=== PATIENT | male | born 1970 | race Caucasian/White ===

== ENCOUNTER 2017-12-08 01:06 | Emergency (ER) | payer MEDICAID, SELFPAY ==
[2017-12-08 01:10] VITALS: BP 157/98; PULSE 92; RESP 16; TEMP 36.4; O2SAT 94; BMI 28.3
--- NOTE | 2017-12-08 01:22 | ED.VISSUMM ---
- ER Visit Summary Date of Service: 12/08/17 Chief Complaint: Alcohol intoxication History of Present Illness: The patient is a 47 M history of alcoholism. Denies any significant past medical history. Patient states he was in [place] he recently took a bus to [place]. States he is homeless. Says he had about 8 beers tonight. And was lying either on the road or on the sidewalk and sleep. He was brought in by squad. He denies any complaints. He denies any injuries. He is not currently under arrest. Physical Examination: Middle-aged male no acute distress. Vital signs are stable and afebrile. H EENT exam pupils round reactive light. No signs of trauma to his face or his head. Smell of alcohol. Neck nontender. Trachea midline. Lungs clear to auscultation bilaterally. Heart regular rhythm no murmur rate about 90. Chest wall nontender. Abdomen soft nontender. Pelvic girdle intact. He is moving all 4 extremities. They appear to be neurovascularly intact. Nontender no deformities. Neurologically he appears intoxicated but is awake alert is answering questions he is acting appropriately. He is neither belligerent nor violent. Back nontender. Patient has no visible injuries. Test Results: None Emergency Department Course and Treatment: Patient will be given a sandwich allowed to sleep here and discharged. Treatment Plan: Discharged to a homeless [facility]. Disposition: Discharge Impression: Acute alcohol intoxication History of alcoholism This note was generated with Leotus dictation software. It may contain incorrect words, spelling, and punctuation that were not noted in review of the chart prior to signing ED Disposition - Plan for ED Patient: Chief Complaint: ETOH Intox Referrals: Care Physician,No Primary [Primary Care Provider] -
--- NOTE | 2017-12-08 01:25 | ED.DCSUM_ITS ---
- ER Visit Summary Date of Service: 12/08/17 Chief Complaint: Alcohol intoxication History of Present Illness: The patient is a 47 M history of alcoholism. Denies any significant past medical history. Patient states he was in [place] he recently took a bus to [place]. States he is homeless. Says he had about 8 beers tonight. And was lying either on the road or on the sidewalk and sleep. He was brought in by squad. He denies any complaints. He denies any injuries. He is not currently under arrest. Physical Examination: Middle-aged male no acute distress. Vital signs are stable and afebrile. H EENT exam pupils round reactive light. No signs of trauma to his face or his head. Smell of alcohol. Neck nontender. Trachea midline. Lungs clear to auscultation bilaterally. Heart regular rhythm no murmur rate about 90. Chest wall nontender. Abdomen soft nontender. Pelvic girdle intact. He is moving all 4 extremities. They appear to be neurovascularly intact. Nontender no deformities. Neurologically he appears intoxicated but is awake alert is answering questions he is acting appropriately. He is neither belligerent nor violent. Back nontender. Patient has no visible injuries. Test Results: None Emergency Department Course and Treatment: Patient will be given a sandwich allowed to sleep here and discharged. Treatment Plan: Discharged to a homeless [facility]. Disposition: Discharge Impression: Acute alcohol intoxication History of alcoholism This note was generated with [employer] dictation software. It may contain incorrect words, spelling, and punctuation that were not noted in review of the chart prior to signing ED Disposition - Plan for ED Patient: Chief Complaint: ETOH Intox Referrals: Care Physician,No Primary [Primary Care Provider] -
--- NOTE | 2017-12-08 01:25 | ED.DEP ---
ED Disposition - Plan for ED Patient: Disposition: Home or Assisted Living Chief Complaint: ETOH Intox Referrals: Trupti Rogers [NON-STAFF] - Additional Instructions: Consider follow-up with either [facility] or [facility] for alcohol detox
== END 2017-12-08 01:43 | disposition home or self-care (01) ==
PROVIDERS: Emergency Provider Emergency Medicine
DX: F10.129 Alcohol abuse with intoxication, unspecified (principal); Y90.9 Presence of alcohol in blood, level not specified; F17.210 Nicotine dependence, cigarettes, uncomplicated
CPT/HCPCS: 99284

== ENCOUNTER 2017-12-20 15:31 | Inpatient (IN) | payer MEDICAID, SELFPAY ==
[2017-12-20] VITALS (12 sets, daily range): BP systolic 129–181; BP diastolic 78–109; PULSE 118–132; RESP 12–50; TEMP 37.6–37.7; O2SAT 93–100; BMI 26.6; BMI 27.9
[2017-12-20] MEDS: chlordiazePOXIDE 25 MG Capsule 50 MG PO ×2 (16:19→18:06)
[2017-12-20] MEDS: Ondansetron 4 MG/2 ML Vial IV (16:19)
[2017-12-20] MEDS: 0.9% Normal Saline 1,000 ML 1000 ML IV ×2 (16:19→18:06)
[2017-12-20] MEDS: Morphine 4 MG/ML Syringe IV (16:19)
[2017-12-20 16:43] LABS: Hematocrit 39.3 % (40-54); Hemoglobin 13.3 g/dl (13.0-16.5); Mean Corp Hgb Conc 33.8 g/gl (32-36); Mean Corpuscular Hgb 30.4 pg (27.0-32.0); Mean Corpuscular Volume 89.7 fL (80-94); Mean Platelet Vol. 10.6 fl (6.2-12.0); Platelet Count 140 K/mm3 (150-450); RBC Distribution Width CV 13.3 % (11.6-14.6); Red Blood Count 4.38 M/mm3 (4.6-6.2); White Blood Count 6.2 K/mm3 (4.4-11.0)
[2017-12-20 16:54] LABS: ALB/GLOB Ratio 0.6 RATIO (0.9-2.4); AST(SGOT) 85 U/L (15-37); Alanine Aminotransfer ALT/SGPT 102 U/L (16-61); Albumin, Serum 2.9 g/dL (3.2-5.0); Alkaline Phosphatase 132 U/L (45-117); Anion Gap 12 (5-15); BUN 10 mg/dL (7-18); BUN/Creat Ratio 8.5 RATIO (10-20); Calcium,Total 8.5 mg/dL (8.5-10.1); Chloride 93 mmol/L (98-107); Creatinine, Serum 1.17 mg/dL (0.70-1.30); EST Glomerular Filtration Rate 71 mL/min (>60); Est Glom Filt Rate - Afr Amer 85 mL/min (>60); Estimated Creatinine Clearance 77.21 ml/min; Glucose 128 mg/dL (74-106); Lipase 50 U/L (73-393); Potassium 3.1 mmol/L (3.5-5.1); Protein, Total 7.9 g/dL (6.4-8.2); Sodium Level 132 mmol/L (136-145)
[2017-12-20 17:11] LABS: Differential Indicated MANUAL DIFF; POSITIVE COUNT YES; POSITIVE DIFFERENTIAL YES; POSITIVE MORPHOLOGY YES
[2017-12-20] MEDS: LORazepam 2 MG/ML Syringe IV (17:17)
[2017-12-20] MEDS: Ketorolac 30 MG/ML Syringe IV (17:17)
[2017-12-20 17:38] LABS: Basophil 1 % (0-1); Lymphocyte 2 % (19-41); Metamyelocyte 32 % (0-1); Monocyte 1 % (0-10); Myelocyte 5 (0-0); Neutrophil-Band 15 % (0-5); Neutrophil-Segmented 44 % (47-70); Total Cells Counted 100 (MANUAL DIFF)
[2017-12-20 17:39] LABS: Polychromasia RARE
[2017-12-20 17:40] LABS: Platelet Morphology LARGE; Toxic Granulation 1+
[2017-12-20] MEDS: LORazepam 2 MG/ML Syringe 1 MG IV (18:26)
[2017-12-20 19:21] LABS: Lactic Acid 3.9 mmol/L (0.4-2.0)
--- NOTE | 2017-12-20 19:22 | ED.RN ---
lab called with critical lab results. Lactic acid 3.9. Dr. Kang made aware. no new orders at this time
[2017-12-20] MEDS: Lidocaine Jelly 2% 20 ML Syringe (URO-JET) 20 APPLIC TOPICAL (19:30)
[2017-12-20] MEDS: 0.9% Normal Saline 1,000 ML 999 ML IV (19:30)
[2017-12-20 19:46] LABS: Bacteria 0 SEEN /hpf (None Seen); Mucous, Urine 0 SEEN /hpf (<or=2+); Red Blood Cells-Urine 0 SEEN /hpf (0-5); Squamous Epithelial Cells - UA 0 SEEN /hpf (0-5)
[2017-12-20 19:47] LABS: Color, Urine Amber (Yellow); Glucose, Dipstick 50 mg/dl (Normal); Ketone-Dipstick 5 mg/dl (Negative); Leukocyte Esterase-Dipstick 25 /ul (Negative); Nitrite-Dipstick Negative (Negative); Occult Blood-Urine 25 /ul (Negative); Protein-Dipstick 100 mg/dl (Negative); Urine Clarity Clear (Clear); Urine Urobilinogen 4 mg/dl (Normal); Urine pH 6.5 (5.0 - 8.0)
[2017-12-20 19:48] LABS: Urine Bilirubin Dipstick 1 mg/dL (Negative)
[2017-12-20 20:20] LABS: Amphetamine Urine VISTA POSITIVE (<1000 ng/mL); Barbiturate Urine VISTA NEGATIVE (< 200 ng/mL); Benzodiazepine Urine VISTA NEGATIVE (< 200 ng/mL); Cocaine Urine VISTA NEGATIVE (< 300 ng/mL); Ecstacy Urine VISTA NEGATIVE (< 500 ng/mL); Methadone Urine VISTA NEGATIVE (< 300 ng/mL); PCP Urine VISTA NEGATIVE (< 25 ng/mL); THC Urine VISTA POSITIVE (< 50 ng/mL); Vista UDS pH Range 6
[2017-12-20 20:28] LABS: White Blood Cells 0-5 SEEN /hpf (0-5)
[2017-12-20 20:29] LABS: Renal Epithelial Cells 0-5 SEEN /hpf (0-5)
[2017-12-20] MEDS: Azithromycin 250 MG Tablet 500 MG PO (20:51)
[2017-12-20] MEDS: Ipratropium/Albuterol Sulfate 3 ML AMPUL.NEB INHALATION (21:00)
--- NOTE | 2017-12-20 21:07 | ED.RN ---
NO OLD EKGS IN MUSE
--- NOTE | 2017-12-20 21:21 | NURSING ---
Talked to Aubrey in ED. Pt. ok to come to ICU when ED is able to bring pt.
[2017-12-20 21:36] LABS: Allen Test POS; Base Excess 1 mmol/L (-2 to +2); Bicarbonate 25.5 mmol/L (22-26); Blood Gas Specimen Type ART; O2 Delivery Device Nasal Can; PO2 66 mmHG (75-100); SITE L Radial; SO2 93 % (95-99); Time Given 2120; Total Carbon Dioxide 27 mmol/L; pCO2 42.1 mmHg (35-45); pH 7.39 (7.35-7.45)
[2017-12-20 21:50] LABS: CPK Total, Creatine Kinase 110 U/L (39-308)
[2017-12-20 21:54] LABS: Probe Check PASS
[2017-12-20 21:55] LABS: M R Staph aureus DNA By PCR POSITIVE (Negative)
[2017-12-20] MEDS: Albuterol 2.5 MG/3 ML VIAL.NEB. INHALATION (21:55)
--- NOTE | 2017-12-20 22:23 | PCM.HP.STD ---
Problem List (1) Acute hypoxic respiratory failure Status: Acute (2) Polysubstance (including opioids) dependence, daily use Status: Acute (3) Methamphetamine abuse Status: Acute (4) Severe sepsis Status: Acute (5) Bilateral community acquired pneumonia Status: Acute History of Present Illness Date of Admission: 12/20/17 Chief Complaint: Complain of back pain and left leg numbness and pain for 2 days The patient is a 47 year old M with history of chronic alcohol use and substance use and dependence, homeless was brought in by EMS for complaint of back pain, left leg numbness and pain for last 2 days. Patient woke up 2 days ago with this complaint is not able to walk. Patient drinks heavily about 48 ounces beer daily, Initial ED vitals shows tachycardia 118/min, pulse ox 93% on room air respiratory 18, temperature 99.6 When I saw the patient, patient was very short of breath, respiratory rate 44/min, pulse ox 94% 3 L, heart rate 130s per minute. Patient is very obtunded and sleepy and cannot provide history but vaguely said he does not have chronic pulmonary, cardiac or significant past medical history but patient is homeless and does not have caregiver/elective. ED vitals shows bandemia, 15%, 32% metamyelocyte 5% myelocyte with toxic granules present and mild thrombocytopenia, platelet count 140,000. Lactic acid 3.9, ALT AST mildly elevated, K3.1, bicarb 27, anion gap 12. Chest x-ray shows patchy airspace opacity bilaterally. CT abdomen was done without IV contrast and shows patchy airspace opacities scattered in both lung bases which are read as nonspecific with infectious/neoplastic differential. No pleural effusion. There are mild disc herniations at T12-L1 and L1-L2, disc bulge at L3-L4 with narrowing the spinal canal. Past Medical History Allergies No Known Allergies Allergy (Verified 12/20/17 15:35) Home Medications: Ambulatory Orders Medication Instructions Recorded NK [NK] 12/08/17 Smoking Status: Current every day smoker Review of Systems Unable to obtain accurate/complete ROS d/t: Patient is obtunded, disoriented and sleepy VTE Information - Inpt Only VTE Present on Admission: No VTE Mechan Device Prophylaxis: SCD's VTE Pharm Prophylaxis ordered?: Yes Patient Problems: Active and Suspected Problems Acute hypoxic respiratory failure (Acute) Polysubstance (including opioids) dependence, daily use (Acute) Methamphetamine abuse (Acute) Severe sepsis (Acute) Bilateral community acquired pneumonia (Acute) - Physical Exam General: Confused, Disoriented, Lethargic, Non-Cooperative HEENT: Atraumatic, PERRLA, EOMI, Normocephalic Oral: Dry Mucosa Neck: Supple, No JVD, Negative Carotid Bruits Lungs: Diminished - In bilateral lung bases, Rhonchi, Short of Breath, Tachypneic, Using Accessory Muscles Cardiovascular: Regular Rhythm, Normal S1, Normal S2, No murmurs, Tachycardic Abdomen: Bowel Sounds Present, Soft, Non Tender Extremities: No edema, Capillary Refill Less than 3 Seconds Skin: No rashes, No breakdown Musculoskeletal: No Tenderness to Palpation of Joints or Extremities Neurological: Cranial nerves II-XII grossly intact, - - Detail neuro exam not possible as patient is obtunded Psych/Mental Status: Agitated, Restless Vital Signs Temp Pulse Resp BP Pulse Ox 99.6 F H 122 H 43 H 181/109 H 96 12/20/17 15:32 12/20/17 20:51 12/20/17 20:51 12/20/17 20:51 12/20/17 20:51 Oxygen Flow Rate (L/min) 3 Oxygen Delivery Method Nasal Cannula Laboratory Tests Past 24 Hrs 12/20/17 20:50 HIV 1&2 Antibody Pending Assessment/Plan All Active Problems Acute hypoxic respiratory failure (Acute) Polysubstance (including opioids) dependence, daily use (Acute) Methamphetamine abuse (Acute) Severe sepsis (Acute) Bilateral community acquired pneumonia (Acute) The patient is a 47 year old M with history of chronic alcohol use and substance use and dependence, homeless was brought in by EMS for complaint of back pain, left leg numbness and pain for last 2 days. Patient woke up 2 days ago with this complaint is not able to walk. Patient drinks heavily about 48 ounces beer daily, Initial ED vitals shows tachycardia 118/min, pulse ox 93% on room air respiratory 18, temperature 99.6 When I saw the patient, patient was very short of breath, respiratory rate 44/min, pulse ox 94% 3 L, heart rate 130s per minute. Patient is very obtunded and sleepy and cannot provide history but vaguely said he does not have chronic pulmonary, cardiac or significant past medical history but patient is homeless and does not have caregiver/elective. ED vitals shows bandemia, 15%, 32% metamyelocyte 5% myelocyte with toxic granules present and mild thrombocytopenia, platelet count 140,000. Lactic acid 3.9, ALT AST mildly elevated, K3.1, bicarb 27, anion gap 12. Chest x-ray shows patchy airspace opacity bilaterally. CT abdomen was done without IV contrast and shows patchy airspace opacities scattered in both lung bases which are read as nonspecific with infectious/neoplastic differential. No pleural effusion. There are mild disc herniations at T12-L1 and L1-L2, disc bulge at L3-L4 with narrowing the spinal canal. 1. Acute hypoxic respiratory failure, most probably secondary to multifocal/multilobar nodular/infectious pneumonitis/septic right upper and lower lobes emboli: Patient is being admitted in ICU. CT angiogram reported as diffuse patchy airspace opacities, likely diffuse infectious process. Septic emboli cannot be excluded. Distal pulmonary emboli cannot be excluded especially in right upper and lower lobes. No pleural effusion. Started on Lovenox 1 mg/kg body weight. Monitor CBC. Lower extremity venous Doppler ordered. 2. Bilateral lower lobes community-acquired pneumonia: With history of drug use and alcohol there is suspicion of possible HIV or other infectious process. ER physician discussed with Dr. Holloway and advised HIV test. Started on IV Zosyn and Zithromax to cover broad-spectrum antibiotics. MRSA nasal screen, blood culture ?2, sputum culture, urine culture. Further recommendation as per scrum master. 3. Acute encephalopathy most probably secondary to substance use/drug use suggestive of toxic/metabolic encephalopathy: CT head does not show acute abnormality 4 Chronic alcohol use and dependence: GGT ordered. Alcohol level is normal. Liver profile shows elevated transaminases. Multivitamin, folic acid and B12 supplement. IV fluid normal saline. Check folic acid, B12 level and thiamine level 5. Polysubstance use and dependence including methamphetamine and opioids: [facility] consult. system manager consult patient is homeless and other social needs. 6. Back pain, sciatic in nature with left leg numbness, secondary to mild lumbar disc degenerative disease/mechanical in nature: PT and OT assessment. DVT prophylaxis: Therapeutic Lovenox dose. Watch CBC. Code Visit Inpatient E&M: 38424 Init Hosp L3
[2017-12-20 22:33] LABS: Reflex Lactate? Y
[2017-12-20 22:50] LABS: HIV - WCH Non-Reactive (Nonreactive)
[2017-12-20] MEDS: 0.9% Normal Saline 1,000 ML 150 ML IV (23:17)
[2017-12-20] MEDS: guaiFENesin 1,200 MG Tablet 1200 MG PO (23:18)
[2017-12-20] MEDS: Enoxaparin 80 MG/0.8 ML Syringe SC (23:39)
[2017-12-21] VITALS (36 sets, daily range): BP systolic 91–165; BP diastolic 65–108; PULSE 119–137; RESP 12–46; TEMP 37.2–37.8; O2SAT 90–100
--- NOTE | 2017-12-21 00:05 | ED.VISSUMM ---
- ER Visit Summary Date of Service: 12/21/17 Chief Complaint: Back pain History of Present Illness: The patient is a 47 M with no primary care physician. Patient reports that he is homeless and has been sleeping on the concrete. He reports that he has low back pain that began yesterday. Restarted back of his leg to the mid calf. Patient states pain is sharp and 10 out of 10 severity. Is worsened by nothing. Is relieved by remaining still and laying on his right side. Reports he has tingling in his left foot on and off. He denies any problems with his bowels or his bladder. No groin numbness. He denies any trauma. No fall, MVA, or change in activity. Patient reports that he does drink daily and he estimates 48 ounces of beer per day. His last drink was at 9 PM yesterday. Review of systems: General: No fever, chills, cold sweats. Cardiovascular: No chest pain, palpitations. Respiratory: No cough, shortness of breath, dyspnea on exertion. Gastrointestinal: No abdominal pain, nausea, vomiting, diarrhea, melena, or hematochezia. Genitourinary: No dysuria, frequency, hematuria. Skin: No rash. Physical Examination: Vitals: 99.6, 158/78, 118, 24, 94% room air which is not hypoxic. General: Well-nourished and well-developed. Patient is diaphoretic and ill-appearing. He is agitated in bed and writhing about. Head: Normocephalic atraumatic. Neck: Supple, no lymphadenopathy. No JVD. Nontender. Cardiovascular: Tachycardic regular rhythm. No murmurs. Respiratory: No respiratory distress. Clear to auscultation bilaterally. Poor air movement. Abdominal: Soft, nontender, nondistended, normal bowel sounds. No guarding, rebound, or peritoneal signs. Back: Moderate diffuse pain and tenderness palpation over the lumbar spine and paraspinous muscular and lumbar region bilaterally. He has a negative straight leg raise bilaterally. His 5 out of 5 dorsiflexion, plantar flexion, extensor hallucis longus bilaterally. He has normal sensation light touch throughout. Is a 2+ dorsalis pedis pulse bilaterally.. Extremities: Nontender, no edema. Skin: Normal color, no rash. Neurologic: Alert and oriented ?3. Cranial nerves II through XII are intact. Normal strength and sensation. Psych: Normal affect. Test Results: EKG is sinus tach [address] changes. Troponin 0 0.091. CPK is normal. UA is negative. LFTs marked for an ALT of 102, AST of 85, alk phos 152. Lipase is normal. Chem-7 is more for sodium 132, potassium 3.1, chloride 93, glucose 128. CBC is marked for an 8 hematocrit of 39.3, platelets 140, bands of 32, metamyelocytes of 32, myelocytes of 5. He does have toxic granulations of 1+. Alcohol is negative. Lactic acid is 3.9. PH is 7.39 with a CO2 of 42.1 and bicarbonate 25.5. Clinical Impression(s) from Imaging Studies Chest X-Ray 12/20/17 18:00 IMPRESSION: Patchy airspace opacities bilaterally which is likely infectious in etiology. Electronically Signed: Khadar Reardon, at 19:16 EDT Tel , Service support , Abdomen/Pelvis CT 12/20/17 18:10 IMPRESSION: There are degenerative changes in the visualized spine. There are disc herniations at T12-L1 and L1-2 with narrowing of the spinal canal. There is disc bulge and possible herniation at L3-4. There is diffuse fatty infiltration of the liver. There is mild splenomegaly. There is no ascites. There are no acute bowel abnormalities. There is no free air. There are small lymph nodes in the retroperitoneum. There is stranding around the distal aorta and iliac vessels. There is also stranding in the prevascular space. This can be seen with retroperitoneal fibrosis but is nonspecific. There are patchy airspace opacities scattered in both lung bases which are nonspecific and can be seen with a diffuse infectious process. A neoplastic process is also in the differential. There is no pleural effusion. The images are limited by motion artifact. Electronically Signed: Celena Ziegler MD at 20:09 EDT Tel Direct: [phone], Service support , Chest CTA 12/20/17 21:08 IMPRESSION: Distal pulmonary emboli cannot be excluded, especially in the right upper and lower lobes. The images are limited by motion artifact. There are patchy airspace opacities scattered throughout both lungs, likely a diffuse infectious process. Septic emboli cannot be excluded. A neoplastic process cannot be completely excluded but is less likely. There is no pleural effusion or significant lymphadenopathy. N.B. : The above information has been verbally conveyed by Celena Ziegler MD to Tatiana Arizmendi, Hospital- In-Patient RN, on 12/20/2017 22:48:42 (ET). Electronically Signed: Celena Ziegler MD at 22:33 EDT Tel Direct: [phone], Service support , Brain CT 12/20/17 21:32 IMPRESSION: No acute intracranial abnormality. Electronically Signed: Khadar Reardon, at 22:07 EDT Tel , Service support , Emergency Department Course and Treatment: I suspect the patient is an alcohol withdrawal. He was seen by [facility] and they agree. He was given Ativan IV and Librium p.o. He was given Toradol, morphine, and Zofran IV. He was given 3 L of normal saline which is greater than 30 cc/kg bolus. He is also given Zosyn IV and Zithromax IV. He was given albuterol and Atrovent aerosols. He was placed on BiPAP. Treatment Plan: The patient appears very ill. He was discussed with Dr. Davis and Dr. Holloway. He will be admitted to the ICU for further evaluation and treatment. Disposition: Admitted in critical condition. Impression: 1. Pneumonia, community-acquired. 2. Severe sepsis. 3. Alcohol withdrawal. 4. Back pain. 5. Critical care time 30 minutes. This note was generated with [employer]on[employer] software. It may contain incorrect words, spelling, and punctuation that were not noted in review of the chart prior to signing ED Disposition - Plan for ED Patient: Disposition: Acute Care Hospital [facility] Chief Complaint: Back
[2017-12-21 00:08] LABS: LDH 291 U/L (87-241)
--- NOTE | 2017-12-21 00:09 | ED.DCSUM_ITS ---
- ER Visit Summary Date of Service: 12/21/17 Chief Complaint: Back pain History of Present Illness: The patient is a 47 M with no primary care physician. Patient reports that he is homeless and has been sleeping on the concrete. He reports that he has low back pain that began yesterday. Restarted back of his leg to the mid calf. Patient states pain is sharp and 10 out of 10 severity. Is worsened by nothing. Is relieved by remaining still and laying on his right side. Reports he has tingling in his left foot on and off. He denies any problems with his bowels or his bladder. No groin numbness. He denies any trauma. No fall, MVA, or change in activity. Patient reports that he does drink daily and he estimates 48 ounces of beer per day. His last drink was at 9 PM yesterday. Review of systems: General: No fever, chills, cold sweats. Cardiovascular: No chest pain, palpitations. Respiratory: No cough, shortness of breath, dyspnea on exertion. Gastrointestinal: No abdominal pain, nausea, vomiting, diarrhea, melena, or hematochezia. Genitourinary: No dysuria, frequency, hematuria. Skin: No rash. Physical Examination: Vitals: 99.6, 158/78, 118, 24, 94% room air which is not hypoxic. General: Well-nourished and well-developed. Patient is diaphoretic and ill- appearing. He is agitated in bed and writhing about. Head: Normocephalic atraumatic. Neck: Supple, no lymphadenopathy. No JVD. Nontender. Cardiovascular: Tachycardic regular rhythm. No murmurs. Respiratory: No respiratory distress. Clear to auscultation bilaterally. Poor air movement. Abdominal: Soft, nontender, nondistended, normal bowel sounds. No guarding, rebound, or peritoneal signs. Back: Moderate diffuse pain and tenderness palpation over the lumbar spine and paraspinous muscular and lumbar region bilaterally. He has a negative straight leg raise bilaterally. His 5 out of 5 dorsiflexion, plantar flexion, extensor hallucis longus bilaterally. He has normal sensation light touch throughout. Is a 2+ dorsalis pedis pulse bilaterally.. Extremities: Nontender, no edema. Skin: Normal color, no rash. Neurologic: Alert and oriented ?3. Cranial nerves II through XII are intact. Normal strength and sensation. Psych: Normal affect. Test Results: EKG is sinus tach [address] changes. Troponin 0 0.091. CPK is normal. UA is negative. LFTs marked for an ALT of 102, AST of 85, alk phos 152. Lipase is normal. Chem-7 is more for sodium 132, potassium 3.1, chloride 93, glucose 128. CBC is marked for an 8 hematocrit of 39.3, platelets 140, bands of 32, metamyelocytes of 32, myelocytes of 5. He does have toxic granulations of 1+. Alcohol is negative. Lactic acid is 3.9. PH is 7.39 with a CO2 of 42.1 and bicarbonate 25.5. Clinical Impression(s) from Imaging Studies Chest X-Ray 12/20/17 18:00 IMPRESSION: Patchy airspace opacities bilaterally which is likely infectious in etiology. Electronically Signed: Khadar Reardon, at 19:16 EDT Tel , Service support , Abdomen/Pelvis CT 12/20/17 18:10 IMPRESSION: There are degenerative changes in the visualized spine. There are disc herniations at T12-L1 and L1-2 with narrowing of the spinal canal. There is disc bulge and possible herniation at L3-4. There is diffuse fatty infiltration of the liver. There is mild splenomegaly. There is no ascites. There are no acute bowel abnormalities. There is no free air. There are small lymph nodes in the retroperitoneum. There is stranding around the distal aorta and iliac vessels. There is also stranding in the prevascular space. This can be seen with retroperitoneal fibrosis but is nonspecific. There are patchy airspace opacities scattered in both lung bases which are nonspecific and can be seen with a diffuse infectious process. A neoplastic process is also in the differential. There is no pleural effusion. The images are limited by motion artifact. Electronically Signed: Celena Ziegler MD at 20:09 EDT Tel Direct: [phone], Service support , Chest CTA 12/20/17 21:08 IMPRESSION: Distal pulmonary emboli cannot be excluded, especially in the right upper and lower lobes. The images are limited by motion artifact. There are patchy airspace opacities scattered throughout both lungs, likely a diffuse infectious process. Septic emboli cannot be excluded. A neoplastic process cannot be completely excluded but is less likely. There is no pleural effusion or significant lymphadenopathy. N.B. : The above information has been verbally conveyed by Celena Ziegler MD to Tatiana Arizmendi, Hospital- In-Patient RN, on 12/20/2017 22:48:42 (ET). Electronically Signed: Celena Ziegler MD at 22:33 EDT Tel Direct: [phone], Service support , Brain CT 12/20/17 21:32 IMPRESSION: No acute intracranial abnormality. Electronically Signed: Khadar Reardon, at 22:07 EDT Tel , Service support , Emergency Department Course and Treatment: I suspect the patient is an alcohol withdrawal. He was seen by [facility] and they agree. He was given Ativan IV and Librium p.o. He was given Toradol, morphine, and Zofran IV. He was given 3 L of normal saline which is greater than 30 cc/kg bolus. He is also given Zosyn IV and Zithromax IV. He was given albuterol and Atrovent aerosols. He was placed on BiPAP. Treatment Plan: The patient appears very ill. He was discussed with Dr. Davis and Dr. Holloway. He will be admitted to the ICU for further evaluation and treatment. Disposition: Admitted in critical condition. Impression: 1. Pneumonia, community-acquired. 2. Severe sepsis. 3. Alcohol withdrawal. 4. Back pain. 5. Critical care time 30 minutes. This note was generated with [employer] software. It may contain incorrect words, spelling, and punctuation that were not noted in review of the chart prior to signing ED Disposition - Plan for ED Patient: Disposition: Acute Care Hospital [facility] Chief Complaint: Back
[2017-12-21 00:12] LABS: Lactic Acid 3.6 mmol/L (0.4-2.0)
[2017-12-21] MEDS: oxyCODONE 5 MG Tablet PO ×3 (00:39→09:39)
[2017-12-21] MEDS: 0.9% Normal Saline 1,000 ML 999 ML IV (00:39)
[2017-12-21 01:46] LABS: Absolute Lymphocyte Count 0.12 X10^3/ul (0.83-4.51); Absolute Neutrophil Count 3.7 X10^3/uL (2.0-7.7); Lymphocyte # 0.12 X10^3/ul (4.0); Neutrophil # 3.66 X10^3/uL (2.7-7.7)
[2017-12-21] MEDS: CHLORHEXIDINE GLUC 2% CLOTH 1 EACH TOWELETTE TOPICAL (02:04)
[2017-12-21] MEDS: 0.9% Normal Saline 1,000 ML 150 ML IV ×3 (02:04→18:07)
[2017-12-21] MEDS: Piperacil/Tazobactam 3.375 GM/50 ML ML IV ×3 (05:15→21:04)
[2017-12-21 05:21] LABS: Hematocrit 37.8 % (40-54); Hemoglobin 12.6 g/dl (13.0-16.5); Mean Corp Hgb Conc 33.3 g/gl (32-36); Mean Corpuscular Hgb 30.6 pg (27.0-32.0); Mean Corpuscular Volume 91.7 fL (80-94); Mean Platelet Vol. 10.5 fl (6.2-12.0); Platelet Count 121 K/mm3 (150-450); RBC Distribution Width CV 13.4 % (11.6-14.6); RBC Distribution Width SD 44.4 fl (35.1-43.9); Red Blood Count 4.12 M/mm3 (4.6-6.2); Scan Indicated on CBC? Y/N NO; White Blood Count 4.7 K/mm3 (4.4-11.0)
[2017-12-21 05:46] LABS: AST(SGOT) 59 U/L (15-37); Alanine Aminotransfer ALT/SGPT 75 U/L (16-61); Albumin, Serum 2.3 g/dL (3.2-5.0); Alkaline Phosphatase 83 U/L (45-117); Anion Gap 13 (5-15); BUN 13 mg/dL (7-18); Bilirubin, Direct 0.31 mg/dL (0.00-0.30); Calcium,Total 7.2 mg/dL (8.5-10.1); Chloride 98 mmol/L (98-107); Creatinine, Serum 1.08 mg/dL (0.70-1.30); EST Glomerular Filtration Rate 77 mL/min (>60); Est Glom Filt Rate - Afr Amer 94 mL/min (>60); Estimated Creatinine Clearance 83.65 ml/min; Globulin 4.3 g/dL (2.2-4.2); Glucose 135 mg/dL (74-106); Potassium 3.5 mmol/L (3.5-5.1); Protein, Total 6.6 g/dL (6.4-8.2); Sodium Level 135 mmol/L (136-145)
[2017-12-21 06:00] LABS: Lactic Acid 4.5 mmol/L (0.4-2.0)
--- NOTE | 2017-12-21 06:41 | PCM.RX.CS ---
Consult Pharmacy has been consulted to manage selected antiobiotic: Vancomycin Type of Consult: New start Suspected Infection: Sepsis Prior Doses of Antibiotics Received/Current Regimen: Medications Vancomycin HCl 1,500 mg/ (Sodium Chloride) 530 mls @ 250 mls/hr IV Q12H DEONDRE Vancomycin HCl 1,250 mg/ (Sodium Chloride) 275 mls @ 167 mls/hr IV X1 ONE Stop: 12/21/17 07:38 Last Admin: 12/21/17 06:28 Dose: 167 mls/hr Labs: Sodium 135 mmol/L (136-145) L 12/21/17 05:10 Potassium 3.5 mmol/L (3.5-5.1) 12/21/17 05:10 Chloride 98 mmol/L (98-107) 12/21/17 05:10 Carbon Dioxide 24.0 mmol/L (21.0-32.0) 12/21/17 05:10 Anion Gap 13 (5-15) 12/21/17 05:10 BUN 13 mg/dL (7-18) 12/21/17 05:10 Creatinine 1.08 mg/dL (0.70-1.30) 12/21/17 05:10 Est GFR (MDRD) Af Amer 94 mL/min (>60) 12/21/17 05:10 Est GFR (MDRD) Non-Af 77 mL/min (>60) 12/21/17 05:10 BUN/Creatinine Ratio 12.0 RATIO (10-20) 12/21/17 05:10 Glucose 135 mg/dL (74-106) H 12/21/17 05:10 Weight used for dosin kg Estimated Creatinine Clearance: 84 Goal Trough: 15-20 mcg/mL Pharmacy Plan for Drug Dosing: Pharmacy Service will continue to monitor and adjust dosing as required. Follow-Up Labs: Trough Vancomycin Labs to be done on [date and time ordered]: 12/22/17 @1800
--- NOTE | 2017-12-21 07:59 | PCM.PN.HOSP ---
Patient Problems: Active and Suspected Problems Acute hypoxic respiratory failure (Acute) Polysubstance (including opioids) dependence, daily use (Acute) Methamphetamine abuse (Acute) Severe sepsis (Acute) Bilateral community acquired pneumonia (Acute) Subjective: Back pain. Shortness of breath. Pain with deep respirations. States last injection drug usage was 1 year ago. Denied any other illicit drug usage to me (though did endorse use of methamphetamines and marijuana to RN. Vitals/I&O's: Vital Signs Temp Pulse Resp BP Pulse Ox 37.2 C 130 H 39 H 97/84 H 96 12/21/17 04:00 12/21/17 07:53 12/21/17 07:00 12/21/17 07:00 12/21/17 07:00 Oxygen Flow Rate (L/min) 3 Oxygen Delivery Method Nasal Cannula Weight: 88 kg Body Mass Index (BMI) 27.9 Intake and Output for Last 24 Hours 12/19/17 12/20/17 12/21/17 23:59 23:59 23:59 Intake Total 693.8 / 693.8 3151 / 3151 Output Total 525 / 525 300 / 300 Balance 168.8 / 168.8 2851 / 2851 General: - - anxious, uncomfortable, appear much older than stated age. HEENT: Atraumatic, Normocephalic, - - no conjuncitival hemorrhages Oral: Moist Mucosa, No Gingival or Mucosal Lesions/ Ulcerations Neck: No Nodes, Thyroid Normal Size and Texture Lungs: Diminished, - - limited air mvmt due to reluctance to take in deep respirations. coarse breath sounds. Cardiovascular: Regular rate, Regular Rhythm, Normal S1, Normal S2, No murmurs Abdomen: Bowel Sounds Present, Soft, Non Tender, Non-Distended, No Hepato-splenomegaly Extremities: No edema, No Calf Tenderness, - - no splinter hemorrhages Skin: No rashes, No breakdown, - - no janeway lesions Musculoskeletal: No Tenderness to Palpation of Joints or Extremities, No Muscle Wasting Neurological: Muscle tone normal, - - no clonus. Psych/Mental Status: Agitated, Anxious Laboratory Results 12/20/17 20:50: HIV 1&2 Antibody Non-Reactive 12/20/17 21:28: Specimen Type ART, Sample Site L Radial, pH 7.39, Bicarbonate Actual 25.5, POC Total CO2 27, Base Excess 1, O2 Saturation 93 L, ABG pCO2 42.1, ABG pO2 66 L, Jeremie Test POS, O2 Delivery Device Nasal Can, Liter Flow 3.0, Blood Gas Notified Whom ED , Blood Gas Notified Time 211912/20/17 23:00: Lactate Dehydrogenase 291 H 12/20/17 23:20: Lactic Acid 3.6 H 12/20/17 23:20: Troponin I 0.249 H 12/21/17 02:20: Troponin I 0.353 H 12/21/17 05:10: WBC 4.7, RBC 4.12 L, Hgb 12.6 L, Hct 37.8 L, MCV 91.7, MCH 30.6, MCHC 33.3, RDW 13.4, RDW Differential 44.4 H, Plt Count 121 L, MPV 10.5 12/21/17 05:10: Sodium 135 L, Potassium 3.5, Chloride 98, Carbon Dioxide 24.0, Anion Gap 13, BUN 13, Creatinine 1.08, Estim Creat Clear Calc 83.65, Est GFR (MDRD) Af Amer 94, Est GFR (MDRD) Non-Af 77, BUN/Creatinine Ratio 12.0, Glucose 135 H, Calcium 7.2 L, Total Bilirubin 0.50, Direct Bilirubin 0.31 H, AST 59 H, ALT 75 H, Alkaline Phosphatase 83, Total Protein 6.6, Albumin 2.3 L, Globulin 4.3 H 12/21/17 05:10: Troponin I 0.399 H 12/21/17 05:10: Lactic Acid 4.5 H* 12/21/17 06:25: Hepatitis A IgM Ab Pending, Hep Bs Antigen Pending, Hep B Core IgM Ab Pending, Hepatitis C Ab (EIA) Pending 12/21/17 06:50: D-Dimer Quant (PE/DVT) Pending Current Medications Acetaminophen (Tylenol) 650 mg PO Q4H PRN PRN PRN Reason: FEVER Acetaminophen (Tylenol) 650 mg PO Q4H PRN PRN PRN Reason: Mild-Moderate Pain/Headache Chlordiazepoxide (Librium) 20 mg PO TID PRN PRN PRN Reason: Alcohol Withdrawal Last Admin: 12/21/17 06:47 Dose: 20 mg Chlorhexidine Gluconate () 1 each TOPICAL DAILY DEONDRE Last Admin: 12/21/17 02:04 Dose: 1 each Enoxaparin Sodium (Lovenox) 80 mg SC BID [facility] Last Admin: 12/20/17 23:39 Dose: 80 mg Guaifenesin (Mucinex) 1,200 mg PO BID [facility] Last Admin: 12/20/17 23:18 Dose: 1,200 mg Sodium Chloride () 1,000 mls @ 150 mls/hr IV .Q6H40M [facility] Last Admin: 12/21/17 02:04 Dose: 150 mls/hr Azithromycin 500 mg/ Dextrose 255 mls @ 250 mls/hr IV Q24 [facility] Stop: 12/23/17 11:02 Piperacillin Sod/Tazobactam Sod (Zosyn) 3.375 gm in 50 mls @ 12.5 mls/hr IV Q8 [facility] Last Admin: 12/21/17 05:15 Dose: 12.5 mls/hr Sodium Chloride () 250 mls @ 15 mls/hr IV .[id number] PRN PRN Reason: SALINE FLUSH Vancomycin IV Pharmacy to Dose (1 ea/ Sodium Chloride) 500 mls @ 250 mls/hr IV X1 PRN; Protocol PRN Reason: Rx to Dose Vancomycin HCl 1,500 mg/ (Sodium Chloride) 530 mls @ 250 mls/hr IV Q12H [facility] Magnesium Hydroxide (Milk Of Magnesia) 30 ml PO DAILY PRN PRN PRN Reason: Constipation Metoprolol Tartrate (Lopressor (Beta Ruba)) 12.5 mg PO BID [facility] Nicotine (Nicoderm Cq (Pbkc)) 21 mg TRANSDERM. DAILY [facility] Nutritional Formula (Lactose Free) (Ensure Enlive) 120 ml PO 4X/DAY [facility] Ondansetron HCl (Zofran) 4 mg IV Q6H PRN PRN PRN Reason: NAUSEA Oxycodone HCl (Oxyir) 5 mg PO Q4H PRN PRN PRN Reason: SEVERE PAIN (6-10/10) Last Admin: 12/21/17 04:47 Dose: 5 mg Sodium Chloride () 5 - 30 ml IV UD PRN PRN Reason: SALINE FLUSH Medical Necessity - Tobacco Use Smoking Status: Current every day smoker Assessment/Plan All Active Problems Acute hypoxic respiratory failure (Acute) Polysubstance (including opioids) dependence, daily use (Acute) Methamphetamine abuse (Acute) Severe sepsis (Acute) Bilateral community acquired pneumonia (Acute) 1. Septic shock due to possible pneumonia v septic emboli (a lot of artifact on CT) on broad spectrum abx w zosyn and vanc UA, strep and legionella antigens negative Blood cultures pending patient appears to have received 3 liters of fluid (that is documented so far) continue w IVF follow up lactates pt states that he has not injected IV drugs in a year. Drug screen positive for opiates (but did received morphine prior to this), amphetamines and cannabinoids 2. presumed pneumonia v septic emboli strep and legionella antigens negative continue w broad spectrum abx 3. Possible pulmonary emboli poor CTA, due to motion artifact septic v thromboembolic check echo D-dimer ordered and will be elevated (does not necessarily indicate VTE, however) duplex ordered on lovenox 4. Possible alcohol withdrawal alcohol consumption reports from 48 oz to 12 pack/day on PRN librium. add thiamine and folate difficult tease out alcohol withdrawal from septic shock picture. May also be component of opiate withdrawal, too; but would hold off on subutex at this time. 5. NSTEMI may be type 2 or even endocarditis on lovenox cardiology consult start ASA 6. DVT proph: anticoagulated Code Visit Inpatient E&M: 43093 Subs Hosp L3
--- NOTE | 2017-12-21 08:45 | PCM.CON.CC ---
Problem List (1) Alcohol withdrawal Status: Acute Qualifiers: Complication of substance-induced condition: uncomplicated Qualified Code(s): F10.230 - Alcohol dependence with withdrawal, uncomplicated (2) Polysubstance (including opioids) dependence, daily use Status: Acute (3) Methamphetamine abuse Status: Acute (4) Severe sepsis Status: Acute (5) Bilateral community acquired pneumonia Status: Acute Reason for Consult Date of Consultation: 12/21/17 Reason for Consultation: Severe sepsis History of Present Illness: The patient is a 47 year old M, with past medical history listed below, who presented to [facility] on 12/20/2017 secondary to left leg numbness and pain for 2 days. Patient is currently homeless and had reportedly fallen asleep on the pavement on his left side. Patient states that after waking up he was unable to walk and had significant pain in the left leg. On arrival to the emergency room, patient was noted to be tachycardic and saturating 93% on room air. Patient did have an elevated temperature. Patient was also noted to be breathing approximately 40 times per minute. Initial workup in the emergency department showed significant bandemia with elevated lactic acid and decreased potassium. Patient had a CT scan of the chest done showing scattered bilateral alveolar infiltrates. No significant pleural effusions were noted. While in the ER, patient did receive significant amount of Librium, saline boluses, Zosyn and Zithromax therapy. Patient was initially placed on BiPAP therapy, but was unable to tolerate. Patient was transferred to the intensive care unit. Patient has remained tachycardic and tremulous. Patient is not reporting any audio or visual hallucinations. Patient does admit to drinking 3-4 tall boys on a daily basis. Patient does endorse IV drug use approximately 1 year ago. Patient did test positive for amphetamines and THC on tox screen. Patient is unable to provide much more history outside of chronic pain issues. Patient is a very poor historian and unable to provide much more information about his health status prior to presentation to the ER. Review of systems otherwise negative ?10 systems, but patient is not very open to discussion at this time. Past Medical History Allergies No Known Allergies Allergy (Verified 12/20/17 15:35) Home Medications: Ambulatory Orders Medication Instructions Recorded NK [NK] 12/08/17 Surgical History: no surgical history Psychiatric History: - - None reported Smoking Status: Current every day smoker Alcohol: Heavy - *Family History Maternal History Items: Unknown Review of Systems Unable to obtain accurate/complete ROS d/t: Limited cooperation Patient Problems: Active and Suspected Problems Acute hypoxic respiratory failure (Acute) Polysubstance (including opioids) dependence, daily use (Acute) Methamphetamine abuse (Acute) Severe sepsis (Acute) Bilateral community acquired pneumonia (Acute) Alcohol withdrawal (Acute) Objective: CT scan of the chest was personally reviewed and was discussed in HPI. Clinical suspicion for embolic infectious etiology. CT scan of the head was okay at that time. - Physical Exam General: Alert, Cooperative - Intermittently, - - Appears older than stated age. Disheveled HEENT: Atraumatic, PERRLA, EOMI, Normocephalic, - - Scleral injection without icterus Oral: No Gingival or Mucosal Lesions/ Ulcerations, Dry Mucosa, - - Poor dentition Neck: Supple, No JVD, No Nodes, Trachea Midline Lungs: No rales, Diminished, Rhonchi - Scattered, Wheezes - Sporadic, - - Symmetric expansion. Cardiovascular: Normal S1, Normal S2, No murmurs, No rub noted, No Gallop, Tachycardic, - - Sinus tachycardia noted on telemetry Abdomen: Bowel Sounds Present, Soft, Non Tender, Non-Distended Extremities: No clubbing, No cyanosis, No edema, Capillary Refill Less than 3 Seconds Skin: No rashes, No breakdown Musculoskeletal: No Tenderness to Palpation of Joints or Extremities Lymphatic: No Cervical, Supraclavicular, or Inguinal Adenopathy Neurological: Cranial nerves II-XII grossly intact, Motor Exam 5/5 strength throughout, - - Slightly decreased sensation of the left lower extremity. Psych/Mental Status: Agitated, Anxious, Restless Vital Signs Temp Pulse Resp BP Pulse Ox 37.2 C 131 H 42 H 131/80 H 90 12/21/17 04:00 12/21/17 08:00 12/21/17 08:00 12/21/17 08:00 12/21/17 08:39 Oxygen Flow Rate (L/min) 3 Oxygen Delivery Method Nasal Cannula Weight: 88 kg Body Mass Index (BMI) 27.9 Intake and Output for Last 24 Hours 12/19/17 12/20/17 12/21/17 23:59 23:59 23:59 Intake Total 693.8 / 693.8 3151 / 3151 Output Total 525 / 525 300 / 300 Balance 168.8 / 168.8 2851 / 2851 Laboratory Tests Past 24 Hrs 12/20/17 12/20/17 12/20/17 20:50 21:28 23:00 WBC RBC Hgb Hct MCV MCH MCHC RDW RDW Differential Plt Count MPV D-Dimer Quant (PE/DVT) Specimen Type ART Sample Site L Radial pH 7.39 Bicarbonate Actual 25.5 POC Total CO2 27 Base Excess 1 O2 Saturation 93 L ABG pCO2 42.1 ABG pO2 66 L Jeremie Test POS O2 Delivery Device Nasal Can Liter Flow 3.0 Blood Gas Notified Whom ED MD Blood Gas Notified Time 2119 Sodium Potassium Chloride Carbon Dioxide Anion Gap BUN Creatinine Estim Creat Clear Calc Est GFR (MDRD) Af Amer Est GFR (MDRD) Non-Af BUN/Creatinine Ratio Glucose Lactic Acid Calcium Total Bilirubin Direct Bilirubin AST ALT Alkaline Phosphatase Lactate Dehydrogenase 291 H Troponin I Total Protein Albumin Globulin Hepatitis A IgM Ab Hep Bs Antigen Hep B Core IgM Ab Hepatitis C Ab (EIA) HIV 1&2 Antibody Non-Reactive 12/20/17 12/20/17 12/21/17 23:20 23:20 02:20 WBC RBC Hgb Hct MCV MCH MCHC RDW RDW Differential Plt Count MPV D-Dimer Quant (PE/DVT) Specimen Type Sample Site pH Bicarbonate Actual POC Total CO2 Base Excess O2 Saturation ABG pCO2 ABG pO2 Jeremie Test O2 Delivery Device Liter Flow Blood Gas Notified Whom Blood Gas Notified Time Sodium Potassium Chloride Carbon Dioxide Anion Gap BUN Creatinine Estim Creat Clear Calc Est GFR (MDRD) Af Amer Est GFR (MDRD) Non-Af BUN/Creatinine Ratio Glucose Lactic Acid 3.6 H Calcium Total Bilirubin Direct Bilirubin AST ALT Alkaline Phosphatase Lactate Dehydrogenase Troponin I 0.249 H 0.353 H Total Protein Albumin Globulin Hepatitis A IgM Ab Hep Bs Antigen Hep B Core IgM Ab Hepatitis C Ab (EIA) HIV 1&2 Antibody 12/21/17 12/21/17 12/21/17 05:10 05:10 05:10 WBC 4.7 RBC 4.12 L Hgb 12.6 L Hct 37.8 L MCV 91.7 MCH 30.6 MCHC 33.3 RDW 13.4 RDW Differential 44.4 H Plt Count 121 L MPV 10.5 D-Dimer Quant (PE/DVT) Specimen Type Sample Site pH Bicarbonate Actual POC Total CO2 Base Excess O2 Saturation ABG pCO2 ABG pO2 Jeremie Test O2 Delivery Device Liter Flow Blood Gas Notified Whom Blood Gas Notified Time Sodium 135 L Potassium 3.5 Chloride 98 Carbon Dioxide 24.0 Anion Gap 13 BUN 13 Creatinine 1.08 Estim Creat Clear Calc 83.65 Est GFR (MDRD) Af Amer 94 Est GFR (MDRD) Non-Af 77 BUN/Creatinine Ratio 12.0 Glucose 135 H Lactic Acid Calcium 7.2 L Total Bilirubin 0.50 Direct Bilirubin 0.31 H AST 59 H ALT 75 H Alkaline Phosphatase 83 Lactate Dehydrogenase Troponin I 0.399 H Total Protein 6.6 Albumin 2.3 L Globulin 4.3 H Hepatitis A IgM Ab Hep Bs Antigen Hep B Core IgM Ab Hepatitis C Ab (EIA) HIV 1&2 Antibody 12/21/17 12/21/17 12/21/17 05:10 06:25 06:50 WBC RBC Hgb Hct MCV MCH MCHC RDW RDW Differential Plt Count MPV D-Dimer Quant (PE/DVT) Pending Specimen Type Sample Site pH Bicarbonate Actual POC Total CO2 Base Excess O2 Saturation ABG pCO2 ABG pO2 Jeremie Test O2 Delivery Device Liter Flow Blood Gas Notified Whom Blood Gas Notified Time Sodium Potassium Chloride Carbon Dioxide Anion Gap BUN Creatinine Estim Creat Clear Calc Est GFR (MDRD) Af Amer Est GFR (MDRD) Non-Af BUN/Creatinine Ratio Glucose Lactic Acid 4.5 H* Calcium Total Bilirubin Direct Bilirubin AST ALT Alkaline Phosphatase Lactate Dehydrogenase Troponin I Total Protein Albumin Globulin Hepatitis A IgM Ab Pending Hep Bs Antigen Pending Hep B Core IgM Ab Pending Hepatitis C Ab (EIA) Pending HIV 1&2 Antibody Clinical Impression(s) from Imaging Studies Chest X-Ray 12/20/17 18:00 IMPRESSION: Patchy airspace opacities bilaterally which is likely infectious in etiology. Electronically Signed: Khadar Reardon, at 19:16 EDT Tel , Service support , Abdomen/Pelvis CT 12/20/17 18:10 IMPRESSION: There are degenerative changes in the visualized spine. There are disc herniations at T12-L1 and L1-2 with narrowing of the spinal canal. There is disc bulge and possible herniation at L3-4. There is diffuse fatty infiltration of the liver. There is mild splenomegaly. There is no ascites. There are no acute bowel abnormalities. There is no free air. There are small lymph nodes in the retroperitoneum. There is stranding around the distal aorta and iliac vessels. There is also stranding in the prevascular space. This can be seen with retroperitoneal fibrosis but is nonspecific. There are patchy airspace opacities scattered in both lung bases which are nonspecific and can be seen with a diffuse infectious process. A neoplastic process is also in the differential. There is no pleural effusion. The images are limited by motion artifact. Electronically Signed: Celena Ziegler MD at 20:09 EDT Tel Direct: [phone], Service support , Chest CTA 12/20/17 21:08 IMPRESSION: Distal pulmonary emboli cannot be excluded, especially in the right upper and lower lobes. The images are limited by motion artifact. There are patchy airspace opacities scattered throughout both lungs, likely a diffuse infectious process. Septic emboli cannot be excluded. A neoplastic process cannot be completely excluded but is less likely. There is no pleural effusion or significant lymphadenopathy. N.B. : The above information has been verbally conveyed by Celena Ziegler MD to Tatiana Arizmendi, Hospital- In-Patient RN, on 12/20/2017 22:48:42 (ET). Electronically Signed: Celena Zigeler MD at 22:33 EDT Tel Direct: [phone], Service support , Brain CT 12/20/17 21:32 IMPRESSION: No acute intracranial abnormality. Electronically Signed: Khadar Reardon, at 22:07 EDT Tel , Service support , Chest X-Ray 12/21/17 04:00 IMPRESSION: Worsening of bilateral nodular airspace disease most pronounced along the right upper lung periphery. This may represent a focal pneumonia, etiology such as emboli or neoplasm are not excluded. Electronically Signed: Vanna Briones MD at 6:49 EDT , Service support , Assessment/Plan Active and Suspected Problems Acute hypoxic respiratory failure (Acute) Polysubstance (including opioids) dependence, daily use (Acute) Methamphetamine abuse (Acute) Severe sepsis (Acute) Bilateral community acquired pneumonia (Acute) Alcohol withdrawal (Acute) RECOMMENDATIONS: 1. Initiate CIWA protocol 2. Librium as needed 3. Continue current antibiotics, add vancomycin 4. Wean oxygen as tolerated 5. Await echocardiogram IMPRESSIONS: 1. Severe sepsis with probable embolic pneumonia Patient with alveolar infiltrates scattered in an embolic pattern. Patient denies any IV drug use recently, but blood cultures are currently pending. Patient also has an echocardiogram. Patient tested MRSA nasal swab positive, so vancomycin should be added. Patient does not have any pleural effusion to suggest congestive heart failure as an etiology. Patient is an active smoker, but pattern of infiltrate is not suggestive of metastatic disease in my opinion. 2. Toxic encephalopathy secondary to polysubstance abuse and alcohol withdrawal Patient appears to be in alcohol withdrawal at this time. Patient should be initiated on CIWA protocol. Patient will also be given Librium. Continue with delirium protocol. Cannot exclude the need for intubation moving forward. Patient is on vitamin replacement therapy. Continue IV fluids. 3. Homeless/poor support system/limited information Complicates care, management, recovery and prognosis. Case management will be following. Code Visit Inpatient E&M: 07397 Init Hosp L3
[2017-12-21 08:49] LABS: D-Dimer Quantitative (DVT/PE) > 20.00 FEU/ug/m (0.27-0.49)
--- NOTE | 2017-12-21 08:51 | CON.PCM_ITS ---
Problem List (1) Alcohol withdrawal Status: Acute Qualifiers: Complication of substance-induced condition: uncomplicated Qualified Code(s ): F10.230 - Alcohol dependence with withdrawal, uncomplicated (2) Polysubstance (including opioids) dependence, daily use Status: Acute (3) Methamphetamine abuse Status: Acute (4) Severe sepsis Status: Acute (5) Bilateral community acquired pneumonia Status: Acute Reason for Consult Date of Consultation: 12/21/17 Reason for Consultation: Severe sepsis History of Present Illness: The patient is a 47 year old M, with past medical history listed below, who presented to [facility] on 12/20/2017 secondary to left leg numbness and pain for 2 days. Patient is currently homeless and had reportedly fallen asleep on the pavement on his left side. Patient states that after waking up he was unable to walk and had significant pain in the left leg. On arrival to the emergency room, patient was noted to be tachycardic and saturating 93% on room air. Patient did have an elevated temperature. Patient was also noted to be breathing approximately 40 times per minute. Initial workup in the emergency department showed significant bandemia with elevated lactic acid and decreased potassium. Patient had a CT scan of the chest done showing scattered bilateral alveolar infiltrates. No significant pleural effusions were noted. While in the ER, patient did receive significant amount of Librium, saline boluses, Zosyn and Zithromax therapy. Patient was initially placed on BiPAP therapy, but was unable to tolerate. Patient was transferred to the intensive care unit. Patient has remained tachycardic and tremulous. Patient is not reporting any audio or visual hallucinations. Patient does admit to drinking 3-4 tall boys on a daily basis. Patient does endorse IV drug use approximately 1 year ago. Patient did test positive for amphetamines and THC on tox screen. Patient is unable to provide much more history outside of chronic pain issues. Patient is a very poor historian and unable to provide much more information about his health status prior to presentation to the ER. Review of systems otherwise negative ?10 systems, but patient is not very open to discussion at this time. Past Medical History Allergies No Known Allergies Allergy (Verified 12/20/17 15:35) Home Medications: Ambulatory Orders Medication Instructions Recorded NK [NK] 12/08/17 Surgical History: no surgical history Psychiatric History: - - None reported Smoking Status: Current every day smoker Alcohol: Heavy - *Family History Maternal History Items: Unknown Review of Systems Unable to obtain accurate/complete ROS d/t: Limited cooperation Patient Problems: Active and Suspected Problems Acute hypoxic respiratory failure (Acute) Polysubstance (including opioids) dependence, daily use (Acute) Methamphetamine abuse (Acute) Severe sepsis (Acute) Bilateral community acquired pneumonia (Acute) Alcohol withdrawal (Acute) Objective: CT scan of the chest was personally reviewed and was discussed in HPI. Clinical suspicion for embolic infectious etiology. CT scan of the head was okay at that time. - Physical Exam General: Alert, Cooperative - Intermittently, - - Appears older than stated age. Disheveled HEENT: Atraumatic, PERRLA, EOMI, Normocephalic, - - Scleral injection without icterus Oral: No Gingival or Mucosal Lesions/ Ulcerations, Dry Mucosa, - - Poor dentition Neck: Supple, No JVD, No Nodes, Trachea Midline Lungs: No rales, Diminished, Rhonchi - Scattered, Wheezes - Sporadic, - - Symmetric expansion. Cardiovascular: Normal S1, Normal S2, No murmurs, No rub noted, No Gallop, Tachycardic, - - Sinus tachycardia noted on telemetry Abdomen: Bowel Sounds Present, Soft, Non Tender, Non-Distended Extremities: No clubbing, No cyanosis, No edema, Capillary Refill Less than 3 Seconds Skin: No rashes, No breakdown Musculoskeletal: No Tenderness to Palpation of Joints or Extremities Lymphatic: No Cervical, Supraclavicular, or Inguinal Adenopathy Neurological: Cranial nerves II-XII grossly intact, Motor Exam 5/5 strength throughout, - - Slightly decreased sensation of the left lower extremity. Psych/Mental Status: Agitated, Anxious, Restless Vital Signs Temp Pulse Resp BP Pulse Ox 37.2 C 131 H 42 H 131/80 H 90 12/21/17 04:00 12/21/17 08:00 12/21/17 08:00 12/21/17 08:00 12/21/17 08:39 Oxygen Flow Rate (L/min) 3 Oxygen Delivery Method Nasal Cannula Weight: 88 kg Body Mass Index (BMI) 27.9 Intake and Output for Last 24 Hours 12/19/17 12/20/17 12/21/17 23:59 23:59 23:59 Intake Total 693.8 / 693.8 3151 / 3151 Output Total 525 / 525 300 / 300 Balance 168.8 / 168.8 2851 / 2851 Laboratory Tests Past 24 Hrs 12/20/17 12/20/17 12/20/17 20:50 21:28 23:00 WBC RBC Hgb Hct MCV MCH MCHC RDW RDW Differential Plt Count MPV D-Dimer Quant (PE/DVT) Specimen Type ART Sample Site L Radial pH 7.39 Bicarbonate Actual 25.5 POC Total CO2 27 Base Excess 1 O2 Saturation 93 L ABG pCO2 42.1 ABG pO2 66 L Jeremie Test POS O2 Delivery Device Nasal Can Liter Flow 3.0 Blood Gas Notified Whom ED MD Blood Gas Notified Time 2119 Sodium Potassium Chloride Carbon Dioxide Anion Gap BUN Creatinine Estim Creat Clear Calc Est GFR (MDRD) Af Amer Est GFR (MDRD) Non-Af BUN/Creatinine Ratio Glucose Lactic Acid Calcium Total Bilirubin Direct Bilirubin AST ALT Alkaline Phosphatase Lactate Dehydrogenase 291 H Troponin I Total Protein Albumin Globulin Hepatitis A IgM Ab Hep Bs Antigen Hep B Core IgM Ab Hepatitis C Ab (EIA) HIV 1&2 Antibody Non-Reactive 12/20/17 12/20/17 12/21/17 23:20 23:20 02:20 WBC RBC Hgb Hct MCV MCH MCHC RDW RDW Differential Plt Count MPV D-Dimer Quant (PE/DVT) Specimen Type Sample Site pH Bicarbonate Actual POC Total CO2 Base Excess O2 Saturation ABG pCO2 ABG pO2 Jeremie Test O2 Delivery Device Liter Flow Blood Gas Notified Whom Blood Gas Notified Time Sodium Potassium Chloride Carbon Dioxide Anion Gap BUN Creatinine Estim Creat Clear Calc Est GFR (MDRD) Af Amer Est GFR (MDRD) Non-Af BUN/Creatinine Ratio Glucose Lactic Acid 3.6 H Calcium Total Bilirubin Direct Bilirubin AST ALT Alkaline Phosphatase Lactate Dehydrogenase Troponin I 0.249 H 0.353 H Total Protein Albumin Globulin Hepatitis A IgM Ab Hep Bs Antigen Hep B Core IgM Ab Hepatitis C Ab (EIA) HIV 1&2 Antibody 12/21/17 12/21/17 12/21/17 05:10 05:10 05:10 WBC 4.7 RBC 4.12 L Hgb 12.6 L Hct 37.8 L MCV 91.7 MCH 30.6 MCHC 33.3 RDW 13.4 RDW Differential 44.4 H Plt Count 121 L MPV 10.5 D-Dimer Quant (PE/DVT) Specimen Type Sample Site pH Bicarbonate Actual POC Total CO2 Base Excess O2 Saturation ABG pCO2 ABG pO2 Jeremie Test O2 Delivery Device Liter Flow Blood Gas Notified Whom Blood Gas Notified Time Sodium 135 L Potassium 3.5 Chloride 98 Carbon Dioxide 24.0 Anion Gap 13 BUN 13 Creatinine 1.08 Estim Creat Clear Calc 83.65 Est GFR (MDRD) Af Amer 94 Est GFR (MDRD) Non-Af 77 BUN/Creatinine Ratio 12.0 Glucose 135 H Lactic Acid Calcium 7.2 L Total Bilirubin 0.50 Direct Bilirubin 0.31 H AST 59 H ALT 75 H Alkaline Phosphatase 83 Lactate Dehydrogenase Troponin I 0.399 H Total Protein 6.6 Albumin 2.3 L Globulin 4.3 H Hepatitis A IgM Ab Hep Bs Antigen Hep B Core IgM Ab Hepatitis C Ab (EIA) HIV 1&2 Antibody 12/21/17 12/21/17 12/21/17 05:10 06:25 06:50 WBC RBC Hgb Hct MCV MCH MCHC RDW RDW Differential Plt Count MPV D-Dimer Quant (PE/DVT) Pending Specimen Type Sample Site pH Bicarbonate Actual POC Total CO2 Base Excess O2 Saturation ABG pCO2 ABG pO2 Jeremie Test O2 Delivery Device Liter Flow Blood Gas Notified Whom Blood Gas Notified Time Sodium Potassium Chloride Carbon Dioxide Anion Gap BUN Creatinine Estim Creat Clear Calc Est GFR (MDRD) Af Amer Est GFR (MDRD) Non-Af BUN/Creatinine Ratio Glucose Lactic Acid 4.5 H* Calcium Total Bilirubin Direct Bilirubin AST ALT Alkaline Phosphatase Lactate Dehydrogenase Troponin I Total Protein Albumin Globulin Hepatitis A IgM Ab Pending Hep Bs Antigen Pending Hep B Core IgM Ab Pending Hepatitis C Ab (EIA) Pending HIV 1&2 Antibody Clinical Impression(s) from Imaging Studies Chest X-Ray 12/20/17 18:00 IMPRESSION: Patchy airspace opacities bilaterally which is likely infectious in etiology. Electronically Signed: Khadar Reardon, at 19:16 EDT Tel , Service support , Abdomen/Pelvis CT 12/20/17 18:10 IMPRESSION: There are degenerative changes in the visualized spine. There are disc herniations at T12-L1 and L1-2 with narrowing of the spinal canal. There is disc bulge and possible herniation at L3-4. There is diffuse fatty infiltration of the liver. There is mild splenomegaly. There is no ascites. There are no acute bowel abnormalities. There is no free air. There are small lymph nodes in the retroperitoneum. There is stranding around the distal aorta and iliac vessels. There is also stranding in the prevascular space. This can be seen with retroperitoneal fibrosis but is nonspecific. There are patchy airspace opacities scattered in both lung bases which are nonspecific and can be seen with a diffuse infectious process. A neoplastic process is also in the differential. There is no pleural effusion. The images are limited by motion artifact. Electronically Signed: Celena Ziegler MD at 20:09 EDT Tel Direct: [phone], Service support , Chest CTA 12/20/17 21:08 IMPRESSION: Distal pulmonary emboli cannot be excluded, especially in the right upper and lower lobes. The images are limited by motion artifact. There are patchy airspace opacities scattered throughout both lungs, likely a diffuse infectious process. Septic emboli cannot be excluded. A neoplastic process cannot be completely excluded but is less likely. There is no pleural effusion or significant lymphadenopathy. N.B. : The above information has been verbally conveyed by Celena Ziegler MD to Tatiana Arizmendi, Hospital- In-Patient RN, on 12/20/2017 22:48:42 (ET). Electronically Signed: Celena Ziegler MD at 22:33 EDT Tel Direct: [phone], Service support , Brain CT 12/20/17 21:32 IMPRESSION: No acute intracranial abnormality. Electronically Signed: Khadar Reardon, at 22:07 EDT Tel , Service support , Chest X-Ray 12/21/17 04:00 IMPRESSION: Worsening of bilateral nodular airspace disease most pronounced along the right upper lung periphery. This may represent a focal pneumonia, etiology such as emboli or neoplasm are not excluded. Electronically Signed: Vanna Briones MD at 6:49 EDT , Service support , Assessment/Plan Active and Suspected Problems Acute hypoxic respiratory failure (Acute) Polysubstance (including opioids) dependence, daily use (Acute) Methamphetamine abuse (Acute) Severe sepsis (Acute) Bilateral community acquired pneumonia (Acute) Alcohol withdrawal (Acute) RECOMMENDATIONS: 1. Initiate CIWA protocol 2. Librium as needed 3. Continue current antibiotics, add vancomycin 4. Wean oxygen as tolerated 5. Await echocardiogram IMPRESSIONS: 1. Severe sepsis with probable embolic pneumonia Patient with alveolar infiltrates scattered in an embolic pattern. Patient denies any IV drug use recently, but blood cultures are currently pending. Patient also has an echocardiogram. Patient tested MRSA nasal swab positive, so vancomycin should be added. Patient does not have any pleural effusion to suggest congestive heart failure as an etiology. Patient is an active smoker, but pattern of infiltrate is not suggestive of metastatic disease in my opinion. 2. Toxic encephalopathy secondary to polysubstance abuse and alcohol withdrawal Patient appears to be in alcohol withdrawal at this time. Patient should be initiated on CIWA protocol. Patient will also be given Librium. Continue with delirium protocol. Cannot exclude the need for intubation moving forward. Patient is on vitamin replacement therapy. Continue IV fluids. 3. Homeless/poor support system/limited information Complicates care, management, recovery and prognosis. Case management will be following. Code Visit Inpatient E&M: 54211 Init Hosp L3
[2017-12-21 09:16] LABS: Reflex Lactate? Y
[2017-12-21] MEDS: guaiFENesin 1,200 MG Tablet 1200 MG PO ×2 (09:38→21:04)
[2017-12-21] MEDS: Metoprolol Tartrate 25 MG Tablet 12.5 MG PO ×2 (09:38→21:04)
[2017-12-21] MEDS: Enoxaparin 80 MG/0.8 ML Syringe SC ×2 (09:39→21:03)
[2017-12-21] MEDS: LORazepam 2 MG/ML Syringe IV ×7 (09:50→22:13)
--- NOTE | 2017-12-21 09:50 | PCM.CONS.C ---
Problem List (1) Non-STEMI (non-ST elevated myocardial infarction) Status: Acute (2) Acute hypoxic respiratory failure Status: Acute Reason for Consult Date of Consultation: 12/21/17 Reason for Consultation: Non-STEMI, chest pain, methamphetamine abuse, tobacco abuse, hypertension History of Present Illness: The patient is a 47 year old M, with a history of tobacco abuse of about 1 pack per day for 20 years, nondiabetic, chronic methamphetamine user, previous IV drug user who quit around 3 months ago after injecting meth, usually smokes his meth, also with a history of hypertension and no previous known coronary disease. Apparently over the last 4 days the patient has been laying down on the sidewalk unable to move due to weakness in his legs and pain in his back from a sciatic injury. His last use of methamphetamine was 3 days ago and was inhaled. Patient was brought to the emergency room by what appears to be a good [employer], he was found to be tachycardic. Patient complains of shortness of breath plus or minus fevers or chills, cannot be sure. In addition the patient is a chronic alcohol user as well. Chest x-ray demonstrated a focal nodular infiltrate in the right upper lobe. This gave way to a CT scan of his head which was negative for acute process followed by CT scan of his chest. This demonstrated possible pulmonary emboli in the distal periphery especially of the right upper lobe. This morning the patient began going through alcohol withdrawal, and was found to be sinus tachycardic. His initial troponin was 0.09, and increased to maximum so far of 0.399. D-dimer is markedly elevated. A 2D echo with Doppler was performed this morning which demonstrated low normal ejection fraction of 50-55%, RVSP of 43 mmHg, no evidence of acute RV strain which does not exclude the possibility of pulmonary emboli, no evidence of bacterial vegetations seen on 2D echo. Currently the patient is somewhat anxious, tachycardic, but normotensive. IV Lopressor is pending. [] Past Medical History Allergies/Adverse Reactions: Allergies No Known Allergies Allergy (Verified 12/20/17 15:35) Home Medications: Ambulatory Orders Medication Instructions Recorded NK [NK] 12/08/17 Surgical History: no surgical history Psychiatric History: - - None reported - *Family History Maternal History Items: Unknown Smoking Status: Current every day smoker Alcohol: Heavy Review of Systems - Review of Systems General: Denies: Fever, Night Sweats, Fatigue Cardiovascular: Reports: Shortness of Breath, Shortness of Breath at Rest. Denies: Chest Discomfort, Orthopnea, PND, Peripheral Edema, Palpitations, Lightheadedness, Dizziness, Near Syncope, Syncope Respiratory: Denies: Cough, Sputum Production, Hemoptysis Gastrointestinal: Denies: Hematemesis, Hematochezia, Melena Genitourinary: Denies: Dysuria, Hematuria Skin: Denies: Rash Subjectve: Patient awake, alert, complains of back pain and left lower leg pain, no chest pain, tachycardic, appears somewhat anxious consistent with impending withdrawal syndrome. Objective: Vital Signs Temp Pulse Resp BP Pulse Ox 98.9 F 132 H 45 H 118/82 H 94 12/21/17 04:00 12/21/17 09:38 12/21/17 09:00 12/21/17 09:00 12/21/17 09:00 Oxygen Flow Rate (L/min) 3 Oxygen Delivery Method Nasal Cannula Weight: 194 lb 0.108 oz Body Mass Index (BMI) 27.9 Intake and Output for Last 24 Hours 12/19/17 12/20/17 12/21/17 23:59 23:59 23:59 Intake Total 693.8 / 693.8 3151 / 3151 Output Total 525 / 525 300 / 300 Balance 168.8 / 168.8 2851 / 2851 General: Awake, Alert, Oriented x 3 HEENT: PERRL, EOMI, Sclera Non Icteric Neck: Supple, Good ROM, No Lymph Node Enlargement Lungs: Diminished Right Base Cardiovascular: Regular Rhythm, Normal S1, Normal S2, No Murmurs, No Rubs, No Gallops Vascular: No Carotid Bruits, Normal Femoral Pulses, Normal Radial Pulses, Normal Dorsalis Pedal Pulse, Normal Posterior Tibial Pulses Abdomen: Bowel Sounds Present, Soft, Non Tender, No HSM, No Organomegaly Extremities: No Cyanosis, No Clubbing, No edema Neurological: No Focal Motor or Sensory Deficit 12/20/17 21:28: pH 7.39, Bicarbonate Actual 25.5, POC Total CO2 27, Base Excess 1, O2 Saturation 93 L, ABG pCO2 42.1, ABG pO2 66 L, Jeremie Test POS 12/20/17 23:20: Lactic Acid 3.6 H 12/20/17 23:20: Troponin I 0.249 H 12/21/17 02:20: Troponin I 0.353 H 12/21/17 05:10: WBC 4.7, RBC 4.12 L, Hgb 12.6 L, Hct 37.8 L, MCV 91.7, MCH 30.6, MCHC 33.3, RDW 13.4, RDW Differential 44.4 H, Plt Count 121 L, MPV 10.5 12/21/17 05:10: Sodium 135 L, Potassium 3.5, Chloride 98, Carbon Dioxide 24.0, Anion Gap 13, BUN 13, Creatinine 1.08, Est GFR (MDRD) Af Amer 94, Est GFR (MDRD) Non-Af 77, BUN/Creatinine Ratio 12.0, Glucose 135 H, Calcium 7.2 L, Total Bilirubin 0.50, Direct Bilirubin 0.31 H 12/21/17 05:10: Troponin I 0.399 H 12/21/17 05:10: Lactic Acid 4.5 H* 12/21/17 06:50: D-Dimer Quant (PE/DVT) > 20.00 H* Rhythm: EKG: ECHO: Stress Test: Cardiac Cath: PCI: CT Surgery: Holter monitor: EPS: PPM: CXR: Chest CT Scan: Assessment/Plan 1. Non-STEMI: The patient has mild elevated troponin of 0.399 which may be consistent with pulmonary emboli and acute increase in his RV pressures. Patient has no evidence of EKG changes and his EKG shows sinus tachycardia only. At this point I believe the patient would require full dose anticoagulation therapy for presumed pulmonary emboli as evidenced by his CT scan as well as for his acute coronary syndrome. Would recommend antianxiety medications to assist with heart rate control as well as Lopressor 5 mg IV every 4-6 hours for heart rate control as well. His echocardiogram shows mild global LV dysfunction, and once his acute methamphetamine and alcohol withdrawal have been resolved, he would require a left heart catheterization to assess his mild global LV dysfunction as well as his non-STEMI. In the meantime continue baby aspirin 81 mg p.o. daily, start him on Lopressor 25 mg p.o. twice daily for heart rate control. We also recommend starting him on Cozaar 25 mg p.o. daily for afterload reduction given his LV dysfunction. 2. Tobacco abuse: I had a long and thorough discussion with the patient regarding tobacco abuse, and I recommended that he discontinue all tobacco products. This may be somewhat problematic while he is going through withdrawal of alcohol and methamphetamines. 3. Substance abuse: I relayed to the patient that much of the source of his cardiac issues are substance abuse related including tobacco, methamphetamine, alcohol. I believe the patient is unable to get off of these substances on his own and may require aggressive inpatient therapy. 4. Pulmonary emboli: Patient is evidence of distal pulmonary emboli, and his d-dimer is quite elevated. This would be consistent with pulmonary emboli but may also be due to other acute processes. Lower cavity Dopplers are pending. Recommend continuing full anticoagulation with subcu Lovenox at this time. 5. Hyperlipidemia: Recommend obtaining a fasting lipid profile. Would not recommend statin based medications until the patient is demonstrated cessation of alcohol and substance abuse is. 6. Discussed with Dr. Holloway. Thank you very much for the opportunity to participate in the cardiac care of your patient. Consultation time took place between 8 AM and 8:30 AM. Code Visit Inpatient E&M: 57841 Init Hosp L2
--- NOTE | 2017-12-21 10:15 | CASEMGMT ---
Social Work Note Spoke with RN regarding pt. States that the pt is lucid, but was in dt's this morning. Was given Librium. Pt tested positive for cannabis, alcohol, methamphetamine and opiates. Unsure if pt is interested in treatment at this time. SW into speak with pt. Unable to arouse. Pt did briefly awaken, but was too drowsy to respond to question. COUNTY ATTORNEY following on Saturday to assess. Staff anticipating need for placement as pt is extremely weak. PT/OT to evaluate once pt is more able to complete assessment. Sheila Puri, COUNTY ATTORNEY, CATERING DIRECTOR
[2017-12-21 11:12] LABS: Cholesterol 59 mg/dL (200); High Density Lipoprotein 8 mg/dL; Triglycerides 132 mg/dL; Very Low Density Lipoprotein 26 mg/dL (5-40)
[2017-12-21] MEDS: chlordiazePOXIDE 25 MG Capsule 50 MG PO ×2 (16:06→21:05)
[2017-12-21] MEDS: proMETHazine 25 MG/ML Syringe IV (22:40)
[2017-12-21] MEDS: Haloperidol Lactate 5 MG/ML Vial 2 MG IV (22:40)
--- NOTE | 2017-12-21 22:40 | NURSING ---
Patient pulling off EKG leads, pulling at ortiz catheter, BP cuff, and IVs. Attempted IV ativan and PO librium, diversion with TV, and explanation to patient, remains agitated with RASS +2-3, Dr. Davis made aware and haldol, phenergan, and restraint application ordered.
[2017-12-22] VITALS (52 sets, daily range): BP systolic 88–144; BP diastolic 63–95; PULSE 75–136; RESP 12–43; TEMP 36.9–39.8; O2SAT 90–100
--- NOTE | 2017-12-22 02:52 | PCM.HOSP.N ---
Hospitalist Note Patient seen and examined. Patient very short of breath, tachypneic 40-44/min with shallow breathing, tachycardic 123 bpm temperature 99.3?F. Pulse ox 90% and for albuterol for oxygen nasal cannula Patient is about 6 L positive fluid balance, exact 5902 mL. On exam Air entry diminished in bilateral lungs. Rapid, shallow and thoracic pattern of breathing. Accessory use of muscles. Heart is regular, sinus tachycardia Patient is lethargic, restless. Patient was getting 150 mils per hour normal saline which is stopped. Lasix 20 mg IV ordered. DuoNeb every 6 hourly while awake. Chest x-ray in the morning.
[2017-12-22] MEDS: Furosemide 20 MG/2 ML VIAL IV (02:55)
[2017-12-22] MEDS: Ipratropium/Albuterol Sulfate 3 ML AMPUL.NEB INHALATION ×3 (03:05→15:35)
--- NOTE | 2017-12-22 03:17 | CPS ---
Addendum entered by José Diaz 12/22/17 03:19: Original Note: pt awakened and ripped mask off. pt place back on O2 nasal cannula
[2017-12-22 04:26] LABS: ALB/GLOB Ratio 0.5 RATIO (0.9-2.4); AST(SGOT) 70 U/L (15-37); Alanine Aminotransfer ALT/SGPT 57 U/L (16-61); Alkaline Phosphatase 74 U/L (45-117); Anion Gap 11 (5-15); BUN 20 mg/dL (7-18); BUN/Creat Ratio 21.5 RATIO (10-20); Calcium,Total 7.5 mg/dL (8.5-10.1); Chloride 104 mmol/L (98-107); Creatinine, Serum 0.93 mg/dL (0.70-1.30); EST Glomerular Filtration Rate 92 mL/min (>60); Est Glom Filt Rate - Afr Amer 111 mL/min (>60); Estimated Creatinine Clearance 97.14 ml/min; Globulin 4.4 g/dL (2.2-4.2); Glucose 72 mg/dL (74-106); Potassium 4.1 mmol/L (3.5-5.1); Protein, Total 6.4 g/dL (6.4-8.2); Sodium Level 139 mmol/L (136-145)
[2017-12-22 04:31] LABS: Absolute Lymphocyte Count 0.61 X10^3/ul (0.83-4.51); Basophil# 0.02 X10^3/uL; Basophil% 0.2 % (0-1); Hematocrit 36.9 % (40-54); Hemoglobin 12.3 g/dl (13.0-16.5); Lymphocyte # 0.61 X10^3/ul (4.0); Lymphocyte % 7.4 % (19-41); Mean Corp Hgb Conc 33.3 g/gl (32-36); Mean Corpuscular Hgb 30.9 pg (27.0-32.0); Mean Corpuscular Volume 92.7 fL (80-94); Mean Platelet Vol. 11.2 fl (6.2-12.0); Monocyte# 0.56 X10^3/uL; Monocyte% 6.8 % (0-10); Neutrophil # 6.99 X10^3/uL (2.7-7.7); Neutrophil % 85.2 % (47-70); Platelet Count 111 K/mm3 (150-450); RBC Distribution Width SD 46.2 fl (35.1-43.9); Red Blood Count 3.98 M/mm3 (4.6-6.2); White Blood Count 8.2 K/mm3 (4.4-11.0)
[2017-12-22 04:32] LABS: Differential Indicated SCAN CRITERIA MET; POSITIVE COUNT NO; POSITIVE DIFFERENTIAL NO; POSITIVE MORPHOLOGY YES
[2017-12-22 05:18] LABS: Differential Comment SCANNED
[2017-12-22] MEDS: Piperacil/Tazobactam 3.375 GM/50 ML ML IV ×3 (05:23→21:15)
[2017-12-22] MEDS: 0.9% NaCl Peripheral Flush Adult/Peds IV ×3 (06:21→23:34)
[2017-12-22] MEDS: Furosemide 40 MG/4 ML Vial IV (06:23)
[2017-12-22 06:31] LABS: Bedside Glucose 63 mg/dL (70-110)
[2017-12-22] MEDS: Dextrose 50%-Water 25 GM/50 ML DISP.SYRIN IV ×2 (06:32→23:33)
[2017-12-22 06:50] LABS: Bedside Glucose 101 mg/dL (70-110)
--- NOTE | 2017-12-22 07:33 | PN_ITS ---
Subjective: Patient with difficulty overnight. Patient reportedly had become significantly agitated and did require additional dose of Librium. Patient also was having hypoxia and was initially placed on BiPAP therapy. Patient became aggressive and broke the BiPAP. Patient had received 2 mg of Haldol with good response and is now currently on BiPAP and tolerating. Patient was noted to be hypoglycemic this morning and received D50. Patient is not on any insulin therapy at this time. Patient currently is not able to provide any additional history. Objective: Chest x-ray shows worsening infiltrates bilaterally. Echocardiogram showed an EF of 50% with an RVSP of 43, but no vegetations or significant valvular abnormalities were noted. General: - - On BiPAP therapy. Sedated. RASS -2. Fair BiPAP synchrony. HEENT: Atraumatic, PERRLA, EOMI, Normocephalic, - - Scleral injection without icterus Oral: Moist Mucosa, No Gingival or Mucosal Lesions/ Ulcerations Neck: Supple, No JVD, No Nodes, Trachea Midline Lungs: No wheeze, No rales, Diminished, Rhonchi - Bilateral, - - Symmetric expansion. Remains tachypneic Cardiovascular: Normal S1, Normal S2, No murmurs, No rub noted, No Gallop, Tachycardic Abdomen: Bowel Sounds Present, Soft, Non Tender, Distended - Slightly Extremities: No clubbing, No cyanosis, Capillary Refill Less than 3 Seconds, Edema Skin: No rashes, No breakdown Musculoskeletal: No Tenderness to Palpation of Joints or Extremities Lymphatic: No Cervical, Supraclavicular, or Inguinal Adenopathy Neurological: Cranial nerves II-XII grossly intact, Neuro grossly intact, Motor Exam 5/5 strength throughout Psych/Mental Status: Flat Affect, Impulsive Vital Signs Temp Pulse Resp BP Pulse Ox 37.4 C H 120 H 39 H 114/79 99 12/22/17 00:00 12/22/17 06:00 12/22/17 06:00 12/22/17 06:00 12/22/17 06:00 Oxygen Flow Rate (L/min) 5 Oxygen Delivery Method Bi-pap Weight: 89.7 kg Body Mass Index (BMI) 27.9 Intake and Output for Last 24 Hours 12/20/17 12/21/17 12/22/17 23:59 23:59 23:59 Intake Total 693.8 / 693.8 7452.7 / 7452.7 464.3 / 464.3 Output Total 525 / 525 1550 / 1550 1000 / 1000 Balance 168.8 / 168.8 5902.7 / 5902.7 -535.7 / -535.7 Labs (Last 48 Hours) 12/20/17 12/20/17 12/20/17 20:50 21:28 23:00 WBC RBC Hgb Hct MCV MCH MCHC RDW RDW Differential Plt Count MPV Immature Gran % (Auto) Neut % (Auto) Lymph % (Auto) [place] % (Auto) Eos % (Auto) Baso % (Auto) Absolute Neuts (auto) Absolute Lymphs (auto) Total Counted Differential Comment D-Dimer Quant (PE/DVT) Specimen Type ART Sample Site L Radial pH 7.39 Bicarbonate Actual 25.5 POC Total CO2 27 Base Excess 1 O2 Saturation 93 L ABG pCO2 42.1 ABG pO2 66 L Jeremie Test POS O2 Delivery Device Nasal Can Liter Flow 3.0 Blood Gas Notified Whom ED MD Blood Gas Notified Time 2120 Sodium Potassium Chloride Carbon Dioxide Anion Gap BUN Creatinine Estim Creat Clear Calc Est GFR (MDRD) Af Amer Est GFR (MDRD) Non-Af BUN/Creatinine Ratio Glucose Lactic Acid Calcium Total Bilirubin Direct Bilirubin AST ALT Alkaline Phosphatase Lactate Dehydrogenase 291 H Troponin I Total Protein Albumin Globulin Albumin/Globulin Ratio Triglycerides Cholesterol LDL Cholesterol VLDL Cholesterol HDL Cholesterol Hepatitis A IgM Ab Hep Bs Antigen Hep B Core IgM Ab Hepatitis C Ab (EIA) HIV 1&2 Antibody Non-Reactive POC Glucose 12/20/17 12/20/17 12/21/17 23:20 23:20 02:20 WBC RBC Hgb Hct MCV MCH MCHC RDW RDW Differential Plt Count MPV Immature Gran % (Auto) Neut % (Auto) Lymph % (Auto) [place] % (Auto) Eos % (Auto) Baso % (Auto) Absolute Neuts (auto) Absolute Lymphs (auto) Total Counted Differential Comment D-Dimer Quant (PE/DVT) Specimen Type Sample Site pH Bicarbonate Actual POC Total CO2 Base Excess O2 Saturation ABG pCO2 ABG pO2 Jeremie Test O2 Delivery Device Liter Flow Blood Gas Notified Whom Blood Gas Notified Time Sodium Potassium Chloride Carbon Dioxide Anion Gap BUN Creatinine Estim Creat Clear Calc Est GFR (MDRD) Af Amer Est GFR (MDRD) Non-Af BUN/Creatinine Ratio Glucose Lactic Acid 3.6 H Calcium Total Bilirubin Direct Bilirubin AST ALT Alkaline Phosphatase Lactate Dehydrogenase Troponin I 0.249 H 0.353 H Total Protein Albumin Globulin Albumin/Globulin Ratio Triglycerides Cholesterol LDL Cholesterol VLDL Cholesterol HDL Cholesterol Hepatitis A IgM Ab Hep Bs Antigen Hep B Core IgM Ab Hepatitis C Ab (EIA) HIV 1&2 Antibody POC Glucose 12/21/17 12/21/17 12/21/17 05:10 05:10 05:10 WBC 4.7 RBC 4.12 L Hgb 12.6 L Hct 37.8 L MCV 91.7 MCH 30.6 MCHC 33.3 RDW 13.4 RDW Differential 44.4 H Plt Count 121 L MPV 10.5 Immature Gran % (Auto) Neut % (Auto) Lymph % (Auto) [place] % (Auto) Eos % (Auto) Baso % (Auto) Absolute Neuts (auto) Absolute Lymphs (auto) Total Counted Differential Comment D-Dimer Quant (PE/DVT) Specimen Type Sample Site pH Bicarbonate Actual POC Total CO2 Base Excess O2 Saturation ABG pCO2 ABG pO2 Jeremie Test O2 Delivery Device Liter Flow Blood Gas Notified Whom Blood Gas Notified Time Sodium 135 L Potassium 3.5 Chloride 98 Carbon Dioxide 24.0 Anion Gap 13 BUN 13 Creatinine 1.08 Estim Creat Clear Calc 83.65 Est GFR (MDRD) Af Amer 94 Est GFR (MDRD) Non-Af 77 BUN/Creatinine Ratio 12.0 Glucose 135 H Lactic Acid Calcium 7.2 L Total Bilirubin 0.50 Direct Bilirubin 0.31 H AST 59 H ALT 75 H Alkaline Phosphatase 83 Lactate Dehydrogenase Troponin I 0.399 H Total Protein 6.6 Albumin 2.3 L Globulin 4.3 H Albumin/Globulin Ratio Triglycerides Cholesterol LDL Cholesterol VLDL Cholesterol HDL Cholesterol Hepatitis A IgM Ab Hep Bs Antigen Hep B Core IgM Ab Hepatitis C Ab (EIA) HIV 1&2 Antibody POC Glucose 12/21/17 12/21/17 12/21/17 05:10 05:10 06:25 WBC RBC Hgb Hct MCV MCH MCHC RDW RDW Differential Plt Count MPV Immature Gran % (Auto) Neut % (Auto) Lymph % (Auto) [place] % (Auto) Eos % (Auto) Baso % (Auto) Absolute Neuts (auto) Absolute Lymphs (auto) Total Counted Differential Comment D-Dimer Quant (PE/DVT) Specimen Type Sample Site pH Bicarbonate Actual POC Total CO2 Base Excess O2 Saturation ABG pCO2 ABG pO2 Jeremie Test O2 Delivery Device Liter Flow Blood Gas Notified Whom Blood Gas Notified Time Sodium Potassium Chloride Carbon Dioxide Anion Gap BUN Creatinine Estim Creat Clear Calc Est GFR (MDRD) Af Amer Est GFR (MDRD) Non-Af BUN/Creatinine Ratio Glucose Lactic Acid 4.5 H* Calcium Total Bilirubin Direct Bilirubin AST ALT Alkaline Phosphatase Lactate Dehydrogenase Troponin I Total Protein Albumin Globulin Albumin/Globulin Ratio Triglycerides 132 Cholesterol 59 LDL Cholesterol 25 VLDL Cholesterol 26 HDL Cholesterol 8 L Hepatitis A IgM Ab Pending Hep Bs Antigen Pending Hep B Core IgM Ab Pending Hepatitis C Ab (EIA) Pending HIV 1&2 Antibody POC Glucose 12/21/17 12/22/17 12/22/17 06:50 04:00 04:00 WBC 8.2 RBC 3.98 L Hgb 12.3 L Hct 36.9 L MCV 92.7 MCH 30.9 MCHC 33.3 RDW 14.0 RDW Differential 46.2 H Plt Count 111 L MPV 11.2 Immature Gran % (Auto) 0.400 Neut % (Auto) 85.2 H Lymph % (Auto) 7.4 L [place] % (Auto) 6.8 Eos % (Auto) 0.0 Baso % (Auto) 0.2 Absolute Neuts (auto) 7.0 Absolute Lymphs (auto) 0.61 L Total Counted Not Reportable Differential Comment SCANNED D-Dimer Quant (PE/DVT) > 20.00 H* Specimen Type Sample Site pH Bicarbonate Actual POC Total CO2 Base Excess O2 Saturation ABG pCO2 ABG pO2 Jeremie Test O2 Delivery Device Liter Flow Blood Gas Notified Whom Blood Gas Notified Time Sodium 139 Potassium 4.1 Chloride 104 Carbon Dioxide 24.0 Anion Gap 11 BUN 20 H Creatinine 0.93 Estim Creat Clear Calc 97.14 Est GFR (MDRD) Af Amer 111 Est GFR (MDRD) Non-Af 92 BUN/Creatinine Ratio 21.5 H Glucose 72 L Lactic Acid Calcium 7.5 L Total Bilirubin 0.60 Direct Bilirubin AST 70 H ALT 57 Alkaline Phosphatase 74 Lactate Dehydrogenase Troponin I Total Protein 6.4 Albumin 2.0 L Globulin 4.4 H Albumin/Globulin Ratio 0.5 L Triglycerides Cholesterol LDL Cholesterol VLDL Cholesterol HDL Cholesterol Hepatitis A IgM Ab Hep Bs Antigen Hep B Core IgM Ab Hepatitis C Ab (EIA) HIV 1&2 Antibody POC Glucose 12/22/17 12/22/17 06:21 06:48 WBC RBC Hgb Hct MCV MCH MCHC RDW RDW Differential Plt Count MPV Immature Gran % (Auto) Neut % (Auto) Lymph % (Auto) [place] % (Auto) Eos % (Auto) Baso % (Auto) Absolute Neuts (auto) Absolute Lymphs (auto) Total Counted Differential Comment D-Dimer Quant (PE/DVT) Specimen Type Sample Site pH Bicarbonate Actual POC Total CO2 Base Excess O2 Saturation ABG pCO2 ABG pO2 Jeremie Test O2 Delivery Device Liter Flow Blood Gas Notified Whom Blood Gas Notified Time Sodium Potassium Chloride Carbon Dioxide Anion Gap BUN Creatinine Estim Creat Clear Calc Est GFR (MDRD) Af Amer Est GFR (MDRD) Non-Af BUN/Creatinine Ratio Glucose Lactic Acid Calcium Total Bilirubin Direct Bilirubin AST ALT Alkaline Phosphatase Lactate Dehydrogenase Troponin I Total Protein Albumin Globulin Albumin/Globulin Ratio Triglycerides Cholesterol LDL Cholesterol VLDL Cholesterol HDL Cholesterol Hepatitis A IgM Ab Hep Bs Antigen Hep B Core IgM Ab Hepatitis C Ab (EIA) HIV 1&2 Antibody POC Glucose 63 L 101 Microbiology 12/20/17 23:25 Blood Culture (Wb) - Anticubital Right Blood Culture - Preliminary 12/20/17 23:20 Blood Culture (Wb) - Anticubital Left Bacteria Detection (PCR ) - Final Meth. resistant Staph. aureus 12/20/17 23:20 Blood Culture (Wb) - Anticubital Left Blood Culture - Preliminary Clinical Impression(s) from Imaging Studies Chest X-Ray 12/22/17 04:10 IMPRESSION: Mild worsening of bilateral lung masses and nodules. Considerations include septic emboli, metastatic disease or less likely multiple pneumonias. Electronically Signed: Celestine Madrid MD at 4:57 EDT , Service support , Medical Necessity - Tobacco Use Smoking Status: Current every day smoker Assessment/Plan All Active Problems Acute hypoxic respiratory failure (Acute) Polysubstance (including opioids) dependence, daily use (Acute) Methamphetamine abuse (Acute) Severe sepsis (Acute) Bilateral community acquired pneumonia (Acute) Alcohol withdrawal (Acute) Non-STEMI (non-ST elevated myocardial infarction) (Acute) RECOMMENDATIONS: 1. Semi-elective intubation 2. Initiate tube feeds 3. Continue current antibiotics 4. Wean oxygen as tolerated 5. Possible need for JOSE in the future IMPRESSIONS: 1. Severe sepsis with probable embolic pneumonia Patient with alveolar infiltrates scattered in an embolic pattern. Patient is now growing MRSA in the blood indicating probable embolic pneumonia as the infiltrates noted on CT scan. Patient has had worsening hypoxemia, likely secondary to progression of disease. Patient continues to have respiratory rates in the high 30s-40s and was developing some paradoxical type breathing prior to initiation of BiPAP therapy. Given that patient will likely require multiple days of IV antibiotics until edema is improving, patient will be electively intubated. This will allow for propofol for alcohol withdrawal in a safe manner. Patient can also be continued on IV antibiotics. 2. Toxic encephalopathy secondary to polysubstance abuse and alcohol withdrawal Patient appears to be in alcohol withdrawal at this time. Will discontinue IV Ativan and Librium therapy. Continue with propofol and fentanyl for sedation. 3. Homeless/poor support system/limited information Complicates care, management, recovery and prognosis. Case management will be following. Initiate tube feeds. Will need to monitor for refeeding syndrome with aggressive electrolyte repletion requirements. TIME: 45 minutes critical care time spent addressing patient's acute hypoxic respiratory failure, alcohol withdrawal, severe sepsis, review of all data and collaboration with care team. (6 AM to 7:30 AM) Code Visit [id number]: [id number] Critical care first hour
--- NOTE | 2017-12-22 07:54 | PCM.PN.HOSP ---
Patient Problems: Active and Suspected Problems Acute hypoxic respiratory failure (Acute) Polysubstance (including opioids) dependence, daily use (Acute) Methamphetamine abuse (Acute) Severe sepsis (Acute) Bilateral community acquired pneumonia (Acute) Alcohol withdrawal (Acute) Non-STEMI (non-ST elevated myocardial infarction) (Acute) Subjective: Hypoxic and tachypneic overnights. Patient was receiving IV Lasix to try to help augment some of the positive fluid balance patient was having. Vitals/I&O's: Vital Signs Temp Pulse Resp BP Pulse Ox 37.4 C H 120 H 39 H 114/79 99 12/22/17 00:00 12/22/17 06:00 12/22/17 06:00 12/22/17 06:00 12/22/17 06:00 Oxygen Flow Rate (L/min) 5 Oxygen Delivery Method Bi-pap Weight: 89.7 kg Body Mass Index (BMI) 27.9 Intake and Output for Last 24 Hours 12/20/17 12/21/17 12/22/17 23:59 23:59 23:59 Intake Total 693.8 / 693.8 7452.7 / 7452.7 464.3 / 464.3 Output Total 525 / 525 1550 / 1550 1000 / 1000 Balance 168.8 / 168.8 5902.7 / 5902.7 -535.7 / -535.7 General: - - Somnolent. Afebrile. Tachypneic. On BiPAP HEENT: Atraumatic, Normocephalic, - - No icterus. No conjunctival hemorrhages. Oral: Moist Mucosa, No Gingival or Mucosal Lesions/ Ulcerations Neck: No Nodes, Thyroid Normal Size and Texture Lungs: Diminished, - - Coarse breath sounds bilaterally Cardiovascular: Normal S1, Normal S2, Tachycardic Abdomen: Bowel Sounds Present, Soft, Non Tender, Non-Distended, No Hepato-splenomegaly Extremities: No edema, No Calf Tenderness Skin: No rashes, No breakdown, - - No [place] lesions. No splinter hemorrhages. Musculoskeletal: No Tenderness to Palpation of Joints or Extremities, No Muscle Wasting Neurological: Muscle tone normal, - - His extremities spontaneously Psych/Mental Status: - - Somnolent. Microbiology Past 72 Hours 12/20/17 23:25 Blood Culture (Wb) - Anticubital Right Blood Culture - Preliminary 12/20/17 23:20 Blood Culture (Wb) - Anticubital Left Bacteria Detection (PCR) - Final Meth. resistant Staph. aureus 12/20/17 23:20 Blood Culture (Wb) - Anticubital Left Blood Culture - Preliminary Laboratory Results 12/21/17 05:10: Triglycerides 132, Cholesterol 59, LDL Cholesterol 25, VLDL Cholesterol 26, HDL Cholesterol 8 L 12/21/17 06:50: D-Dimer Quant (PE/DVT) > 20.00 H* 12/22/17 04:00: WBC 8.2, RBC 3.98 L, Hgb 12.3 L, Hct 36.9 L, MCV 92.7, MCH 30.9, MCHC 33.3, RDW 14.0, RDW Differential 46.2 H, Plt Count 111 L, MPV 11.2, Immature Gran % (Auto) 0.400, Neut % (Auto) 85.2 H, Lymph % (Auto) 7.4 L, [place] % (Auto) 6.8, Eos % (Auto) 0.0, Baso % (Auto) 0.2, Absolute Neuts (auto) 7.0, Absolute Lymphs (auto) 0.61 L, Total Counted Not Reportable, Differential Comment SCANNED 12/22/17 04:00: Sodium 139, Potassium 4.1, Chloride 104, Carbon Dioxide 24.0, Anion Gap 11, BUN 20 H, Creatinine 0.93, Estim Creat Clear Calc 97.14, Est GFR (MDRD) Af Amer 111, Est GFR (MDRD) Non-Af 92, BUN/Creatinine Ratio 21.5 H, Glucose 72 L, Calcium 7.5 L, Total Bilirubin 0.60, AST 70 H, ALT 57, Alkaline Phosphatase 74, Total Protein 6.4, Albumin 2.0 L, Globulin 4.4 H, Albumin/Globulin Ratio 0.5 L 12/22/17 06:21: POC Glucose 63 L 12/22/17 06:48: POC Glucose 101 Chest x-ray shows bilateral patchy infiltrates worse than previous. Current Medications Acetaminophen (Tylenol) 650 mg PO Q4H PRN PRN PRN Reason: FEVER Acetaminophen (Tylenol) 650 mg PO Q4H PRN PRN PRN Reason: Mild-Moderate Pain/Headache Albuterol/Ipratropium (Duoneb) 3 ml INHALATION Q6HWA.RT [facility] Last Admin: 12/22/17 03:05 Dose: 3 ml Chlordiazepoxide (Librium) 50 mg PO TID [facility] Stop: 12/23/17 06:01 Last Admin: 12/22/17 05:03 Dose: Not Given Chlorhexidine Gluconate () 1 each TOPICAL DAILY [facility] Last Admin: 12/21/17 02:04 Dose: 1 each Dextrose (D50w Syringe) 0 gm IV X1 PRN; Protocol PRN Reason: Hypoglycemia Last Admin: 12/22/17 06:32 Dose: 12.5 gm Dicyclomine HCl (Bentyl) 20 mg PO Q6H PRN PRN PRN Reason: abdominal discomfort Enoxaparin Sodium (Lovenox) 80 mg SC BID [facility] Last Admin: 12/21/17 21:03 Dose: 80 mg Folic Acid (Folic Acid) 1 mg PO DAILYCM [facility] Glucagon () 1 mg IM .X1 PRN PRN Reason: Hypoglycemia Guaifenesin (Mucinex) 1,200 mg PO BID [facility] Last Admin: 12/21/17 21:04 Dose: 1,200 mg Haloperidol Lactate (Haldol) 2 mg IV Q4H PRN PRN PRN Reason: AGITATION Last Admin: 12/21/17 22:40 Dose: 2 mg Hydroxyzine Pamoate (Vistaril Pamoate Capsule) 50 mg PO Q6H PRN PRN PRN Reason: Mild Anxiety (score 1/3) Piperacillin Sod/Tazobactam Sod (Zosyn) 3.375 gm in 50 mls @ 12.5 mls/hr IV Q8 [facility] Last Admin: 12/22/17 05:23 Dose: 12.5 mls/hr Sodium Chloride () 250 mls @ 15 mls/hr IV .[id number] PRN PRN Reason: SALINE FLUSH Vancomycin IV Pharmacy to Dose (1 ea/ Sodium Chloride) 500 mls @ 250 mls/hr IV X1 PRN; Protocol PRN Reason: Rx to Dose Vancomycin HCl 1,500 mg/ (Sodium Chloride) 530 mls @ 250 mls/hr IV Q12H [facility] Last Admin: 12/22/17 05:41 Dose: 250 mls/hr Fentanyl () 100 mls @ 5 mls/hr IV .Q20H [facility] Propofol (Diprivan) 1,000 mg in 100 mls @ 2.691 mls/hr CONT INF .Q12H [facility]; 5 MCG/KG/MIN PRN Reason: Protocol Lorazepam (Ativan) 2 mg PO Q2H PRN PRN; Protocol PRN Reason: CIWA score > 8 but <15 Lorazepam (Ativan) 2 mg PO UD PRN; Protocol PRN Reason: CIWA score >/=15. Lorazepam (Ativan) 2 mg IV Q2H PRN PRN; Protocol PRN Reason: CIWA score > 8 but <15 Last Admin: 12/21/17 19:29 Dose: 2 mg Lorazepam (Ativan) 2 mg IV UD PRN; Protocol PRN Reason: CIWA score >/=15. Last Admin: 12/21/17 22:13 Dose: 2 mg Magnesium Hydroxide (Milk Of Magnesia) 30 ml PO DAILY PRN PRN PRN Reason: Constipation Methocarbamol (Methocarbamol) 750 mg PO Q6H PRN PRN PRN Reason: Muscle Aches Metoprolol Tartrate (Lopressor (Beta Ruba)) 12.5 mg PO BID [facility] Last Admin: 12/21/17 21:04 Dose: 12.5 mg Metoprolol Tartrate (Lopressor (Beta Ruba)) 5 mg IV Q4 PRN PRN Reason: Heart Rate >100 Multivitamins (Multivitamin) 1 tablet PO DAILYCM [facility] Nicotine (Nicoderm Cq (Pbkc)) 21 mg TRANSDERM. DAILY [facility] Last Admin: 12/21/17 09:39 Dose: 21 mg Nutritional Formula (Lactose Free) (Ensure Enlive) 120 ml PO 4X/DAY [facility] Last Admin: 12/21/17 21:46 Dose: Not Given Ondansetron HCl (Zofran) 4 mg IV Q6H PRN PRN PRN Reason: NAUSEA Oxycodone HCl (Oxyir) 5 mg PO Q4H PRN PRN PRN Reason: SEVERE PAIN (6-10/10) Last Admin: 12/21/17 09:39 Dose: 5 mg Promethazine HCl (Phenergan) 12.5 mg IV Q4H PRN PRN PRN Reason: NAUSEA/VOMITING Sodium Chloride () 5 - 30 ml IV UD PRN PRN Reason: SALINE FLUSH Last Admin: 12/22/17 06:21 Dose: 20 ml Thiamine HCl (Vitamin B1) 100 mg PO DAILYCM [facility] Medical Necessity - Tobacco Use Smoking Status: Current every day smoker Assessment/Plan All Active Problems Acute hypoxic respiratory failure (Acute) Polysubstance (including opioids) dependence, daily use (Acute) Methamphetamine abuse (Acute) Severe sepsis (Acute) Bilateral community acquired pneumonia (Acute) Alcohol withdrawal (Acute) Non-STEMI (non-ST elevated myocardial infarction) (Acute) 1. Septic shock due to possible pneumonia v septic emboli (a lot of artifact on CT) on broad spectrum abx w zosyn and vanc UA, strep and legionella antigens negative Blood cultures pending patient appears to have received 3 liters of fluid (that is documented so far) continue w IVF follow up lactates pt states that he has not injected IV drugs in a year. Drug screen positive for opiates (but did received morphine prior to this), amphetamines and cannabinoids 2. presumed pneumonia v septic emboli strep and legionella antigens negative continue w broad spectrum abx 3. Possible pulmonary emboli poor CTA, due to motion artifact septic v thromboembolic check echo D-dimer >20 and will be elevated (does not necessarily indicate VTE, however) duplex ordered on lovenox 4. MRSA bacteremia TTE did not show any vegetations. Patient eventually will need a JOSE Repeat blood cultures Consult infectious disease Continue vancomycin 5. Acute respiratory failure, hypoxic Secondary to pneumonia plus suspected acute lung injury and may also a component of patient's withdrawal and delirium tremens. Patient currently stable on BiPAP but concerns patient is going to decline. So decision is to proceed with a intubation 6. alcohol withdrawal alcohol consumption reports from 48 oz to 12 pack/day on PRN librium. add thiamine and folate difficult tease out alcohol withdrawal from septic shock picture. May also be component of opiate withdrawal, too; but would hold off on subutex at this time. 7. NSTEMI may be type 2 or even endocarditis on lovenox cardiology consult start ASA 8. DVT proph: anticoagulated Code Visit Inpatient E&M: 16495 [facility] L3
--- NOTE | 2017-12-22 08:00 | NURSING ---
Patient being prepared for intubation. 0808 Etomidate given, 0809 propofol and fentanyl gtts started. See JUN. 08 ETT inserted with positive color change and b/l equal breath sounds. Vitals stable.
[2017-12-22] MEDS: Etomidate 20 MG/10 ML Vial IV (08:08)
[2017-12-22] MEDS: Propofol 10MG/Ml 1,000 MG/100 ML Bottle 2.691 MG CONT INF ×3 (08:09→20:05)
[2017-12-22 09:04] LABS: CPK Total, Creatine Kinase 172 U/L (39-308); Triglycerides 228 mg/dL
--- NOTE | 2017-12-22 09:25 | PCM.OP.BLANK ---
Problem List (1) Acute hypoxic respiratory failure Status: Acute Operative Report Date of Procedure: 12/22/17 Procedure: Endotracheal intubation Indication: Respiratory failure, pneumonia and septic emboli Risks: Unable to discuss the patient given confuse state given alcohol withdrawal and sepsis Description: Patient was sedated with 20 of etomidate plus propofol and previous Librium that he had received for his alcohol withdrawal. Using a initially MAC blade. Cords were visualized but quickly lost. Patient initially had esophageal intubation but was not ventilated in any way through that mass was quickly removed. Another attempt was was performed with a MAC blade but still unable to completely visualize the vocal cords as they are very anterior. Then using a glide scope, the cords are visualized and endotracheal tube was advanced and balloon was dilated. Patient had bilateral breath sounds in lung and abdomen. Follow-up chest x-ray showed that the endotracheal tube is proximal 5 cm above the sweetie and then was subsequently advanced. Code Visit Procedures: 08196 Insert Emergency Airway
[2017-12-22 09:35] LABS: Allen Test POS; Base Excess 2 mmol/L (-2 to +2); Bicarbonate 26.9 mmol/L (22-26); Blood Gas Specimen Type ART; FI02 40; Mode A-C; O2 Delivery Device Vent; PEEP 5; PO2 72 mmHG (75-100); RR 12; SITE L Radial; SO2 95 % (95-99); Time Given 910; Total Carbon Dioxide 28 mmol/L; Vt 450; pCO2 41.1 mmHg (35-45); pH 7.42 (7.35-7.45)
--- NOTE | 2017-12-22 09:56 | PCM.PN.CARD ---
Subjectve: Patient clinically deteriorated this morning with tachypnea, tachycardia, no chest pain, emergently intubated to intervene acute respiratory distress. Patient currently intubated, sedated, telemetry showed normal sinus rhythm/sinus tachycardia. Chest x-ray demonstrates bilateral diffuse dense patchy infiltrates. No evidence of splinter hemorrhages or outward signs of endocarditis in the periphery. Objective: Vital Signs Temp Pulse Resp BP Pulse Ox 99.3 F H 125 H 17 114/79 96 12/22/17 00:00 12/22/17 09:32 12/22/17 09:32 12/22/17 06:00 12/22/17 09:32 Oxygen Flow Rate (L/min) 5 Oxygen Delivery Method Bi-pap Weight: 197 lb 12.074 oz Body Mass Index (BMI) 27.9 Intake and Output for Last 24 Hours 12/20/17 12/21/17 12/22/17 23:59 23:59 23:59 Intake Total 693.8 / 693.8 7452.7 / 7452.7 464.3 / 464.3 Output Total 525 / 525 1550 / 1550 1000 / 1000 Balance 168.8 / 168.8 5902.7 / 5902.7 -535.7 / -535.7 General: Awake, Alert, Oriented x 3 HEENT: PERRL, EOMI, Sclera Non Icteric Neck: Supple, Good ROM, No Lymph Node Enlargement Lungs: Clear to auscultation Cardiovascular: Regular Rhythm, Normal S1, Normal S2, No Murmurs, No Rubs, No Gallops Vascular: No Carotid Bruits, Normal Femoral Pulses, Normal Radial Pulses, Normal Dorsalis Pedal Pulse, Normal Posterior Tibial Pulses Abdomen: Bowel Sounds Present, Soft, Non Tender, No HSM, No Organomegaly Extremities: No Cyanosis, No Clubbing, No edema Neurological: No Focal Motor or Sensory Deficit 12/21/17 05:10: Triglycerides 132, Cholesterol 59, LDL Cholesterol 25, VLDL Cholesterol 26, HDL Cholesterol 8 L 12/22/17 04:00: WBC 8.2, RBC 3.98 L, Hgb 12.3 L, Hct 36.9 L, MCV 92.7, MCH 30.9, MCHC 33.3, RDW 14.0, RDW Differential 46.2 H, Plt Count 111 L, MPV 11.2, Immature Gran % (Auto) 0.400, Neut % (Auto) 85.2 H, Lymph % (Auto) 7.4 L, [place] % (Auto) 6.8, Eos % (Auto) 0.0, Baso % (Auto) 0.2, Absolute Neuts (auto) 7.0, Total Counted Not Reportable 12/22/17 04:00: Sodium 139, Potassium 4.1, Chloride 104, Carbon Dioxide 24.0, Anion Gap 11, BUN 20 H, Creatinine 0.93, Est GFR (MDRD) Af Amer 111, Est GFR (MDRD) Non-Af 92, BUN/Creatinine Ratio 21.5 H, Glucose 72 L, Calcium 7.5 L, Total Bilirubin 0.60 12/22/17 04:00: Triglycerides 228 H 12/22/17 09:28: pH 7.42, Bicarbonate Actual 26.9 H, POC Total CO2 28, Base Excess 2, O2 Saturation 95, ABG pCO2 41.1, ABG pO2 72 L, Jeremei Test POS Rhythm: EKG: ECHO: Global LV function relatively intact with low normal EF around 50-55%, RVSP of 43 mmHg, no RV strain noted. Stress Test: Cardiac Cath: PCI: CT Surgery: Holter monitor: EPS: PPM: CXR: Chest CT Scan: Medical Necessity - Tobacco Use Smoking Status: Current every day smoker Assessment/Plan 1. Non-STEMI: The patient has mild elevated troponin of 0.399 which may be consistent with pulmonary emboli and acute increase in his RV pressures, or myocardial demand due to his acute illness or both. Patient has no evidence of EKG changes and his EKG shows sinus tachycardia only. At this point I believe the patient would require full dose anticoagulation therapy for presumed pulmonary emboli as evidenced by his CT scan as well as for his acute coronary syndrome. His echocardiogram shows mild global LV dysfunction, and once his acute methamphetamine and alcohol withdrawal have been resolved, he would require a left heart catheterization to assess his mild global LV dysfunction as well as his non-STEMI. No obvious evidence of bacterial vegetation noted. In the meantime continue baby aspirin 81 mg p.o. daily, start him on Lopressor 12.5 mg p.o. twice daily for heart rate control, provided his blood pressure is able to tolerate. We also recommend starting him on Cozaar 25 mg p.o. daily for afterload reduction given his LV dysfunction once his acute illness has been resolved. I would recommend pursuing a transesophageal echocardiogram given his history of IV drug abuse in the distant past, his diffuse pulmonary patchy infiltrates and possible septic emboli as noted on CT scan to evaluate his tricuspid and pulmonary valves. Although there was no evidence on his surface echocardiogram of bacterial vegetations and he has no outward evidence of endocarditis in his periphery, this does not include the possibility of right-sided endocarditis. 2. Tobacco abuse: I had a long and thorough discussion with the patient regarding tobacco abuse, and I recommended that he discontinue all tobacco products. This may be somewhat problematic while he is going through withdrawal of alcohol and methamphetamines. 3. Substance abuse: I relayed to the patient that much of the source of his cardiac issues are substance abuse related including tobacco, methamphetamine, alcohol. I believe the patient is unable to get off of these substances on his own and may require aggressive inpatient therapy. 4. Pulmonary emboli: Patient is evidence of distal pulmonary emboli, and his d-dimer is quite elevated. This would be consistent with pulmonary emboli but may also be due to other acute processes. Lower extremity Dopplers are pending. Recommend continuing full anticoagulation with subcu Lovenox at this time. 5. Hyperlipidemia: Recommend obtaining a fasting lipid profile. Would not recommend statin based medications until the patient is demonstrated cessation of alcohol and substance abuse is. 6. Discussed with Dr. Holloway. Thank you very much for the opportunity to participate in the cardiac care of your patient. JOSE to follow tomorrow. Please obtain consent from the patient's next living relative or power of real estate attorney. Code Visit Inpatient E&M: 99813 Subs Hosp L2
[2017-12-22] MEDS: Multivitamins,Therapeutic Tablet 1 TABLET PO (10:10)
[2017-12-22] MEDS: Enoxaparin 80 MG/0.8 ML Syringe SC ×2 (10:11→21:14)
[2017-12-22] MEDS: guaiFENesin 1,200 MG Tablet 1200 MG PO (10:11)
[2017-12-22] MEDS: CHLORHEXIDINE GLUC 2% CLOTH 1 EACH TOWELETTE TOPICAL (10:53)
[2017-12-22] MEDS: Acetaminophen 650 MG/20 ML UDC NG ×3 (10:59→23:59)
[2017-12-22 13:00] LABS: Bedside Glucose 78 mg/dL (70-110)
[2017-12-22] MEDS: Vital AF 1.2 Cal Liquid 1,000 ML 70 ML GT (16:36)
[2017-12-22 18:11] LABS: Bedside Glucose 80 mg/dL (70-110)
[2017-12-22 19:06] LABS: Vancomycin, Trough Level 10.1 ug/mL (5.0-15.0)
--- NOTE | 2017-12-22 20:09 | PHA.PHARE_ITS ---
Consult Pharmacy has been consulted to manage selected antiobiotic: Vancomycin Type of Consult: Follow-up Suspected Infection: Pneumonia Prior Doses of Antibiotics Received/Current Regimen: Medications Vancomycin HCl 1,250 mg/ (Sodium Chloride) 275 mls @ 167 mls/hr IV Q8H DEONDRE Discontinued Medications Vancomycin HCl 1,500 mg/ (Sodium Chloride) 530 mls @ 250 mls/hr IV Q12H DEONDRE Last Admin: 12/22/17 18:55 Dose: 250 mls/hr Labs: Sodium 139 mmol/L (136-145) 12/22/17 04:00 Potassium 4.1 mmol/L (3.5-5.1) 12/22/17 04:00 Chloride 104 mmol/L (98-107) 12/22/17 04:00 Carbon Dioxide 24.0 mmol/L (21.0-32.0) 12/22/17 04:00 Anion Gap 11 (5-15) 12/22/17 04:00 BUN 20 mg/dL (7-18) H 12/22/17 04:00 Creatinine 0.93 mg/dL (0.70-1.30) 12/22/17 04:00 Est GFR (MDRD) Af Amer 111 mL/min (>60) 12/22/17 04:00 Est GFR (MDRD) Non-Af 92 mL/min (>60) 12/22/17 04:00 BUN/Creatinine Ratio 21.5 RATIO (10-20) H 12/22/17 04:00 Glucose 72 mg/dL (74-106) L 12/22/17 04:00 Vancomycin Trough 10.1 ug/mL (5.0-15.0) 12/22/17 18:00 Microbiology: Microbiology 12/20/17 23:25 Blood Culture (Wb) - Anticubital Right Blood Culture - Preliminary 12/20/17 23:20 Blood Culture (Wb) - Anticubital Left Bacteria Detection (PCR ) - Final Meth. resistant Staph. aureus 12/20/17 23:20 Blood Culture (Wb) - Anticubital Left Blood Culture - Preliminary Weight used for dosin.7 kg Estimated Creatinine Clearance: 97 Goal Trough: 15-20 mcg/mL Pharmacy Plan for Drug Dosing: Trough received of 10.1 - lower than target range of 15-20. Increased regimen to 1250mg q 8 hours. Will re-check trough after 4 doses at new strength. Pharmacy Service will continue to monitor and adjust dosing as required. Follow-Up Labs: Trough Vancomycin Labs to be done on [date and time ordered]: 12/23/17 @1976
[2017-12-22] MEDS: Metoprolol Tartrate 25 MG Tablet 12.5 MG NG (21:15)
[2017-12-22] MEDS: Chlorhexidine 15 ML PO (21:57)
[2017-12-22] MEDS: Albuterol 2.5 MG/3 ML VIAL.NEB. INHALATION (23:25)
[2017-12-22] MEDS: guaiFENesin 10 ML UDC (200MG/10ML) GT (23:36)
[2017-12-23] VITALS (38 sets, daily range): BP systolic 92–189; BP diastolic 64–99; PULSE 102–134; RESP 12–36; TEMP 37.1–39.9; O2SAT 90–100
[2017-12-23 00:11] LABS: Bedside Glucose 68 mg/dL (70-110)
[2017-12-23 00:11] LABS: Bedside Glucose 94 mg/dL (70-110)
[2017-12-23] MEDS: Dext 5%-0.45% NS 1,000 ML 30 ML IV (00:48)
[2017-12-23 00:55] LABS: Bedside Glucose 140 mg/dL (70-110)
[2017-12-23] MEDS: Ipratropium/Albuterol Sulfate 3 ML AMPUL.NEB INHALATION ×4 (01:41→18:40)
[2017-12-23] MEDS: 0.9% NaCl Peripheral Flush Adult/Peds IV ×3 (04:14→18:40)
[2017-12-23 04:30] LABS: Hematocrit 35.1 % (40-54); Hemoglobin 11.6 g/dl (13.0-16.5); Mean Corpuscular Hgb 30.5 pg (27.0-32.0); Mean Corpuscular Volume 92.4 fL (80-94); Mean Platelet Vol. 11.5 fl (6.2-12.0); Platelet Count 106 K/mm3 (150-450); RBC Distribution Width CV 14.4 % (11.6-14.6); RBC Distribution Width SD 47.2 fl (35.1-43.9); White Blood Count 8.7 K/mm3 (4.4-11.0)
[2017-12-23 04:31] LABS: Anion Gap 11 (5-15); BUN 22 mg/dL (7-18); BUN/Creat Ratio 26.8 RATIO (10-20); Calcium,Total 7.7 mg/dL (8.5-10.1); Chloride 102 mmol/L (98-107); Creatinine, Serum 0.82 mg/dL (0.70-1.30); Differential Indicated MANUAL DIFF; EST Glomerular Filtration Rate 106 mL/min (>60); Est Glom Filt Rate - Afr Amer 128 mL/min (>60); Estimated Creatinine Clearance 110.17 ml/min; Glucose 128 mg/dL (74-106); Magnesium 1.9 mg/dL (1.6-2.6); POSITIVE COUNT YES; POSITIVE DIFFERENTIAL NO; POSITIVE MORPHOLOGY YES; Phosphorus 1.4 mg/dL (2.5-4.9); Potassium 3.2 mmol/L (3.5-5.1); Sodium Level 141 mmol/L (136-145)
[2017-12-23] MEDS: Metoprolol Tartrate 5 MG/5 ML Vial IV (05:08)
[2017-12-23] MEDS: Piperacil/Tazobactam 3.375 GM/50 ML ML IV (05:08)
--- NOTE | 2017-12-23 06:02 | PCM.PN.INT ---
Subjective: Patient did okay overnight. Patient has been persistently febrile with a T-max of 39.2?C despite cooling blanket and Tylenol. Nursing reports patient has had to be sedated to a RASS of -3 secondary to vent synchrony. Patient was initiated on tube feeds overnight, but these were held at midnight secondary to JOSE. Patient did have some low blood sugars this morning requiring D50 administration. Patient has had elevated blood pressures overnight. Objective: Patient is to have a JOSE today. General: - - RASS -3. Good vent synchrony noted. Appears stated age. HEENT: Atraumatic, PERRLA, EOMI, Normocephalic, - - No scleral icterus or injection noted. Oral: Moist Mucosa, No Gingival or Mucosal Lesions/ Ulcerations, - - Edentulous Neck: Supple, No JVD, No Nodes, Trachea Midline Lungs: No wheeze, No rales, Rhonchi, - - Symmetric expansion. No dullness to percussion. Cardiovascular: Normal S1, Normal S2, No murmurs, No rub noted, No Gallop, Tachycardic Abdomen: Bowel Sounds Present, Soft, Non Tender, Non-Distended Extremities: No clubbing, No cyanosis, No edema, Capillary Refill Less than 3 Seconds, - - No splinter hemorrhages appreciated. Skin: No rashes, No breakdown, - - Multiple tattoos Musculoskeletal: No Tenderness to Palpation of Joints or Extremities Lymphatic: No Cervical, Supraclavicular, or Inguinal Adenopathy Neurological: Cranial nerves II-XII grossly intact, Neuro grossly intact, Motor Exam 5/5 strength throughout Psych/Mental Status: Flat Affect, Impulsive Vital Signs Temp Pulse Resp BP Pulse Ox 37.5 C H 106 H 24 H 132/85 H 100 12/23/17 06:00 12/23/17 06:00 12/23/17 06:00 12/23/17 06:00 12/23/17 06:00 Oxygen Flow Rate (L/min) 5 Oxygen Delivery Method Mechanical Ventilator Weight: 89.7 kg Body Mass Index (BMI) 27.9 Intake and Output for Last 24 Hours 12/21/17 12/22/17 12/23/17 23:59 23:59 23:59 Intake Total 7452.7 / 7452.7 2886.4 / 2886.4 435.5 / 435.5 Output Total 1550 / 1550 3450 / 3450 400 / 400 Balance 5902.7 / 5902.7 -563.6 / -563.6 35.5 / 35.5 Labs (Last 48 Hours) 12/21/17 12/21/17 12/21/17 05:10 06:25 06:50 WBC RBC Hgb Hct MCV MCH MCHC RDW RDW Differential Plt Count MPV Immature Gran % (Auto) Neut % (Auto) Lymph % (Auto) Garrett % (Auto) Eos % (Auto) Baso % (Auto) Absolute Neuts (auto) Absolute Lymphs (auto) Total Counted Differential Comment D-Dimer Quant (PE/DVT) > 20.00 H* Specimen Type Sample Site pH Bicarbonate Actual POC Total CO2 Base Excess O2 Saturation O2 % ABG pCO2 ABG pO2 Jeremie Test Respiration Rate O2 Delivery Device Minute Volume Vent Mode Tidal Volume POC PEEP Blood Gas Notified Whom Blood Gas Notified Time Sodium Potassium Chloride Carbon Dioxide Anion Gap BUN Creatinine Estim Creat Clear Calc Est GFR (MDRD) Af Amer Est GFR (MDRD) Non-Af BUN/Creatinine Ratio Glucose Calcium Phosphorus Magnesium Total Bilirubin AST ALT Alkaline Phosphatase Total Creatine Kinase Total Protein Albumin Globulin Albumin/Globulin Ratio Triglycerides 132 Cholesterol 59 LDL Cholesterol 25 VLDL Cholesterol 26 HDL Cholesterol 8 L Vancomycin Trough Hepatitis A IgM Ab Pending Hep Bs Antigen Pending Hep B Core IgM Ab Pending Hepatitis C Ab (EIA) Pending POC Glucose 12/22/17 12/22/17 12/22/17 04:00 04:00 04:00 WBC 8.2 RBC 3.98 L Hgb 12.3 L Hct 36.9 L MCV 92.7 MCH 30.9 MCHC 33.3 RDW 14.0 RDW Differential 46.2 H Plt Count 111 L MPV 11.2 Immature Gran % (Auto) 0.400 Neut % (Auto) 85.2 H Lymph % (Auto) 7.4 L Garrett % (Auto) 6.8 Eos % (Auto) 0.0 Baso % (Auto) 0.2 Absolute Neuts (auto) 7.0 Absolute Lymphs (auto) 0.61 L Total Counted Not Reportable Differential Comment SCANNED D-Dimer Quant (PE/DVT) Specimen Type Sample Site pH Bicarbonate Actual POC Total CO2 Base Excess O2 Saturation O2 % ABG pCO2 ABG pO2 Jeremie Test Respiration Rate O2 Delivery Device Minute Volume Vent Mode Tidal Volume POC PEEP Blood Gas Notified Whom Blood Gas Notified Time Sodium 139 Potassium 4.1 Chloride 104 Carbon Dioxide 24.0 Anion Gap 11 BUN 20 H Creatinine 0.93 Estim Creat Clear Calc 97.14 Est GFR (MDRD) Af Amer 111 Est GFR (MDRD) Non-Af 92 BUN/Creatinine Ratio 21.5 H Glucose 72 L Calcium 7.5 L Phosphorus Magnesium Total Bilirubin 0.60 AST 70 H ALT 57 Alkaline Phosphatase 74 Total Creatine Kinase 172 Total Protein 6.4 Albumin 2.0 L Globulin 4.4 H Albumin/Globulin Ratio 0.5 L Triglycerides 228 H Cholesterol LDL Cholesterol VLDL Cholesterol HDL Cholesterol Vancomycin Trough Hepatitis A IgM Ab Hep Bs Antigen Hep B Core IgM Ab Hepatitis C Ab (EIA) POC Glucose 12/22/17 12/22/17 12/22/17 06:21 06:48 09:28 WBC RBC Hgb Hct MCV MCH MCHC RDW RDW Differential Plt Count MPV Immature Gran % (Auto) Neut % (Auto) Lymph % (Auto) [place] % (Auto) Eos % (Auto) Baso % (Auto) Absolute Neuts (auto) Absolute Lymphs (auto) Total Counted Differential Comment D-Dimer Quant (PE/DVT) Specimen Type ART Sample Site L Radial pH 7.42 Bicarbonate Actual 26.9 H POC Total CO2 28 Base Excess 2 O2 Saturation 95 O2 % 40 ABG pCO2 41.1 ABG pO2 72 L Jeremie Test POS Respiration Rate 12 O2 Delivery Device Vent Minute Volume 17.00 Vent Mode A-C Tidal Volume 450 POC PEEP 5 Blood Gas Notified Whom ICU MD Blood Gas Notified Time 910 Sodium Potassium Chloride Carbon Dioxide Anion Gap BUN Creatinine Estim Creat Clear Calc Est GFR (MDRD) Af Amer Est GFR (MDRD) Non-Af BUN/Creatinine Ratio Glucose Calcium Phosphorus Magnesium Total Bilirubin AST ALT Alkaline Phosphatase Total Creatine Kinase Total Protein Albumin Globulin Albumin/Globulin Ratio Triglycerides Cholesterol LDL Cholesterol VLDL Cholesterol HDL Cholesterol Vancomycin Trough Hepatitis A IgM Ab Hep Bs Antigen Hep B Core IgM Ab Hepatitis C Ab (EIA) POC Glucose 63 L 101 12/22/17 12/22/17 12/22/17 12:55 18:00 18:06 WBC RBC Hgb Hct MCV MCH MCHC RDW RDW Differential Plt Count MPV Immature Gran % (Auto) Neut % (Auto) Lymph % (Auto) [place] % (Auto) Eos % (Auto) Baso % (Auto) Absolute Neuts (auto) Absolute Lymphs (auto) Total Counted Differential Comment D-Dimer Quant (PE/DVT) Specimen Type Sample Site pH Bicarbonate Actual POC Total CO2 Base Excess O2 Saturation O2 % ABG pCO2 ABG pO2 Jeremie Test Respiration Rate O2 Delivery Device Minute Volume Vent Mode Tidal Volume POC PEEP Blood Gas Notified Whom Blood Gas Notified Time Sodium Potassium Chloride Carbon Dioxide Anion Gap BUN Creatinine Estim Creat Clear Calc Est GFR (MDRD) Af Amer Est GFR (MDRD) Non-Af BUN/Creatinine Ratio Glucose Calcium Phosphorus Magnesium Total Bilirubin AST ALT Alkaline Phosphatase Total Creatine Kinase Total Protein Albumin Globulin Albumin/Globulin Ratio Triglycerides Cholesterol LDL Cholesterol VLDL Cholesterol HDL Cholesterol Vancomycin Trough 10.1 Hepatitis A IgM Ab Hep Bs Antigen Hep B Core IgM Ab Hepatitis C Ab (EIA) POC Glucose 78 80 12/22/17 12/23/17 12/23/17 23:32 00:05 00:46 WBC RBC Hgb Hct MCV MCH MCHC RDW RDW Differential Plt Count MPV Immature Gran % (Auto) Neut % (Auto) Lymph % (Auto) [place] % (Auto) Eos % (Auto) Baso % (Auto) Absolute Neuts (auto) Absolute Lymphs (auto) Total Counted Differential Comment D-Dimer Quant (PE/DVT) Specimen Type Sample Site pH Bicarbonate Actual POC Total CO2 Base Excess O2 Saturation O2 % ABG pCO2 ABG pO2 Jeremie Test Respiration Rate O2 Delivery Device Minute Volume Vent Mode Tidal Volume POC PEEP Blood Gas Notified Whom Blood Gas Notified Time Sodium Potassium Chloride Carbon Dioxide Anion Gap BUN Creatinine Estim Creat Clear Calc Est GFR (MDRD) Af Amer Est GFR (MDRD) Non-Af BUN/Creatinine Ratio Glucose Calcium Phosphorus Magnesium Total Bilirubin AST ALT Alkaline Phosphatase Total Creatine Kinase Total Protein Albumin Globulin Albumin/Globulin Ratio Triglycerides Cholesterol LDL Cholesterol VLDL Cholesterol HDL Cholesterol Vancomycin Trough Hepatitis A IgM Ab Hep Bs Antigen Hep B Core IgM Ab Hepatitis C Ab (EIA) POC Glucose 68 L 94 140 H 12/23/17 12/23/17 04:05 04:05 WBC 8.7 RBC 3.80 L Hgb 11.6 L Hct 35.1 L MCV 92.4 MCH 30.5 MCHC 33.0 RDW 14.4 RDW Differential 47.2 H Plt Count 106 L MPV 11.5 Immature Gran % (Auto) Neut % (Auto) Not Reportable Lymph % (Auto) [place] % (Auto) Eos % (Auto) Baso % (Auto) Absolute Neuts (auto) Not Reportable Absolute Lymphs (auto) Total Counted Not Reportable Differential Comment D-Dimer Quant (PE/DVT) Specimen Type Sample Site pH Bicarbonate Actual POC Total CO2 Base Excess O2 Saturation O2 % ABG pCO2 ABG pO2 Jeremie Test Respiration Rate O2 Delivery Device Minute Volume Vent Mode Tidal Volume POC PEEP Blood Gas Notified Whom Blood Gas Notified Time Sodium 141 Potassium 3.2 L Chloride 102 Carbon Dioxide 28.0 Anion Gap 11 BUN 22 H Creatinine 0.82 Estim Creat Clear Calc 110.17 Est GFR (MDRD) Af Amer 128 Est GFR (MDRD) Non-Af 106 BUN/Creatinine Ratio 26.8 H Glucose 128 H Calcium 7.7 L Phosphorus 1.4 L Magnesium 1.9 Total Bilirubin AST ALT Alkaline Phosphatase Total Creatine Kinase Total Protein Albumin Globulin Albumin/Globulin Ratio Triglycerides Cholesterol LDL Cholesterol VLDL Cholesterol HDL Cholesterol Vancomycin Trough Hepatitis A IgM Ab Hep Bs Antigen Hep B Core IgM Ab Hepatitis C Ab (EIA) POC Glucose Microbiology 12/22/17 11:25 Blood Culture (Wb) - Left Wrist Blood Culture - Preliminary 12/22/17 11:40 Blood Culture (Wb) - Left Forearm Blood Culture - Preliminary 12/20/17 23:25 Blood Culture (Wb) - Anticubital Right Blood Culture - Preliminary 12/20/17 23:20 Blood Culture (Wb) - Anticubital Left Bacteria Detection (PCR) - Final Meth. resistant Staph. aureus 12/20/17 23:20 Blood Culture (Wb) - Anticubital Left Blood Culture - Preliminary Clinical Impression(s) from Imaging Studies Chest X-Ray 12/22/17 08:20 IMPRESSION: 1. Appropriate positioning of endotracheal and enteric tubes. 2. Unchanged appearance of multiple pulmonary nodules and/or airspace consolidation. Electronically Signed: Sherice Leahy MD at 9:39 EDT , Service support , Medical Necessity - Tobacco Use Smoking Status: Current every day smoker Assessment/Plan All Active Problems Acute hypoxic respiratory failure (Acute) Polysubstance (including opioids) dependence, daily use (Acute) Methamphetamine abuse (Acute) Severe sepsis (Acute) Bilateral community acquired pneumonia (Acute) Alcohol withdrawal (Acute) Non-STEMI (non-ST elevated myocardial infarction) (Acute) RECOMMENDATIONS: 1. Continue daily blood cultures until negative 2. Await JOSE 3. Continue propofol and fentanyl sedation 4. Wean oxygen as tolerated 5. Reinitiate tube feeds following JOSE 6. Attempt to avoid placement of PICC/TLC until blood cultures negative 7. Monitor for refeeding with electrolyte repletion as indicated IMPRESSIONS: 1. Severe sepsis with probable embolic MRSA pneumonia Patient with alveolar infiltrates scattered in an embolic pattern. Patient is now growing MRSA in the blood indicating probable embolic pneumonia as the infiltrates noted on CT scan. Patient intubated yesterday secondary to respiratory distress. Blood cultures have remained persistently positive despite the addition of vancomycin 48 hours ago. Vascular access is okay at this point. Will attempt to clear blood prior to placement of PICC versus central line. No indication for pressor need at this time. Exact source of MRSA is unclear, but patient does have a history of IV drug use in the past. Multiple different accounts on last use. 2. Toxic encephalopathy secondary to polysubstance abuse and alcohol withdrawal Patient appears to be in alcohol withdrawal at this time. Will discontinue IV Ativan and Librium therapy. Continue with propofol and fentanyl for sedation. 3. Homeless/poor support system/limited information Complicates care, management, recovery and prognosis. Case management will be following. Initiate tube feeds. Will need to monitor for refeeding syndrome with aggressive electrolyte repletion requirements. 4. Acute hypoxic respiratory failure secondary to MRSA pneumonia/probable endocarditis Vision with extensive bilateral infiltrates noted on imaging with persistently positive blood cultures. Patient has not had any vegetation noted on echocardiogram, but high clinical suspicion for probable endocarditis. Patient is to have a JOSE today. Patient will be seen by infectious disease. No spontaneous breathing trial secondary to active withdrawal. Patient has not required high amounts of propofol at this time. 5. Hypertensive urgency May be secondary to withdrawal versus agitation. Patient will be given a low-dose of Coreg to help with hypertension and tachycardia. Patient may also require some IV beta-sarmad in addition to oral regimen. TIME: 31 minutes critical care time spent addressing patient's acute hypoxic respiratory failure, alcohol withdrawal, severe sepsis, review of all data and collaboration with care team. (5:30 AM to 6:15 AM) Code Visit [id number]: [id number] Critical care first hour
[2017-12-23 06:06] LABS: Bedside Glucose 120 mg/dL (70-110)
[2017-12-23 06:46] LABS: Eosinophil 1 % (0-5); Lymphocyte 10 % (19-41); Monocyte 3 % (0-10); Neutrophil-Band 6 % (0-5); Neutrophil-Segmented 80 % (47-70); Total Cells Counted 100 (MANUAL DIFF)
[2017-12-23 06:47] LABS: Absolute Lymphocyte Count 0.87 X10^3/ul (0.83-4.51); Absolute Neutrophil Count 7.5 X10^3/uL (2.0-7.7); Lymphocyte # 0.87 X10^3/ul (4.0); Neutrophil # 7.48 X10^3/uL (2.7-7.7); Platelet Estimate ADEQUATE (ADEQ); Red Cell Morphology NORM C+C NORMAL (NORM C&C); Toxic Granulation 2+; Vacuolated Cells 1+
[2017-12-23] MEDS: CHLORHEXIDINE GLUC 2% CLOTH 1 EACH TOWELETTE TOPICAL (07:00)
--- NOTE | 2017-12-23 07:30 | PCM.PN.HOSP ---
Patient Problems: Active and Suspected Problems Acute hypoxic respiratory failure (Acute) Polysubstance (including opioids) dependence, daily use (Acute) Methamphetamine abuse (Acute) Severe sepsis (Acute) Bilateral community acquired pneumonia (Acute) Alcohol withdrawal (Acute) Non-STEMI (non-ST elevated myocardial infarction) (Acute) Subjective: Patient is a 47-year-old gentleman who presented with back pain as well as shortness of breath. Imaging studies obtained on admission was consistent with septic emboli to the lungs. Subsequent cultures came back positive for MRSA. Antibiotics initiated per protocol. Patient had a TTE which failed to demonstrate any endocarditis scheduled to undergo JOSE on 12/23/2017. Hospital stay complicated by respiratory failure resulting in patient being intubated. Objective: GENERAL: Sedated on the vent HEENT: Clear conjunctiva, moist oral mucosa NECK; supple, normal thyroid, no distended JVD. CHEST: Diminished to auscultation bilaterally, HEART: Regular S1 S2, no audible murmurs ABDOMEN: soft, non-tender, normoactive bowel sounds, RECTAL: deferred EXTREMITIES: No edema, no clubbing, no cyanosis. HOSPICE MUSIC THERAPY: Sedated on the vent SKIN: Some excoriations on the left knee Vitals/I&O's: Vital Signs Temp Pulse Resp BP Pulse Ox 99.5 F H 105 H 27 H 132/85 H 98 12/23/17 06:00 12/23/17 06:21 12/23/17 06:21 12/23/17 06:00 12/23/17 06:21 Oxygen Flow Rate (L/min) 5 Oxygen Delivery Method Mechanical Ventilator Weight: 87.4 kg Body Mass Index (BMI) 27.9 Intake and Output for Last 24 Hours 12/21/17 12/22/17 12/23/17 23:59 23:59 23:59 Intake Total 7452.7 / 7452.7 2886.4 / 2886.4 435.5 / 435.5 Output Total 1550 / 1550 3450 / 3450 400 / 400 Balance 5902.7 / 5902.7 -563.6 / -563.6 35.5 / 35.5 Microbiology Past 72 Hours 12/22/17 11:25 Blood Culture (Wb) - Left Wrist Blood Culture - Preliminary 12/22/17 11:40 Blood Culture (Wb) - Left Forearm Blood Culture - Preliminary 12/20/17 23:25 Blood Culture (Wb) - Anticubital Right Blood Culture - Preliminary 12/20/17 23:20 Blood Culture (Wb) - Anticubital Left Bacteria Detection (PCR) - Final Meth. resistant Staph. aureus 12/20/17 23:20 Blood Culture (Wb) - Anticubital Left Blood Culture - Preliminary Laboratory Results 12/22/17 04:00: Total Creatine Kinase 172, Triglycerides 228 H 12/22/17 09:28: Specimen Type ART, Sample Site L Radial, pH 7.42, Bicarbonate Actual 26.9 H, POC Total CO2 28, Base Excess 2, O2 Saturation 95, O2 % 40, ABG pCO2 41.1, ABG pO2 72 L, Jeremie Test POS, Respiration Rate 12, O2 Delivery Device Vent, Minute Volume 17.00, Vent Mode A-C, Tidal Volume 450, POC PEEP 5, Blood Gas Notified Whom ICU , Blood Gas Notified Time 910 12/22/17 12:55: POC Glucose 78 12/22/17 18:00: Vancomycin Trough 10.1 12/22/17 18:06: POC Glucose 80 12/22/17 23:32: POC Glucose 68 L 12/23/17 00:05: POC Glucose 94 12/23/17 00:46: POC Glucose 140 H 12/23/17 04:05: WBC 8.7, RBC 3.80 L, Hgb 11.6 L, Hct 35.1 L, MCV 92.4, MCH 30.5, MCHC 33.0, RDW 14.4, RDW Differential 47.2 H, Plt Count 106 L, MPV 11.5, Neut % (Auto) Not Reportable, Absolute Neuts (auto) 7.5, Absolute Lymphs (auto) 0.87, Total Counted 100, Neutrophils % (Manual) 80 H, Band Neutrophils % 6 H, Lymphocytes % (Manual) 10 L, Monocytes % (Manual) 3, Eosinophils % (Manual) 1, Differential Comment 1+, Diff Path Review May foll, Toxic Granulation 2+, Platelet Estimate ADEQUATE, RBC Morphology NORM C+C 12/23/17 04:05: Sodium 141, Potassium 3.2 L, Chloride 102, Carbon Dioxide 28.0, Anion Gap 11, BUN 22 H, Creatinine 0.82, Estim Creat Clear Calc 110.17, Est GFR (MDRD) Af Amer 128, Est GFR (MDRD) Non-Af 106, BUN/Creatinine Ratio 26.8 H, Glucose 128 H, Calcium 7.7 L, Phosphorus 1.4 L, Magnesium 1.9 12/23/17 05:57: POC Glucose 120 H Current Medications Acetaminophen (Tylenol Liquid) 650 mg NG Q4H PRN PRN PRN Reason: Mild-Moderate Pain/Headache Last Admin: 12/22/17 23:59 Dose: 650 mg Albuterol Sulfate (Ventolin Aerosols) 2.5 mg INHALATION Q2H PRN PRN PRN Reason: SOB &/OR WHEEZING Last Admin: 12/22/17 23:25 Dose: 2.5 mg Albuterol/Ipratropium (Duoneb) 3 ml INHALATION Q6HWA.RT [facility] Last Admin: 12/23/17 06:20 Dose: 3 ml Carvedilol (Coreg) 6.25 mg PO BID [facility] Chlorhexidine Gluconate () 1 each TOPICAL DAILY [facility] Last Admin: 12/22/17 10:53 Dose: 1 each Chlorhexidine Gluconate () 15 ml PO BID [facility] Last Admin: 12/22/17 21:57 Dose: 15 ml Dextrose (D50w Syringe) 0 gm IV X1 PRN; Protocol PRN Reason: Hypoglycemia Last Admin: 12/22/17 23:33 Dose: 12.5 gm Enoxaparin Sodium (Lovenox) 80 mg SC BID [facility] Last Admin: 12/22/17 21:14 Dose: 80 mg Folic Acid (Folic Acid) 1 mg NG DAILYCM [facility] Glucagon () 1 mg IM .X1 PRN PRN Reason: Hypoglycemia Guaifenesin (Robitussin) 10 ml GT Q6 [facility] Last Admin: 12/23/17 04:13 Dose: Not Given Haloperidol Lactate (Haldol) 2 mg IV Q4H PRN PRN PRN Reason: AGITATION Last Admin: 12/21/17 22:40 Dose: 2 mg Hydroxyzine Pamoate (Vistaril Pamoate Capsule) 50 mg NG Q6H PRN PRN PRN Reason: Mild Anxiety (score 1/3) Piperacillin Sod/Tazobactam Sod (Zosyn) 3.375 gm in 50 mls @ 12.5 mls/hr IV Q8 [facility] Last Admin: 12/23/17 05:08 Dose: 12.5 mls/hr Sodium Chloride () 250 mls @ 15 mls/hr IV .[id number] PRN PRN Reason: SALINE FLUSH Vancomycin IV Pharmacy to Dose (1 ea/ Sodium Chloride) 500 mls @ 250 mls/hr IV X1 PRN; Protocol PRN Reason: Rx to Dose Fentanyl () 100 mls @ 5 mls/hr IV .Q20H [facility] Last Admin: 12/23/17 04:14 Dose: 5 mls/hr Propofol (Diprivan) 1,000 mg in 100 mls @ 2.691 mls/hr CONT INF .Q12H [facility]OND[facility]; 5 MCG/KG/MIN PRN Reason: Protocol Last Admin: 12/23/17 05:14 Dose: Not Given Enteral Nutritional Formula (Vital Af 1.2 Johnny Liquid) 1,000 mls @ 70 mls/hr GT .[id number] [facility] Last Admin: 12/23/17 01:56 Dose: Not Given Vancomycin HCl 1,250 mg/ (Sodium Chloride) 275 mls @ 167 mls/hr IV Q8H [facility] Last Admin: 12/23/17 02:01 Dose: 167 mls/hr Dextrose/Sodium Chloride () 1,000 mls @ 30 mls/hr IV .[id number] [facility] Last Admin: 12/23/17 00:48 Dose: 30 mls/hr Potassium Phosphate 40 mm/ (Sodium Chloride) 513.3333 mls @ 62.5 mls/hr IV X1 ONE Stop: 12/23/17 13:42 Last Admin: 12/23/17 05:58 Dose: 62.5 mls/hr Magnesium Hydroxide (Milk Of Magnesia) 30 ml GT DAILY PRN PRN PRN Reason: Constipation Methocarbamol (Methocarbamol) 750 mg PO Q6H PRN PRN PRN Reason: Muscle Aches Metoprolol Tartrate (Lopressor (Beta Ruba)) 5 mg IV Q4 PRN PRN Reason: Heart Rate >100 Last Admin: 12/23/17 05:08 Dose: 5 mg Metoprolol Tartrate (Lopressor (Beta Ruba)) 12.5 mg NG BID [facility] Last Admin: 12/22/17 21:15 Dose: 12.5 mg Nicotine (Nicoderm Cq (Pbkc)) 21 mg TRANSDERM. DAILY [facility] Last Admin: 12/22/17 10:37 Dose: 21 mg Ondansetron HCl (Zofran) 4 mg IV Q6H PRN PRN PRN Reason: NAUSEA Oxycodone HCl (Oxyir) 5 mg NG Q4H PRN PRN PRN Reason: SEVERE PAIN (6-10/10) Promethazine HCl (Phenergan) 12.5 mg IV Q4H PRN PRN PRN Reason: NAUSEA/VOMITING Sodium Chloride () 5 - 30 ml IV UD PRN PRN Reason: SALINE FLUSH Last Admin: 12/23/17 05:08 Dose: 10 ml Thiamine HCl (Vitamin B1) 100 mg NG DAILYCM [facility] Medical Necessity - Tobacco Use Smoking Status: Current every day smoker Assessment/Plan All Active Problems Acute hypoxic respiratory failure (Acute) Polysubstance (including opioids) dependence, daily use (Acute) Methamphetamine abuse (Acute) Severe sepsis (Acute) Bilateral community acquired pneumonia (Acute) Alcohol withdrawal (Acute) Non-STEMI (non-ST elevated myocardial infarction) (Acute) Patient is a 47-year-old gentleman who presented with back pain as well as shortness of breath. Imaging studies obtained on admission was consistent with septic emboli to the lungs. Subsequent cultures came back positive for MRSA. Antibiotics initiated per protocol. Patient had a TTE which failed to demonstrate any endocarditis scheduled to undergo JOSE on 12/23/2017. Hospital stay complicated by respiratory failure resulting in patient being intubated. 1. Septic shock secondary to pneumonia with MRSA. Patient was admitted to the intensive care on admission management protocol with broad-spectrum antibiotic therapy as well as fluid resuscitation. Subsequent cultures came back positive for MRSA currently on vancomycin and Zosyn consultation placed to Dr. Rouse with infectious disease 2. MRSA pneumonia CT demonstrated possibility of septic emboli. Management as described above in addition patient is scheduled to undergo JOSE on 12/23/2017 3. Acute hypoxic respiratory failure patient initially managed on BiPAP without much improvement had to be intubated on 12/22/2017. Pulmonary medicine/critical care on consult management of patient events deflated 4. MRSA bacteremia 5. Chronic alcohol abuse patient presented with alcohol withdrawal placed on Librium in addition to folic acid and thiamine 6. Acute N STEMI type II secondary to demand ischemia from patient's sepsis managed on Lovenox and aspirin with consultation placed to cardiology 7. Acute hypertensive urgency resolved this was felt to be secondary to patient withdrawing from alcohol 8. DVT prophylaxis; enoxaparin Active Medications Acetaminophen (Tylenol Liquid) 650 mg GT Q4H PRN PRN PRN Reason: Mild-Moderate Pain/Headache Albuterol Sulfate (Ventolin Aerosols) 2.5 mg INHALATION Q2H PRN PRN PRN Reason: SOB &/OR WHEEZING Last Admin: 12/22/17 23:25 Dose: 2.5 mg Albuterol/Ipratropium (Duoneb) 3 ml INHALATION Q6HWA.RT [facility] Last Admin: 12/23/17 06:20 Dose: 3 ml Carvedilol (Coreg) 6.25 mg GT BID [facility] Chlorhexidine Gluconate () 1 each TOPICAL DAILY [facility] Last Admin: 12/22/17 10:53 Dose: 1 each Chlorhexidine Gluconate () 15 ml PO BID [facility] Last Admin: 12/22/17 21:57 Dose: 15 ml Dextrose (D50w Syringe) 0 gm IV X1 PRN; Protocol PRN Reason: Hypoglycemia Last Admin: 12/22/17 23:33 Dose: 12.5 gm Enoxaparin Sodium (Lovenox) 80 mg SC BID [facility] Last Admin: 12/22/17 21:14 Dose: 80 mg Folic Acid (Folic Acid) 1 mg GT DAILY [facility] Glucagon () 1 mg IM .X1 PRN PRN Reason: Hypoglycemia Guaifenesin (Robitussin) 10 ml GT Q6 [facility] Last Admin: 12/23/17 04:13 Dose: Not Given Haloperidol Lactate (Haldol) 2 mg IV Q4H PRN PRN PRN Reason: AGITATION Last Admin: 12/21/17 22:40 Dose: 2 mg Hydroxyzine Pamoate (Vistaril Pamoate Capsule) 50 mg GT Q6H PRN PRN PRN Reason: Mild Anxiety (score 1/3) Sodium Chloride () 250 mls @ 15 mls/hr IV .[id number] PRN PRN Reason: SALINE FLUSH Vancomycin IV Pharmacy to Dose (1 ea/ Sodium Chloride) 500 mls @ 250 mls/hr IV X1 PRN; Protocol PRN Reason: Rx to Dose Fentanyl () 100 mls @ 5 mls/hr IV .Q20H [facility] Last Admin: 12/23/17 04:14 Dose: 5 mls/hr Propofol (Diprivan) 1,000 mg in 100 mls @ 2.691 mls/hr CONT INF .Q12H [facility]; 5 MCG/KG/MIN PRN Reason: Protocol Last Admin: 12/23/17 05:14 Dose: Not Given Enteral Nutritional Formula (Vital Af 1.2 Johnny Liquid) 1,000 mls @ 70 mls/hr GT .[id number] [facility] Last Admin: 12/23/17 01:56 Dose: Not Given Vancomycin HCl 1,250 mg/ (Sodium Chloride) 275 mls @ 167 mls/hr IV Q8H [facility] Last Admin: 12/23/17 02:01 Dose: 167 mls/hr Dextrose/Sodium Chloride () 1,000 mls @ 30 mls/hr IV .[id number] [facility] Last Admin: 12/23/17 00:48 Dose: 30 mls/hr Potassium Phosphate 40 mm/ (Sodium Chloride) 513.3333 mls @ 62.5 mls/hr IV X1 ONE Stop: 12/23/17 13:42 Last Admin: 12/23/17 05:58 Dose: 62.5 mls/hr Magnesium Hydroxide (Milk Of Magnesia) 30 ml GT DAILY PRN PRN PRN Reason: Constipation Methocarbamol (Methocarbamol) 750 mg PO Q6H PRN PRN PRN Reason: Muscle Aches Metoprolol Tartrate (Lopressor (Beta Ruba)) 5 mg IV Q4H PRN PRN PRN Reason: Heart Rate >100 Nicotine (Nicoderm Cq (Pbkc)) 21 mg TRANSDERM. DAILY [facility] Last Admin: 12/22/17 10:37 Dose: 21 mg Ondansetron HCl (Zofran) 4 mg IV Q6H PRN PRN PRN Reason: NAUSEA Oxycodone HCl (Oxyir) 5 mg PO Q4H PRN PRN PRN Reason: SEVERE PAIN (6-10/10) Promethazine HCl (Phenergan) 12.5 mg IV Q4H PRN PRN PRN Reason: NAUSEA/VOMITING Sodium Chloride () 5 - 30 ml IV UD PRN PRN Reason: SALINE FLUSH Last Admin: 12/23/17 05:08 Dose: 10 ml Thiamine HCl (Vitamin B1) 100 mg GT DAILY [facility] Clinical Impression(s) from Imaging Studies Chest X-Ray 12/20/17 18:00 IMPRESSION: Patchy airspace opacities bilaterally which is likely infectious in etiology. Electronically Signed: Khadar Reardon, at 19:16 EDT Tel , Service support , Abdomen/Pelvis CT 12/20/17 18:10 IMPRESSION: There are degenerative changes in the visualized spine. There are disc herniations at T12-L1 and L1-2 with narrowing of the spinal canal. There is disc bulge and possible herniation at L3-4. There is diffuse fatty infiltration of the liver. There is mild splenomegaly. There is no ascites. There are no acute bowel abnormalities. There is no free air. There are small lymph nodes in the retroperitoneum. There is stranding around the distal aorta and iliac vessels. There is also stranding in the prevascular space. This can be seen with retroperitoneal fibrosis but is nonspecific. There are patchy airspace opacities scattered in both lung bases which are nonspecific and can be seen with a diffuse infectious process. A neoplastic process is also in the differential. There is no pleural effusion. The images are limited by motion artifact. Electronically Signed: Celena Ziegler MD at 20:09 EDT Tel Direct: [phone], Service support , Chest CTA 12/20/17 21:08 IMPRESSION: Distal pulmonary emboli cannot be excluded, especially in the right upper and lower lobes. The images are limited by motion artifact. There are patchy airspace opacities scattered throughout both lungs, likely a diffuse infectious process. Septic emboli cannot be excluded. A neoplastic process cannot be completely excluded but is less likely. There is no pleural effusion or significant lymphadenopathy. N.B. : The above information has been verbally conveyed by Celena Ziegler MD to Tatiana Arizmendi, Hospital- In-Patient RN, on 12/20/2017 22:48:42 (ET). Electronically Signed: Celena Ziegler MD at 22:33 EDT Tel Direct: [phone], Service support , Brain CT 12/20/17 21:32 IMPRESSION: No acute intracranial abnormality. Electronically Signed: Khadar Reardon, at 22:07 EDT Tel , Service support , Chest X-Ray 12/21/17 04:00 IMPRESSION: Worsening of bilateral nodular airspace disease most pronounced along the right upper lung periphery. This may represent a focal pneumonia, etiology such as emboli or neoplasm are not excluded. Electronically Signed: Vanna Briones MD at 6:49 EDT , Service support , Chest X-Ray 12/22/17 04:10 IMPRESSION: Mild worsening of bilateral lung masses and nodules. Considerations include septic emboli, metastatic disease or less likely multiple pneumonias. Electronically Signed: Celestine Madrid MD at 4:57 EDT , Service support , Chest X-Ray 12/22/17 08:20 IMPRESSION: 1. Appropriate positioning of endotracheal and enteric tubes. 2. Unchanged appearance of multiple pulmonary nodules and/or airspace consolidation. Electronically Signed: Sherice Leahy MD at 9:39 EDT , Service support , Code Visit Inpatient E&M: 35978 Subs Hosp L3
--- NOTE | 2017-12-23 07:47 | NURSING ---
Called pt's daughter Keyanna, listed in demographics, to get consent for JOSE. She did not answer, left message to call ICU back.
[2017-12-23 10:09] LABS: Pathologist Review Reviewed
[2017-12-23 10:19] LABS: Pathologist Review Reviewed
[2017-12-23] MEDS: Acetaminophen 650 MG/20 ML UDC GT ×2 (10:23→18:14)
[2017-12-23] MEDS: Chlorhexidine 15 ML PO ×2 (10:24→21:29)
[2017-12-23] MEDS: Enoxaparin 80 MG/0.8 ML Syringe SC ×2 (10:25→21:28)
[2017-12-23] MEDS: Folic Acid 1 MG Tablet GT (10:25)
[2017-12-23] MEDS: Propofol 10MG/Ml 1,000 MG/100 ML Bottle 2.691 MG CONT INF ×2 (10:25→23:42)
[2017-12-23] MEDS: Thiamine Hydrochloride 100 MG Tablet GT (10:26)
[2017-12-23 11:11] LABS: Bedside Glucose 106 mg/dL (70-110)
--- NOTE | 2017-12-23 13:20 | PCM.HP.ID ---
Problem List (1) Severe sepsis Status: Acute Reason for Consult: Bacteremia with severe sepsis History of Present Illness: The patient is a 47 year old M [] presents to [facility] on December 20 with altered mental status. Patient was found unresponsive and was admitted to the ICU. Patient then developed DTs and was intubated for airway protection. Interestingly his admission blood cultures are growing MRSA. Chest x-ray showed bilateral infiltrates and currently remains on the ventilator. History is obtained to review the records. Patient is currently on parenteral vancomycin. Of note prior to him being intubated he was complaining of low back pain as well as left hip pain, he is undergone imaging studies including CT scan of the chest as well as CT scan of the abdomen pelvis. Transesophageal echocardiogram done this morning did not show any evidence of vegetations. Patient has persistent bacteremia over the last 48 hours. - Medical History Allergies/Adverse Reactions: Allergies No Known Allergies Allergy (Verified 12/20/17 15:35) Home Medications: Ambulatory Orders Medication Instructions Recorded NK [NK] 12/08/17 - Social History Lives: Unknown SMOKING STATUS:: Unknow if ever smoked Alcohol Use: heavy Vital Signs Temp Pulse Resp BP Pulse Ox 102.4 F H 118 H 26 H 95/68 97 12/23/17 13:00 12/23/17 13:00 12/23/17 13:00 12/23/17 13:00 12/23/17 13:00 Oxygen Flow Rate (L/min) 5 Oxygen Delivery Method Mechanical Ventilator Weight: 87.4 kg Body Mass Index (BMI) 27.9 Patient is sedated on the ventilator lungs coarse breath sounds heart exam S1-S2 no murmurs appreciated abdomen soft nontender Microbiology Past 72 Hours 12/22/17 11:40 Blood Culture - Preliminary Blood Culture (Wb) - Left Forearm 12/22/17 11:25 Blood Culture - Preliminary Blood Culture (Wb) - Left Wrist 12/20/17 23:20 Bacteria Detection (PCR) - Final Blood Culture (Wb) - Anticubital Left Meth. resistant Staph. aureus Blood Culture - Final Meth. resistant Staph. aureus 12/20/17 23:25 Blood Culture - Preliminary Blood Culture (Wb) - Anticubital Right Laboratory Tests Past 24 Hrs 12/22/17 12/23/17 12/23/17 18:00 04:05 04:05 WBC 8.7 RBC 3.80 L Hgb 11.6 L Hct 35.1 L MCV 92.4 MCH 30.5 MCHC 33.0 RDW 14.4 RDW Differential 47.2 H Plt Count 106 L MPV 11.5 Neut % (Auto) Not Reportable Absolute Neuts (auto) 7.5 Absolute Lymphs (auto) 0.87 Total Counted 100 Neutrophils % (Manual) 80 H Band Neutrophils % 6 H Lymphocytes % (Manual) 10 L Monocytes % (Manual) 3 Eosinophils % (Manual) 1 Differential Comment 1+ Diff Path Review Reviewed Toxic Granulation 2+ Platelet Estimate ADEQUATE RBC Morphology NORM C+C Sodium 141 Potassium 3.2 L Chloride 102 Carbon Dioxide 28.0 Anion Gap 11 BUN 22 H Creatinine 0.82 Estim Creat Clear Calc 110.17 Est GFR (MDRD) Af Amer 128 Est GFR (MDRD) Non-Af 106 BUN/Creatinine Ratio 26.8 H Glucose 128 H Calcium 7.7 L Phosphorus 1.4 L Magnesium 1.9 Vancomycin Trough 10.1 - Other Studies Radiology: [] Other Studies: [] Route of nutrition/ use of supplements: [] Nutritional Intake: [] IV Site: [] Stover Catheter: [] - Assessment/Plan Antibiotics: [] Assessment/Plan: [] Active and Suspected Problems Acute hypoxic respiratory failure (Acute) Polysubstance (including opioids) dependence, daily use (Acute) Methamphetamine abuse (Acute) Severe sepsis (Acute) Bilateral community acquired pneumonia (Acute) Alcohol withdrawal (Acute) Non-STEMI (non-ST elevated myocardial infarction) (Acute) Severe sepsis with MRSA bacteremia. Of concern is his recent symptoms of back pain left hip pain we will proceed with MRI of his lumbar spine. Patient does have a remote history of IV drug use. Would continue parenteral vancomycin repeat blood cultures were ordered. Continue supportive care.
--- NOTE | 2017-12-23 14:10 | NURSING ---
Pt transported to CT by this RN & HOANG Browning & GORDO Wilson.
[2017-12-23] MEDS: Midazolam 2 MG/2 ML Syringe IV ×2 (14:40→15:30)
[2017-12-23 16:10] LABS: Bedside Glucose 110 mg/dL (70-110)
[2017-12-23] MEDS: Famotidine 20 MG Tablet GT ×2 (18:04→21:28)
[2017-12-23] MEDS: guaiFENesin 10 ML UDC (200MG/10ML) GT ×2 (18:04→23:42)
[2017-12-23] MEDS: Vital AF 1.2 Cal Liquid 1,000 ML 70 ML GT (18:05)
[2017-12-23 18:46] LABS: Bedside Glucose 105 mg/dL (70-110)
[2017-12-23 21:46] LABS: Bedside Glucose 124 mg/dL (70-110)
[2017-12-24] VITALS (47 sets, daily range): BP systolic 89–197; BP diastolic 56–126; PULSE 22–137; RESP 12–41; TEMP 37.5–39.6; O2SAT 90–99
[2017-12-24] MEDS: Acetaminophen 650 MG/20 ML UDC GT ×3 (02:23→20:19)
[2017-12-24 02:36] LABS: Bedside Glucose 122 mg/dL (70-110)
[2017-12-24 03:13] LABS: Vancomycin, Trough Level 12.7 ug/mL (5.0-15.0)
--- NOTE | 2017-12-24 03:33 | PHA.PHARE_ITS ---
Consult Pharmacy has been consulted to manage selected antiobiotic: Vancomycin Type of Consult: Follow-up Suspected Infection: Pneumonia Prior Doses of Antibiotics Received/Current Regimen: Medications Vancomycin HCl 1,500 mg/ (Sodium Chloride) 530 mls @ 250 mls/hr IV Q8H DEONDRE Discontinued Medications Vancomycin HCl 1,250 mg/ (Sodium Chloride) 275 mls @ 167 mls/hr IV Q8H [facility]OND[facility] Last Admin: 12/24/17 02:34 Dose: 167 mls/hr Labs: Sodium 141 mmol/L (136-145) 12/23/17 04:05 Potassium 3.2 mmol/L (3.5-5.1) L 12/23/17 04:05 Chloride 102 mmol/L (98-107) 12/23/17 04:05 Carbon Dioxide 28.0 mmol/L (21.0-32.0) 12/23/17 04:05 Anion Gap 11 (5-15) 12/23/17 04:05 BUN 22 mg/dL (7-18) H 12/23/17 04:05 Creatinine 0.82 mg/dL (0.70-1.30) 12/23/17 04:05 Est GFR (MDRD) Af Amer 128 mL/min (>60) 12/23/17 04:05 Est GFR (MDRD) Non-Af 106 mL/min (>60) 12/23/17 04:05 BUN/Creatinine Ratio 26.8 RATIO (10-20) H 12/23/17 04:05 Glucose 128 mg/dL (74-106) H 12/23/17 04:05 Vancomycin Trough 12.7 ug/mL (5.0-15.0) 12/24/17 02:15 Microbiology: Microbiology 12/22/17 11:40 Blood Culture (Wb) - Left Forearm Blood Culture - Preliminary 12/22/17 11:25 Blood Culture (Wb) - Left Wrist Blood Culture - Preliminary 12/20/17 23:20 Blood Culture (Wb) - Anticubital Left Bacteria Detection (PCR ) - Final Meth. resistant Staph. aureus 12/20/17 23:20 Blood Culture (Wb) - Anticubital Left Blood Culture - Final Meth. resistant Staph. aureus 12/20/17 23:25 Blood Culture (Wb) - Anticubital Right Blood Culture - Preliminary Weight used for dosin.4 kg Estimated Creatinine Clearance: 110 Goal Trough: 15-20 mcg/mL Pharmacy Plan for Drug Dosing: Trough level received of 12.7 is still below the ideal range of 15-20. Increased vancomycin dose to 1500mg q 8 hrs. Pharmacy Service will continue to monitor and adjust dosing as required. Follow-Up Labs: Trough Vancomycin Labs to be done on [date and time ordered]: 12/25/17 @1785
[2017-12-24] MEDS: 0.9% NaCl Peripheral Flush Adult/Peds IV ×3 (04:22→20:20)
[2017-12-24] MEDS: CHLORHEXIDINE GLUC 2% CLOTH 1 EACH TOWELETTE TOPICAL (04:22)
[2017-12-24 04:34] LABS: Anion Gap 9 (5-15); BUN 23 mg/dL (7-18); BUN/Creat Ratio 32.5 RATIO (10-20); Calcium,Total 7.5 mg/dL (8.5-10.1); Chloride 104 mmol/L (98-107); Creatinine, Serum 0.71 mg/dL (0.70-1.30); EST Glomerular Filtration Rate 126 mL/min (>60); Est Glom Filt Rate - Afr Amer 152 mL/min (>60); Estimated Creatinine Clearance 127.24 ml/min; Glucose 143 mg/dL (74-106); Magnesium 2.3 mg/dL (1.6-2.6); Phosphorus 1.4 mg/dL (2.5-4.9); Potassium 3.9 mmol/L (3.5-5.1); Sodium Level 142 mmol/L (136-145)
[2017-12-24 04:36] LABS: Absolute Lymphocyte Count 1.36 X10^3/ul (0.83-4.51); Absolute Neutrophil Count 8.8 X10^3/uL (2.0-7.7); Basophil# 0.02 X10^3/uL; Basophil% 0.2 % (0-1); Differential Indicated SCAN CRITERIA MET; Eosinophil# 0.03 X10^3/uL; Eosinophils% 0.3 % (0-5); Hematocrit 34.4 % (40-54); Hemoglobin 11.1 g/dl (13.0-16.5); Lymphocyte # 1.36 X10^3/ul (4.0); Lymphocyte % 12.1 % (19-41); Mean Corp Hgb Conc 32.3 g/gl (32-36); Mean Corpuscular Hgb 29.8 pg (27.0-32.0); Mean Corpuscular Volume 92.2 fL (80-94); Mean Platelet Vol. 11.7 fl (6.2-12.0); Monocyte# 0.88 X10^3/uL; Monocyte% 7.8 % (0-10); Neutrophil # 8.77 X10^3/uL (2.7-7.7); Neutrophil % 77.7 % (47-70); POSITIVE COUNT NO; POSITIVE DIFFERENTIAL NO; POSITIVE MORPHOLOGY YES; Platelet Count 123 K/mm3 (150-450); RBC Distribution Width CV 14.8 % (11.6-14.6); RBC Distribution Width SD 50.5 fl (35.1-43.9); Red Blood Count 3.73 M/mm3 (4.6-6.2); White Blood Count 11.3 K/mm3 (4.4-11.0)
[2017-12-24] MEDS: guaiFENesin 10 ML UDC (200MG/10ML) GT ×4 (05:29→22:59)
[2017-12-24 05:41] LABS: Bedside Glucose 112 mg/dL (70-110)
[2017-12-24] MEDS: Polyethylene Glycol 3350 17 GM PACKET GT (06:20)
--- NOTE | 2017-12-24 06:33 | PCM.PN.INT ---
Subjective: Patient did okay overnight. Patient was noted to have copious oral secretions throughout the evening. Patient also noted to have increased residuals of tube feeds at 90 and 100 cc, but these were not held. Patient failed his spontaneous awakening trial this morning. Nursing had reported increased duskiness of the second great toe and the development of pustules in the left groin. General: - - Intubated and sedated. RASS -3. Good vent synchrony. HEENT: Atraumatic, PERRLA, EOMI, Normocephalic, - - Scleral injection without icterus Oral: Moist Mucosa, No Gingival or Mucosal Lesions/ Ulcerations, - - Edentulous Neck: Supple, No JVD, No Nodes, Trachea Midline Lungs: No wheeze, No rales, Rhonchi - Bilateral, - - Symmetric expansion. No dullness to percussion. Cardiovascular: Normal S1, Normal S2, No murmurs, No rub noted, No Gallop, Tachycardic Abdomen: Bowel Sounds Present, Soft, Non Tender, Non-Distended Extremities: No clubbing, No cyanosis, Edema, - - Duskiness noted of the left second toe Skin: - - 3 distinct pustules noted in the left groin area. Appears to be dermatomal with an erythematous base and milky fluid. Still intact. Musculoskeletal: No Tenderness to Palpation of Joints or Extremities Lymphatic: No Cervical, Supraclavicular, or Inguinal Adenopathy Neurological: Neuro grossly intact Psych/Mental Status: Flat Affect, Restless Vital Signs Temp Pulse Resp BP Pulse Ox 38.7 C H 112 H 23 H 109/70 94 12/24/17 06:00 12/24/17 06:00 12/24/17 06:00 12/24/17 06:00 12/24/17 06:00 Oxygen Flow Rate (L/min) 5 Oxygen Delivery Method Mechanical Ventilator Weight: 91 kg Body Mass Index (BMI) 27.9 Intake and Output for Last 24 Hours 12/22/17 12/23/17 12/24/17 23:59 23:59 23:59 Intake Total 2886.4 / 2886.4 3313.5 / 3313.5 918.7 / 918.7 Output Total 3450 / 3450 1450 / 1450 350 / 350 Balance -563.6 / -563.6 1863.5 / 1863.5 568.7 / 568.7 Labs (Last 48 Hours) 12/22/17 12/22/17 12/22/17 04:00 06:48 09:28 WBC RBC Hgb Hct MCV MCH MCHC RDW RDW Differential Plt Count MPV Immature Gran % (Auto) Neut % (Auto) Lymph % (Auto) [place] % (Auto) Eos % (Auto) Baso % (Auto) Absolute Neuts (auto) Absolute Lymphs (auto) Total Counted Neutrophils % (Manual) Band Neutrophils % Lymphocytes % (Manual) Monocytes % (Manual) Eosinophils % (Manual) Differential Comment Diff Path Review Toxic Granulation Platelet Estimate RBC Morphology Specimen Type ART Sample Site L Radial pH 7.42 Bicarbonate Actual 26.9 H POC Total CO2 28 Base Excess 2 O2 Saturation 95 O2 % 40 ABG pCO2 41.1 ABG pO2 72 L Jeremie Test POS Respiration Rate 12 O2 Delivery Device Vent Minute Volume 17.00 Vent Mode A-C Tidal Volume 450 POC PEEP 5 Blood Gas Notified Whom ICU MD Blood Gas Notified Time 910 Sodium Potassium Chloride Carbon Dioxide Anion Gap BUN Creatinine Estim Creat Clear Calc Est GFR (MDRD) Af Amer Est GFR (MDRD) Non-Af BUN/Creatinine Ratio Glucose Calcium Phosphorus Magnesium Total Creatine Kinase 172 Triglycerides 228 H Vancomycin Trough POC Glucose 101 12/22/17 12/22/17 12/22/17 12:55 18:00 18:06 WBC RBC Hgb Hct MCV MCH MCHC RDW RDW Differential Plt Count MPV Immature Gran % (Auto) Neut % (Auto) Lymph % (Auto) [place] % (Auto) Eos % (Auto) Baso % (Auto) Absolute Neuts (auto) Absolute Lymphs (auto) Total Counted Neutrophils % (Manual) Band Neutrophils % Lymphocytes % (Manual) Monocytes % (Manual) Eosinophils % (Manual) Differential Comment Diff Path Review Toxic Granulation Platelet Estimate RBC Morphology Specimen Type Sample Site pH Bicarbonate Actual POC Total CO2 Base Excess O2 Saturation O2 % ABG pCO2 ABG pO2 Jeremie Test Respiration Rate O2 Delivery Device Minute Volume Vent Mode Tidal Volume POC PEEP Blood Gas Notified Whom Blood Gas Notified Time Sodium Potassium Chloride Carbon Dioxide Anion Gap BUN Creatinine Estim Creat Clear Calc Est GFR (MDRD) Af Amer Est GFR (MDRD) Non-Af BUN/Creatinine Ratio Glucose Calcium Phosphorus Magnesium Total Creatine Kinase Triglycerides Vancomycin Trough 10.1 POC Glucose 78 80 12/22/17 12/23/17 12/23/17 23:32 00:05 00:46 WBC RBC Hgb Hct MCV MCH MCHC RDW RDW Differential Plt Count MPV Immature Gran % (Auto) Neut % (Auto) Lymph % (Auto) [place] % (Auto) Eos % (Auto) Baso % (Auto) Absolute Neuts (auto) Absolute Lymphs (auto) Total Counted Neutrophils % (Manual) Band Neutrophils % Lymphocytes % (Manual) Monocytes % (Manual) Eosinophils % (Manual) Differential Comment Diff Path Review Toxic Granulation Platelet Estimate RBC Morphology Specimen Type Sample Site pH Bicarbonate Actual POC Total CO2 Base Excess O2 Saturation O2 % ABG pCO2 ABG pO2 Jeremie Test Respiration Rate O2 Delivery Device Minute Volume Vent Mode Tidal Volume POC PEEP Blood Gas Notified Whom Blood Gas Notified Time Sodium Potassium Chloride Carbon Dioxide Anion Gap BUN Creatinine Estim Creat Clear Calc Est GFR (MDRD) Af Amer Est GFR (MDRD) Non-Af BUN/Creatinine Ratio Glucose Calcium Phosphorus Magnesium Total Creatine Kinase Triglycerides Vancomycin Trough POC Glucose 68 L 94 140 H 12/23/17 12/23/17 12/23/17 04:05 04:05 05:57 WBC 8.7 RBC 3.80 L Hgb 11.6 L Hct 35.1 L MCV 92.4 MCH 30.5 MCHC 33.0 RDW 14.4 RDW Differential 47.2 H Plt Count 106 L MPV 11.5 Immature Gran % (Auto) Neut % (Auto) Not Reportable Lymph % (Auto) [place] % (Auto) Eos % (Auto) Baso % (Auto) Absolute Neuts (auto) 7.5 Absolute Lymphs (auto) 0.87 Total Counted 100 Neutrophils % (Manual) 80 H Band Neutrophils % 6 H Lymphocytes % (Manual) 10 L Monocytes % (Manual) 3 Eosinophils % (Manual) 1 Differential Comment 1+ Diff Path Review Reviewed Toxic Granulation 2+ Platelet Estimate ADEQUATE RBC Morphology NORM C+C Specimen Type Sample Site pH Bicarbonate Actual POC Total CO2 Base Excess O2 Saturation O2 % ABG pCO2 ABG pO2 Jeremie Test Respiration Rate O2 Delivery Device Minute Volume Vent Mode Tidal Volume POC PEEP Blood Gas Notified Whom Blood Gas Notified Time Sodium 141 Potassium 3.2 L Chloride 102 Carbon Dioxide 28.0 Anion Gap 11 BUN 22 H Creatinine 0.82 Estim Creat Clear Calc 110.17 Est GFR (MDRD) Af Amer 128 Est GFR (MDRD) Non-Af 106 BUN/Creatinine Ratio 26.8 H Glucose 128 H Calcium 7.7 L Phosphorus 1.4 L Magnesium 1.9 Total Creatine Kinase Triglycerides Vancomycin Trough POC Glucose 120 H 12/23/17 12/23/17 12/23/17 10:20 15:57 18:00 WBC RBC Hgb Hct MCV MCH MCHC RDW RDW Differential Plt Count MPV Immature Gran % (Auto) Neut % (Auto) Lymph % (Auto) [place] % (Auto) Eos % (Auto) Baso % (Auto) Absolute Neuts (auto) Absolute Lymphs (auto) Total Counted Neutrophils % (Manual) Band Neutrophils % Lymphocytes % (Manual) Monocytes % (Manual) Eosinophils % (Manual) Differential Comment Diff Path Review Toxic Granulation Platelet Estimate RBC Morphology Specimen Type Sample Site pH Bicarbonate Actual POC Total CO2 Base Excess O2 Saturation O2 % ABG pCO2 ABG pO2 Jeremie Test Respiration Rate O2 Delivery Device Minute Volume Vent Mode Tidal Volume POC PEEP Blood Gas Notified Whom Blood Gas Notified Time Sodium Potassium Chloride Carbon Dioxide Anion Gap BUN Creatinine Estim Creat Clear Calc Est GFR (MDRD) Af Amer Est GFR (MDRD) Non-Af BUN/Creatinine Ratio Glucose Calcium Phosphorus Magnesium Total Creatine Kinase Triglycerides Vancomycin Trough POC Glucose 106 110 105 12/23/17 12/24/17 12/24/17 21:35 02:08 02:15 WBC RBC Hgb Hct MCV MCH MCHC RDW RDW Differential Plt Count MPV Immature Gran % (Auto) Neut % (Auto) Lymph % (Auto) [place] % (Auto) Eos % (Auto) Baso % (Auto) Absolute Neuts (auto) Absolute Lymphs (auto) Total Counted Neutrophils % (Manual) Band Neutrophils % Lymphocytes % (Manual) Monocytes % (Manual) Eosinophils % (Manual) Differential Comment Diff Path Review Toxic Granulation Platelet Estimate RBC Morphology Specimen Type Sample Site pH Bicarbonate Actual POC Total CO2 Base Excess O2 Saturation O2 % ABG pCO2 ABG pO2 Jeremie Test Respiration Rate O2 Delivery Device Minute Volume Vent Mode Tidal Volume POC PEEP Blood Gas Notified Whom Blood Gas Notified Time Sodium Potassium Chloride Carbon Dioxide Anion Gap BUN Creatinine Estim Creat Clear Calc Est GFR (MDRD) Af Amer Est GFR (MDRD) Non-Af BUN/Creatinine Ratio Glucose Calcium Phosphorus Magnesium Total Creatine Kinase Triglycerides Vancomycin Trough 12.7 POC Glucose 124 H 122 H 08/28/18 08/28/18 08/28/18 04:00 04:00 05:32 WBC 11.3 H RBC 3.73 L Hgb 11.1 L Hct 34.4 L MCV 92.2 MCH 29.8 MCHC 32.3 RDW 14.8 H RDW Differential 50.5 H Plt Count 123 L MPV 11.7 Immature Gran % (Auto) 1.900 H Neut % (Auto) 77.7 H Lymph % (Auto) 12.1 L [place] % (Auto) 7.8 Eos % (Auto) 0.3 Baso % (Auto) 0.2 Absolute Neuts (auto) 8.8 H Absolute Lymphs (auto) 1.36 Total Counted Not Reportable Neutrophils % (Manual) Band Neutrophils % Lymphocytes % (Manual) Monocytes % (Manual) Eosinophils % (Manual) Differential Comment Diff Path Review Toxic Granulation Platelet Estimate RBC Morphology Specimen Type Sample Site pH Bicarbonate Actual POC Total CO2 Base Excess O2 Saturation O2 % ABG pCO2 ABG pO2 Jeremie Test Respiration Rate O2 Delivery Device Minute Volume Vent Mode Tidal Volume POC PEEP Blood Gas Notified Whom Blood Gas Notified Time Sodium 142 Potassium 3.9 Chloride 104 Carbon Dioxide 29.0 Anion Gap 9 BUN 23 H Creatinine 0.71 Estim Creat Clear Calc 127.24 Est GFR (MDRD) Af Amer 152 Est GFR (MDRD) Non-Af 126 BUN/Creatinine Ratio 32.5 H Glucose 143 H Calcium 7.5 L Phosphorus 1.4 L Magnesium 2.3 Total Creatine Kinase Triglycerides Vancomycin Trough POC Glucose 112 H Microbiology 12/23/17 13:20 Blood Culture (Wb) - Venous Blood Culture - Preliminary 12/22/17 11:40 Blood Culture (Wb) - Left Forearm Blood Culture - Preliminary 12/22/17 11:25 Blood Culture (Wb) - Left Wrist Blood Culture - Preliminary 12/20/17 23:20 Blood Culture (Wb) - Anticubital Left Bacteria Detection (PCR) - Final Meth. resistant Staph. aureus 12/20/17 23:20 Blood Culture (Wb) - Anticubital Left Blood Culture - Final Meth. resistant Staph. aureus Clinical Impression(s) from Imaging Studies Lumbar Spine MRI 12/23/17 13:21 IMPRESSION: 1. Severe L5-S1 foraminal stenosis with a small disc protrusion contributory on the right. 2. Mild canal stenosis and moderate foraminal stenosis at L4-5. 3. Noncompressive spondylotic protrusions at T12-L1 and L1-2. Electronically Signed: Avis Metz MD at 16:43 EDT Tel , Service support , KUB X-Ray 12/23/17 13:50 IMPRESSION: Orogastric tube tip within the gastric fundus. Stable bilateral pulmonary infiltrates. Electronically Signed: Nehemiah Hicks at 14:57 EDT Tel , Service support , Medical Necessity - Tobacco Use Smoking Status: Current every day smoker Assessment/Plan All Active Problems Acute hypoxic respiratory failure (Acute) Polysubstance (including opioids) dependence, daily use (Acute) Methamphetamine abuse (Acute) Severe sepsis (Acute) Bilateral community acquired pneumonia (Acute) Alcohol withdrawal (Acute) Non-STEMI (non-ST elevated myocardial infarction) (Acute) RECOMMENDATIONS: 1. Continue daily blood cultures until negative 2. Consider viral culture of pustule, defer to ID 3. Continue propofol and fentanyl sedation 4. Wean oxygen as tolerated 5. Continue tube feeds, discontinue IV fluids 6. Attempt to avoid placement of PICC/TLC until blood cultures negative 7. Monitor for refeeding with electrolyte repletion as indicated IMPRESSIONS: 1. Severe sepsis with probable embolic MRSA pneumonia Patient with alveolar infiltrates scattered in an embolic pattern. Patient is now growing MRSA in the blood indicating probable embolic pneumonia as the infiltrates noted on CT scan. Patient with duskiness noted of the left second toe. This likely indicates embolic phenomenon. Localization of primary source has been difficult. JOSE completed yesterday did not show any valvular vegetations. Patient also had an MRI of the lumbar spine and no significant tinnitus was noted. 2. Toxic encephalopathy secondary to polysubstance abuse and alcohol withdrawal Patient appears to be in alcohol withdrawal at this time. Continue with propofol and fentanyl for sedation. 3. Homeless/poor support system/limited information Complicates care, management, recovery and prognosis. Case management will be following. Continue tube feeds. Will need to monitor for refeeding syndrome with aggressive electrolyte repletion requirements. 4. Acute hypoxic respiratory failure secondary to MRSA pneumonia/probable endocarditis Vision with extensive bilateral infiltrates (present on admission) noted on imaging with persistently positive blood cultures. JOSE does not show any right-sided endocarditis. Patient will be seen by infectious disease. No spontaneous breathing trial secondary to failed SAT. Patient has not required high amounts of propofol at this time. 5. Hypertensive urgency Improved. May be secondary to withdrawal versus agitation. Patient will be given a low-dose of Coreg to help with hypertension and tachycardia. Patient may also require some IV beta-sarmad in addition to oral regimen. 6. New pustules Unclear etiology at this time. May be related to embolic phenomenon with MRSA, but shingles cannot be excluded as this appears to be dermatomal. We will continue to monitor. Defer to infectious disease on whether viral culture/evaluation needs to be completed. TIME: 35 minutes critical care time spent addressing patient's acute hypoxic respiratory failure, alcohol withdrawal, severe sepsis, review of all data and collaboration with care team. (5:30 AM to 6:30 AM) Code Visit 9xxxx: [id number] Critical care first hour
--- NOTE | 2017-12-24 06:40 | PN_ITS ---
Subjective: Patient did okay overnight. Patient was noted to have copious oral secretions throughout the evening. Patient also noted to have increased residuals of tube feeds at 90 and 100 cc, but these were not held. Patient failed his spontaneous awakening trial this morning. Nursing had reported increased duskiness of the second great toe and the development of pustules in the left groin. General: - - Intubated and sedated. RASS -3. Good vent synchrony. HEENT: Atraumatic, PERRLA, EOMI, Normocephalic, - - Scleral injection without icterus Oral: Moist Mucosa, No Gingival or Mucosal Lesions/ Ulcerations, - - Edentulous Neck: Supple, No JVD, No Nodes, Trachea Midline Lungs: No wheeze, No rales, Rhonchi - Bilateral, - - Symmetric expansion. No dullness to percussion. Cardiovascular: Normal S1, Normal S2, No murmurs, No rub noted, No Gallop, Tachycardic Abdomen: Bowel Sounds Present, Soft, Non Tender, Non-Distended Extremities: No clubbing, No cyanosis, Edema, - - Duskiness noted of the left second toe Skin: - - 3 distinct pustules noted in the left groin area. Appears to be dermatomal with an erythematous base and milky fluid. Still intact. Musculoskeletal: No Tenderness to Palpation of Joints or Extremities Lymphatic: No Cervical, Supraclavicular, or Inguinal Adenopathy Neurological: Neuro grossly intact Psych/Mental Status: Flat Affect, Restless Vital Signs Temp Pulse Resp BP Pulse Ox 38.7 C H 112 H 23 H 109/70 94 12/24/17 06:00 12/24/17 06:00 12/24/17 06:00 12/24/17 06:00 12/24/17 06:00 Oxygen Flow Rate (L/min) 5 Oxygen Delivery Method Mechanical Ventilator Weight: 91 kg Body Mass Index (BMI) 27.9 Intake and Output for Last 24 Hours 12/22/17 12/23/17 12/24/17 23:59 23:59 23:59 Intake Total 2886.4 / 2886.4 3313.5 / 3313.5 918.7 / 918.7 Output Total 3450 / 3450 1450 / 1450 350 / 350 Balance -563.6 / -563.6 1863.5 / 1863.5 568.7 / 568.7 Labs (Last 48 Hours) 12/22/17 12/22/17 12/22/17 04:00 06:48 09:28 WBC RBC Hgb Hct MCV MCH MCHC RDW RDW Differential Plt Count MPV Immature Gran % (Auto) Neut % (Auto) Lymph % (Auto) [place] % (Auto) Eos % (Auto) Baso % (Auto) Absolute Neuts (auto) Absolute Lymphs (auto) Total Counted Neutrophils % (Manual) Band Neutrophils % Lymphocytes % (Manual) Monocytes % (Manual) Eosinophils % (Manual) Differential Comment Diff Path Review Toxic Granulation Platelet Estimate RBC Morphology Specimen Type ART Sample Site L Radial pH 7.42 Bicarbonate Actual 26.9 H POC Total CO2 28 Base Excess 2 O2 Saturation 95 O2 % 40 ABG pCO2 41.1 ABG pO2 72 L Jeremie Test POS Respiration Rate 12 O2 Delivery Device Vent Minute Volume 17.00 Vent Mode A-C Tidal Volume 450 POC PEEP 5 Blood Gas Notified Whom ICU MD Blood Gas Notified Time 910 Sodium Potassium Chloride Carbon Dioxide Anion Gap BUN Creatinine Estim Creat Clear Calc Est GFR (MDRD) Af Amer Est GFR (MDRD) Non-Af BUN/Creatinine Ratio Glucose Calcium Phosphorus Magnesium Total Creatine Kinase 172 Triglycerides 228 H Vancomycin Trough POC Glucose 101 12/22/17 12/22/17 12/22/17 12:55 18:00 18:06 WBC RBC Hgb Hct MCV MCH MCHC RDW RDW Differential Plt Count MPV Immature Gran % (Auto) Neut % (Auto) Lymph % (Auto) [place] % (Auto) Eos % (Auto) Baso % (Auto) Absolute Neuts (auto) Absolute Lymphs (auto) Total Counted Neutrophils % (Manual) Band Neutrophils % Lymphocytes % (Manual) Monocytes % (Manual) Eosinophils % (Manual) Differential Comment Diff Path Review Toxic Granulation Platelet Estimate RBC Morphology Specimen Type Sample Site pH Bicarbonate Actual POC Total CO2 Base Excess O2 Saturation O2 % ABG pCO2 ABG pO2 Jeremie Test Respiration Rate O2 Delivery Device Minute Volume Vent Mode Tidal Volume POC PEEP Blood Gas Notified Whom Blood Gas Notified Time Sodium Potassium Chloride Carbon Dioxide Anion Gap BUN Creatinine Estim Creat Clear Calc Est GFR (MDRD) Af Amer Est GFR (MDRD) Non-Af BUN/Creatinine Ratio Glucose Calcium Phosphorus Magnesium Total Creatine Kinase Triglycerides Vancomycin Trough 10.1 POC Glucose 78 80 12/22/17 12/23/17 12/23/17 23:32 00:05 00:46 WBC RBC Hgb Hct MCV MCH MCHC RDW RDW Differential Plt Count MPV Immature Gran % (Auto) Neut % (Auto) Lymph % (Auto) [place] % (Auto) Eos % (Auto) Baso % (Auto) Absolute Neuts (auto) Absolute Lymphs (auto) Total Counted Neutrophils % (Manual) Band Neutrophils % Lymphocytes % (Manual) Monocytes % (Manual) Eosinophils % (Manual) Differential Comment Diff Path Review Toxic Granulation Platelet Estimate RBC Morphology Specimen Type Sample Site pH Bicarbonate Actual POC Total CO2 Base Excess O2 Saturation O2 % ABG pCO2 ABG pO2 Jeremie Test Respiration Rate O2 Delivery Device Minute Volume Vent Mode Tidal Volume POC PEEP Blood Gas Notified Whom Blood Gas Notified Time Sodium Potassium Chloride Carbon Dioxide Anion Gap BUN Creatinine Estim Creat Clear Calc Est GFR (MDRD) Af Amer Est GFR (MDRD) Non-Af BUN/Creatinine Ratio Glucose Calcium Phosphorus Magnesium Total Creatine Kinase Triglycerides Vancomycin Trough POC Glucose 68 L 94 140 H 12/23/17 12/23/17 12/23/17 04:05 04:05 05:57 WBC 8.7 RBC 3.80 L Hgb 11.6 L Hct 35.1 L MCV 92.4 MCH 30.5 MCHC 33.0 RDW 14.4 RDW Differential 47.2 H Plt Count 106 L MPV 11.5 Immature Gran % (Auto) Neut % (Auto) Not Reportable Lymph % (Auto) [place] % (Auto) Eos % (Auto) Baso % (Auto) Absolute Neuts (auto) 7.5 Absolute Lymphs (auto) 0.87 Total Counted 100 Neutrophils % (Manual) 80 H Band Neutrophils % 6 H Lymphocytes % (Manual) 10 L Monocytes % (Manual) 3 Eosinophils % (Manual) 1 Differential Comment 1+ Diff Path Review Reviewed Toxic Granulation 2+ Platelet Estimate ADEQUATE RBC Morphology NORM C+C Specimen Type Sample Site pH Bicarbonate Actual POC Total CO2 Base Excess O2 Saturation O2 % ABG pCO2 ABG pO2 Jeremie Test Respiration Rate O2 Delivery Device Minute Volume Vent Mode Tidal Volume POC PEEP Blood Gas Notified Whom Blood Gas Notified Time Sodium 141 Potassium 3.2 L Chloride 102 Carbon Dioxide 28.0 Anion Gap 11 BUN 22 H Creatinine 0.82 Estim Creat Clear Calc 110.17 Est GFR (MDRD) Af Amer 128 Est GFR (MDRD) Non-Af 106 BUN/Creatinine Ratio 26.8 H Glucose 128 H Calcium 7.7 L Phosphorus 1.4 L Magnesium 1.9 Total Creatine Kinase Triglycerides Vancomycin Trough POC Glucose 120 H 12/23/17 12/23/17 12/23/17 10:20 15:57 18:00 WBC RBC Hgb Hct MCV MCH MCHC RDW RDW Differential Plt Count MPV Immature Gran % (Auto) Neut % (Auto) Lymph % (Auto) [place] % (Auto) Eos % (Auto) Baso % (Auto) Absolute Neuts (auto) Absolute Lymphs (auto) Total Counted Neutrophils % (Manual) Band Neutrophils % Lymphocytes % (Manual) Monocytes % (Manual) Eosinophils % (Manual) Differential Comment Diff Path Review Toxic Granulation Platelet Estimate RBC Morphology Specimen Type Sample Site pH Bicarbonate Actual POC Total CO2 Base Excess O2 Saturation O2 % ABG pCO2 ABG pO2 Jeremie Test Respiration Rate O2 Delivery Device Minute Volume Vent Mode Tidal Volume POC PEEP Blood Gas Notified Whom Blood Gas Notified Time Sodium Potassium Chloride Carbon Dioxide Anion Gap BUN Creatinine Estim Creat Clear Calc Est GFR (MDRD) Af Amer Est GFR (MDRD) Non-Af BUN/Creatinine Ratio Glucose Calcium Phosphorus Magnesium Total Creatine Kinase Triglycerides Vancomycin Trough POC Glucose 106 110 105 12/23/17 12/24/17 12/24/17 21:35 02:08 02:15 WBC RBC Hgb Hct MCV MCH MCHC RDW RDW Differential Plt Count MPV Immature Gran % (Auto) Neut % (Auto) Lymph % (Auto) [place] % (Auto) Eos % (Auto) Baso % (Auto) Absolute Neuts (auto) Absolute Lymphs (auto) Total Counted Neutrophils % (Manual) Band Neutrophils % Lymphocytes % (Manual) Monocytes % (Manual) Eosinophils % (Manual) Differential Comment Diff Path Review Toxic Granulation Platelet Estimate RBC Morphology Specimen Type Sample Site pH Bicarbonate Actual POC Total CO2 Base Excess O2 Saturation O2 % ABG pCO2 ABG pO2 Jeremie Test Respiration Rate O2 Delivery Device Minute Volume Vent Mode Tidal Volume POC PEEP Blood Gas Notified Whom Blood Gas Notified Time Sodium Potassium Chloride Carbon Dioxide Anion Gap BUN Creatinine Estim Creat Clear Calc Est GFR (MDRD) Af Amer Est GFR (MDRD) Non-Af BUN/Creatinine Ratio Glucose Calcium Phosphorus Magnesium Total Creatine Kinase Triglycerides Vancomycin Trough 12.7 POC Glucose 124 H 122 H 08/28/18 08/28/18 08/28/18 04:00 04:00 05:32 WBC 11.3 H RBC 3.73 L Hgb 11.1 L Hct 34.4 L MCV 92.2 MCH 29.8 MCHC 32.3 RDW 14.8 H RDW Differential 50.5 H Plt Count 123 L MPV 11.7 Immature Gran % (Auto) 1.900 H Neut % (Auto) 77.7 H Lymph % (Auto) 12.1 L [place] % (Auto) 7.8 Eos % (Auto) 0.3 Baso % (Auto) 0.2 Absolute Neuts (auto) 8.8 H Absolute Lymphs (auto) 1.36 Total Counted Not Reportable Neutrophils % (Manual) Band Neutrophils % Lymphocytes % (Manual) Monocytes % (Manual) Eosinophils % (Manual) Differential Comment Diff Path Review Toxic Granulation Platelet Estimate RBC Morphology Specimen Type Sample Site pH Bicarbonate Actual POC Total CO2 Base Excess O2 Saturation O2 % ABG pCO2 ABG pO2 Jeremie Test Respiration Rate O2 Delivery Device Minute Volume Vent Mode Tidal Volume POC PEEP Blood Gas Notified Whom Blood Gas Notified Time Sodium 142 Potassium 3.9 Chloride 104 Carbon Dioxide 29.0 Anion Gap 9 BUN 23 H Creatinine 0.71 Estim Creat Clear Calc 127.24 Est GFR (MDRD) Af Amer 152 Est GFR (MDRD) Non-Af 126 BUN/Creatinine Ratio 32.5 H Glucose 143 H Calcium 7.5 L Phosphorus 1.4 L Magnesium 2.3 Total Creatine Kinase Triglycerides Vancomycin Trough POC Glucose 112 H Microbiology 12/23/17 13:20 Blood Culture (Wb) - Venous Blood Culture - Preliminary 12/22/17 11:40 Blood Culture (Wb) - Left Forearm Blood Culture - Preliminary 12/22/17 11:25 Blood Culture (Wb) - Left Wrist Blood Culture - Preliminary 12/20/17 23:20 Blood Culture (Wb) - Anticubital Left Bacteria Detection (PCR ) - Final Meth. resistant Staph. aureus 12/20/17 23:20 Blood Culture (Wb) - Anticubital Left Blood Culture - Final Meth. resistant Staph. aureus Clinical Impression(s) from Imaging Studies Lumbar Spine MRI 12/23/17 13:21 IMPRESSION: 1. Severe L5-S1 foraminal stenosis with a small disc protrusion contributory on the right. 2. Mild canal stenosis and moderate foraminal stenosis at L4-5. 3. Noncompressive spondylotic protrusions at T12-L1 and L1-2. Electronically Signed: Avis Metz MD at 16:43 EDT Tel , Service support , KUB X-Ray 12/23/17 13:50 IMPRESSION: Orogastric tube tip within the gastric fundus. Stable bilateral pulmonary infiltrates. Electronically Signed: Nehemiah Hicks at 14:57 EDT Tel , Service support , Medical Necessity - Tobacco Use Smoking Status: Current every day smoker Assessment/Plan All Active Problems Acute hypoxic respiratory failure (Acute) Polysubstance (including opioids) dependence, daily use (Acute) Methamphetamine abuse (Acute) Severe sepsis (Acute) Bilateral community acquired pneumonia (Acute) Alcohol withdrawal (Acute) Non-STEMI (non-ST elevated myocardial infarction) (Acute) RECOMMENDATIONS: 1. Continue daily blood cultures until negative 2. Consider viral culture of pustule, defer to ID 3. Continue propofol and fentanyl sedation 4. Wean oxygen as tolerated 5. Continue tube feeds, discontinue IV fluids 6. Attempt to avoid placement of PICC/TLC until blood cultures negative 7. Monitor for refeeding with electrolyte repletion as indicated IMPRESSIONS: 1. Severe sepsis with probable embolic MRSA pneumonia Patient with alveolar infiltrates scattered in an embolic pattern. Patient is now growing MRSA in the blood indicating probable embolic pneumonia as the infiltrates noted on CT scan. Patient with duskiness noted of the left second toe. This likely indicates embolic phenomenon. Localization of primary source has been difficult. JOSE completed yesterday did not show any valvular vegetations. Patient also had an MRI of the lumbar spine and no significant tinnitus was noted. 2. Toxic encephalopathy secondary to polysubstance abuse and alcohol withdrawal Patient appears to be in alcohol withdrawal at this time. Continue with propofol and fentanyl for sedation. 3. Homeless/poor support system/limited information Complicates care, management, recovery and prognosis. Case management will be following. Continue tube feeds. Will need to monitor for refeeding syndrome with aggressive electrolyte repletion requirements. 4. Acute hypoxic respiratory failure secondary to MRSA pneumonia/probable endocarditis Vision with extensive bilateral infiltrates (present on admission) noted on imaging with persistently positive blood cultures. JOSE does not show any right-sided endocarditis. Patient will be seen by infectious disease. No spontaneous breathing trial secondary to failed SAT. Patient has not required high amounts of propofol at this time. 5. Hypertensive urgency Improved. May be secondary to withdrawal versus agitation. Patient will be given a low-dose of Coreg to help with hypertension and tachycardia. Patient may also require some IV beta-sarmda in addition to oral regimen. 6. New pustules Unclear etiology at this time. May be related to embolic phenomenon with MRSA, but shingles cannot be excluded as this appears to be dermatomal. We will continue to monitor. Defer to infectious disease on whether viral culture/ evaluation needs to be completed. TIME: 35 minutes critical care time spent addressing patient's acute hypoxic respiratory failure, alcohol withdrawal, severe sepsis, review of all data and collaboration with care team. (5:30 AM to 6:30 AM) Code Visit [id number]: [id number] Critical care first hour
[2017-12-24] MEDS: Ipratropium/Albuterol Sulfate 3 ML AMPUL.NEB INHALATION ×3 (06:54→18:58)
[2017-12-24 07:07] LABS: Hepatitis A IgM Antibody Negative (Negative); Hepatitis B Core AB IgM Negative (Negative)
--- NOTE | 2017-12-24 09:45 | CASEMGMT ---
ERMIAS continues to follow. Patient has a daughter in [place], adopted daughter in [place], and his mom lives in [place], [place]. Lashonda AGUILAR MSW
[2017-12-24 09:51] LABS: HEPATITIS B SURFACE AG Positive (Negative)
[2017-12-24 09:52] LABS: Hep C Antibodies >11.0 s/co ratio (0.0-0.9)
[2017-12-24] MEDS: Chlorhexidine 15 ML PO ×2 (10:21→22:59)
[2017-12-24] MEDS: Famotidine 20 MG Tablet GT ×2 (10:22→23:00)
[2017-12-24] MEDS: Thiamine Hydrochloride 100 MG Tablet GT (10:22)
[2017-12-24] MEDS: Folic Acid 1 MG Tablet GT (10:23)
[2017-12-24] MEDS: Na Biphos/Potassium Phosphate PACKET 2 PACKET GT ×4 (10:23→23:00)
[2017-12-24] MEDS: Enoxaparin 80 MG/0.8 ML Syringe SC ×2 (10:24→23:00)
--- NOTE | 2017-12-24 10:42 | PCM.PN.CARD ---
Subjectve: Patient remains intubated, sedated, does not respond to questions. Patient has a contracture in the left side of his neck, making movement of his head to the right somewhat difficult. He also was found to have a new what appears to be embolic phenomena in his right great toe and right first toe consistent with atherosclerotic plaquing. The patient did not have any arterial instrumentation but did have noted on his JOSE mild atherosclerotic plaquing of his aortic root. JOSE yesterday demonstrated no obvious bacterial vegetations but this does not preclude the possibility that that may have broken off and gone to his lungs to explain his overall clinical picture. His valves actually look quite clean, and had minimal tricuspid regurgitation which points away from significant bacterial infection at least for long-term. Nonetheless he has significant positive blood cultures with MRSA. CT scan of his head and abdomen is pending. MRI of his back yesterday demonstrated severe spinal stenosis but no overt abscesses or infectious processes. Objective: Vital Signs Temp Pulse Resp BP Pulse Ox 99.9 F H 115 H 25 H 111/67 96 12/24/17 08:00 12/24/17 09:45 12/24/17 09:45 12/24/17 09:45 12/24/17 09:45 Oxygen Flow Rate (L/min) 5 Oxygen Delivery Method Mechanical Ventilator Weight: 200 lb 9.93 oz Body Mass Index (BMI) 27.9 Intake and Output for Last 24 Hours 12/22/17 12/23/17 12/24/17 23:59 23:59 23:59 Intake Total 2886.4 / 2886.4 3313.5 / 3313.5 918.7 / 918.7 Output Total 3450 / 3450 1450 / 1450 350 / 350 Balance -563.6 / -563.6 1863.5 / 1863.5 568.7 / 568.7 General: Awake, Alert, Oriented x 3 HEENT: PERRL, EOMI, Sclera Non Icteric Neck: Supple, Good ROM, No Lymph Node Enlargement Lungs: Rhonchi Cardiovascular: Regular Rhythm, Normal S1, Normal S2, No Murmurs, No Rubs, No Gallops Vascular: No Carotid Bruits, Normal Femoral Pulses, Normal Radial Pulses, Normal Dorsalis Pedal Pulse, Normal Posterior Tibial Pulses Abdomen: Bowel Sounds Present, Soft, Non Tender, No HSM, No Organomegaly Extremities: No Cyanosis, No Clubbing, No edema Neurological: No Focal Motor or Sensory Deficit 12/24/17 04:00: WBC 11.3 H, RBC 3.73 L, Hgb 11.1 L, Hct 34.4 L, MCV 92.2, MCH 29.8, MCHC 32.3, RDW 14.8 H, RDW Differential 50.5 H, Plt Count 123 L, MPV 11.7, Immature Gran % (Auto) 1.900 H, Neut % (Auto) 77.7 H, Lymph % (Auto) 12.1 L, [place] % (Auto) 7.8, Eos % (Auto) 0.3, Baso % (Auto) 0.2, Absolute Neuts (auto) 8.8 H, Total Counted Not Reportable 12/24/17 04:00: Sodium 142, Potassium 3.9, Chloride 104, Carbon Dioxide 29.0, Anion Gap 9, BUN 23 H, Creatinine 0.71, Est GFR (MDRD) Af Amer 152, Est GFR (MDRD) Non-Af 126, BUN/Creatinine Ratio 32.5 H, Glucose 143 H, Calcium 7.5 L, Phosphorus 1.4 L, Magnesium 2.3 Rhythm: EKG: ECHO: Stress Test: Cardiac Cath: PCI: CT Surgery: Holter monitor: EPS: PPM: CXR: Chest CT Scan: Medical Necessity - Tobacco Use Smoking Status: Current every day smoker Assessment/Plan 1. Non-STEMI: The patient has mild elevated troponin of 0.399 which may be consistent with pulmonary emboli and acute increase in his RV pressures, or myocardial demand due to his acute illness or both. Patient has no evidence of EKG changes and his EKG shows sinus tachycardia only. At this point I believe the patient would require full dose anticoagulation therapy for presumed pulmonary emboli as evidenced by his CT scan as well as for his acute coronary syndrome. His echocardiogram shows mild global LV dysfunction, and once his acute methamphetamine and alcohol withdrawal have been resolved, he would require a noninvasive stress test to assess his mild global LV dysfunction as well as his non-STEMI. I would not recommend catheterization given his right great toe emboli unless the patient has significant ischemia and a good portion of his myocardium on stress testing. No obvious evidence of bacterial vegetation noted either on transthoracic or transesophageal echocardiogram done on 12/23/17. This does not exclude the fact that a bacterial vegetation may have broken off from his tricuspid valve and gone to his lungs, or from the mitral valve and going down to his right great toe. The patient does have evidence now of blue toe syndrome in his right foot which may be from atherosclerotic plaquing although he had no arterial instrumentation of his lower extremities to explain this. Would recommend treating as if the patient has infective endocarditis with antibiotic therapy going forward per recommendations of infectious disease. In the meantime continue baby aspirin 81 mg p.o. daily, start him on Lopressor 12.5 mg p.o. twice daily for heart rate control, provided his blood pressure is able to tolerate. We also recommend starting him on Cozaar 25 mg p.o. daily for afterload reduction given his LV dysfunction once his acute illness has been resolved. Continue as needed IV beta-sarmad as needed. Recommend infectious disease consultation for IV antibiotic therapy and duration. CT scan of his abdomen and sinuses is pending. 2. Tobacco abuse: I had a long and thorough discussion with the patient regarding tobacco abuse, and I recommended that he discontinue all tobacco products. This may be somewhat problematic while he is going through withdrawal of alcohol and methamphetamines. 3. Substance abuse: I relayed to the patient that much of the source of his cardiac issues are substance abuse related including tobacco, methamphetamine, alcohol. I believe the patient is unable to get off of these substances on his own and may require aggressive inpatient therapy. 4. Pulmonary emboli: Patient is evidence of distal pulmonary emboli, and his d-dimer is quite elevated. This would be consistent with pulmonary emboli but may also be due to other acute processes. Lower extremity Dopplers are -2 for DVTs. Recommend continuing full anticoagulation with subcu Lovenox at this time. 5. Hyperlipidemia: Recommend obtaining a fasting lipid profile. Would not recommend statin based medications until the patient is demonstrated cessation of alcohol and substance abuse is. 6. Discussed with Dr. Holloway. Code Visit Inpatient E&M: [id number] Subs Hosp L2
--- NOTE | 2017-12-24 10:55 | PCM.PN.ID ---
Patient Problems: Active and Suspected Problems Acute hypoxic respiratory failure (Acute) Polysubstance (including opioids) dependence, daily use (Acute) Methamphetamine abuse (Acute) Severe sepsis (Acute) Bilateral community acquired pneumonia (Acute) Alcohol withdrawal (Acute) Non-STEMI (non-ST elevated myocardial infarction) (Acute) Subjective: Patient is sedated on the ventilator. FiO2 of 35%. On tube feeds. Remains on parenteral vancomycin for MRSA bacteremia. Objective: Dated on the ventilator lungs are coarse breath sounds heart exam S1-S2 no murmurs appreciated abdomen soft he does have some scattered dry pustule lesions in his right leg and left upper leg. Stover catheter is in place. - Physical Exam Vital Signs Temp Pulse Resp BP Pulse Ox 99.9 F H 112 H 24 H 89/58 L 96 12/24/17 08:00 12/24/17 10:00 12/24/17 10:00 12/24/17 10:15 12/24/17 10:00 Oxygen Flow Rate (L/min) 5 Oxygen Delivery Method Mechanical Ventilator Weight: 91 kg Body Mass Index (BMI) 27.9 Intake and Output for Last 24 Hours 12/22/17 12/23/17 12/24/17 23:59 23:59 23:59 Intake Total 2886.4 / 2886.4 3313.5 / 3313.5 918.7 / 918.7 Output Total 3450 / 3450 1450 / 1450 350 / 350 Balance -563.6 / -563.6 1863.5 / 1863.5 568.7 / 568.7 Microbiology Past 72 Hours 12/23/17 13:20 Blood Culture - Preliminary Blood Culture (Wb) - Venous 12/23/17 13:25 Blood Culture - Preliminary Blood Culture (Wb) - Venous 12/20/17 23:25 Blood Culture - Preliminary Blood Culture (Wb) - Anticubital Right 12/22/17 11:40 Blood Culture - Preliminary Blood Culture (Wb) - Left Forearm Gram Positive Cocci 12/22/17 11:25 Blood Culture - Preliminary Blood Culture (Wb) - Left Wrist Gram Positive Cocci 12/20/17 23:20 Bacteria Detection (PCR) - Final Blood Culture (Wb) - Anticubital Left Meth. resistant Staph. aureus Blood Culture - Final Meth. resistant Staph. aureus Laboratory Tests Past 24 Hrs 08/12/24/17 12/24/17 06:25 02:15 04:00 WBC 11.3 H RBC 3.73 L Hgb 11.1 L Hct 34.4 L MCV 92.2 MCH 29.8 MCHC 32.3 RDW 14.8 H RDW Differential 50.5 H Plt Count 123 L MPV 11.7 Immature Gran % (Auto) 1.900 H Neut % (Auto) 77.7 H Lymph % (Auto) 12.1 L [place] % (Auto) 7.8 Eos % (Auto) 0.3 Baso % (Auto) 0.2 Absolute Neuts (auto) 8.8 H Absolute Lymphs (auto) 1.36 Total Counted Not Reportable Sodium Potassium Chloride Carbon Dioxide Anion Gap BUN Creatinine Estim Creat Clear Calc Est GFR (MDRD) Af Amer Est GFR (MDRD) Non-Af BUN/Creatinine Ratio Glucose Calcium Phosphorus Magnesium Vancomycin Trough 12.7 Hepatitis A IgM Ab Negative Hep Bs Antigen Positive H Hep B Core IgM Ab Negative Hepatitis C Ab (EIA) >11.0 H 12/24/17 04:00 WBC RBC Hgb Hct MCV MCH MCHC RDW RDW Differential Plt Count MPV Immature Gran % (Auto) Neut % (Auto) Lymph % (Auto) [place] % (Auto) Eos % (Auto) Baso % (Auto) Absolute Neuts (auto) Absolute Lymphs (auto) Total Counted Sodium 142 Potassium 3.9 Chloride 104 Carbon Dioxide 29.0 Anion Gap 9 BUN 23 H Creatinine 0.71 Estim Creat Clear Calc 127.24 Est GFR (MDRD) Af Amer 152 Est GFR (MDRD) Non-Af 126 BUN/Creatinine Ratio 32.5 H Glucose 143 H Calcium 7.5 L Phosphorus 1.4 L Magnesium 2.3 Vancomycin Trough Hepatitis A IgM Ab Hep Bs Antigen Hep B Core IgM Ab Hepatitis C Ab (EIA) POC Glucose 12/24/17 12/24/17 12/23/17 05:32 02:08 21:35 POC Glucose 112 H 122 H 124 H 12/23/17 12/23/17 12/23/17 18:00 15:57 10:20 POC Glucose 105 110 106 Medical Necessity - Tobacco Use Smoking Status: Current every day smoker Route of nutrition/ use of supplements: [] Nutritional Intake: [] IV Site: [] Stover Catheter: [] - Assessment/Plan MRSA bacteremia with pulmonary infiltrates and respiratory failure. MRI of the lumbar spine did not show any signs of hematogenous seeding to that area. We will continue parenteral vancomycin currently at 1.5 g every 8 hours. Repeat blood cultures scheduled for this afternoon. Continue supportive care.
[2017-12-24] MEDS: Propofol 10MG/Ml 1,000 MG/100 ML Bottle 2.691 MG CONT INF ×3 (11:22→23:00)
--- NOTE | 2017-12-24 11:22 | PCM.PN.HOSP ---
Patient Problems: Active and Suspected Problems Acute hypoxic respiratory failure (Acute) Polysubstance (including opioids) dependence, daily use (Acute) Methamphetamine abuse (Acute) Severe sepsis (Acute) Bilateral community acquired pneumonia (Acute) Alcohol withdrawal (Acute) Non-STEMI (non-ST elevated myocardial infarction) (Acute) Subjective: Patient seen remains sedated on the vent. Has developed new pustular lesions on the back and the left groin as well as evidence of embolic lesions in the lower extremities. Objective: GENERAL: Sedated on the vent HEENT: Clear conjunctiva, moist oral mucosa NECK; supple, normal thyroid, no distended JVD. CHEST: Diminished to auscultation bilaterally, HEART: Regular S1 S2, no audible murmurs ABDOMEN: soft, non-tender, normoactive bowel sounds, RECTAL: deferred EXTREMITIES: Bluish discoloration of the second toe involving the right foot INVESTIGATOR NARCOTICS: Sedated on the vent SKIN: Some excoriations on the left knee; pustular lesions in the left groin Vitals/I&O's: Vital Signs Temp Pulse Resp BP Pulse Ox 99.9 F H 105 H 22 H 89/58 L 93 12/24/17 08:00 12/24/17 11:04 12/24/17 11:04 12/24/17 10:15 12/24/17 11:04 Oxygen Flow Rate (L/min) 5 Oxygen Delivery Method Mechanical Ventilator Weight: 91 kg Body Mass Index (BMI) 27.9 Intake and Output for Last 24 Hours 12/22/17 12/23/17 12/24/17 23:59 23:59 23:59 Intake Total 2886.4 / 2886.4 3313.5 / 3313.5 918.7 / 918.7 Output Total 3450 / 3450 1450 / 1450 350 / 350 Balance -563.6 / -563.6 1863.5 / 1863.5 568.7 / 568.7 Microbiology Past 72 Hours 12/23/17 13:20 Blood Culture (Wb) - Venous Blood Culture - Preliminary 12/23/17 13:25 Blood Culture (Wb) - Venous Blood Culture - Preliminary 12/20/17 23:25 Blood Culture (Wb) - Anticubital Right Blood Culture - Preliminary 12/22/17 11:40 Blood Culture (Wb) - Left Forearm Blood Culture - Preliminary Gram Positive Cocci 12/22/17 11:25 Blood Culture (Wb) - Left Wrist Blood Culture - Preliminary Gram Positive Cocci 12/20/17 23:20 Blood Culture (Wb) - Anticubital Left Bacteria Detection (PCR) - Final Meth. resistant Staph. aureus 12/20/17 23:20 Blood Culture (Wb) - Anticubital Left Blood Culture - Final Meth. resistant Staph. aureus Laboratory Results 12/21/17 06:25: Hepatitis A IgM Ab Negative, Hep Bs Antigen Positive H, Hep B Core IgM Ab Negative, Hepatitis C Ab (EIA) >11.0 H 12/23/17 15:57: POC Glucose 110 12/23/17 18:00: POC Glucose 105 12/23/17 21:35: POC Glucose 124 H 12/24/17 02:08: POC Glucose 122 H 12/24/17 02:15: Vancomycin Trough 12.7 12/24/17 04:00: WBC 11.3 H, RBC 3.73 L, Hgb 11.1 L, Hct 34.4 L, MCV 92.2, MCH 29.8, MCHC 32.3, RDW 14.8 H, RDW Differential 50.5 H, Plt Count 123 L, MPV 11.7, Immature Gran % (Auto) 1.900 H, Neut % (Auto) 77.7 H, Lymph % (Auto) 12.1 L, Stevens % (Auto) 7.8, Eos % (Auto) 0.3, Baso % (Auto) 0.2, Absolute Neuts (auto) 8.8 H, Absolute Lymphs (auto) 1.36, Total Counted Not Reportable 12/24/17 04:00: Sodium 142, Potassium 3.9, Chloride 104, Carbon Dioxide 29.0, Anion Gap 9, BUN 23 H, Creatinine 0.71, Estim Creat Clear Calc 127.24, Est GFR (MDRD) Af Amer 152, Est GFR (MDRD) Non-Af 126, BUN/Creatinine Ratio 32.5 H, Glucose 143 H, Calcium 7.5 L, Phosphorus 1.4 L, Magnesium 2.3 12/24/17 05:32: POC Glucose 112 H Current Medications Acetaminophen (Tylenol Liquid) 650 mg GT Q4H PRN PRN PRN Reason: Mild-Moderate Pain/Headache Last Admin: 12/24/17 10:22 Dose: 650 mg Albuterol Sulfate (Ventolin Aerosols) 2.5 mg INHALATION Q2H PRN PRN PRN Reason: SOB &/OR WHEEZING Last Admin: 12/22/17 23:25 Dose: 2.5 mg Albuterol/Ipratropium (Duoneb) 3 ml INHALATION Q6HWA.RT [facility] Last Admin: 12/24/17 06:54 Dose: 3 ml Chlorhexidine Gluconate () 1 each TOPICAL DAILY [facility] Last Admin: 12/24/17 04:22 Dose: 1 each Chlorhexidine Gluconate () 15 ml PO BID [facility] Last Admin: 12/24/17 10:21 Dose: 15 ml Dextrose (D50w Syringe) 0 gm IV X1 PRN; Protocol PRN Reason: Hypoglycemia Last Admin: 12/22/17 23:33 Dose: 12.5 gm Enoxaparin Sodium (Lovenox) 80 mg SC BID [facility] Last Admin: 12/24/17 10:24 Dose: 80 mg Famotidine (Pepcid) 20 mg GT BID [facility] Last Admin: 12/24/17 10:22 Dose: 20 mg Folic Acid (Folic Acid) 1 mg GT DAILY [facility] Last Admin: 12/24/17 10:23 Dose: 1 mg Glucagon () 1 mg IM .X1 PRN PRN Reason: Hypoglycemia Guaifenesin (Robitussin) 10 ml GT Q6 [facility] Last Admin: 12/24/17 05:29 Dose: 10 ml Haloperidol Lactate (Haldol) 2 mg IV Q4H PRN PRN PRN Reason: AGITATION Last Admin: 12/21/17 22:40 Dose: 2 mg Hydroxyzine Pamoate (Vistaril Pamoate Capsule) 50 mg GT Q6H PRN PRN PRN Reason: Mild Anxiety (score 1/3) Sodium Chloride () 250 mls @ 15 mls/hr IV .[id number] PRN PRN Reason: SALINE FLUSH Vancomycin IV Pharmacy to Dose (1 ea/ Sodium Chloride) 500 mls @ 250 mls/hr IV X1 PRN; Protocol PRN Reason: Rx to Dose Fentanyl () 100 mls @ 5 mls/hr IV .Q20H [facility] Last Admin: 12/24/17 02:32 Dose: 5 mls/hr Propofol (Diprivan) 1,000 mg in 100 mls @ 2.691 mls/hr CONT INF .Q12H [facility]; 5 MCG/KG/MIN PRN Reason: Protocol Last Admin: 12/24/17 06:25 Dose: Not Given Enteral Nutritional Formula (Vital Af 1.2 Johnny Liquid) 1,000 mls @ 70 mls/hr GT .[id number] [facility] Last Admin: 12/24/17 10:24 Dose: Not Given Vancomycin HCl 1,500 mg/ (Sodium Chloride) 530 mls @ 250 mls/hr IV Q8H [facility] Last Admin: 12/24/17 10:23 Dose: 250 mls/hr Potassium Phosphate 40 mm/ (Sodium Chloride) 513.3333 mls @ 62.5 mls/hr IV X1 ONE Stop: 12/24/17 18:42 Last Admin: 12/24/17 10:23 Dose: 62.5 mls/hr Magnesium Hydroxide (Milk Of Magnesia) 30 ml GT DAILY PRN PRN PRN Reason: Constipation Methocarbamol (Methocarbamol) 750 mg PO Q6H PRN PRN PRN Reason: Muscle Aches Metoprolol Tartrate (Lopressor (Beta Ruba)) 5 mg IV Q4H PRN PRN PRN Reason: Heart Rate >100 Nicotine (Nicoderm Cq (Pbkc)) 21 mg TRANSDERM. DAILY [facility] Last Admin: 12/24/17 10:23 Dose: 21 mg Ondansetron HCl (Zofran) 4 mg IV Q6H PRN PRN PRN Reason: NAUSEA Oxycodone HCl (Oxyir) 5 mg PO Q4H PRN PRN PRN Reason: SEVERE PAIN (6-10/10) Potassium Phos/Sodium Phos (Neutra-Phos Packet) 2 packet GT 4X/DAY [facility] Last Admin: 12/24/17 10:23 Dose: 2 packet Promethazine HCl (Phenergan) 12.5 mg IV Q4H PRN PRN PRN Reason: NAUSEA/VOMITING Sodium Chloride () 5 - 30 ml IV UD PRN PRN Reason: SALINE FLUSH Last Admin: 12/24/17 10:22 Dose: 20 ml Thiamine HCl (Vitamin B1) 100 mg GT DAILY [facility] Last Admin: 12/24/17 10:22 Dose: 100 mg Medical Necessity - Tobacco Use Smoking Status: Current every day smoker Assessment/Plan All Active Problems Acute hypoxic respiratory failure (Acute) Polysubstance (including opioids) dependence, daily use (Acute) Methamphetamine abuse (Acute) Severe sepsis (Acute) Bilateral community acquired pneumonia (Acute) Alcohol withdrawal (Acute) Non-STEMI (non-ST elevated myocardial infarction) (Acute) Patient is a 47-year-old gentleman who presented with back pain as well as shortness of breath. Imaging studies obtained on admission was consistent with septic emboli to the lungs. Subsequent cultures came back positive for MRSA. Antibiotics initiated per protocol. Patient had a TTE which failed to demonstrate any endocarditis scheduled to undergo JOSE on 12/23/2017. Hospital stay complicated by respiratory failure resulting in patient being intubated. 1. Septic shock secondary to pneumonia with MRSA. Patient was admitted to the intensive care on admission management protocol with broad-spectrum antibiotic therapy as well as fluid resuscitation. Subsequent cultures came back positive for MRSA currently on vancomycin and Zosyn consultation placed to Dr. Rouse with infectious disease 2. MRSA pneumonia CT demonstrated possibility of septic emboli. Management as described above in addition patient is scheduled to undergo JOSE on 12/23/2017 patient's JOSE failed to demonstrate any evidence of vegetation or mass. MRI of the lumbar spine was negative for paraspinal abscess 3. Acute hypoxic respiratory failure patient initially managed on BiPAP without much improvement had to be intubated on 12/22/2017. Pulmonary medicine/critical care on consult management of patient events deflated 4. MRSA bacteremia 5. Chronic alcohol abuse patient presented with alcohol withdrawal placed on Librium in addition to folic acid and thiamine 6. Acute N STEMI type II secondary to demand ischemia from patient's sepsis managed on Lovenox and aspirin with consultation placed to cardiology 7. Acute hypertensive urgency resolved this was felt to be secondary to patient withdrawing from alcohol 8. DVT prophylaxis; enoxaparin Active Medications Acetaminophen (Tylenol Liquid) 650 mg GT Q4H PRN PRN PRN Reason: Mild-Moderate Pain/Headache Albuterol Sulfate (Ventolin Aerosols) 2.5 mg INHALATION Q2H PRN PRN PRN Reason: SOB &/OR WHEEZING Last Admin: 12/22/17 23:25 Dose: 2.5 mg Albuterol/Ipratropium (Duoneb) 3 ml INHALATION Q6HWA.RT [facility] Last Admin: 12/23/17 06:20 Dose: 3 ml Carvedilol (Coreg) 6.25 mg GT BID [facility] Chlorhexidine Gluconate () 1 each TOPICAL DAILY [facility] Last Admin: 12/22/17 10:53 Dose: 1 each Chlorhexidine Gluconate () 15 ml PO BID [facility] Last Admin: 12/22/17 21:57 Dose: 15 ml Dextrose (D50w Syringe) 0 gm IV X1 PRN; Protocol PRN Reason: Hypoglycemia Last Admin: 12/22/17 23:33 Dose: 12.5 gm Enoxaparin Sodium (Lovenox) 80 mg SC BID [facility] Last Admin: 12/22/17 21:14 Dose: 80 mg Folic Acid (Folic Acid) 1 mg GT DAILY [facility] Glucagon () 1 mg IM .X1 PRN PRN Reason: Hypoglycemia Guaifenesin (Robitussin) 10 ml GT Q6 [facility] Last Admin: 12/23/17 04:13 Dose: Not Given Haloperidol Lactate (Haldol) 2 mg IV Q4H PRN PRN PRN Reason: AGITATION Last Admin: 12/21/17 22:40 Dose: 2 mg Hydroxyzine Pamoate (Vistaril Pamoate Capsule) 50 mg GT Q6H PRN PRN PRN Reason: Mild Anxiety (score 1/3) Sodium Chloride () 250 mls @ 15 mls/hr IV .[id number] PRN PRN Reason: SALINE FLUSH Vancomycin IV Pharmacy to Dose (1 ea/ Sodium Chloride) 500 mls @ 250 mls/hr IV X1 PRN; Protocol PRN Reason: Rx to Dose Fentanyl () 100 mls @ 5 mls/hr IV .Q20H [facility] Last Admin: 12/23/17 04:14 Dose: 5 mls/hr Propofol (Diprivan) 1,000 mg in 100 mls @ 2.691 mls/hr CONT INF .Q12H [facility]; 5 MCG/KG/MIN PRN Reason: Protocol Last Admin: 12/23/17 05:14 Dose: Not Given Enteral Nutritional Formula (Vital Af 1.2 Johnny Liquid) 1,000 mls @ 70 mls/hr GT .[id number] [facility] Last Admin: 12/23/17 01:56 Dose: Not Given Vancomycin HCl 1,250 mg/ (Sodium Chloride) 275 mls @ 167 mls/hr IV Q8H [facility] Last Admin: 12/23/17 02:01 Dose: 167 mls/hr Dextrose/Sodium Chloride () 1,000 mls @ 30 mls/hr IV .[id number] [facility] Last Admin: 12/23/17 00:48 Dose: 30 mls/hr Potassium Phosphate 40 mm/ (Sodium Chloride) 513.3333 mls @ 62.5 mls/hr IV X1 ONE Stop: 12/23/17 13:42 Last Admin: 12/23/17 05:58 Dose: 62.5 mls/hr Magnesium Hydroxide (Milk Of Magnesia) 30 ml GT DAILY PRN PRN PRN Reason: Constipation Methocarbamol (Methocarbamol) 750 mg PO Q6H PRN PRN PRN Reason: Muscle Aches Metoprolol Tartrate (Lopressor (Beta Ruba)) 5 mg IV Q4H PRN PRN PRN Reason: Heart Rate >100 Nicotine (Nicoderm Cq (Pbkc)) 21 mg TRANSDERM. DAILY [facility] Last Admin: 12/22/17 10:37 Dose: 21 mg Ondansetron HCl (Zofran) 4 mg IV Q6H PRN PRN PRN Reason: NAUSEA Oxycodone HCl (Oxyir) 5 mg PO Q4H PRN PRN PRN Reason: SEVERE PAIN (6-10/10) Promethazine HCl (Phenergan) 12.5 mg IV Q4H PRN PRN PRN Reason: NAUSEA/VOMITING Sodium Chloride () 5 - 30 ml IV UD PRN PRN Reason: SALINE FLUSH Last Admin: 12/23/17 05:08 Dose: 10 ml Thiamine HCl (Vitamin B1) 100 mg GT DAILY [facility] Microbiology 12/20/17 08:50 Sputum, Expectorated/Coughed Gram Stain - Final 12/20/17 08:50 Sputum, Expectorated/Coughed Respiratory Culture - Final Meth. resistant Staph. aureus 12/23/17 13:20 Blood Culture (Wb) - Venous Blood Culture - Preliminary 12/23/17 13:25 Blood Culture (Wb) - Venous Blood Culture - Preliminary 12/20/17 23:25 Blood Culture (Wb) - Anticubital Right Blood Culture - Preliminary 12/22/17 11:40 Blood Culture (Wb) - Left Forearm Blood Culture - Preliminary Gram Positive Cocci 12/22/17 11:25 Blood Culture (Wb) - Left Wrist Blood Culture - Preliminary Gram Positive Cocci 12/20/17 19:34 Urine Catheter - Catheter Urine Culture - Final Meth. resistant Staph. aureus 12/20/17 23:20 Blood Culture (Wb) - Anticubital Left Bacteria Detection (PCR) - Final Meth. resistant Staph. aureus 12/20/17 23:20 Blood Culture (Wb) - Anticubital Left Blood Culture - Final Meth. resistant Staph. aureus 12/20/17 19:34 Urine Catheter - Catheter Legionella Antigen - Final 12/20/17 19:34 Urine Catheter - Catheter Streptococcus pneumoniae Antigen (M - Final Clinical Impression(s) from Imaging Studies Chest X-Ray 12/20/17 18:00 IMPRESSION: Patchy airspace opacities bilaterally which is likely infectious in etiology. Electronically Signed: Khadar Reardon, at 19:16 EDT Tel , Service support , Abdomen/Pelvis CT 12/20/17 18:10 IMPRESSION: There are degenerative changes in the visualized spine. There are disc herniations at T12-L1 and L1-2 with narrowing of the spinal canal. There is disc bulge and possible herniation at L3-4. There is diffuse fatty infiltration of the liver. There is mild splenomegaly. There is no ascites. There are no acute bowel abnormalities. There is no free air. There are small lymph nodes in the retroperitoneum. There is stranding around the distal aorta and iliac vessels. There is also stranding in the prevascular space. This can be seen with retroperitoneal fibrosis but is nonspecific. There are patchy airspace opacities scattered in both lung bases which are nonspecific and can be seen with a diffuse infectious process. A neoplastic process is also in the differential. There is no pleural effusion. The images are limited by motion artifact. Electronically Signed: Celena Ziegler MD at 20:09 EDT Tel Direct: [phone], Service support , Chest CTA 12/20/17 21:08 IMPRESSION: Distal pulmonary emboli cannot be excluded, especially in the right upper and lower lobes. The images are limited by motion artifact. There are patchy airspace opacities scattered throughout both lungs, likely a diffuse infectious process. Septic emboli cannot be excluded. A neoplastic process cannot be completely excluded but is less likely. There is no pleural effusion or significant lymphadenopathy. N.B. : The above information has been verbally conveyed by Celena Ziegler MD to Tatiana Arizmendi, [facility]- In-Patient RN, on 12/20/2017 22:48:42 (ET). Electronically Signed: Celena Ziegler MD at 22:33 EDT Tel Direct: [phone], Service support , Brain CT 12/20/17 21:32 IMPRESSION: No acute intracranial abnormality. Electronically Signed: Khadar Reardon at 22:07 EDT Tel , Service support , Chest X-Ray 12/21/17 04:00 IMPRESSION: Worsening of bilateral nodular airspace disease most pronounced along the right upper lung periphery. This may represent a focal pneumonia, etiology such as emboli or neoplasm are not excluded. Electronically Signed: Vanna Briones MD at 6:49 EDT , Service support , Chest X-Ray 12/22/17 04:10 IMPRESSION: Mild worsening of bilateral lung masses and nodules. Considerations include septic emboli, metastatic disease or less likely multiple pneumonias. Electronically Signed: Celestine Madrid MD at 4:57 EDT , Service support , Chest X-Ray 12/22/17 08:20 IMPRESSION: 1. Appropriate positioning of endotracheal and enteric tubes. 2. Unchanged appearance of multiple pulmonary nodules and/or airspace consolidation. Electronically Signed: Sherice Leahy MD at 9:39 EDT , Service support , Lumbar Spine MRI 12/23/17 13:21 IMPRESSION: 1. Severe L5-S1 foraminal stenosis with a small disc protrusion contributory on the right. 2. Mild canal stenosis and moderate foraminal stenosis at L4-5. 3. Noncompressive spondylotic protrusions at T12-L1 and L1-2. Electronically Signed: Avis Metz MD at 16:43 EDT Tel , Service support , KUB X-Ray 12/23/17 13:50 IMPRESSION: Orogastric tube tip within the gastric fundus. Stable bilateral pulmonary infiltrates. Electronically Signed: Nehemiah Hicks at 14:57 EDT Tel , Service support , Code Visit Inpatient E&M: [id number] Subs Hosp L3
[2017-12-24 14:06] LABS: Bedside Glucose 132 mg/dL (70-110)
[2017-12-24] MEDS: Metoprolol Tartrate 5 MG/5 ML Vial IV ×2 (16:32→20:20)
[2017-12-24] MEDS: Vital AF 1.2 Cal Liquid 1,000 ML 70 ML GT (16:32)
[2017-12-24 18:11] LABS: Bedside Glucose 143 mg/dL (70-110)
[2017-12-24 23:31] LABS: Bedside Glucose 139 mg/dL (70-110)
[2017-12-25] VITALS (43 sets, daily range): BP systolic 83–176; BP diastolic 58–139; PULSE 68–120; RESP 12–38; TEMP 36.6–38.9; O2SAT 88–99
[2017-12-25] MEDS: Propofol 10MG/Ml 1,000 MG/100 ML Bottle 2.691 MG CONT INF ×6 (03:14→22:50)
[2017-12-25 03:56] LABS: Bedside Glucose 163 mg/dL (70-110)
[2017-12-25 04:33] LABS: Anion Gap 8 (5-15); BUN 26 mg/dL (7-18); BUN/Creat Ratio 41.2 RATIO (10-20); Calcium,Total 7.5 mg/dL (8.5-10.1); Chloride 106 mmol/L (98-107); Creatinine, Serum 0.63 mg/dL (0.70-1.30); EST Glomerular Filtration Rate 144 mL/min (>60); Est Glom Filt Rate - Afr Amer 174 mL/min (>60); Glucose 160 mg/dL (74-106); Magnesium 2.5 mg/dL (1.6-2.6); Phosphorus 2.6 mg/dL (2.5-4.9); Potassium 3.8 mmol/L (3.5-5.1); Sodium Level 144 mmol/L (136-145)
[2017-12-25 04:37] LABS: Absolute Lymphocyte Count 1.46 X10^3/ul (0.83-4.51); Absolute Neutrophil Count 10.2 X10^3/uL (2.0-7.7); Basophil# 0.03 X10^3/uL; Basophil% 0.2 % (0-1); Eosinophil# 0.04 X10^3/uL; Eosinophils% 0.3 % (0-5); Hematocrit 33.5 % (40-54); Hemoglobin 10.7 g/dl (13.0-16.5); Lymphocyte # 1.46 X10^3/ul (4.0); Lymphocyte % 11.8 % (19-41); Mean Corp Hgb Conc 31.9 g/gl (32-36); Mean Corpuscular Hgb 29.4 pg (27.0-32.0); Monocyte# 0.58 X10^3/uL; Monocyte% 4.7 % (0-10); Neutrophil # 10.23 X10^3/uL (2.7-7.7); Neutrophil % 82.4 % (47-70); Platelet Count 169 K/mm3 (150-450); RBC Distribution Width CV 15.2 % (11.6-14.6); RBC Distribution Width SD 51.4 fl (35.1-43.9); Red Blood Count 3.64 M/mm3 (4.6-6.2); White Blood Count 12.4 K/mm3 (4.4-11.0)
[2017-12-25 04:39] LABS: Differential Indicated SCAN CRITERIA MET; POSITIVE COUNT NO; POSITIVE DIFFERENTIAL NO; POSITIVE MORPHOLOGY YES
[2017-12-25] MEDS: guaiFENesin 10 ML UDC (200MG/10ML) GT ×4 (06:04→23:04)
[2017-12-25] MEDS: 0.9% NaCl Peripheral Flush Adult/Peds IV ×2 (06:12→13:57)
[2017-12-25] MEDS: Metoprolol Tartrate 5 MG/5 ML Vial IV (06:12)
[2017-12-25 06:21] LABS: Bedside Glucose 133 mg/dL (70-110)
--- NOTE | 2017-12-25 06:40 | PCM.PN.INT ---
Subjective: The patient was seen and examined at the bedside this morning. Events from the last 24 hours have been reviewed. The patient remains febrile and is currently tachycardic and hypertensive. FiO2 requirement is currently 35%. The patient is currently overall net +11 L for the admission. Objective: The patient's most recent lab work, culture data and imaging studies have all been personally reviewed. Persistent gram-positive bacteremia noted dating back to December 20. Expectorated sputum culture from December 20 was positive for MRSA. Strep and urine Legionella antigens were both negative. General: - - Intubated, sedated and mechanically ventilated. Currently tolerating assist control mode of mechanical ventilation. HEENT: Atraumatic, PERRLA, Normocephalic Oral: Moist Mucosa Neck: Supple, No Nodes, Trachea Midline Lungs: No wheeze, No rales, Diminished, Rhonchi Cardiovascular: Normal S1, Normal S2, No murmurs, Tachycardic Abdomen: Bowel Sounds Present, Soft, Non Tender, Non-Distended Extremities: No clubbing, No cyanosis, Edema Skin: - - No significant change from previous. Musculoskeletal: No Muscle Wasting Lymphatic: No Cervical, Supraclavicular, or Inguinal Adenopathy Neurological: - - No focal deficits. Currently sedated with a RASS of -1 Vital Signs Temp Pulse Resp BP Pulse Ox 100.3 F H 119 H 38 H 176/139 H 89 12/25/17 06:00 12/25/17 06:12 12/25/17 06:00 12/25/17 06:12 12/25/17 06:00 Oxygen Flow Rate (L/min) 5 Oxygen Delivery Method Mechanical Ventilator Weight: 209 lb 7.026 oz Body Mass Index (BMI) 27.9 Intake and Output for Last 24 Hours 12/23/17 12/24/17 12/25/17 23:59 23:59 23:59 Intake Total 3313.5 / 3313.5 2960.7 / 2960.7 2543 / 2543 Output Total 1450 / 1450 1075 / 1075 775 / 775 Balance 1863.5 / 1863.5 1885.7 / 1885.7 1768 / 1768 Labs (Last 48 Hours) 12/21/17 12/23/17 12/23/17 06:25 04:05 10:20 WBC RBC Hgb Hct MCV MCH MCHC RDW RDW Differential Plt Count MPV Immature Gran % (Auto) Neut % (Auto) Lymph % (Auto) [place] % (Auto) Eos % (Auto) Baso % (Auto) Absolute Neuts (auto) 7.5 Absolute Lymphs (auto) 0.87 Total Counted 100 Neutrophils % (Manual) 80 H Band Neutrophils % 6 H Lymphocytes % (Manual) 10 L Monocytes % (Manual) 3 Eosinophils % (Manual) 1 Differential Comment 1+ Diff Path Review Reviewed Toxic Granulation 2+ Platelet Estimate ADEQUATE RBC Morphology NORM C+C Sodium Potassium Chloride Carbon Dioxide Anion Gap BUN Creatinine Estim Creat Clear Calc Est GFR (MDRD) Af Amer Est GFR (MDRD) Non-Af BUN/Creatinine Ratio Glucose Calcium Phosphorus Magnesium Vancomycin Trough Hepatitis A IgM Ab Negative Hep Bs Antigen Positive H Hep B Core IgM Ab Negative Hepatitis C Ab (EIA) >11.0 H POC Glucose 106 12/23/17 12/23/17 12/23/17 15:57 18:00 21:35 WBC RBC Hgb Hct MCV MCH MCHC RDW RDW Differential Plt Count MPV Immature Gran % (Auto) Neut % (Auto) Lymph % (Auto) [place] % (Auto) Eos % (Auto) Baso % (Auto) Absolute Neuts (auto) Absolute Lymphs (auto) Total Counted Neutrophils % (Manual) Band Neutrophils % Lymphocytes % (Manual) Monocytes % (Manual) Eosinophils % (Manual) Differential Comment Diff Path Review Toxic Granulation Platelet Estimate RBC Morphology Sodium Potassium Chloride Carbon Dioxide Anion Gap BUN Creatinine Estim Creat Clear Calc Est GFR (MDRD) Af Amer Est GFR (MDRD) Non-Af BUN/Creatinine Ratio Glucose Calcium Phosphorus Magnesium Vancomycin Trough Hepatitis A IgM Ab Hep Bs Antigen Hep B Core IgM Ab Hepatitis C Ab (EIA) POC Glucose 110 105 124 H 12/24/17 12/24/17 12/24/17 02:08 02:15 04:00 WBC 11.3 H RBC 3.73 L Hgb 11.1 L Hct 34.4 L MCV 92.2 MCH 29.8 MCHC 32.3 RDW 14.8 H RDW Differential 50.5 H Plt Count 123 L MPV 11.7 Immature Gran % (Auto) 1.900 H Neut % (Auto) 77.7 H Lymph % (Auto) 12.1 L [place] % (Auto) 7.8 Eos % (Auto) 0.3 Baso % (Auto) 0.2 Absolute Neuts (auto) 8.8 H Absolute Lymphs (auto) 1.36 Total Counted Not Reportable Neutrophils % (Manual) Band Neutrophils % Lymphocytes % (Manual) Monocytes % (Manual) Eosinophils % (Manual) Differential Comment Diff Path Review Toxic Granulation Platelet Estimate RBC Morphology Sodium Potassium Chloride Carbon Dioxide Anion Gap BUN Creatinine Estim Creat Clear Calc Est GFR (MDRD) Af Amer Est GFR (MDRD) Non-Af BUN/Creatinine Ratio Glucose Calcium Phosphorus Magnesium Vancomycin Trough 12.7 Hepatitis A IgM Ab Hep Bs Antigen Hep B Core IgM Ab Hepatitis C Ab (EIA) POC Glucose 122 H 12/24/17 12/24/17 12/24/17 04:00 05:32 13:13 WBC RBC Hgb Hct MCV MCH MCHC RDW RDW Differential Plt Count MPV Immature Gran % (Auto) Neut % (Auto) Lymph % (Auto) [place] % (Auto) Eos % (Auto) Baso % (Auto) Absolute Neuts (auto) Absolute Lymphs (auto) Total Counted Neutrophils % (Manual) Band Neutrophils % Lymphocytes % (Manual) Monocytes % (Manual) Eosinophils % (Manual) Differential Comment Diff Path Review Toxic Granulation Platelet Estimate RBC Morphology Sodium 142 Potassium 3.9 Chloride 104 Carbon Dioxide 29.0 Anion Gap 9 BUN 23 H Creatinine 0.71 Estim Creat Clear Calc 127.24 Est GFR (MDRD) Af Amer 152 Est GFR (MDRD) Non-Af 126 BUN/Creatinine Ratio 32.5 H Glucose 143 H Calcium 7.5 L Phosphorus 1.4 L Magnesium 2.3 Vancomycin Trough Hepatitis A IgM Ab Hep Bs Antigen Hep B Core IgM Ab Hepatitis C Ab (EIA) POC Glucose 112 H 132 H 12/24/17 12/24/17 12/25/17 17:53 23:03 03:11 WBC RBC Hgb Hct MCV MCH MCHC RDW RDW Differential Plt Count MPV Immature Gran % (Auto) Neut % (Auto) Lymph % (Auto) [place] % (Auto) Eos % (Auto) Baso % (Auto) Absolute Neuts (auto) Absolute Lymphs (auto) Total Counted Neutrophils % (Manual) Band Neutrophils % Lymphocytes % (Manual) Monocytes % (Manual) Eosinophils % (Manual) Differential Comment Diff Path Review Toxic Granulation Platelet Estimate RBC Morphology Sodium Potassium Chloride Carbon Dioxide Anion Gap BUN Creatinine Estim Creat Clear Calc Est GFR (MDRD) Af Amer Est GFR (MDRD) Non-Af BUN/Creatinine Ratio Glucose Calcium Phosphorus Magnesium Vancomycin Trough Hepatitis A IgM Ab Hep Bs Antigen Hep B Core IgM Ab Hepatitis C Ab (EIA) POC Glucose 143 H 139 H 163 H 12/25/17 12/25/17 12/25/17 03:45 03:45 06:02 WBC 12.4 H RBC 3.64 L Hgb 10.7 L Hct 33.5 L MCV 92.0 MCH 29.4 MCHC 31.9 L RDW 15.2 H RDW Differential 51.4 H Plt Count 169 MPV 12.0 Immature Gran % (Auto) 0.600 Neut % (Auto) 82.4 H Lymph % (Auto) 11.8 L [place] % (Auto) 4.7 Eos % (Auto) 0.3 Baso % (Auto) 0.2 Absolute Neuts (auto) 10.2 H Absolute Lymphs (auto) 1.46 Total Counted Not Reportable Neutrophils % (Manual) Band Neutrophils % Lymphocytes % (Manual) Monocytes % (Manual) Eosinophils % (Manual) Differential Comment Diff Path Review Toxic Granulation Platelet Estimate RBC Morphology Sodium 144 Potassium 3.8 Chloride 106 Carbon Dioxide 30.0 Anion Gap 8 BUN 26 H Creatinine 0.63 L Estim Creat Clear Calc 143.40 Est GFR (MDRD) Af Amer 174 Est GFR (MDRD) Non-Af 144 BUN/Creatinine Ratio 41.2 H Glucose 160 H Calcium 7.5 L Phosphorus 2.6 Magnesium 2.5 Vancomycin Trough Hepatitis A IgM Ab Hep Bs Antigen Hep B Core IgM Ab Hepatitis C Ab (EIA) POC Glucose 133 H Microbiology 12/24/17 14:50 Blood Culture (Wb) - Left Wrist Blood Culture - Preliminary 12/23/17 13:20 Blood Culture (Wb) - Venous Blood Culture - Preliminary 12/23/17 13:25 Blood Culture (Wb) - Venous Blood Culture - Preliminary 12/20/17 23:25 Blood Culture (Wb) - Anticubital Right Blood Culture - Preliminary 12/22/17 11:40 Blood Culture (Wb) - Left Forearm Blood Culture - Preliminary Gram Positive Cocci 12/22/17 11:25 Blood Culture (Wb) - Left Wrist Blood Culture - Preliminary Gram Positive Cocci 12/20/17 23:20 Blood Culture (Wb) - Anticubital Left Bacteria Detection (PCR) - Final Meth. resistant Staph. aureus 12/20/17 23:20 Blood Culture (Wb) - Anticubital Left Blood Culture - Final Meth. resistant Staph. aureus Clinical Impression(s) from Imaging Studies Chest X-Ray 12/20/17 18:00 IMPRESSION: Patchy airspace opacities bilaterally which is likely infectious in etiology. Electronically Signed: Khadar Reardon, at 19:16 EDT Tel , Service support , Abdomen/Pelvis CT 12/20/17 18:10 IMPRESSION: There are degenerative changes in the visualized spine. There are disc herniations at T12-L1 and L1-2 with narrowing of the spinal canal. There is disc bulge and possible herniation at L3-4. There is diffuse fatty infiltration of the liver. There is mild splenomegaly. There is no ascites. There are no acute bowel abnormalities. There is no free air. There are small lymph nodes in the retroperitoneum. There is stranding around the distal aorta and iliac vessels. There is also stranding in the prevascular space. This can be seen with retroperitoneal fibrosis but is nonspecific. There are patchy airspace opacities scattered in both lung bases which are nonspecific and can be seen with a diffuse infectious process. A neoplastic process is also in the differential. There is no pleural effusion. The images are limited by motion artifact. Electronically Signed: Celena Ziegler MD at 20:09 EDT Tel Direct: [phone], Service support , Chest CTA 12/20/17 21:08 IMPRESSION: Distal pulmonary emboli cannot be excluded, especially in the right upper and lower lobes. The images are limited by motion artifact. There are patchy airspace opacities scattered throughout both lungs, likely a diffuse infectious process. Septic emboli cannot be excluded. A neoplastic process cannot be completely excluded but is less likely. There is no pleural effusion or significant lymphadenopathy. N.B. : The above information has been verbally conveyed by Celena Ziegler MD to Tatiana Arizmendi, Hospital- In-Patient RN, on 12/20/2017 22:48:42 (ET). Electronically Signed: Celena Ziegler MD at 22:33 EDT Tel Direct: [phone], Service support , Brain CT 12/20/17 21:32 IMPRESSION: No acute intracranial abnormality. Electronically Signed: Khadar Reardon, at 22:07 EDT Tel , Service support , Chest X-Ray 12/21/17 04:00 IMPRESSION: Worsening of bilateral nodular airspace disease most pronounced along the right upper lung periphery. This may represent a focal pneumonia, etiology such as emboli or neoplasm are not excluded. Electronically Signed: Vanna Briones MD at 6:49 EDT , Service support , Chest X-Ray 12/22/17 04:10 IMPRESSION: Mild worsening of bilateral lung masses and nodules. Considerations include septic emboli, metastatic disease or less likely multiple pneumonias. Electronically Signed: Celestine Madrid MD at 4:57 EDT , Service support , Chest X-Ray 12/22/17 08:20 IMPRESSION: 1. Appropriate positioning of endotracheal and enteric tubes. 2. Unchanged appearance of multiple pulmonary nodules and/or airspace consolidation. Electronically Signed: Sherice Leahy MD at 9:39 EDT , Service support , Lumbar Spine MRI 12/23/17 13:21 IMPRESSION: 1. Severe L5-S1 foraminal stenosis with a small disc protrusion contributory on the right. 2. Mild canal stenosis and moderate foraminal stenosis at L4-5. 3. Noncompressive spondylotic protrusions at T12-L1 and L1-2. Electronically Signed: Avis Metz MD at 16:43 EDT Tel , Service support , KUB X-Ray 12/23/17 13:50 IMPRESSION: Orogastric tube tip within the gastric fundus. Stable bilateral pulmonary infiltrates. Electronically Signed: Nehemiah Hicks, at 14:57 EDT Tel , Service support , Medical Necessity - Tobacco Use Smoking Status: Current every day smoker Assessment/Plan All Active Problems Acute hypoxic respiratory failure (Acute) Polysubstance (including opioids) dependence, daily use (Acute) Methamphetamine abuse (Acute) Severe sepsis (Acute) Bilateral community acquired pneumonia (Acute) Alcohol withdrawal (Acute) Non-STEMI (non-ST elevated myocardial infarction) (Acute) RECOMMENDATIONS: 1. Give IV Lasix 40 mg ?1 today. 2. Continue antibiotics per infectious diseases recommendations. 3. Will discuss with ID regarding need for additional radiographic imaging studies, given persistent bacteremia. 4. Would hold off on aggressive weaning from mechanical ventilation until the patient's copious sputum production begins to decrease. 5. Continue tube feeds 6. Continue current sedation regimen. 7. Continue scheduled bronchodilators and appropriate ICU prophylaxis IMPRESSIONS: 1. Severe sepsis secondary to MRSA pneumonia and persistent staph bacteremia The patient has evidence of both MRSA pneumonia and persistent MRSA bacteremia. Cardiac workup, including transesophageal echocardiogram, revealed no evidence of valvular vegetations. Although no vegetations were identified, the patient may have experienced embolic phenomenon prior to his presentation to the hospital, especially in light of his chest radiograph and physical exam findings. We will plan to continue current supportive measures including antibiotics per infectious diseases recommendations and full mechanical ventilatory support. For now, weaning from mechanical ventilation, will be hindered by the patient's copious sputum production. Continue enteral tube feeds and appropriate ICU prophylaxis. Continue propofol and fentanyl for sedation. 2. Acute hypoxemic respiratory failure secondary to MRSA pneumonia Continue current supportive measures as noted above. Recommend waiting to aggressively wean the patient from mechanical ventilation until copious sputum production begins to decrease. At that time, the patient's sedation regimen can be de-escalated versus transition to Precedex to assist with liberation from mechanical ventilation. In addition, the patient is grossly net positive for the hospital admission. Therefore, IV Lasix will be administered today. 3. Toxic encephalopathy secondary to polysubstance abuse and alcohol withdrawal The patient remains on stable ventilator settings with appropriate gas exchange. Although the patient does have a history of polysubstance abuse, we should be getting past the withdrawal window at this time. Continue propofol and fentanyl for sedation with a goal to maintain a RASS of -1 to 1. 4. Hypertensive urgency Blood pressures are currently under control. Continue beta-sarmad per cardiology recommendations. 5. Inadequate material resources/poor social support Complicates care, management, recovery and prognosis. The patient reportedly has a daughter, who resides in [place]. TIME: 40 minutes of critical care time, independent of procedures, was spent addressing the patient's severe sepsis secondary to MRSA pneumonia and persistent staph bacteremia, acute hypoxic respiratory failure, toxic encephalopathy, hypertensive urgency, review of all data and collaboration with the care team. ([id number]) Code Visit [id number]: 40410 Critical care first hour
[2017-12-25] MEDS: Ipratropium/Albuterol Sulfate 3 ML AMPUL.NEB INHALATION ×3 (07:28→18:50)
--- NOTE | 2017-12-25 07:29 | PCM.PN.HOSP ---
Patient Problems: Active and Suspected Problems Acute hypoxic respiratory failure (Acute) Polysubstance (including opioids) dependence, daily use (Acute) Methamphetamine abuse (Acute) Severe sepsis (Acute) Bilateral community acquired pneumonia (Acute) Alcohol withdrawal (Acute) Non-STEMI (non-ST elevated myocardial infarction) (Acute) Subjective: Patient seen repeat cultures still positive for gram-positive cocci. JOSE as well as MRI of the spine failed to identify source of patient MRSA bacteremia. Case was discussed with Dr. Gant with infectious disease who recommended treating patient as a case of suspected endocarditis with at least 6 weeks of IV vancomycin Objective: GENERAL: Sedated on the vent HEENT: Clear conjunctiva, moist oral mucosa NECK; supple, normal thyroid, no distended JVD. CHEST: Diminished to auscultation bilaterally, HEART: Regular S1 S2, no audible murmurs ABDOMEN: soft, non-tender, normoactive bowel sounds, RECTAL: deferred EXTREMITIES: Bluish discoloration of the second toe involving the right foot SNUFF BLENDER: Sedated on the vent SKIN: Some excoriations on the left knee; pustular lesions in the left groin Vitals/I&O's: Vital Signs Temp Pulse Resp BP Pulse Ox 100.3 F H 119 H 38 H 176/139 H 89 12/25/17 06:00 12/25/17 06:12 12/25/17 06:00 12/25/17 06:12 12/25/17 06:00 Oxygen Flow Rate (L/min) 5 Oxygen Delivery Method Mechanical Ventilator Weight: 95 kg Body Mass Index (BMI) 27.9 Intake and Output for Last 24 Hours 12/23/17 12/24/17 12/25/17 23:59 23:59 23:59 Intake Total 3313.5 / 3313.5 2960.7 / 2960.7 2543 / 2543 Output Total 1450 / 1450 1075 / 1075 775 / 775 Balance 1863.5 / 1863.5 1885.7 / 1885.7 1768 / 1768 Microbiology Past 72 Hours 12/24/17 14:40 Blood Culture (Wb) - Right Wrist Blood Culture - Preliminary 12/24/17 14:50 Blood Culture (Wb) - Left Wrist Blood Culture - Preliminary 12/23/17 13:20 Blood Culture (Wb) - Venous Blood Culture - Preliminary 12/23/17 13:25 Blood Culture (Wb) - Venous Blood Culture - Preliminary 12/20/17 23:25 Blood Culture (Wb) - Anticubital Right Blood Culture - Preliminary 12/22/17 11:40 Blood Culture (Wb) - Left Forearm Blood Culture - Preliminary Gram Positive Cocci 12/22/17 11:25 Blood Culture (Wb) - Left Wrist Blood Culture - Preliminary Gram Positive Cocci 12/20/17 23:20 Blood Culture (Wb) - Anticubital Left Bacteria Detection (PCR) - Final Meth. resistant Staph. aureus 12/20/17 23:20 Blood Culture (Wb) - Anticubital Left Blood Culture - Final Meth. resistant Staph. aureus Laboratory Results 12/21/17 06:25: Hepatitis A IgM Ab Negative, Hep Bs Antigen Positive H, Hep B Core IgM Ab Negative, Hepatitis C Ab (EIA) >11.0 H 12/24/17 13:13: POC Glucose 132 H 12/24/17 17:53: POC Glucose 143 H 12/24/17 23:03: POC Glucose 139 H 12/25/17 03:11: POC Glucose 163 H 12/25/17 03:45: WBC 12.4 H, RBC 3.64 L, Hgb 10.7 L, Hct 33.5 L, MCV 92.0, MCH 29.4, MCHC 31.9 L, RDW 15.2 H, RDW Differential 51.4 H, Plt Count 169, MPV 12.0, Immature Gran % (Auto) 0.600, Neut % (Auto) 82.4 H, Lymph % (Auto) 11.8 L, [place] % (Auto) 4.7, Eos % (Auto) 0.3, Baso % (Auto) 0.2, Absolute Neuts (auto) 10.2 H, Absolute Lymphs (auto) 1.46, Total Counted Not Reportable 12/25/17 03:45: Sodium 144, Potassium 3.8, Chloride 106, Carbon Dioxide 30.0, Anion Gap 8, BUN 26 H, Creatinine 0.63 L, Estim Creat Clear Calc 143.40, Est GFR (MDRD) Af Amer 174, Est GFR (MDRD) Non-Af 144, BUN/Creatinine Ratio 41.2 H, Glucose 160 H, Calcium 7.5 L, Phosphorus 2.6, Magnesium 2.5 12/25/17 06:02: POC Glucose 133 H Current Medications Acetaminophen (Tylenol Liquid) 650 mg GT Q4H PRN PRN PRN Reason: Mild-Moderate Pain/Headache Last Admin: 12/24/17 20:19 Dose: 650 mg Albuterol Sulfate (Ventolin Aerosols) 2.5 mg INHALATION Q2H PRN PRN PRN Reason: SOB &/OR WHEEZING Last Admin: 12/22/17 23:25 Dose: 2.5 mg Albuterol/Ipratropium (Duoneb) 3 ml INHALATION Q6HWA.RT [facility] Last Admin: 12/25/17 07:28 Dose: 3 ml Chlorhexidine Gluconate () 1 each TOPICAL DAILY [facility] Last Admin: 12/24/17 04:22 Dose: 1 each Chlorhexidine Gluconate () 15 ml PO BID [facility] Last Admin: 12/24/17 22:59 Dose: 15 ml Dextrose (D50w Syringe) 0 gm IV X1 PRN; Protocol PRN Reason: Hypoglycemia Last Admin: 12/22/17 23:33 Dose: 12.5 gm Enoxaparin Sodium (Lovenox) 80 mg SC BID [facility] Last Admin: 12/24/17 23:00 Dose: 80 mg Famotidine (Pepcid) 20 mg GT BID [facility] Last Admin: 12/24/17 23:00 Dose: 20 mg Folic Acid (Folic Acid) 1 mg GT DAILY [facility] Last Admin: 12/24/17 10:23 Dose: 1 mg Glucagon () 1 mg IM .X1 PRN PRN Reason: Hypoglycemia Guaifenesin (Robitussin) 10 ml GT Q6 [facility] Last Admin: 12/25/17 06:04 Dose: 10 ml Sodium Chloride () 250 mls @ 15 mls/hr IV .[id number] PRN PRN Reason: SALINE FLUSH Vancomycin IV Pharmacy to Dose (1 ea/ Sodium Chloride) 500 mls @ 250 mls/hr IV X1 PRN; Protocol PRN Reason: Rx to Dose Fentanyl () 100 mls @ 5 mls/hr IV .Q20H [facility] Last Admin: 12/25/17 02:40 Dose: 5 mls/hr Propofol (Diprivan) 1,000 mg in 100 mls @ 2.691 mls/hr CONT INF .Q12H [facility]; 5 MCG/KG/MIN PRN Reason: Protocol Last Admin: 12/25/17 03:14 Dose: 2.691 mls/hr Enteral Nutritional Formula (Vital Af 1.2 Johnny Liquid) 1,000 mls @ 70 mls/hr GT .[id number] [facility] Last Admin: 12/24/17 16:32 Dose: 70 mls/hr Vancomycin HCl 1,500 mg/ (Sodium Chloride) 530 mls @ 250 mls/hr IV Q8H [facility] Last Admin: 12/25/17 03:14 Dose: 250 mls/hr Insulin Human Lispro (Humalog Kwikpen (Bkc)) 0 unit SC Q6 [facility] PRN Reason: Protocol Magnesium Hydroxide (Milk Of Magnesia) 30 ml GT DAILY PRN PRN PRN Reason: Constipation Metoprolol Tartrate (Lopressor (Beta Ruba)) 5 mg IV Q4H PRN PRN PRN Reason: Heart Rate >100 Last Admin: 12/25/17 06:12 Dose: 5 mg Nicotine (Nicoderm Cq (Pbkc)) 21 mg TRANSDERM. DAILY [facility] Last Admin: 12/24/17 10:23 Dose: 21 mg Ondansetron HCl (Zofran) 4 mg IV Q6H PRN PRN PRN Reason: NAUSEA Potassium Phos/Sodium Phos (Neutra-Phos Packet) 2 packet GT 4X/DAY [facility] Last Admin: 12/24/17 23:00 Dose: 2 packet Promethazine HCl (Phenergan) 12.5 mg IV Q4H PRN PRN PRN Reason: NAUSEA/VOMITING Sodium Chloride () 5 - 30 ml IV UD PRN PRN Reason: SALINE FLUSH Last Admin: 12/25/17 06:12 Dose: 10 ml Thiamine HCl (Vitamin B1) 100 mg GT DAILY [facility] Last Admin: 12/24/17 10:22 Dose: 100 mg Medical Necessity - Tobacco Use Smoking Status: Current every day smoker Assessment/Plan All Active Problems Acute hypoxic respiratory failure (Acute) Polysubstance (including opioids) dependence, daily use (Acute) Methamphetamine abuse (Acute) Severe sepsis (Acute) Bilateral community acquired pneumonia (Acute) Alcohol withdrawal (Acute) Non-STEMI (non-ST elevated myocardial infarction) (Acute) Patient is a 47-year-old gentleman who presented with back pain as well as shortness of breath. Imaging studies obtained on admission was consistent with septic emboli to the lungs. Subsequent cultures came back positive for MRSA. Antibiotics initiated per protocol. Patient had a TTE which failed to demonstrate any endocarditis scheduled to undergo JOSE on 12/23/2017. Hospital stay complicated by respiratory failure resulting in patient being intubated. 1. Septic shock secondary to pneumonia with MRSA. Patient was admitted to the intensive care on admission management protocol with broad-spectrum antibiotic therapy as well as fluid resuscitation. Subsequent cultures came back positive for MRSA currently on vancomycin and Zosyn consultation placed to Dr. Rouse with infectious disease. Case was discussed with Dr. Gant with infectious disease who recommended treating patient as a case of suspected endocarditis with at least 6 weeks of IV vancomycin 2. MRSA pneumonia CT demonstrated possibility of septic emboli. Management as described above in addition patient is scheduled to undergo JOSE on 12/23/2017 patient's JOSE failed to demonstrate any evidence of vegetation or mass. MRI of the lumbar spine was negative for paraspinal abscess 3. Acute hypoxic respiratory failure patient initially managed on BiPAP without much improvement had to be intubated on 12/22/2017. Pulmonary medicine/critical care on consult management of patient events deflated 4. MRSA bacteremia 5. Chronic alcohol abuse patient presented with alcohol withdrawal placed on Librium in addition to folic acid and thiamine 6. Acute N STEMI type II secondary to demand ischemia from patient's sepsis managed on Lovenox and aspirin with consultation placed to cardiology 7. Acute hypertensive urgency resolved this was felt to be secondary to patient withdrawing from alcohol 8. DVT prophylaxis; enoxaparin Active Medications Acetaminophen (Tylenol Liquid) 650 mg GT Q4H PRN PRN PRN Reason: Mild-Moderate Pain/Headache Albuterol Sulfate (Ventolin Aerosols) 2.5 mg INHALATION Q2H PRN PRN PRN Reason: SOB &/OR WHEEZING Last Admin: 12/22/17 23:25 Dose: 2.5 mg Albuterol/Ipratropium (Duoneb) 3 ml INHALATION Q6HWA.RT [facility] Last Admin: 12/23/17 06:20 Dose: 3 ml Carvedilol (Coreg) 6.25 mg GT BID [facility] Chlorhexidine Gluconate () 1 each TOPICAL DAILY [facility] Last Admin: 12/22/17 10:53 Dose: 1 each Chlorhexidine Gluconate () 15 ml PO BID [facility] Last Admin: 12/22/17 21:57 Dose: 15 ml Dextrose (D50w Syringe) 0 gm IV X1 PRN; Protocol PRN Reason: Hypoglycemia Last Admin: 12/22/17 23:33 Dose: 12.5 gm Enoxaparin Sodium (Lovenox) 80 mg SC BID [facility] Last Admin: 12/22/17 21:14 Dose: 80 mg Folic Acid (Folic Acid) 1 mg GT DAILY [facility] Glucagon () 1 mg IM .X1 PRN PRN Reason: Hypoglycemia Guaifenesin (Robitussin) 10 ml GT Q6 [facility] Last Admin: 12/23/17 04:13 Dose: Not Given Haloperidol Lactate (Haldol) 2 mg IV Q4H PRN PRN PRN Reason: AGITATION Last Admin: 12/21/17 22:40 Dose: 2 mg Hydroxyzine Pamoate (Vistaril Pamoate Capsule) 50 mg GT Q6H PRN PRN PRN Reason: Mild Anxiety (score 1/3) Sodium Chloride () 250 mls @ 15 mls/hr IV .[id number] PRN PRN Reason: SALINE FLUSH Vancomycin IV Pharmacy to Dose (1 ea/ Sodium Chloride) 500 mls @ 250 mls/hr IV X1 PRN; Protocol PRN Reason: Rx to Dose Fentanyl () 100 mls @ 5 mls/hr IV .Q20H [facility] Last Admin: 12/23/17 04:14 Dose: 5 mls/hr Propofol (Diprivan) 1,000 mg in 100 mls @ 2.691 mls/hr CONT INF .Q12H [facility]; 5 MCG/KG/MIN PRN Reason: Protocol Last Admin: 12/23/17 05:14 Dose: Not Given Enteral Nutritional Formula (Vital Af 1.2 Johnny Liquid) 1,000 mls @ 70 mls/hr GT .[id number] [facility] Last Admin: 12/23/17 01:56 Dose: Not Given Vancomycin HCl 1,250 mg/ (Sodium Chloride) 275 mls @ 167 mls/hr IV Q8H [facility] Last Admin: 12/23/17 02:01 Dose: 167 mls/hr Dextrose/Sodium Chloride () 1,000 mls @ 30 mls/hr IV .[id number] [facility] Last Admin: 12/23/17 00:48 Dose: 30 mls/hr Potassium Phosphate 40 mm/ (Sodium Chloride) 513.3333 mls @ 62.5 mls/hr IV X1 ONE Stop: 12/23/17 13:42 Last Admin: 12/23/17 05:58 Dose: 62.5 mls/hr Magnesium Hydroxide (Milk Of Magnesia) 30 ml GT DAILY PRN PRN PRN Reason: Constipation Methocarbamol (Methocarbamol) 750 mg PO Q6H PRN PRN PRN Reason: Muscle Aches Metoprolol Tartrate (Lopressor (Beta Ruba)) 5 mg IV Q4H PRN PRN PRN Reason: Heart Rate >100 Nicotine (Nicoderm Cq (Pbkc)) 21 mg TRANSDERM. DAILY [facility] Last Admin: 12/22/17 10:37 Dose: 21 mg Ondansetron HCl (Zofran) 4 mg IV Q6H PRN PRN PRN Reason: NAUSEA Oxycodone HCl (Oxyir) 5 mg PO Q4H PRN PRN PRN Reason: SEVERE PAIN (6-10/10) Promethazine HCl (Phenergan) 12.5 mg IV Q4H PRN PRN PRN Reason: NAUSEA/VOMITING Sodium Chloride () 5 - 30 ml IV UD PRN PRN Reason: SALINE FLUSH Last Admin: 12/23/17 05:08 Dose: 10 ml Thiamine HCl (Vitamin B1) 100 mg GT DAILY [facility] Microbiology 12/20/17 08:50 Sputum, Expectorated/Coughed Gram Stain - Final 12/20/17 08:50 Sputum, Expectorated/Coughed Respiratory Culture - Final Meth. resistant Staph. aureus 12/23/17 13:20 Blood Culture (Wb) - Venous Blood Culture - Preliminary 12/23/17 13:25 Blood Culture (Wb) - Venous Blood Culture - Preliminary 12/20/17 23:25 Blood Culture (Wb) - Anticubital Right Blood Culture - Preliminary 12/22/17 11:40 Blood Culture (Wb) - Left Forearm Blood Culture - Preliminary Gram Positive Cocci 12/22/17 11:25 Blood Culture (Wb) - Left Wrist Blood Culture - Preliminary Gram Positive Cocci 12/20/17 19:34 Urine Catheter - Catheter Urine Culture - Final Meth. resistant Staph. aureus 12/20/17 23:20 Blood Culture (Wb) - Anticubital Left Bacteria Detection (PCR) - Final Meth. resistant Staph. aureus 08/24/18 23:20 Blood Culture (Wb) - Anticubital Left Blood Culture - Final Meth. resistant Staph. aureus 12/20/17 19:34 Urine Catheter - Catheter Legionella Antigen - Final 12/20/17 19:34 Urine Catheter - Catheter Streptococcus pneumoniae Antigen (M - Final Clinical Impression(s) from Imaging Studies Chest X-Ray 12/20/17 18:00 IMPRESSION: Patchy airspace opacities bilaterally which is likely infectious in etiology. Electronically Signed: Khadar Alexys, at 19:16 EDT Tel , Service support , Abdomen/Pelvis CT 12/20/17 18:10 IMPRESSION: There are degenerative changes in the visualized spine. There are disc herniations at T12-L1 and L1-2 with narrowing of the spinal canal. There is disc bulge and possible herniation at L3-4. There is diffuse fatty infiltration of the liver. There is mild splenomegaly. There is no ascites. There are no acute bowel abnormalities. There is no free air. There are small lymph nodes in the retroperitoneum. There is stranding around the distal aorta and iliac vessels. There is also stranding in the prevascular space. This can be seen with retroperitoneal fibrosis but is nonspecific. There are patchy airspace opacities scattered in both lung bases which are nonspecific and can be seen with a diffuse infectious process. A neoplastic process is also in the differential. There is no pleural effusion. The images are limited by motion artifact. Electronically Signed: Celena Ziegler MD at 20:09 EDT Tel Direct: [phone], Service support , Chest CTA 12/20/17 21:08 IMPRESSION: Distal pulmonary emboli cannot be excluded, especially in the right upper and lower lobes. The images are limited by motion artifact. There are patchy airspace opacities scattered throughout both lungs, likely a diffuse infectious process. Septic emboli cannot be excluded. A neoplastic process cannot be completely excluded but is less likely. There is no pleural effusion or significant lymphadenopathy. N.B. : The above information has been verbally conveyed by Celena Ziegler MD to Tatiana Arizmendi, Hospital- In-Patient RN, on 12/20/2017 22:48:42 (ET). Electronically Signed: Celena Ziegler MD at 22:33 EDT Tel Direct: [phone], Service support , Brain CT 12/20/17 21:32 IMPRESSION: No acute intracranial abnormality. Electronically Signed: Khadar Reardon at 22:07 EDT Tel , Service support , Chest X-Ray 12/21/17 04:00 IMPRESSION: Worsening of bilateral nodular airspace disease most pronounced along the right upper lung periphery. This may represent a focal pneumonia, etiology such as emboli or neoplasm are not excluded. Electronically Signed: Vanna Briones MD at 6:49 EDT , Service support , Chest X-Ray 12/22/17 04:10 IMPRESSION: Mild worsening of bilateral lung masses and nodules. Considerations include septic emboli, metastatic disease or less likely multiple pneumonias. Electronically Signed: Celestine Madrid MD at 4:57 EDT , Service support , Chest X-Ray 12/22/17 08:20 IMPRESSION: 1. Appropriate positioning of endotracheal and enteric tubes. 2. Unchanged appearance of multiple pulmonary nodules and/or airspace consolidation. Electronically Signed: Sherice Leahy MD at 9:39 EDT , Service support , Lumbar Spine MRI 12/23/17 13:21 IMPRESSION: 1. Severe L5-S1 foraminal stenosis with a small disc protrusion contributory on the right. 2. Mild canal stenosis and moderate foraminal stenosis at L4-5. 3. Noncompressive spondylotic protrusions at T12-L1 and L1-2. Electronically Signed: Avis Metz MD at 16:43 EDT Tel , Service support , KUB X-Ray 12/23/17 13:50 IMPRESSION: Orogastric tube tip within the gastric fundus. Stable bilateral pulmonary infiltrates. Electronically Signed: Nehemiah Hicks, at 14:57 EDT Tel , Service support , Code Visit Inpatient E&M: [id number] Subs Hosp L3
--- NOTE | 2017-12-25 08:00 | PCM.PN.CARD ---
Subjectve: Patient intubated, sedated, on propofol and fentanyl drip. Heme and apically stable on no pressors. Telemetry showed sinus tachycardia with rare PVCs. Objective: Vital Signs Temp Pulse Resp BP Pulse Ox 100.3 F H 109 H 26 H 176/139 H 93 12/25/17 06:00 12/25/17 07:29 12/25/17 07:29 12/25/17 06:12 12/25/17 07:29 Oxygen Flow Rate (L/min) 5 Oxygen Delivery Method Mechanical Ventilator Weight: 209 lb 7.026 oz Body Mass Index (BMI) 27.9 Intake and Output for Last 24 Hours 12/23/17 12/24/17 12/25/17 23:59 23:59 23:59 Intake Total 3313.5 / 3313.5 2960.7 / 2960.7 2543 / 2543 Output Total 1450 / 1450 1075 / 1075 775 / 775 Balance 1863.5 / 1863.5 1885.7 / 1885.7 1768 / 1768 General: Awake, Alert, Oriented x 3 HEENT: PERRL, EOMI, Sclera Non Icteric Neck: Supple, Good ROM, No Lymph Node Enlargement Lungs: Clear to auscultation Cardiovascular: Regular Rhythm, Normal S1, Normal S2, No Murmurs, No Rubs, No Gallops Vascular: No Carotid Bruits, Normal Femoral Pulses, Normal Radial Pulses, Normal Dorsalis Pedal Pulse, Normal Posterior Tibial Pulses Abdomen: Bowel Sounds Present, Soft, Non Tender, No HSM, No Organomegaly Extremities: No Cyanosis, No Clubbing, No edema Neurological: No Focal Motor or Sensory Deficit 12/25/17 03:45: WBC 12.4 H, RBC 3.64 L, Hgb 10.7 L, Hct 33.5 L, MCV 92.0, MCH 29.4, MCHC 31.9 L, RDW 15.2 H, RDW Differential 51.4 H, Plt Count 169, MPV 12.0, Immature Gran % (Auto) 0.600, Neut % (Auto) 82.4 H, Lymph % (Auto) 11.8 L, [place] % (Auto) 4.7, Eos % (Auto) 0.3, Baso % (Auto) 0.2, Absolute Neuts (auto) 10.2 H, Total Counted Not Reportable 12/25/17 03:45: Sodium 144, Potassium 3.8, Chloride 106, Carbon Dioxide 30.0, Anion Gap 8, BUN 26 H, Creatinine 0.63 L, Est GFR (MDRD) Af Amer 174, Est GFR (MDRD) Non-Af 144, BUN/Creatinine Ratio 41.2 H, Glucose 160 H, Calcium 7.5 L, Phosphorus 2.6, Magnesium 2.5 Rhythm: EKG: ECHO: Stress Test: Cardiac Cath: PCI: CT Surgery: Holter monitor: EPS: PPM: CXR: Chest CT Scan: Medical Necessity - Tobacco Use Smoking Status: Current every day smoker Assessment/Plan 1. Non-STEMI: The patient has mild elevated troponin of 0.399 which may be consistent with pulmonary emboli and acute increase in his RV pressures, or myocardial demand due to his acute illness or both. Patient has no evidence of EKG changes and his EKG shows sinus tachycardia only. At this point I believe the patient would require full dose anticoagulation therapy for presumed pulmonary emboli as evidenced by his CT scan as well as for his acute coronary syndrome. His echocardiogram shows mild global LV dysfunction, and once his acute methamphetamine and alcohol withdrawal have been resolved, he would require a noninvasive stress test to assess his mild global LV dysfunction as well as his non-STEMI. I would not recommend catheterization given his right great toe emboli unless the patient has significant ischemia and a good portion of his myocardium on stress testing. No obvious evidence of bacterial vegetation noted either on transthoracic or transesophageal echocardiogram done on 12/23/17. This does not exclude the fact that a bacterial vegetation may have broken off from his tricuspid valve and gone to his lungs, or from the mitral valve and going down to his right great toe. The patient does have evidence now of blue toe syndrome in his right foot which may be from atherosclerotic plaquing although he had no arterial instrumentation of his lower extremities to explain this. Would recommend treating as if the patient has infective endocarditis with antibiotic therapy going forward per recommendations of infectious disease. In the meantime continue baby aspirin 81 mg p.o. daily, change him to Coreg 6.25 mg p.o. twice daily for heart rate control and titrate up from there, provided his blood pressure is able to tolerate. We also recommend starting him on Cozaar 25 mg p.o. daily for afterload reduction given his LV dysfunction once his acute illness has been resolved. Continue as needed IV beta-sarmad as needed. Appreciate infectious disease consultation.. Also consider CT scan of his abdomen and sinuses is pending. 2. Tobacco abuse: I had a long and thorough discussion with the patient regarding tobacco abuse, and I recommended that he discontinue all tobacco products. This may be somewhat problematic while he is going through withdrawal of alcohol and methamphetamines. 3. Substance abuse: I relayed to the patient that much of the source of his cardiac issues are substance abuse related including tobacco, methamphetamine, alcohol. I believe the patient is unable to get off of these substances on his own and may require aggressive inpatient therapy. 4. Pulmonary emboli: Patient is evidence of distal pulmonary emboli, and his d-dimer is quite elevated. This would be consistent with pulmonary emboli but may also be due to other acute processes. Lower extremity Dopplers are negative for DVTs. Recommend continuing full anticoagulation with subcu Lovenox at this time. 5. Hyperlipidemia: Recommend obtaining a fasting lipid profile. Would not recommend statin based medications until the patient is demonstrated cessation of alcohol and substance abuse is. 6. Discussed with Dr. Awad. Code Visit Inpatient E&M: [id number] [facility] Hosp L3
[2017-12-25] MEDS: CHLORHEXIDINE GLUC 2% CLOTH 1 EACH TOWELETTE TOPICAL (08:15)
--- NOTE | 2017-12-25 09:29 | CASEMGMT ---
SW participated in ICU rounds this morning. Pt remains on the ventilator and will not be weaned today. SW will continue to follow for needs at discharge. ANI Bruno, RN [facility]
[2017-12-25] MEDS: Famotidine 20 MG Tablet GT ×2 (10:25→22:47)
[2017-12-25] MEDS: Chlorhexidine 15 ML PO ×2 (10:25→22:46)
[2017-12-25] MEDS: Folic Acid 1 MG Tablet GT (10:25)
[2017-12-25] MEDS: Carvedilol 6.25 MG Tablet GT ×2 (10:25→22:47)
[2017-12-25] MEDS: Thiamine Hydrochloride 100 MG Tablet GT (10:26)
[2017-12-25] MEDS: Enoxaparin 80 MG/0.8 ML Syringe SC ×2 (10:26→22:47)
[2017-12-25] MEDS: Furosemide 40 MG/4 ML Vial IV (10:26)
[2017-12-25] MEDS: Na Biphos/Potassium Phosphate PACKET 2 PACKET GT ×4 (10:27→22:49)
[2017-12-25] MEDS: 0.9% NaCl IVPB Med Flush (250 mL) 15 ML IV (10:29)
[2017-12-25 10:35] LABS: Vancomycin, Trough Level 18.3 ug/mL (5.0-15.0)
--- NOTE | 2017-12-25 11:11 | PHA.PHARE_ITS ---
Consult Pharmacy has been consulted to manage selected antiobiotic: Vancomycin Type of Consult: Follow-up Suspected Infection: Bacteremia Prior Doses of Antibiotics Received/Current Regimen: Medications Vancomycin HCl 1,500 mg/ (Sodium Chloride) 530 mls @ 250 mls/hr IV Q8H DEONDRE Last Admin: 12/25/17 10:28 Dose: 250 mls/hr Labs: Sodium 144 mmol/L (136-145) 12/25/17 03:45 Potassium 3.8 mmol/L (3.5-5.1) 12/25/17 03:45 Chloride 106 mmol/L (98-107) 12/25/17 03:45 Carbon Dioxide 30.0 mmol/L (21.0-32.0) 12/25/17 03:45 Anion Gap 8 (5-15) 12/25/17 03:45 BUN 26 mg/dL (7-18) H 12/25/17 03:45 Creatinine 0.63 mg/dL (0.70-1.30) L 12/25/17 03:45 Est GFR (MDRD) Af Amer 174 mL/min (>60) 12/25/17 03:45 Est GFR (MDRD) Non-Af 144 mL/min (>60) 12/25/17 03:45 BUN/Creatinine Ratio 41.2 RATIO (10-20) H 12/25/17 03:45 Glucose 160 mg/dL (74-106) H 12/25/17 03:45 Vancomycin Trough 18.3 ug/mL (5.0-15.0) H 12/25/17 09:45 Microbiology: Microbiology 12/23/17 13:20 Blood Culture (Wb) - Venous Blood Culture - Preliminary Gram Positive Cocci 12/23/17 13:25 Blood Culture (Wb) - Venous Blood Culture - Preliminary Gram Positive Cocci 12/24/17 14:40 Blood Culture (Wb) - Right Wrist Blood Culture - Preliminary 12/24/17 14:50 Blood Culture (Wb) - Left Wrist Blood Culture - Preliminary 12/20/17 23:25 Blood Culture (Wb) - Anticubital Right Blood Culture - Preliminary 12/22/17 11:40 Blood Culture (Wb) - Left Forearm Blood Culture - Preliminary Gram Positive Cocci 12/22/17 11:25 Blood Culture (Wb) - Left Wrist Blood Culture - Preliminary Gram Positive Cocci 12/20/17 23:20 Blood Culture (Wb) - Anticubital Left Bacteria Detection (PCR ) - Final Meth. resistant Staph. aureus 12/20/17 23:20 Blood Culture (Wb) - Anticubital Left Blood Culture - Final Meth. resistant Staph. aureus Weight used for dosin kg Estimated Creatinine Clearance: > 100 mL/m Goal Trough: 15-20 mcg/mL Pharmacy Plan for Drug Dosin.5 hour vancomycin level within goal range. True calculated 8 hour trough approx 16.5. Renal function stable. Patient received IV furosemide x1 this morning, may require more per Dr Awad (11L fluid +). Considering planned diuresis, recommend to continue to monitor closely. Recheck trough in 48 hours. Pharmacy Service will continue to monitor and adjust dosing as required. Follow-Up Labs: Trough Vancomycin - 12/27 @ 1030
--- NOTE | 2017-12-25 11:29 | PCM.PN.ID ---
Patient Problems: Active and Suspected Problems Acute hypoxic respiratory failure (Acute) Polysubstance (including opioids) dependence, daily use (Acute) Methamphetamine abuse (Acute) Severe sepsis (Acute) Bilateral community acquired pneumonia (Acute) Alcohol withdrawal (Acute) Non-STEMI (non-ST elevated myocardial infarction) (Acute) Subjective: Patient remains critically ill on the ventilator heavily sedated. Still with intermittent fevers. Remains on parenteral vancomycin for treatment of his persistent MRSA bacteremia. Chest film from this morning reviewed shows bilateral infiltrates. Objective: Sedated on the vent FiO2 of 35%. Lungs some scattered rhonchi heart exam S1-S2 no murmurs appreciated abdomen soft nontender he does have some small pustular lesions in his upper thigh and abdomen area mainly left side - Physical Exam Vital Signs Temp Pulse Resp BP Pulse Ox 100.8 F H 109 H 26 H 138/90 H 99 12/25/17 09:00 12/25/17 09:30 12/25/17 09:30 12/25/17 09:00 12/25/17 10:00 Oxygen Flow Rate (L/min) 35 Oxygen Delivery Method Mechanical Ventilator Weight: 95 kg Body Mass Index (BMI) 27.9 Intake and Output for Last 24 Hours 12/23/17 12/24/17 12/25/17 23:59 23:59 23:59 Intake Total 3313.5 / 3313.5 2960.7 / 2960.7 2653 / 2653 Output Total 1450 / 1450 1075 / 1075 1325 / 1325 Balance 1863.5 / 1863.5 1885.7 / 1885.7 1328 / 1328 Microbiology Past 72 Hours 12/23/17 13:20 Blood Culture - Preliminary Blood Culture (Wb) - Venous Gram Positive Cocci 12/23/17 13:25 Blood Culture - Preliminary Blood Culture (Wb) - Venous Gram Positive Cocci 12/24/17 14:40 Blood Culture - Preliminary Blood Culture (Wb) - Right Wrist 12/24/17 14:50 Blood Culture - Preliminary Blood Culture (Wb) - Left Wrist 12/20/17 23:25 Blood Culture - Preliminary Blood Culture (Wb) - Anticubital Right 12/22/17 11:40 Blood Culture - Preliminary Blood Culture (Wb) - Left Forearm Gram Positive Cocci 12/22/17 11:25 Blood Culture - Preliminary Blood Culture (Wb) - Left Wrist Gram Positive Cocci 12/20/17 23:20 Bacteria Detection (PCR) - Final Blood Culture (Wb) - Anticubital Left Meth. resistant Staph. aureus Blood Culture - Final Meth. resistant Staph. aureus Laboratory Tests Past 24 Hrs 12/25/17 12/25/17 12/25/17 03:45 03:45 09:45 WBC 12.4 H RBC 3.64 L Hgb 10.7 L Hct 33.5 L MCV 92.0 MCH 29.4 MCHC 31.9 L RDW 15.2 H RDW Differential 51.4 H Plt Count 169 MPV 12.0 Immature Gran % (Auto) 0.600 Neut % (Auto) 82.4 H Lymph % (Auto) 11.8 L [place] % (Auto) 4.7 Eos % (Auto) 0.3 Baso % (Auto) 0.2 Absolute Neuts (auto) 10.2 H Absolute Lymphs (auto) 1.46 Total Counted Not Reportable Sodium 144 Potassium 3.8 Chloride 106 Carbon Dioxide 30.0 Anion Gap 8 BUN 26 H Creatinine 0.63 L Estim Creat Clear Calc 143.40 Est GFR (MDRD) Af Amer 174 Est GFR (MDRD) Non-Af 144 BUN/Creatinine Ratio 41.2 H Glucose 160 H Calcium 7.5 L Phosphorus 2.6 Magnesium 2.5 Vancomycin Trough 18.3 H POC Glucose 12/25/17 12/25/17 12/24/17 06:02 03:11 23:03 POC Glucose 133 H 163 H 139 H 12/24/17 12/24/17 17:53 13:13 POC Glucose 143 H 132 H Medical Necessity - Tobacco Use Smoking Status: Current every day smoker Route of nutrition/ use of supplements: [] Nutritional Intake: [] IV Site: [] Stover Catheter: [] - Assessment/Plan MRSA bacteremia with severe sepsis and respiratory failure. Continue parenteral vancomycin and continue supportive care.
[2017-12-25 12:10] LABS: Bedside Glucose 140 mg/dL (70-110)
[2017-12-25] MEDS: Vital AF 1.2 Cal Liquid 1,000 ML 70 ML GT (13:48)
[2017-12-25] MEDS: Acetaminophen 650 MG/20 ML UDC GT (16:00)
[2017-12-25 17:50] LABS: Bedside Glucose 149 mg/dL (70-110)
[2017-12-25] MEDS: Insulin Lispro 100 UNIT/ML INSULN.PEN SC (23:06)
[2017-12-26] VITALS (42 sets, daily range): BP systolic 76–170; BP diastolic 45–99; PULSE 82–105; RESP 12–38; TEMP 37.3–39.3; O2SAT 92–98
[2017-12-26] MEDS: Acetaminophen 650 MG/20 ML UDC GT ×2 (01:42→14:44)
[2017-12-26] MEDS: Propofol 10MG/Ml 1,000 MG/100 ML Bottle 2.691 MG CONT INF ×4 (02:16→19:29)
[2017-12-26 03:51] LABS: Bedside Glucose 162 mg/dL (70-110)
[2017-12-26] MEDS: CHLORHEXIDINE GLUC 2% CLOTH 1 EACH TOWELETTE TOPICAL (05:38)
[2017-12-26] MEDS: Insulin Lispro 100 UNIT/ML INSULN.PEN SC ×4 (05:38→23:15)
[2017-12-26] MEDS: guaiFENesin 10 ML UDC (200MG/10ML) GT ×4 (06:42→23:15)
--- NOTE | 2017-12-26 06:48 | PCM.PN.INT ---
Subjective: The patient was seen and examined at the bedside this morning. Events from the last 24 hours have been reviewed. The patient remains febrile and in fact did spike a fever to 102.8?F overnight. He continues to have intermittent periods of tachycardia, hypertension and rigidity per nursing report. Blood pressures are a bit tenuous at this time. The patient was given a one-time dose of IV Lasix yesterday. Despite this, he was 2.3 L positive. He is now overall 13 L positive for the admission. Vancomycin trough is therapeutic at 18. This is the first time since being started on vancomycin that the patient has had a therapeutic vancomycin trough. Objective: The patient's most recent lab work, culture data and imaging studies have all been personally reviewed. Persistent gram-positive bacteremia noted dating back to December 20. Expectorated sputum culture from December 20 was positive for MRSA. Strep and urine Legionella antigens were both negative. General: - - Remains intubated, sedated and mechanically ventilated. HEENT: Atraumatic, PERRLA, Normocephalic Oral: No Gingival or Mucosal Lesions/ Ulcerations Neck: Supple, No Nodes, Trachea Midline Lungs: Diminished, Rhonchi - R>L Cardiovascular: Regular rate, Regular Rhythm, Normal S1, Normal S2, No murmurs Abdomen: Bowel Sounds Present, Soft, Non Tender Extremities: No clubbing, Edema - Trace pedal Skin: - - No significant change from previous. Musculoskeletal: No Muscle Wasting Lymphatic: No Cervical, Supraclavicular, or Inguinal Adenopathy Neurological: - - No focal deficits. Currently sedated with a RASS of -2. Vital Signs Temp Pulse Resp BP Pulse Ox 101.3 F H 86 25 H 81/47 L 95 12/26/17 06:00 12/26/17 06:00 12/26/17 06:00 12/26/17 06:00 12/26/17 06:00 Oxygen Flow Rate (L/min) 35 Oxygen Delivery Method Mechanical Ventilator Weight: 208 lb 8.917 oz Body Mass Index (BMI) 27.9 Intake and Output for Last 24 Hours 12/24/17 12/25/17 12/26/17 23:59 23:59 23:59 Intake Total 2960.7 / 2960.7 6245 / 6245 1736 / 1736 Output Total 1075 / 1075 3875 / 3875 350 / 350 Balance 1885.7 / 1885.7 2370 / 2370 1386 / 1386 Labs (Last 48 Hours) 12/21/17 12/24/17 12/24/17 06:25 13:13 17:53 WBC RBC Hgb Hct MCV MCH MCHC RDW RDW Differential Plt Count MPV Immature Gran % (Auto) Neut % (Auto) Lymph % (Auto) [place] % (Auto) Eos % (Auto) Baso % (Auto) Absolute Neuts (auto) Absolute Lymphs (auto) Total Counted Sodium Potassium Chloride Carbon Dioxide Anion Gap BUN Creatinine Estim Creat Clear Calc Est GFR (MDRD) Af Amer Est GFR (MDRD) Non-Af BUN/Creatinine Ratio Glucose Calcium Phosphorus Magnesium Vancomycin Trough Hepatitis A IgM Ab Negative Hep Bs Antigen Positive H Hep B Core IgM Ab Negative Hepatitis C Ab (EIA) >11.0 H POC Glucose 132 H 143 H 12/24/17 12/25/17 12/25/17 23:03 03:11 03:45 WBC 12.4 H RBC 3.64 L Hgb 10.7 L Hct 33.5 L MCV 92.0 MCH 29.4 MCHC 31.9 L RDW 15.2 H RDW Differential 51.4 H Plt Count 169 MPV 12.0 Immature Gran % (Auto) 0.600 Neut % (Auto) 82.4 H Lymph % (Auto) 11.8 L [place] % (Auto) 4.7 Eos % (Auto) 0.3 Baso % (Auto) 0.2 Absolute Neuts (auto) 10.2 H Absolute Lymphs (auto) 1.46 Total Counted Not Reportable Sodium Potassium Chloride Carbon Dioxide Anion Gap BUN Creatinine Estim Creat Clear Calc Est GFR (MDRD) Af Amer Est GFR (MDRD) Non-Af BUN/Creatinine Ratio Glucose Calcium Phosphorus Magnesium Vancomycin Trough Hepatitis A IgM Ab Hep Bs Antigen Hep B Core IgM Ab Hepatitis C Ab (EIA) POC Glucose 139 H 163 H 12/25/17 12/25/17 12/25/17 03:45 06:02 09:45 WBC RBC Hgb Hct MCV MCH MCHC RDW RDW Differential Plt Count MPV Immature Gran % (Auto) Neut % (Auto) Lymph % (Auto) [place] % (Auto) Eos % (Auto) Baso % (Auto) Absolute Neuts (auto) Absolute Lymphs (auto) Total Counted Sodium 144 Potassium 3.8 Chloride 106 Carbon Dioxide 30.0 Anion Gap 8 BUN 26 H Creatinine 0.63 L Estim Creat Clear Calc 143.40 Est GFR (MDRD) Af Amer 174 Est GFR (MDRD) Non-Af 144 BUN/Creatinine Ratio 41.2 H Glucose 160 H Calcium 7.5 L Phosphorus 2.6 Magnesium 2.5 Vancomycin Trough 18.3 H Hepatitis A IgM Ab Hep Bs Antigen Hep B Core IgM Ab Hepatitis C Ab (EIA) POC Glucose 133 H 12/25/17 12/25/17 12/25/17 11:45 17:22 23:03 WBC RBC Hgb Hct MCV MCH MCHC RDW RDW Differential Plt Count MPV Immature Gran % (Auto) Neut % (Auto) Lymph % (Auto) [place] % (Auto) Eos % (Auto) Baso % (Auto) Absolute Neuts (auto) Absolute Lymphs (auto) Total Counted Sodium Potassium Chloride Carbon Dioxide Anion Gap BUN Creatinine Estim Creat Clear Calc Est GFR (MDRD) Af Amer Est GFR (MDRD) Non-Af BUN/Creatinine Ratio Glucose Calcium Phosphorus Magnesium Vancomycin Trough Hepatitis A IgM Ab Hep Bs Antigen Hep B Core IgM Ab Hepatitis C Ab (EIA) POC Glucose 140 H 149 H 162 H Microbiology 12/25/17 03:35 Blood Culture (Wb) - Anticubital Right Blood Culture - Preliminary 12/25/17 03:45 Blood Culture (Wb) - Anticubital Left Blood Culture - Preliminary 12/23/17 13:20 Blood Culture (Wb) - Venous Blood Culture - Preliminary Gram Positive Cocci 12/23/17 13:25 Blood Culture (Wb) - Venous Blood Culture - Preliminary Gram Positive Cocci 12/24/17 14:40 Blood Culture (Wb) - Right Wrist Blood Culture - Preliminary 12/24/17 14:50 Blood Culture (Wb) - Left Wrist Blood Culture - Preliminary 12/20/17 23:25 Blood Culture (Wb) - Anticubital Right Blood Culture - Preliminary 12/22/17 11:40 Blood Culture (Wb) - Left Forearm Blood Culture - Preliminary Gram Positive Cocci 12/22/17 11:25 Blood Culture (Wb) - Left Wrist Blood Culture - Preliminary Gram Positive Cocci Clinical Impression(s) from Imaging Studies Chest X-Ray 12/20/17 18:00 IMPRESSION: Patchy airspace opacities bilaterally which is likely infectious in etiology. Electronically Signed: Khadar Reardon at 19:16 EDT Tel , Service support , Abdomen/Pelvis CT 12/20/17 18:10 IMPRESSION: There are degenerative changes in the visualized spine. There are disc herniations at T12-L1 and L1-2 with narrowing of the spinal canal. There is disc bulge and possible herniation at L3-4. There is diffuse fatty infiltration of the liver. There is mild splenomegaly. There is no ascites. There are no acute bowel abnormalities. There is no free air. There are small lymph nodes in the retroperitoneum. There is stranding around the distal aorta and iliac vessels. There is also stranding in the prevascular space. This can be seen with retroperitoneal fibrosis but is nonspecific. There are patchy airspace opacities scattered in both lung bases which are nonspecific and can be seen with a diffuse infectious process. A neoplastic process is also in the differential. There is no pleural effusion. The images are limited by motion artifact. Electronically Signed: Celena Ziegler MD at 20:09 EDT Tel Direct: [phone], Service support , Chest CTA 12/20/17 21:08 IMPRESSION: Distal pulmonary emboli cannot be excluded, especially in the right upper and lower lobes. The images are limited by motion artifact. There are patchy airspace opacities scattered throughout both lungs, likely a diffuse infectious process. Septic emboli cannot be excluded. A neoplastic process cannot be completely excluded but is less likely. There is no pleural effusion or significant lymphadenopathy. N.B. : The above information has been verbally conveyed by Celena Ziegler MD to Tatiana Arizmendi, Hospital- In-Patient RN, on 12/20/2017 22:48:42 (ET). Electronically Signed: Celena Ziegler MD at 22:33 EDT Tel Direct: [phone], Service support , Brain CT 12/20/17 21:32 IMPRESSION: No acute intracranial abnormality. Electronically Signed: Khadar Reardon, at 22:07 EDT Tel , Service support , Chest X-Ray 12/21/17 04:00 IMPRESSION: Worsening of bilateral nodular airspace disease most pronounced along the right upper lung periphery. This may represent a focal pneumonia, etiology such as emboli or neoplasm are not excluded. Electronically Signed: Vanna Briones MD at 6:49 EDT , Service support , Chest X-Ray 12/22/17 04:10 IMPRESSION: Mild worsening of bilateral lung masses and nodules. Considerations include septic emboli, metastatic disease or less likely multiple pneumonias. Electronically Signed: Celestine Madrid MD at 4:57 EDT , Service support , Chest X-Ray 12/22/17 08:20 IMPRESSION: 1. Appropriate positioning of endotracheal and enteric tubes. 2. Unchanged appearance of multiple pulmonary nodules and/or airspace consolidation. Electronically Signed: Sherice Leahy MD at 9:39 EDT , Service support , Lumbar Spine MRI 12/23/17 13:21 IMPRESSION: 1. Severe L5-S1 foraminal stenosis with a small disc protrusion contributory on the right. 2. Mild canal stenosis and moderate foraminal stenosis at L4-5. 3. Noncompressive spondylotic protrusions at T12-L1 and L1-2. Electronically Signed: Avis Metz MD at 16:43 EDT Tel , Service support , KUB X-Ray 12/23/17 13:50 IMPRESSION: Orogastric tube tip within the gastric fundus. Stable bilateral pulmonary infiltrates. Electronically Signed: Nehemiah Hicks, at 14:57 EDT Tel , Service support , Chest X-Ray 12/25/17 06:52 IMPRESSION: Since prior study, there has been a progression of the bilateral pulmonary infiltrates. Electronically Signed: Buddy Tsai MD at 9:08 EDT Tel [phone], Service support , Medical Necessity - Tobacco Use Smoking Status: Current every day smoker Assessment/Plan All Active Problems Acute hypoxic respiratory failure (Acute) Polysubstance (including opioids) dependence, daily use (Acute) Methamphetamine abuse (Acute) Severe sepsis (Acute) Bilateral community acquired pneumonia (Acute) Alcohol withdrawal (Acute) Non-STEMI (non-ST elevated myocardial infarction) (Acute) RECOMMENDATIONS: 1. Continue antibiotics per infectious diseases recommendations. This is the first day that the patient has had a therapeutic vancomycin trough. 2. Would hold off on aggressive weaning from mechanical ventilation until the patient's copious sputum production begins to decrease. 3. Continue tube feeds 4. Continue current sedation regimen. 5. Continue scheduled bronchodilators and appropriate ICU prophylaxis. 6. Resend blood cultures and check respiratory viral panel. In addition, check comprehensive metabolic profile and CK level. 7. If the blood cultures do not clear by tomorrow, consider alternative antibiotic regimen. In addition, may need to consider [place] scanning patient. IMPRESSIONS: 1. Severe sepsis secondary to MRSA pneumonia and persistent staph bacteremia The patient has evidence of both MRSA pneumonia and persistent MRSA bacteremia. Cardiac workup, including transesophageal echocardiogram, revealed no evidence of valvular vegetations. Although no vegetations were identified, the patient may have experienced embolic phenomenon prior to his presentation to the hospital, especially in light of his chest radiograph and physical exam findings. We will plan to continue current supportive measures including antibiotics per infectious diseases recommendations and full mechanical ventilatory support. For now, weaning from mechanical ventilation, will be hindered by the patient's copious sputum production. Continue enteral tube feeds and appropriate ICU prophylaxis. Continue propofol and fentanyl for sedation. 2. Acute hypoxemic respiratory failure secondary to MRSA pneumonia Continue current supportive measures as noted above. Recommend waiting to aggressively wean the patient from mechanical ventilation until copious sputum production begins to decrease. At that time, the patient's sedation regimen can be de-escalated versus transition to Precedex to assist with liberation from mechanical ventilation. In addition, the patient is grossly net positive for the hospital admission. He did receive an additional dose of IV Lasix. However, will hold off today on additional diuretic administration, given elevated BUN. 3. Toxic encephalopathy secondary to polysubstance abuse and alcohol withdrawal The patient remains on stable ventilator settings with appropriate gas exchange. Although the patient does have a history of polysubstance abuse, we should be getting past the withdrawal window at this time. Continue propofol and fentanyl for sedation with a goal to maintain a RASS of -1 to 1. 4. Hypertensive urgency Blood pressures are currently under control. Continue beta-sarmad per cardiology recommendations. 5. Inadequate material resources/poor social support Complicates care, management, recovery and prognosis. The patient reportedly has a daughter, who resides in [place]. TIME: 38 minutes of critical care time, independent of procedures, was spent addressing the patient's severe sepsis secondary to MRSA pneumonia and persistent staph bacteremia, acute hypoxic respiratory failure, toxic encephalopathy, hypertensive urgency, review of all data and collaboration with the care team. ([id number]) Code Visit [id number]: [id number] Critical care first hour
[2017-12-26] MEDS: Ipratropium/Albuterol Sulfate 3 ML AMPUL.NEB INHALATION ×3 (06:59→19:06)
[2017-12-26 07:16] LABS: Absolute Neutrophil Count 12.1 X10^3/uL (2.0-7.7); Basophil# 0.02 X10^3/uL; Basophil% 0.1 % (0-1); Eosinophil# 0.03 X10^3/uL; Eosinophils% 0.2 % (0-5); Hematocrit 29.9 % (40-54); Hemoglobin 9.8 g/dl (13.0-16.5); Lymphocyte % 10.4 % (19-41); Mean Corp Hgb Conc 32.8 g/gl (32-36); Mean Corpuscular Hgb 29.8 pg (27.0-32.0); Mean Corpuscular Volume 90.9 fL (80-94); Mean Platelet Vol. 11.9 fl (6.2-12.0); Monocyte# 0.68 X10^3/uL; Monocyte% 4.7 % (0-10); Neutrophil # 12.13 X10^3/uL (2.7-7.7); Neutrophil % 84.2 % (47-70); Platelet Count 201 K/mm3 (150-450); RBC Distribution Width CV 15.2 % (11.6-14.6); RBC Distribution Width SD 50.9 fl (35.1-43.9); Red Blood Count 3.29 M/mm3 (4.6-6.2); White Blood Count 14.4 K/mm3 (4.4-11.0)
[2017-12-26 07:17] LABS: Differential Indicated SCAN CRITERIA MET; POSITIVE COUNT NO; POSITIVE DIFFERENTIAL NO; POSITIVE MORPHOLOGY YES
[2017-12-26 07:18] LABS: Absolute Nucleated RBC Count 0.07 10^3/uL (0-5); NRBC Flagged by Analyzer 0.5 % (0-5)
[2017-12-26 07:24] LABS: Magnesium 2.2 mg/dL (1.6-2.6); Phosphorus 3.7 mg/dL (2.5-4.9)
[2017-12-26 07:25] LABS: Allen Test POS; Base Excess 9 mmol/L (-2 to +2); Bicarbonate 32.7 mmol/L (22-26); Blood Gas Specimen Type ART; FI02 40; Mode A-C; O2 Delivery Device Vent; PEEP 5; PO2 65 mmHG (75-100); RR 12; SITE R Radial; SO2 93 % (95-99); Time Given 718; Total Carbon Dioxide 34 mmol/L; Vt 450; pCO2 47.2 mmHg (35-45); pH 7.45 (7.35-7.45)
[2017-12-26 07:41] LABS: Lactic Acid 1.4 mmol/L (0.4-2.0)
[2017-12-26 07:46] LABS: Bedside Glucose 173 mg/dL (70-110)
[2017-12-26 09:14] LABS: ALB/GLOB Ratio 0.3 RATIO (0.9-2.4); AST(SGOT) 99 U/L (15-37); Alanine Aminotransfer ALT/SGPT 48 U/L (16-61); Albumin, Serum 1.2 g/dL (3.2-5.0); Alkaline Phosphatase 139 U/L (45-117); Anion Gap 8 (5-15); BUN 33 mg/dL (7-18); BUN/Creat Ratio 40.5 RATIO (10-20); Calcium,Total 6.9 mg/dL (8.5-10.1); Chloride 105 mmol/L (98-107); Creatinine, Serum 0.82 mg/dL (0.70-1.30); EST Glomerular Filtration Rate 107 mL/min (>60); Est Glom Filt Rate - Afr Amer 129 mL/min (>60); Estimated Creatinine Clearance 110.17 ml/min; Globulin 4.4 g/dL (2.2-4.2); Glucose 194 mg/dL (74-106); Potassium 3.7 mmol/L (3.5-5.1); Protein, Total 5.6 g/dL (6.4-8.2); Sodium Level 143 mmol/L (136-145)
--- NOTE | 2017-12-26 09:14 | PCM.PN.ID ---
Patient Problems: Active and Suspected Problems Acute hypoxic respiratory failure (Acute) Polysubstance (including opioids) dependence, daily use (Acute) Methamphetamine abuse (Acute) Severe sepsis (Acute) Bilateral community acquired pneumonia (Acute) Alcohol withdrawal (Acute) Non-STEMI (non-ST elevated myocardial infarction) (Acute) Subjective: Patient is sedated remains on the ventilator remains critically ill intermittent fevers overnight. Recent blood cultures from yesterday still positive Objective: Heavily sedated lungs with some coarse breath sounds heart exam S1-S2 no murmurs appreciated abdomen soft - Physical Exam Vital Signs Temp Pulse Resp BP Pulse Ox 100.8 F H 87 26 H 101/61 92 12/26/17 08:30 12/26/17 08:30 12/26/17 08:00 12/26/17 08:30 12/26/17 08:00 Oxygen Flow Rate (L/min) 35 Oxygen Delivery Method Mechanical Ventilator Weight: 94.6 kg Body Mass Index (BMI) 27.9 Intake and Output for Last 24 Hours 12/24/17 12/25/17 12/26/17 23:59 23:59 23:59 Intake Total 2960.7 / 2960.7 6245 / 6245 1736 / 1736 Output Total 1075 / 1075 3875 / 3875 350 / 350 Balance 1885.7 / 1885.7 2370 / 2370 1386 / 1386 Microbiology Past 72 Hours 12/20/17 23:25 Blood Culture - Final Blood Culture (Wb) - Anticubital Right 12/25/17 03:35 Blood Culture - Preliminary Blood Culture (Wb) - Anticubital Right 12/25/17 03:45 Blood Culture - Preliminary Blood Culture (Wb) - Anticubital Left 12/23/17 13:20 Blood Culture - Preliminary Blood Culture (Wb) - Venous Gram Positive Cocci 12/23/17 13:25 Blood Culture - Preliminary Blood Culture (Wb) - Venous Gram Positive Cocci 12/24/17 14:40 Blood Culture - Preliminary Blood Culture (Wb) - Right Wrist 12/24/17 14:50 Blood Culture - Preliminary Blood Culture (Wb) - Left Wrist 12/22/17 11:40 Blood Culture - Preliminary Blood Culture (Wb) - Left Forearm Gram Positive Cocci 12/22/17 11:25 Blood Culture - Preliminary Blood Culture (Wb) - Left Wrist Gram Positive Cocci 12/20/17 23:20 Bacteria Detection (PCR) - Final Blood Culture (Wb) - Anticubital Left Meth. resistant Staph. aureus Blood Culture - Final Meth. resistant Staph. aureus Laboratory Tests Past 24 Hrs 12/25/17 12/26/17 12/26/17 09:45 06:50 06:50 WBC 14.4 H RBC 3.29 L Hgb 9.8 L Hct 29.9 L MCV 90.9 MCH 29.8 MCHC 32.8 RDW 15.2 H RDW Differential 50.9 H Plt Count 201 MPV 11.9 Immature Gran % (Auto) 0.400 Neut % (Auto) 84.2 H Lymph % (Auto) 10.[address] % (Auto) 4.7 Eos % (Auto) 0.2 Baso % (Auto) 0.1 Absolute Neuts (auto) 12.1 H Absolute Lymphs (auto) 1.50 Total Counted Not Reportable Nucleated RBC % 0.5 Differential Comment INCREASED BANDS Absolute Retic 0.07 Specimen Type Sample Site pH Bicarbonate Actual POC Total CO2 Base Excess O2 Saturation O2 % ABG pCO2 ABG pO2 Jeremie Test Respiration Rate O2 Delivery Device Vent Mode Tidal Volume POC PEEP Blood Gas Notified Whom Blood Gas Notified Time Sodium Cancelled Potassium Cancelled Chloride Cancelled Carbon Dioxide Cancelled Anion Gap Cancelled BUN Cancelled Creatinine Cancelled Estim Creat Clear Calc Est GFR (MDRD) Af Amer Cancelled Est GFR (MDRD) Non-Af Cancelled BUN/Creatinine Ratio Cancelled Glucose Cancelled Lactic Acid Calcium Cancelled Phosphorus 3.7 Magnesium 2.2 Total Bilirubin AST ALT Alkaline Phosphatase Total Creatine Kinase Total Protein Albumin Globulin Albumin/Globulin Ratio Vancomycin Trough 18.3 H 12/26/17 12/26/17 12/26/17 06:50 06:50 06:50 WBC RBC Hgb Hct MCV MCH MCHC RDW RDW Differential Plt Count MPV Immature Gran % (Auto) Neut % (Auto) Lymph % (Auto) [place] % (Auto) Eos % (Auto) Baso % (Auto) Absolute Neuts (auto) Absolute Lymphs (auto) Total Counted Nucleated RBC % Differential Comment Absolute Retic Specimen Type Sample Site pH Bicarbonate Actual POC Total CO2 Base Excess O2 Saturation O2 % ABG pCO2 ABG pO2 Jeremie Test Respiration Rate O2 Delivery Device Vent Mode Tidal Volume POC PEEP Blood Gas Notified Whom Blood Gas Notified Time Sodium 143 Potassium 3.7 Chloride 105 Carbon Dioxide 30.0 Anion Gap 8 BUN 33 H Creatinine 0.82 Estim Creat Clear Calc 110.17 Est GFR (MDRD) Af Amer 129 Est GFR (MDRD) Non-Af 107 BUN/Creatinine Ratio 40.5 H Glucose 194 H Lactic Acid 1.4 Calcium 6.9 L Phosphorus Magnesium Total Bilirubin 1.00 AST 99 H ALT 48 Alkaline Phosphatase 139 H Total Creatine Kinase Pending Total Protein 5.6 L Albumin 1.2 L Globulin 4.4 H Albumin/Globulin Ratio 0.3 L Vancomycin Trough 12/26/17 07:19 WBC RBC Hgb Hct MCV MCH MCHC RDW RDW Differential Plt Count MPV Immature Gran % (Auto) Neut % (Auto) Lymph % (Auto) [place] % (Auto) Eos % (Auto) Baso % (Auto) Absolute Neuts (auto) Absolute Lymphs (auto) Total Counted Nucleated RBC % Differential Comment Absolute Retic Specimen Type ART Sample Site R Radial pH 7.45 Bicarbonate Actual 32.7 H POC Total CO2 34 Base Excess 9 H O2 Saturation 93 L O2 % 40 ABG pCO2 47.2 H ABG pO2 65 L Jeremie Test POS Respiration Rate 12 O2 Delivery Device Vent Vent Mode A-C Tidal Volume 450 POC PEEP 5 Blood Gas Notified Whom ICU MD Blood Gas Notified Time 718 Sodium Potassium Chloride Carbon Dioxide Anion Gap BUN Creatinine Estim Creat Clear Calc Est GFR (MDRD) Af Amer Est GFR (MDRD) Non-Af BUN/Creatinine Ratio Glucose Lactic Acid Calcium Phosphorus Magnesium Total Bilirubin AST ALT Alkaline Phosphatase Total Creatine Kinase Total Protein Albumin Globulin Albumin/Globulin Ratio Vancomycin Trough POC Glucose 12/26/17 12/25/17 12/25/17 05:30 23:03 17:22 POC Glucose 173 H 162 H 149 H 12/25/17 11:45 POC Glucose 140 H Medical Necessity - Tobacco Use Smoking Status: Current every day smoker Route of nutrition/ use of supplements: [] Nutritional Intake: [] IV Site: [] Stover Catheter: [] - Assessment/Plan Persistent MRSA bacteremia remains on parenteral vancomycin. Repeat blood culture sent this morning. Closely follow his blood culture data and clinical course.
[2017-12-26] MEDS: Thiamine Hydrochloride 100 MG Tablet GT (09:37)
[2017-12-26] MEDS: Folic Acid 1 MG Tablet GT (09:37)
[2017-12-26] MEDS: Carvedilol 6.25 MG Tablet GT ×2 (09:37→21:29)
[2017-12-26] MEDS: Enoxaparin 80 MG/0.8 ML Syringe SC ×2 (09:37→21:35)
[2017-12-26] MEDS: Famotidine 20 MG Tablet GT ×2 (09:37→21:29)
[2017-12-26 09:38] LABS: CPK Total, Creatine Kinase 46 U/L (39-308)
--- NOTE | 2017-12-26 09:41 | PCM.PROGNOTE ---
Patient Problems: Active and Suspected Problems Acute hypoxic respiratory failure (Acute) Polysubstance (including opioids) dependence, daily use (Acute) Methamphetamine abuse (Acute) Severe sepsis (Acute) Bilateral community acquired pneumonia (Acute) Alcohol withdrawal (Acute) Non-STEMI (non-ST elevated myocardial infarction) (Acute) Subjective: Chief complaint: Follow-up after admission for septic shock secondary to MRSA bilateral community-acquired pneumonia complicated by acute hypoxic respiratory failure, persistent MRSA bacteremia and toxic encephalopathy and also found to have acute non-ST elevation CO. Patient seen and examined. He remained intubated, on mechanical ventilation and sedated. This morning, he is minimally responsive to verbal stimuli. He is still having spikes of fever, blood pressure is maintained, no vasopressors needed. Reportedly, he has been having intermittent episodes of elevated blood pressure with tachycardia. - Physical Exam General: - - Sedated, intubated, minimally responsive to verbal stimuli. HEENT: Atraumatic, PERRLA, EOMI Oral: Moist Mucosa, No Gingival or Mucosal Lesions/ Ulcerations Neck: Supple, No JVD, Negative Carotid Bruits, Trachea Midline, Thyroid Normal Size and Texture Lungs: No wheeze, No rales, Diminished, Rhonchi, - - Decreased breath sounds bilateral, bilateral rhonchi. Cardiovascular: Regular rate, Regular Rhythm, Normal S1, Normal S2, PMI Normal Abdomen: Bowel Sounds Present, Soft, Non Tender, Non-Distended, No Hepato-splenomegaly Extremities: No clubbing, No cyanosis, No edema Skin: No rashes, No breakdown Lymphatic: No Cervical, Supraclavicular, or Inguinal Adenopathy Neurological: - - Unable to assess, patient is sedated. No obvious focal deficit. Psych/Mental Status: - - Unable to assess, patient is sedated. Vital Signs Temp Pulse Resp BP Pulse Ox 100.8 F H 91 25 H 109/61 96 12/26/17 09:00 12/26/17 09:00 12/26/17 09:00 12/26/17 09:12/26/17 09:00 Oxygen Flow Rate (L/min) 35 Oxygen Delivery Method Mechanical Ventilator Weight: 208 lb 8.917 oz Body Mass Index (BMI) 27.9 Intake and Output for Last 24 Hours 12/24/17 12/25/17 12/26/17 23:59 23:59 23:59 Intake Total 2960.7 / 2960.7 6245 / 6245 1736 / 1736 Output Total 1075 / 1075 3875 / 3875 350 / 350 Balance 1885.7 / 1885.7 2370 / 2370 1386 / 1386 Microbiology Past 72 Hours 12/20/17 23:25 Blood Culture - Final Blood Culture (Wb) - Anticubital Right 12/25/17 03:35 Blood Culture - Preliminary Blood Culture (Wb) - Anticubital Right 12/25/17 03:45 Blood Culture - Preliminary Blood Culture (Wb) - Anticubital Left 12/23/17 13:20 Blood Culture - Preliminary Blood Culture (Wb) - Venous Gram Positive Cocci 12/23/17 13:25 Blood Culture - Preliminary Blood Culture (Wb) - Venous Gram Positive Cocci 12/24/17 14:40 Blood Culture - Preliminary Blood Culture (Wb) - Right Wrist 12/24/17 14:50 Blood Culture - Preliminary Blood Culture (Wb) - Left Wrist 12/22/17 11:40 Blood Culture - Preliminary Blood Culture (Wb) - Left Forearm Gram Positive Cocci 12/22/17 11:25 Blood Culture - Preliminary Blood Culture (Wb) - Left Wrist Gram Positive Cocci 12/20/17 23:20 Bacteria Detection (PCR) - Final Blood Culture (Wb) - Anticubital Left Meth. resistant Staph. aureus Blood Culture - Final Meth. resistant Staph. aureus Laboratory Tests Past 24 Hrs 12/25/17 12/26/17 12/26/17 09:45 06:50 06:50 WBC 14.4 H RBC 3.29 L Hgb 9.8 L Hct 29.9 L MCV 90.9 MCH 29.8 MCHC 32.8 RDW 15.2 H RDW Differential 50.9 H Plt Count 201 MPV 11.9 Immature Gran % (Auto) 0.400 Neut % (Auto) 84.2 H Lymph % (Auto) 10.4 L [place] % (Auto) 4.7 Eos % (Auto) 0.2 Baso % (Auto) 0.1 Absolute Neuts (auto) 12.1 H Absolute Lymphs (auto) 1.50 Total Counted Not Reportable Nucleated RBC % 0.5 Differential Comment INCREASED BANDS Absolute Retic 0.07 Specimen Type Sample Site pH Bicarbonate Actual POC Total CO2 Base Excess O2 Saturation O2 % ABG pCO2 ABG pO2 Jeremie Test Respiration Rate O2 Delivery Device Vent Mode Tidal Volume POC PEEP Blood Gas Notified Whom Blood Gas Notified Time Sodium Cancelled Potassium Cancelled Chloride Cancelled Carbon Dioxide Cancelled Anion Gap Cancelled BUN Cancelled Creatinine Cancelled Estim Creat Clear Calc Est GFR (MDRD) Af Amer Cancelled Est GFR (MDRD) Non-Af Cancelled BUN/Creatinine Ratio Cancelled Glucose Cancelled Lactic Acid Calcium Cancelled Phosphorus 3.7 Magnesium 2.2 Total Bilirubin AST ALT Alkaline Phosphatase Total Creatine Kinase Total Protein Albumin Globulin Albumin/Globulin Ratio Vancomycin Trough 18.3 H 12/26/17 12/26/17 12/26/17 06:50 06:50 06:50 WBC RBC Hgb Hct MCV MCH MCHC RDW RDW Differential Plt Count MPV Immature Gran % (Auto) Neut % (Auto) Lymph % (Auto) [place] % (Auto) Eos % (Auto) Baso % (Auto) Absolute Neuts (auto) Absolute Lymphs (auto) Total Counted Nucleated RBC % Differential Comment Absolute Retic Specimen Type Sample Site pH Bicarbonate Actual POC Total CO2 Base Excess O2 Saturation O2 % ABG pCO2 ABG pO2 Jeremie Test Respiration Rate O2 Delivery Device Vent Mode Tidal Volume POC PEEP Blood Gas Notified Whom Blood Gas Notified Time Sodium 143 Potassium 3.7 Chloride 105 Carbon Dioxide 30.0 Anion Gap 8 BUN 33 H Creatinine 0.82 Estim Creat Clear Calc 110.17 Est GFR (MDRD) Af Amer 129 Est GFR (MDRD) Non-Af 107 BUN/Creatinine Ratio 40.5 H Glucose 194 H Lactic Acid 1.4 Calcium 6.9 L Phosphorus Magnesium Total Bilirubin 1.00 AST 99 H ALT 48 Alkaline Phosphatase 139 H Total Creatine Kinase 46 Total Protein 5.6 L Albumin 1.2 L Globulin 4.4 H Albumin/Globulin Ratio 0.3 L Vancomycin Trough 12/26/17 07:19 WBC RBC Hgb Hct MCV MCH MCHC RDW RDW Differential Plt Count MPV Immature Gran % (Auto) Neut % (Auto) Lymph % (Auto) [place] % (Auto) Eos % (Auto) Baso % (Auto) Absolute Neuts (auto) Absolute Lymphs (auto) Total Counted Nucleated RBC % Differential Comment Absolute Retic Specimen Type ART Sample Site R Radial pH 7.45 Bicarbonate Actual 32.7 H POC Total CO2 34 Base Excess 9 H O2 Saturation 93 L O2 % 40 ABG pCO2 47.2 H ABG pO2 65 L Jeremie Test POS Respiration Rate 12 O2 Delivery Device Vent Vent Mode A-C Tidal Volume 450 POC PEEP 5 Blood Gas Notified Whom ICU Blood Gas Notified Time 718 Sodium Potassium Chloride Carbon Dioxide Anion Gap BUN Creatinine Estim Creat Clear Calc Est GFR (MDRD) Af Amer Est GFR (MDRD) Non-Af BUN/Creatinine Ratio Glucose Lactic Acid Calcium Phosphorus Magnesium Total Bilirubin AST ALT Alkaline Phosphatase Total Creatine Kinase Total Protein Albumin Globulin Albumin/Globulin Ratio Vancomycin Trough POC Glucose 12/26/17 12/25/17 12/25/17 05:30 23:03 17:22 POC Glucose 173 H 162 H 149 H 12/25/17 11:45 POC Glucose 140 H Clinical Impression(s) from Imaging Studies Chest X-Ray 12/25/17 06:52 IMPRESSION: Since prior study, there has been a progression of the bilateral pulmonary infiltrates. Electronically Signed: Buddy Tsai MD at 9:08 EDT Tel [phone], Service support , Medical Necessity - Tobacco Use Smoking Status: Current every day smoker Tobacco Use: Cigarettes Assessment/Plan All Active Problems Acute hypoxic respiratory failure (Acute) Polysubstance (including opioids) dependence, daily use (Acute) Methamphetamine abuse (Acute) Severe sepsis (Acute) Bilateral community acquired pneumonia (Acute) Alcohol withdrawal (Acute) Non-STEMI (non-ST elevated myocardial infarction) (Acute) This is a 47 years old presented to the emergency room with main presenting complaint of back pain and he was admitted as a case of community-acquired pneumonia with septic shock by criteria as well as alcohol withdrawal and his hospital course complicated by acute hypoxic respiratory failure required endotracheal intubation and mechanical ventilation as well as persistent MRSA bacteremia, toxic encephalopathy and hypertensive urgency. #1 septic shock: Secondary to pneumonia and bacteremia. He is on IV antibiotics, still having spikes of high-grade fever. His white blood cell count is trending up. He is having persistent bacteremia. Blood cultures on 4 different days has been positive, most recently was yesterday. He is maintaining his blood pressure. His lactic acid is back to normal. Infectious disease and critical care on the case. Plan to continue same treatment, continue on vancomycin for 1 more day and monitor. #2 acute bilateral MRSA community-acquired pneumonia: He is on IV vancomycin as above. Sputum culture revealed MRSA. Pneumococcal and Legionella antigen were negative. Blood cultures reviewed as above. Patient still having spikes of high-grade fever, persistent leukocytosis. His blood pressure stable on fluids, no vasopressors needed. Plan to continue same treatment. #3 acute hypoxic respiratory failure: Secondary to above. Remains on mechanical ventilation and sedation. He remains afebrile. He still having some episodes of tachycardia and hypotension which is likely due to alcohol withdrawal. He is on propofol for sedation, thiamine and folic acid supplement through the GT tube. #4 persistent MRSA bacteremia: Probable source is the pneumonia but it has been persistent with persistent fever. He is on IV vancomycin. Also, he is on therapeutic Lovenox twice daily for possible septic emboli or pulmonary emboli. Blood culture from 4 different days still positive but today, first day with therapeutic vancomycin trough. CTA chest done for elevated d-dimer and revealed patchy airspace opacities throughout the both lungs could be due to infectious process versus septic emboli. The skin abdomen and pelvis without contrast showed no acute intra-abdominal pathology except small lymph nodes in the retroperitoneum. 2D echocardiogram revealed ejection fraction 50-55%, no evidence of valve vegetations, RVSP of 43, mildly dilated right ventricle and borderline hypokinesis of the left ventricle. Because of persistent bacteremia, JOSE was done that showed no evidence of valve vegetations or masses, bubble contrast study negative for active shunt. In the search process of this persistent bacteremia, lumbar spine MRI with and without contrast done because patient complained of back pain and revealed severe L5-S1 foraminal stenosis, mild canal stenosis at L4-L5 and noncompressive spondylitic protrusions at T12-L1 and L1-L2, no evidence of abscess formation. Venous Doppler of the bilateral lower extremity performed and showed no evidence of acute DVT. Plan to continue IV vancomycin as well as Lovenox twice daily. #5 non-ST elevation CO: This is likely due to demand ischemia secondary to above. 2D echocardiogram revealed ejection fraction of 50-55% as above. Cardiology on the case. Patient is on Coreg, therapeutic Lovenox twice daily. #6 toxic encephalopathy: Attributed to pneumonia, septic shock as well as polysubstance abuse and alcohol withdrawal. At this time, patient is remained on sedation. CT scan brain done on admission and showed no acute findings. #7 polysubstance abuse/alcohol withdrawal: Urine drug screen on admission was positive for opioids, amphetamines and cannabinoids. Blood alcohol level was 11. Patient is on propofol for sedation, on folic acid and thiamine supplement through the GT tube. #8 hypertensive urgency: This morning, blood pressure under better control. He is on IV metoprolol as needed. #9 DVT prophylaxis: He is on Lovenox therapeutic dose twice daily. This note was generated with [facility] [employer] dictation software. It may contain incorrect words, spelling, and punctuation that were not noted in checking the note before signing. Code Visit Inpatient E&M: 07285 Subs Hosp L3
[2017-12-26] MEDS: Vital AF 1.2 Cal Liquid 1,000 ML 70 ML GT ×2 (09:56→23:06)
[2017-12-26] MEDS: Chlorhexidine 15 ML PO ×2 (09:57→21:29)
[2017-12-26 12:00] LABS: Bedside Glucose 170 mg/dL (70-110)
[2017-12-26] MEDS: 0.9% NaCl Peripheral Flush Adult/Peds IV (14:27)
[2017-12-26] MEDS: 0.9% NaCl IVPB Med Flush (250 mL) 15 ML IV (16:10)
[2017-12-26] MEDS: Albuterol 2.5 MG/3 ML VIAL.NEB. INHALATION (16:59)
--- NOTE | 2017-12-26 17:16 | CPS ---
CALLED TO GIVE PT PRN AEROSOL RX. RX ADMINISTERED INLINE VIA [facility] WITHOUT INCIDENT. PT SUCTIONED POST RX WITH MINIMAL RESISTANCE...NURSE AWARE.
[2017-12-26 23:36] LABS: Bedside Glucose 166 mg/dL (70-110)
[2017-12-27] VITALS (46 sets, daily range): BP systolic 85–173; BP diastolic 46–104; PULSE 71–105; RESP 12–33; TEMP 36.5–40.4; O2SAT 91–98
[2017-12-27 00:41] LABS: Bedside Glucose 186 mg/dL (70-110)
[2017-12-27] MEDS: Propofol 10MG/Ml 1,000 MG/100 ML Bottle 2.691 MG CONT INF ×4 (01:45→22:26)
[2017-12-27] MEDS: CHLORHEXIDINE GLUC 2% CLOTH 1 EACH TOWELETTE TOPICAL (01:50)
[2017-12-27] MEDS: guaiFENesin 10 ML UDC (200MG/10ML) GT ×3 (05:26→18:50)
[2017-12-27] MEDS: Insulin Lispro 100 UNIT/ML INSULN.PEN SC ×3 (05:26→17:50)
[2017-12-27] MEDS: Ipratropium/Albuterol Sulfate 3 ML AMPUL.NEB INHALATION ×3 (06:46→18:35)
[2017-12-27 06:55] LABS: Bedside Glucose 183 mg/dL (70-110)
--- NOTE | 2017-12-27 07:05 | PCM.PN.INT ---
Subjective: The patient was seen and examined at the bedside this morning. Events from the last 24 hours have been reviewed. The patient is currently afebrile. Fever curve is improving. However, blood cultures remain consistently positive. Respiratory therapy did note copious amounts of secretion production overnight. The patient did have an episode of elevated peak pressures yesterday with agitation and concern for mucous plugging. However, peak pressures were only noted to be in the 30s with a plateau pressure noted this morning to be 18. Objective: The patient's most recent lab work, culture data and imaging studies have all been personally reviewed. Persistent gram-positive bacteremia noted dating back to December 20. Expectorated sputum culture from December 20 was positive for MRSA. Strep and urine Legionella antigens were both negative. General: - - Remains intubated, sedated and mechanically ventilated. Currently tolerating assist control mode mechanical ventilation. The patient had a plateau pressure noted to be 18 this morning. HEENT: Atraumatic, Normocephalic, Sluggish Pupils Oral: No Gingival or Mucosal Lesions/ Ulcerations, - - Endotracheal and OG tube remain in place. Neck: Supple, No Nodes, Trachea Midline Lungs: No rales, Diminished, Rhonchi, Wheezes Cardiovascular: Regular rate, Regular Rhythm, Normal S1, Normal S2, No murmurs, No rub noted, No Gallop Abdomen: Bowel Sounds Present, Soft, Non Tender Extremities: No clubbing, No cyanosis, Edema Skin: - - Periodic skin pustules as noted previously. Musculoskeletal: No Tenderness to Palpation of Joints or Extremities Lymphatic: No Cervical, Supraclavicular, or Inguinal Adenopathy Neurological: - - Currently nonresponsive to verbal and noxious stimulation. Sedated with a RASS of -2. Vital Signs Temp Pulse Resp BP Pulse Ox 97.8 F 83 21 H 145/85 H 96 12/27/17 06:00 12/27/17 06:38 12/27/17 06:38 12/27/17 06:00 12/27/17 06:38 Oxygen Flow Rate (L/min) 35 Oxygen Delivery Method Mechanical Ventilator Weight: 213 lb 10.047 oz Body Mass Index (BMI) 27.9 Intake and Output for Last 24 Hours 12/25/17 12/26/17 12/27/17 23:59 23:59 23:59 Intake Total 6245 / 6245 5441.4 / 5441.4 1405.7 / 1405.7 Output Total 3875 / 3875 1974 600 / 600 Balance 2370 / 2370 3466.4 / 3466.4 805.7 / 805.7 Labs (Last 48 Hours) 12/25/17 12/25/17 12/25/17 09:45 11:45 17:22 WBC RBC Hgb Hct MCV MCH MCHC RDW RDW Differential Plt Count MPV Immature Gran % (Auto) Neut % (Auto) Lymph % (Auto) Ross % (Auto) Eos % (Auto) Baso % (Auto) Absolute Neuts (auto) Absolute Lymphs (auto) Total Counted Nucleated RBC % Differential Comment Absolute Retic Specimen Type Sample Site pH Bicarbonate Actual POC Total CO2 Base Excess O2 Saturation O2 % ABG pCO2 ABG pO2 Jeremie Test Respiration Rate O2 Delivery Device Vent Mode Tidal Volume POC PEEP Blood Gas Notified Whom Blood Gas Notified Time Sodium Potassium Chloride Carbon Dioxide Anion Gap BUN Creatinine Estim Creat Clear Calc Est GFR (MDRD) Af Amer Est GFR (MDRD) Non-Af BUN/Creatinine Ratio Glucose Lactic Acid Calcium Phosphorus Magnesium Total Bilirubin AST ALT Alkaline Phosphatase Total Creatine Kinase Total Protein Albumin Globulin Albumin/Globulin Ratio Vancomycin Trough 18.3 H POC Glucose 140 H 149 H 12/25/17 12/26/17 12/26/17 23:03 05:30 06:50 WBC RBC Hgb Hct MCV MCH MCHC RDW RDW Differential Plt Count MPV Immature Gran % (Auto) Neut % (Auto) Lymph % (Auto) Ross % (Auto) Eos % (Auto) Baso % (Auto) Absolute Neuts (auto) Absolute Lymphs (auto) Total Counted Nucleated RBC % Differential Comment Absolute Retic Specimen Type Sample Site pH Bicarbonate Actual POC Total CO2 Base Excess O2 Saturation O2 % ABG pCO2 ABG pO2 Jeremie Test Respiration Rate O2 Delivery Device Vent Mode Tidal Volume POC PEEP Blood Gas Notified Whom Blood Gas Notified Time Sodium Cancelled Potassium Cancelled Chloride Cancelled Carbon Dioxide Cancelled Anion Gap Cancelled BUN Cancelled Creatinine Cancelled Estim Creat Clear Calc Est GFR (MDRD) Af Amer Cancelled Est GFR (MDRD) Non-Af Cancelled BUN/Creatinine Ratio Cancelled Glucose Cancelled Lactic Acid Calcium Cancelled Phosphorus 3.7 Magnesium 2.2 Total Bilirubin AST ALT Alkaline Phosphatase Total Creatine Kinase Total Protein Albumin Globulin Albumin/Globulin Ratio Vancomycin Trough POC Glucose 162 H 173 H 12/26/17 12/26/17 12/26/17 06:50 06:50 06:50 WBC 14.4 H RBC 3.29 L Hgb 9.8 L Hct 29.9 L MCV 90.9 MCH 29.8 MCHC 32.8 RDW 15.2 H RDW Differential 50.9 H Plt Count 201 MPV 11.9 Immature Gran % (Auto) 0.400 Neut % (Auto) 84.2 H Lymph % (Auto) 10.4 L Ross % (Auto) 4.7 Eos % (Auto) 0.2 Baso % (Auto) 0.1 Absolute Neuts (auto) 12.1 H Absolute Lymphs (auto) 1.50 Total Counted Not Reportable Nucleated RBC % 0.5 Differential Comment INCREASED BANDS Absolute Retic 0.07 Specimen Type Sample Site pH Bicarbonate Actual POC Total CO2 Base Excess O2 Saturation O2 % ABG pCO2 ABG pO2 Jeremie Test Respiration Rate O2 Delivery Device Vent Mode Tidal Volume POC PEEP Blood Gas Notified Whom Blood Gas Notified Time Sodium 143 Potassium 3.7 Chloride 105 Carbon Dioxide 30.0 Anion Gap 8 BUN 33 H Creatinine 0.82 Estim Creat Clear Calc 110.17 Est GFR (MDRD) Af Amer 129 Est GFR (MDRD) Non-Af 107 BUN/Creatinine Ratio 40.5 H Glucose 194 H Lactic Acid 1.4 Calcium 6.9 L Phosphorus Magnesium Total Bilirubin 1.00 AST 99 H ALT 48 Alkaline Phosphatase 139 H Total Creatine Kinase Total Protein 5.6 L Albumin 1.2 L Globulin 4.4 H Albumin/Globulin Ratio 0.3 L Vancomycin Trough POC Glucose 12/26/17 12/26/17 12/26/17 06:50 07:19 11:28 WBC RBC Hgb Hct MCV MCH MCHC RDW RDW Differential Plt Count MPV Immature Gran % (Auto) Neut % (Auto) Lymph % (Auto) Ross % (Auto) Eos % (Auto) Baso % (Auto) Absolute Neuts (auto) Absolute Lymphs (auto) Total Counted Nucleated RBC % Differential Comment Absolute Retic Specimen Type ART Sample Site R Radial pH 7.45 Bicarbonate Actual 32.7 H POC Total CO2 34 Base Excess 9 H O2 Saturation 93 L O2 % 40 ABG pCO2 47.2 H ABG pO2 65 L Jeremie Test POS Respiration Rate 12 O2 Delivery Device Vent Vent Mode A-C Tidal Volume 450 POC PEEP 5 Blood Gas Notified Whom ICU Blood Gas Notified Time 718 Sodium Potassium Chloride Carbon Dioxide Anion Gap BUN Creatinine Estim Creat Clear Calc Est GFR (MDRD) Af Amer Est GFR (MDRD) Non-Af BUN/Creatinine Ratio Glucose Lactic Acid Calcium Phosphorus Magnesium Total Bilirubin AST ALT Alkaline Phosphatase Total Creatine Kinase 46 Total Protein Albumin Globulin Albumin/Globulin Ratio Vancomycin Trough POC Glucose 170 H 12/26/17 12/26/17 12/27/17 18:30 23:15 05:25 WBC RBC Hgb Hct MCV MCH MCHC RDW RDW Differential Plt Count MPV Immature Gran % (Auto) Neut % (Auto) Lymph % (Auto) Ross % (Auto) Eos % (Auto) Baso % (Auto) Absolute Neuts (auto) Absolute Lymphs (auto) Total Counted Nucleated RBC % Differential Comment Absolute Retic Specimen Type Sample Site pH Bicarbonate Actual POC Total CO2 Base Excess O2 Saturation O2 % ABG pCO2 ABG pO2 Jeremie Test Respiration Rate O2 Delivery Device Vent Mode Tidal Volume POC PEEP Blood Gas Notified Whom Blood Gas Notified Time Sodium Potassium Chloride Carbon Dioxide Anion Gap BUN Creatinine Estim Creat Clear Calc Est GFR (MDRD) Af Amer Est GFR (MDRD) Non-Af BUN/Creatinine Ratio Glucose Lactic Acid Calcium Phosphorus Magnesium Total Bilirubin AST ALT Alkaline Phosphatase Total Creatine Kinase Total Protein Albumin Globulin Albumin/Globulin Ratio Vancomycin Trough POC Glucose 186 H 166 H 183 H Microbiology 12/26/17 07:00 Blood Culture (Wb) - Left Wrist Blood Culture - Preliminary 12/26/17 07:00 Mucosa - Nose Respiratory Panel (PCR) - Final 12/25/17 03:45 Blood Culture (Wb) - Anticubital Left Blood Culture - Preliminary 12/25/17 03:35 Blood Culture (Wb) - Anticubital Right Blood Culture - Preliminary 12/24/17 14:40 Blood Culture (Wb) - Right Wrist Blood Culture - Preliminary 12/24/17 14:50 Blood Culture (Wb) - Left Wrist Blood Culture - Preliminary Staphylococcus aureus 12/20/17 23:25 Blood Culture (Wb) - Anticubital Right Blood Culture - Final 12/23/17 13:20 Blood Culture (Wb) - Venous Blood Culture - Preliminary Gram Positive Cocci 12/23/17 13:25 Blood Culture (Wb) - Venous Blood Culture - Preliminary Gram Positive Cocci Clinical Impression(s) from Imaging Studies Chest X-Ray 08/24/18 18:00 IMPRESSION: Patchy airspace opacities bilaterally which is likely infectious in etiology. Electronically Signed: Khadar Reardon, at 19:16 EDT Tel , Service support , Abdomen/Pelvis CT 12/20/17 18:10 IMPRESSION: There are degenerative changes in the visualized spine. There are disc herniations at T12-L1 and L1-2 with narrowing of the spinal canal. There is disc bulge and possible herniation at L3-4. There is diffuse fatty infiltration of the liver. There is mild splenomegaly. There is no ascites. There are no acute bowel abnormalities. There is no free air. There are small lymph nodes in the retroperitoneum. There is stranding around the distal aorta and iliac vessels. There is also stranding in the prevascular space. This can be seen with retroperitoneal fibrosis but is nonspecific. There are patchy airspace opacities scattered in both lung bases which are nonspecific and can be seen with a diffuse infectious process. A neoplastic process is also in the differential. There is no pleural effusion. The images are limited by motion artifact. Electronically Signed: Celena Ziegler MD at 20:09 EDT Tel Direct: [phone], Service support , Chest CTA 12/20/17 21:08 IMPRESSION: Distal pulmonary emboli cannot be excluded, especially in the right upper and lower lobes. The images are limited by motion artifact. There are patchy airspace opacities scattered throughout both lungs, likely a diffuse infectious process. Septic emboli cannot be excluded. A neoplastic process cannot be completely excluded but is less likely. There is no pleural effusion or significant lymphadenopathy. N.B. : The above information has been verbally conveyed by Celena Ziegler MD to Tatiana Arizmendi, Hospital- In-Patient RN, on 12/20/2017 22:48:42 (ET). Electronically Signed: Celena Ziegler MD at 22:33 EDT Tel Direct: [phone], Service support , Brain CT 12/20/17 21:32 IMPRESSION: No acute intracranial abnormality. Electronically Signed: Khadar Alexys, at 22:07 EDT Tel , Service support , Chest X-Ray 12/21/17 04:00 IMPRESSION: Worsening of bilateral nodular airspace disease most pronounced along the right upper lung periphery. This may represent a focal pneumonia, etiology such as emboli or neoplasm are not excluded. Electronically Signed: Vanna Briones MD at 6:49 EDT , Service support , Chest X-Ray 12/22/17 04:10 IMPRESSION: Mild worsening of bilateral lung masses and nodules. Considerations include septic emboli, metastatic disease or less likely multiple pneumonias. Electronically Signed: Celestine Madrid MD at 4:57 EDT , Service support , Chest X-Ray 12/22/17 08:20 IMPRESSION: 1. Appropriate positioning of endotracheal and enteric tubes. 2. Unchanged appearance of multiple pulmonary nodules and/or airspace consolidation. Electronically Signed: Sherice Leahy MD at 9:39 EDT , Service support , Lumbar Spine MRI 12/23/17 13:21 IMPRESSION: 1. Severe L5-S1 foraminal stenosis with a small disc protrusion contributory on the right. 2. Mild canal stenosis and moderate foraminal stenosis at L4-5. 3. Noncompressive spondylotic protrusions at T12-L1 and L1-2. Electronically Signed: Avis Metz MD at 16:43 EDT Tel , Service support , KUB X-Ray 12/23/17 13:50 IMPRESSION: Orogastric tube tip within the gastric fundus. Stable bilateral pulmonary infiltrates. Electronically Signed: Nehemiah Hicks, at 14:57 EDT Tel , Service support , Chest X-Ray 12/25/17 06:52 IMPRESSION: Since prior study, there has been a progression of the bilateral pulmonary infiltrates. Electronically Signed: Buddy Tsai MD at 9:08 EDT Tel [phone], Service support , Chest X-Ray 12/26/17 16:40 IMPRESSION: Stable cardiopulmonary abnormalities. The endotracheal tube tip is positioned about 1.6 cm above the sweetie. Electronically Signed: Nehemiah Hicks, at 17:56 EDT Tel , Service support , Medical Necessity - Tobacco Use Smoking Status: Current every day smoker Tobacco Use: Cigarettes Assessment/Plan All Active Problems Acute hypoxic respiratory failure (Acute) Polysubstance (including opioids) dependence, daily use (Acute) Methamphetamine abuse (Acute) Severe sepsis (Acute) Bilateral community acquired pneumonia (Acute) Alcohol withdrawal (Acute) Non-STEMI (non-ST elevated myocardial infarction) (Acute) RECOMMENDATIONS: 1. Continue antibiotics per infectious diseases recommendations. Recheck Vanco trough today. 2. Wean from propofol and begin Precedex to be used in conjunction with fentanyl for sedation. 3. Recheck BMP and CBC. 4. Consider administration of IV Lasix today. 5. Continue tube feeds 6. Continue scheduled bronchodilators and appropriate ICU prophylaxis. 7. Resend blood cultures. Send repeat sputum culture as well. IMPRESSIONS: 1. Severe sepsis secondary to MRSA pneumonia and persistent staph bacteremia The patient has evidence of both MRSA pneumonia and persistent MRSA bacteremia. Cardiac workup, including transesophageal echocardiogram, revealed no evidence of valvular vegetations. Although no vegetations were identified, the patient may have experienced embolic phenomenon prior to his presentation to the hospital, especially in light of his chest radiograph and physical exam findings. We will plan to continue current supportive measures including antibiotics per infectious diseases recommendations and full mechanical ventilatory support. For now, weaning from mechanical ventilation, will be hindered by the patient's copious sputum production. Continue enteral tube feeds and appropriate ICU prophylaxis. Obtain and resend additional sputum culture. Wean the patient from propofol and replace with Precedex to be used in conjunction with fentanyl for sedation. 2. Acute hypoxemic respiratory failure secondary to MRSA pneumonia Continue current supportive measures as noted above. Recommend waiting to aggressively wean the patient from mechanical ventilation until copious sputum production begins to decrease. The patient's propofol will be weaned today and he will be transitioned to Precedex to be used in conjunction with fentanyl for sedation. If his renal function is appropriate, would recommend gentle diuresis with IV Lasix. 3. Toxic encephalopathy secondary to polysubstance abuse and alcohol withdrawal The patient remains on stable ventilator settings with appropriate gas exchange. Although the patient does have a history of polysubstance abuse, we should be getting past the withdrawal window at this time. 4. Hypertensive urgency Blood pressures are currently under control. Continue beta-sarmad per cardiology recommendations. 5. Inadequate material resources/poor social support Complicates care, management, recovery and prognosis. The patient reportedly has a daughter, who resides in [place]. TIME: 38 minutes of critical care time, independent of procedures, was spent addressing the patient's severe sepsis secondary to MRSA pneumonia and persistent staph bacteremia, acute hypoxic respiratory failure, toxic encephalopathy, hypertensive urgency, review of all data and collaboration with the care team. ([id number]) Code Visit [id number]: [id number] Critical care first hour
--- NOTE | 2017-12-27 07:55 | PCM.PROGNOTE ---
Patient Problems: Active and Suspected Problems Acute hypoxic respiratory failure (Acute) Polysubstance (including opioids) dependence, daily use (Acute) Methamphetamine abuse (Acute) Severe sepsis (Acute) Bilateral community acquired pneumonia (Acute) Alcohol withdrawal (Acute) Non-STEMI (non-ST elevated myocardial infarction) (Acute) Subjective: Chief complaint: Follow-up after admission for septic shock secondary to MRSA bilateral community-acquired pneumonia complicated by acute hypoxic respiratory failure, persistent MRSA bacteremia and toxic encephalopathy and also found to have acute non-ST elevation UT. Patient seen and examined. No acute events overnight. He remained sedated, on mechanical ventilation. He has been afebrile for the last 6-8 hours, fever curve is improving. Blood pressure and heart rate are maintained, no vasopressors needed. Repeat blood culture are still positive. No plan for extubation or spontaneous breathing trial today. - Physical Exam General: - - Sedated, intubated, unresponsive. HEENT: Atraumatic, PERRLA, EOMI, Normocephalic Oral: Moist Mucosa, No Gingival or Mucosal Lesions/ Ulcerations Neck: Supple, No JVD, Negative Carotid Bruits, Trachea Midline, Thyroid Normal Size and Texture Lungs: Clear to auscultation, No wheeze, No rales, Diminished, Rhonchi Cardiovascular: Regular rate, Regular Rhythm, Normal S1, Normal S2, PMI Normal Abdomen: Bowel Sounds Present, Soft, Non Tender, Non-Distended, No Hepato-splenomegaly Extremities: No clubbing, No cyanosis, No edema Skin: No rashes, No breakdown Lymphatic: No Cervical, Supraclavicular, or Inguinal Adenopathy Neurological: - - Unable to assess, patient is sedated. Psych/Mental Status: - - Unable to assess, patient is sedated. Vital Signs Temp Pulse Resp BP Pulse Ox 97.7 F L 84 28 H 130/85 H 97 12/27/17 07:00 12/27/17 07:52 12/27/17 07:00 12/27/17 07:00 12/27/17 07:00 Oxygen Flow Rate (L/min) 35 Oxygen Delivery Method Mechanical Ventilator Weight: 213 lb 10.047 oz Body Mass Index (BMI) 27.9 Intake and Output for Last 24 Hours 12/25/17 12/26/17 12/27/17 23:59 23:59 23:59 Intake Total 6245 / 6245 5441.4 / 5441.4 1405.7 / 1405.7 Output Total 3875 / 3875 1974 / 1974 600 / 600 Balance 2370 / 2370 3466.4 / 3466.4 805.7 / 805.7 Microbiology Past 72 Hours 12/24/17 14:50 Blood Culture - Preliminary Blood Culture (Wb) - Left Wrist Meth. resistant Staph. aureus 12/26/17 07:00 Blood Culture - Preliminary Blood Culture (Wb) - Left Wrist 12/26/17 07:00 Respiratory Panel (PCR) - Final Mucosa - Nose 12/25/17 03:45 Blood Culture - Preliminary Blood Culture (Wb) - Anticubital Left 12/25/17 03:35 Blood Culture - Preliminary Blood Culture (Wb) - Anticubital Right 12/24/17 14:40 Blood Culture - Preliminary Blood Culture (Wb) - Right Wrist 12/20/17 23:25 Blood Culture - Final Blood Culture (Wb) - Anticubital Right 12/23/17 13:20 Blood Culture - Preliminary Blood Culture (Wb) - Venous Gram Positive Cocci 12/23/17 13:25 Blood Culture - Preliminary Blood Culture (Wb) - Venous Gram Positive Cocci 12/22/17 11:40 Blood Culture - Preliminary Blood Culture (Wb) - Left Forearm Gram Positive Cocci 12/22/17 11:25 Blood Culture - Preliminary Blood Culture (Wb) - Left Wrist Gram Positive Cocci Laboratory Tests Past 24 Hrs 12/26/17 12/26/17 06:50 06:50 Sodium 143 Potassium 3.7 Chloride 105 Carbon Dioxide 30.0 Anion Gap 8 BUN 33 H Creatinine 0.82 Estim Creat Clear Calc 110.17 Est GFR (MDRD) Af Amer 129 Est GFR (MDRD) Non-Af 107 BUN/Creatinine Ratio 40.5 H Glucose 194 H Calcium 6.9 L Total Bilirubin 1.00 AST 99 H ALT 48 Alkaline Phosphatase 139 H Total Creatine Kinase 46 Total Protein 5.6 L Albumin 1.2 L Globulin 4.4 H Albumin/Globulin Ratio 0.3 L POC Glucose 12/27/17 12/26/17 12/26/17 05:25 23:15 18:30 POC Glucose 183 H 166 H 186 H 12/26/17 11:28 POC Glucose 170 H Medical Necessity - Tobacco Use Smoking Status: Current every day smoker Tobacco Use: Cigarettes Assessment/Plan All Active Problems Acute hypoxic respiratory failure (Acute) Polysubstance (including opioids) dependence, daily use (Acute) Methamphetamine abuse (Acute) Severe sepsis (Acute) Bilateral community acquired pneumonia (Acute) Alcohol withdrawal (Acute) Non-STEMI (non-ST elevated myocardial infarction) (Acute) This is a 47 years old presented to the emergency room with main presenting complaint of back pain and he was admitted as a case of community-acquired pneumonia with septic shock by criteria as well as alcohol withdrawal and his hospital course complicated by acute hypoxic respiratory failure required endotracheal intubation and mechanical ventilation as well as persistent MRSA bacteremia, toxic encephalopathy and hypertensive urgency. #1 septic shock: Secondary to pneumonia and bacteremia. Remained on IV vancomycin. Fever curve is improving, maintaining blood pressure and heart rate and IV fluids. He is having persistent bacteremia. Blood cultures on 4 different days has been positive, most recently was yesterday. His lactic acid is back to normal. Infectious disease and critical care on the case. Plan to continue same treatment. #2 acute bilateral MRSA community-acquired pneumonia: He is on IV vancomycin as above. Sputum culture revealed MRSA. Pneumococcal and Legionella antigen were negative. Blood cultures reviewed as above. His blood pressure maintained on fluids, no vasopressors needed. Plan to continue same treatment. #3 acute hypoxic respiratory failure: Secondary to above. Remains on mechanical ventilation and sedation. He is on propofol and fentanyl for sedation. Plan as above. #4 persistent MRSA bacteremia: Persistent bacteremia on multiple repeat blood cultures, most recently from yesterday. Probable source is the pneumonia but it has been persistent with persistent fever. Remained on IV vancomycin. Also, he is on therapeutic Lovenox twice daily for possible septic emboli or pulmonary emboli. CTA chest done for elevated d-dimer and revealed patchy airspace opacities throughout the both lungs could be due to infectious process versus septic emboli. The skin abdomen and pelvis without contrast showed no acute intra-abdominal pathology except small lymph nodes in the retroperitoneum. 2D echocardiogram revealed ejection fraction 50-55%, no evidence of valve vegetations, RVSP of 43, mildly dilated right ventricle and borderline hypokinesis of the left ventricle. Because of persistent bacteremia, JOSE was done that showed no evidence of valve vegetations or masses, bubble contrast study negative for active shunt. In the search process of this persistent bacteremia, lumbar spine MRI with and without contrast done because patient complained of back pain and revealed severe L5-S1 foraminal stenosis, mild canal stenosis at L4-L5 and noncompressive spondylitic protrusions at T12-L1 and L1-L2, no evidence of abscess formation. Venous Doppler of the bilateral lower extremity performed and showed no evidence of acute DVT. Plan to continue IV vancomycin as well as Lovenox twice daily. #5 non-ST elevation UT: This is likely due to demand ischemia secondary to above. 2D echocardiogram revealed ejection fraction of 50-55% as above. Cardiology on the case. Patient is on Coreg, therapeutic Lovenox twice daily. #6 toxic encephalopathy: Attributed to pneumonia, septic shock as well as polysubstance abuse and alcohol withdrawal. patient is remained on sedation. CT scan brain done on admission and showed no acute findings. #7 polysubstance abuse/alcohol withdrawal: Urine drug screen on admission was positive for opioids, amphetamines and cannabinoids. Blood alcohol level was 11. Patient is on propofol for sedation, on folic acid and thiamine supplement through the GT tube. #8 hypertensive urgency: This morning, blood pressure under better control. He is on IV metoprolol as needed and Coreg twice daily through GT tube. #9 DVT prophylaxis: He is on Lovenox therapeutic dose twice daily. This note was generated with [employer] dictation software. It may contain incorrect words, spelling, and punctuation that were not noted in checking the note before signing. Code Visit Inpatient E&M: 17762 Subs Hosp L3
[2017-12-27 09:07] LABS: Hematocrit 31.7 % (40-54); Hemoglobin 10.7 g/dl (13.0-16.5); Mean Corp Hgb Conc 33.8 g/gl (32-36); Mean Corpuscular Hgb 30.7 pg (27.0-32.0); Mean Corpuscular Volume 90.8 fL (80-94); RBC Distribution Width CV 15.5 % (11.6-14.6); RBC Distribution Width SD 50.8 fl (35.1-43.9); Red Blood Count 3.49 M/mm3 (4.6-6.2); White Blood Count 14.3 K/mm3 (4.4-11.0)
[2017-12-27 09:08] LABS: Basophil% 0.2 % (0-1); Differential Indicated SCAN CRITERIA MET; Eosinophils% 0.4 % (0-5); Lymphocyte % 8.7 % (19-41); Mean Platelet Vol. 12.4 fl (6.2-12.0); Monocyte% 3.8 % (0-10); Neutrophil # 12.23 X10^3/uL (2.7-7.7); Neutrophil % 85.4 % (47-70); POSITIVE COUNT YES; POSITIVE DIFFERENTIAL NO; POSITIVE MORPHOLOGY YES; Platelet Count 300 K/mm3 (150-450)
[2017-12-27 09:09] LABS: Absolute Lymphocyte Count 1.24 X10^3/ul (0.83-4.51); Absolute Neutrophil Count 12.2 X10^3/uL (2.0-7.7); Basophil# 0.03 X10^3/uL; Eosinophil# 0.06 X10^3/uL; Lymphocyte # 1.24 X10^3/ul (4.0); Monocyte# 0.55 X10^3/uL
[2017-12-27 09:10] LABS: Absolute Nucleated RBC Count 0.12 10^3/uL (0-5); NRBC Flagged by Analyzer 0.8 % (0-5)
[2017-12-27] MEDS: Carvedilol 6.25 MG Tablet GT ×2 (09:55→21:01)
[2017-12-27] MEDS: Famotidine 20 MG Tablet GT ×2 (10:11→21:01)
--- NOTE | 2017-12-27 10:12 | CASEMGMT ---
RN CM Note: Pt remains on ventilatory support. Starting Presedex, continuing IV antibiotics. DC Planning deferred @ this time. Yola HUNTERN RN ACM
[2017-12-27] MEDS: 0.9% NaCl Peripheral Flush Adult/Peds IV ×2 (10:23→17:49)
[2017-12-27] MEDS: Chlorhexidine 15 ML PO ×2 (10:44→21:01)
[2017-12-27] MEDS: Vital AF 1.2 Cal Liquid 1,000 ML 70 ML GT (10:44)
--- NOTE | 2017-12-27 10:45 | PCM.PN.ID ---
Patient Problems: Active and Suspected Problems Acute hypoxic respiratory failure (Acute) Polysubstance (including opioids) dependence, daily use (Acute) Methamphetamine abuse (Acute) Severe sepsis (Acute) Bilateral community acquired pneumonia (Acute) Alcohol withdrawal (Acute) Non-STEMI (non-ST elevated myocardial infarction) (Acute) Subjective: Patient remains on the ventilator sedated. Fever curve improved over last 24 hours remains bacteremic. Remains on parenteral vancomycin Objective: Sedated on the vent lungs are coarse breath sounds heart exam S1-S2 no murmurs appreciated abdomen soft nontender blood cultures remain positive. - Physical Exam Vital Signs Temp Pulse Resp BP Pulse Ox 99.2 F H 98 29 H 173/96 H 94 12/27/17 09:00 12/27/17 09:35 12/27/17 09:35 12/27/17 09:00 12/27/17 09:35 Oxygen Flow Rate (L/min) 35 Oxygen Delivery Method Mechanical Ventilator Weight: 96.9 kg Body Mass Index (BMI) 27.9 Intake and Output for Last 24 Hours 12/25/17 12/26/17 12/27/17 23:59 23:59 23:59 Intake Total 6245 / 6245 5441.4 / 5441.4 1405.7 / 1405.7 Output Total 3875 / 3875 1974 / 1974 600 / 600 Balance 2370 / 2370 3466.4 / 3466.4 805.7 / 805.7 Microbiology Past 72 Hours 12/25/17 03:45 Blood Culture - Preliminary Blood Culture (Wb) - Anticubital Left 12/25/17 03:35 Blood Culture - Preliminary Blood Culture (Wb) - Anticubital Right 12/24/17 14:50 Blood Culture - Preliminary Blood Culture (Wb) - Left Wrist Meth. resistant Staph. aureus 12/26/17 07:00 Blood Culture - Preliminary Blood Culture (Wb) - Left Wrist 12/26/17 07:00 Respiratory Panel (PCR) - Final Mucosa - Nose 12/24/17 14:40 Blood Culture - Preliminary Blood Culture (Wb) - Right Wrist 12/20/17 23:25 Blood Culture - Final Blood Culture (Wb) - Anticubital Right 12/23/17 13:20 Blood Culture - Preliminary Blood Culture (Wb) - Venous Gram Positive Cocci 12/23/17 13:25 Blood Culture - Preliminary Blood Culture (Wb) - Venous Gram Positive Cocci 12/22/17 11:40 Blood Culture - Preliminary Blood Culture (Wb) - Left Forearm Gram Positive Cocci 12/22/17 11:25 Blood Culture - Preliminary Blood Culture (Wb) - Left Wrist Gram Positive Cocci Laboratory Tests Past 24 Hrs 12/27/17 08:00 WBC 14.3 H RBC 3.49 L Hgb 10.7 L Hct 31.7 L MCV 90.8 MCH 30.7 MCHC 33.8 RDW 15.5 H RDW Differential 50.8 H Plt Count 300 MPV 12.4 H Immature Gran % (Auto) 1.500 H Neut % (Auto) 85.4 H Lymph % (Auto) 8.7 L [place] % (Auto) 3.8 Eos % (Auto) 0.4 Baso % (Auto) 0.2 Absolute Neuts (auto) 12.2 H Absolute Lymphs (auto) 1.24 Total Counted Not Reportable Nucleated RBC % 0.8 Diff Path Review May foll Absolute Retic 0.12 POC Glucose 12/27/17 12/26/17 12/26/17 05:25 23:15 18:30 POC Glucose 183 H 166 H 186 H 12/26/17 11:28 POC Glucose 170 H Medical Necessity - Tobacco Use Smoking Status: Current every day smoker Tobacco Use: Cigarettes Route of nutrition/ use of supplements: [] Nutritional Intake: [] IV Site: [] Stover Catheter: [] - Assessment/Plan Persistent MRSA bacteremia. Of note patient does have underlying chronic hepatitis B ie serum hepatitis B surface antigen positive. Given the persistent bacteremia despite 1 week of parenteral vancomycin, I will switch him to telavancin 750 mg IV daily and follow his repeat blood cultures and his clinical course.
[2017-12-27 11:30] LABS: Vancomycin, Trough Level 20.9 ug/mL (5.0-15.0)
[2017-12-27 11:31] LABS: Anion Gap 7 (5-15); BUN 26 mg/dL (7-18); BUN/Creat Ratio 42.7 RATIO (10-20); Calcium,Total 7.2 mg/dL (8.5-10.1); Chloride 106 mmol/L (98-107); Creatinine, Serum 0.61 mg/dL (0.70-1.30); EST Glomerular Filtration Rate 150 mL/min (>60); Est Glom Filt Rate - Afr Amer 181 mL/min (>60); Glucose 191 mg/dL (74-106); Potassium 4.2 mmol/L (3.5-5.1); Sodium Level 144 mmol/L (136-145)
[2017-12-27] MEDS: Acetaminophen 650 MG/20 ML UDC GT ×2 (11:57→17:53)
[2017-12-27] MEDS: Enoxaparin 80 MG/0.8 ML Syringe SC ×2 (12:37→21:01)
[2017-12-27] MEDS: Furosemide 40 MG/4 ML Vial IV (17:49)
[2017-12-27 22:10] LABS: Bedside Glucose 178 mg/dL (70-110)
[2017-12-28] VITALS (40 sets, daily range): BP systolic 100–128; BP diastolic 64–95; PULSE 57–95; RESP 12–42; TEMP 36.7–39.4; O2SAT 92–100
[2017-12-28 01:36] LABS: Bedside Glucose 156 mg/dL (70-110)
[2017-12-28] MEDS: Insulin Lispro 100 UNIT/ML INSULN.PEN SC ×2 (01:53→18:01)
[2017-12-28] MEDS: guaiFENesin 10 ML UDC (200MG/10ML) GT ×4 (01:53→18:00)
[2017-12-28 04:19] LABS: International Normalized Ratio 1.1; Prothrombin Time (Protime)PT. 14.5 SECONDS (11.7-14.9)
[2017-12-28 04:25] LABS: Anion Gap 3 (5-15); BUN 31 mg/dL (7-18); BUN/Creat Ratio 36.3 RATIO (10-20); Calcium,Total 7.1 mg/dL (8.5-10.1); Chloride 107 mmol/L (98-107); Creatinine, Serum 0.86 mg/dL (0.70-1.30); EST Glomerular Filtration Rate 101 mL/min (>60); Est Glom Filt Rate - Afr Amer 122 mL/min (>60); Estimated Creatinine Clearance 105.05 ml/min; Glucose 180 mg/dL (74-106); Sodium Level 146 mmol/L (136-145)
[2017-12-28 04:32] LABS: Absolute Lymphocyte Count 2.35 X10^3/ul (0.83-4.51); Absolute Neutrophil Count 11.3 X10^3/uL (2.0-7.7); Basophil# 0.05 X10^3/uL; Basophil% 0.3 % (0-1); Eosinophil# 0.07 X10^3/uL; Eosinophils% 0.5 % (0-5); Hematocrit 28.8 % (40-54); Hemoglobin 9.5 g/dl (13.0-16.5); Lymphocyte # 2.35 X10^3/ul (4.0); Lymphocyte % 15.9 % (19-41); Mean Corpuscular Hgb 29.7 pg (27.0-32.0); Mean Platelet Vol. 11.7 fl (6.2-12.0); Monocyte# 0.92 X10^3/uL; Monocyte% 6.2 % (0-10); Neutrophil # 11.32 X10^3/uL (2.7-7.7); Neutrophil % 76.6 % (47-70); Platelet Count 277 K/mm3 (150-450); RBC Distribution Width CV 14.8 % (11.6-14.6); RBC Distribution Width SD 48.8 fl (35.1-43.9); White Blood Count 14.8 K/mm3 (4.4-11.0)
[2017-12-28 04:33] LABS: Differential Indicated SCAN CRITERIA MET; POSITIVE COUNT NO; POSITIVE DIFFERENTIAL NO; POSITIVE MORPHOLOGY YES
[2017-12-28 04:50] LABS: Anisocytosis 1+; Differential Comment SCAN; Hypochromasia 1+; Microcytosis 1+; Platelet Estimate ADEQUATE (ADEQ); Platelet Morphology LARGE; Polychromasia 1+
[2017-12-28] MEDS: Ipratropium/Albuterol Sulfate 3 ML AMPUL.NEB INHALATION ×2 (06:35→19:03)
--- NOTE | 2017-12-28 06:47 | PCM.PN.INT ---
Subjective: The patient was seen and examined at the bedside this morning. Events from the last 24 hours have been reviewed. The patient currently has a low-grade fever, but it does appear that his fever curve is moving in the right direction after he had a T-max of 104.7?F yesterday afternoon. He is hemodynamically stable and his FiO2 has been weaned to 35%. The patient is much more alert and interactive this morning on Precedex monotherapy for sedation. However, respiratory therapy does report that the patient had copious amounts of secretions noted overnight. The patient is now overall net +16 L for the admission. The patient was transitioned from vancomycin to telavancin yesterday for concern over vancomycin failure. Objective: The patient's most recent lab work, culture data and imaging studies have all been personally reviewed. Persistent gram-positive bacteremia noted dating back to December 20. Expectorated sputum culture from December 20 was positive for MRSA. Strep and urine Legionella antigens were both negative. Repeat sputum culture from December 27 revealed 3+ gram-positive cocci. Repeat blood cultures are currently pending. General: - - Intubated, sedated and mechanically ventilated. Much more alert this morning, although appears agitated with ventilator dyssynchrony noted. HEENT: Atraumatic, PERRLA, Normocephalic Oral: Moist Mucosa, - - Endotracheal and OG tubes remain in place. Neck: Supple, No Nodes, Trachea Midline Lungs: No wheeze, No rales, Diminished, Rhonchi, Tachypneic Cardiovascular: Normal S1, Normal S2, No murmurs, No rub noted, No Gallop, Tachycardic Abdomen: Bowel Sounds Present, Soft, Non Tender Extremities: No clubbing, No cyanosis, Edema Skin: - - No significant change from previous. Musculoskeletal: No Tenderness to Palpation of Joints or Extremities Lymphatic: No Cervical, Supraclavicular, or Inguinal Adenopathy Neurological: - - No focal deficits. Moves all extremities spontaneously. Not following commands appropriately. Psych/Mental Status: Agitated, Restless Vital Signs Temp Pulse Resp BP Pulse Ox 99.5 F H 69 21 H 120/95 H 99 12/28/17 06:00 12/28/17 06:00 12/28/17 06:00 12/28/17 06:00 12/28/17 06:00 Oxygen Flow Rate (L/min) 35 Oxygen Delivery Method Mechanical Ventilator Weight: 214 lb 8.156 oz Body Mass Index (BMI) 27.9 Intake and Output for Last 24 Hours 12/26/17 12/27/17 12/28/17 23:59 23:59 23:59 Intake Total 5441.4 / 5441.4 2575.7 / 2575.7 1430 / 1430 Output Total 1974 / 1974 1300 / 1300 1750 / 1750 Balance 3466.4 / 3466.4 1275.7 / 1275.7 -320 / -320 Labs (Last 48 Hours) 12/26/17 12/26/17 12/26/17 05:30 06:50 06:50 WBC 14.4 H RBC 3.29 L Hgb 9.8 L Hct 29.9 L MCV 90.9 MCH 29.8 MCHC 32.8 RDW 15.2 H RDW Differential 50.9 H Plt Count 201 MPV 11.9 Immature Gran % (Auto) 0.400 Neut % (Auto) 84.2 H Lymph % (Auto) 10.4 L [place] % (Auto) 4.7 Eos % (Auto) 0.2 Baso % (Auto) 0.1 Absolute Neuts (auto) 12.1 H Absolute Lymphs (auto) 1.50 Total Counted Not Reportable Nucleated RBC % 0.5 Differential Comment INCREASED BANDS Diff Path Review Platelet Estimate Plt Morphology Comment Polychromasia Hypochromasia Anisocytosis Microcytosis Absolute Retic 0.07 PT INR Specimen Type Sample Site pH Bicarbonate Actual POC Total CO2 Base Excess O2 Saturation O2 % ABG pCO2 ABG pO2 Jeremie Test Respiration Rate O2 Delivery Device Vent Mode Tidal Volume POC PEEP Blood Gas Notified Whom Blood Gas Notified Time Sodium Cancelled Potassium Cancelled Chloride Cancelled Carbon Dioxide Cancelled Anion Gap Cancelled BUN Cancelled Creatinine Cancelled Estim Creat Clear Calc Est GFR (MDRD) Af Amer Cancelled Est GFR (MDRD) Non-Af Cancelled BUN/Creatinine Ratio Cancelled Glucose Cancelled Lactic Acid Calcium Cancelled Phosphorus 3.7 Magnesium 2.2 Total Bilirubin AST ALT Alkaline Phosphatase Total Creatine Kinase Total Protein Albumin Globulin Albumin/Globulin Ratio Vancomycin Trough POC Glucose 173 H 12/26/17 12/26/17 12/26/17 06:50 06:50 06:50 WBC RBC Hgb Hct MCV MCH MCHC RDW RDW Differential Plt Count MPV Immature Gran % (Auto) Neut % (Auto) Lymph % (Auto) [place] % (Auto) Eos % (Auto) Baso % (Auto) Absolute Neuts (auto) Absolute Lymphs (auto) Total Counted Nucleated RBC % Differential Comment Diff Path Review Platelet Estimate Plt Morphology Comment Polychromasia Hypochromasia Anisocytosis Microcytosis Absolute Retic PT INR Specimen Type Sample Site pH Bicarbonate Actual POC Total CO2 Base Excess O2 Saturation O2 % ABG pCO2 ABG pO2 Jeremie Test Respiration Rate O2 Delivery Device Vent Mode Tidal Volume POC PEEP Blood Gas Notified Whom Blood Gas Notified Time Sodium 143 Potassium 3.7 Chloride 105 Carbon Dioxide 30.0 Anion Gap 8 BUN 33 H Creatinine 0.82 Estim Creat Clear Calc 110.17 Est GFR (MDRD) Af Amer 129 Est GFR (MDRD) Non-Af 107 BUN/Creatinine Ratio 40.5 H Glucose 194 H Lactic Acid 1.4 Calcium 6.9 L Phosphorus Magnesium Total Bilirubin 1.00 AST 99 H ALT 48 Alkaline Phosphatase 139 H Total Creatine Kinase 46 Total Protein 5.6 L Albumin 1.2 L Globulin 4.4 H Albumin/Globulin Ratio 0.3 L Vancomycin Trough POC Glucose 12/26/17 12/26/17 12/26/17 07:19 11:28 18:30 WBC RBC Hgb Hct MCV MCH MCHC RDW RDW Differential Plt Count MPV Immature Gran % (Auto) Neut % (Auto) Lymph % (Auto) [place] % (Auto) Eos % (Auto) Baso % (Auto) Absolute Neuts (auto) Absolute Lymphs (auto) Total Counted Nucleated RBC % Differential Comment Diff Path Review Platelet Estimate Plt Morphology Comment Polychromasia Hypochromasia Anisocytosis Microcytosis Absolute Retic PT INR Specimen Type ART Sample Site R Radial pH 7.45 Bicarbonate Actual 32.7 H POC Total CO2 34 Base Excess 9 H O2 Saturation 93 L O2 % 40 ABG pCO2 47.2 H ABG pO2 65 L Jeremie Test POS Respiration Rate 12 O2 Delivery Device Vent Vent Mode A-C Tidal Volume 450 POC PEEP 5 Blood Gas Notified Whom ICU MD Blood Gas Notified Time 718 Sodium Potassium Chloride Carbon Dioxide Anion Gap BUN Creatinine Estim Creat Clear Calc Est GFR (MDRD) Af Amer Est GFR (MDRD) Non-Af BUN/Creatinine Ratio Glucose Lactic Acid Calcium Phosphorus Magnesium Total Bilirubin AST ALT Alkaline Phosphatase Total Creatine Kinase Total Protein Albumin Globulin Albumin/Globulin Ratio Vancomycin Trough POC Glucose 170 H 186 H 12/26/17 12/27/17 12/27/17 23:15 05:25 08:00 WBC 14.3 H RBC 3.49 L Hgb 10.7 L Hct 31.7 L MCV 90.8 MCH 30.7 MCHC 33.8 RDW 15.5 H RDW Differential 50.8 H Plt Count 300 MPV 12.4 H Immature Gran % (Auto) 1.500 H Neut % (Auto) 85.4 H Lymph % (Auto) 8.7 L [place] % (Auto) 3.8 Eos % (Auto) 0.4 Baso % (Auto) 0.2 Absolute Neuts (auto) 12.2 H Absolute Lymphs (auto) 1.24 Total Counted Not Reportable Nucleated RBC % 0.8 Differential Comment Diff Path Review May foll Platelet Estimate Plt Morphology Comment Polychromasia Hypochromasia Anisocytosis Microcytosis Absolute Retic 0.12 PT INR Specimen Type Sample Site pH Bicarbonate Actual POC Total CO2 Base Excess O2 Saturation O2 % ABG pCO2 ABG pO2 Jeremie Test Respiration Rate O2 Delivery Device Vent Mode Tidal Volume POC PEEP Blood Gas Notified Whom Blood Gas Notified Time Sodium Potassium Chloride Carbon Dioxide Anion Gap BUN Creatinine Estim Creat Clear Calc Est GFR (MDRD) Af Amer Est GFR (MDRD) Non-Af BUN/Creatinine Ratio Glucose Lactic Acid Calcium Phosphorus Magnesium Total Bilirubin AST ALT Alkaline Phosphatase Total Creatine Kinase Total Protein Albumin Globulin Albumin/Globulin Ratio Vancomycin Trough POC Glucose 166 H 183 H 12/27/17 12/27/17 12/27/17 10:45 11:05 17:45 WBC RBC Hgb Hct MCV MCH MCHC RDW RDW Differential Plt Count MPV Immature Gran % (Auto) Neut % (Auto) Lymph % (Auto) [place] % (Auto) Eos % (Auto) Baso % (Auto) Absolute Neuts (auto) Absolute Lymphs (auto) Total Counted Nucleated RBC % Differential Comment Diff Path Review Platelet Estimate Plt Morphology Comment Polychromasia Hypochromasia Anisocytosis Microcytosis Absolute Retic PT INR Specimen Type Sample Site pH Bicarbonate Actual POC Total CO2 Base Excess O2 Saturation O2 % ABG pCO2 ABG pO2 Jeremie Test Respiration Rate O2 Delivery Device Vent Mode Tidal Volume POC PEEP Blood Gas Notified Whom Blood Gas Notified Time Sodium 144 Potassium 4.2 Chloride 106 Carbon Dioxide 31.0 Anion Gap 7 BUN 26 H Creatinine 0.61 L Estim Creat Clear Calc 148.10 Est GFR (MDRD) Af Amer 181 Est GFR (MDRD) Non-Af 150 BUN/Creatinine Ratio 42.7 H Glucose 191 H Lactic Acid Calcium 7.2 L Phosphorus Magnesium Total Bilirubin AST ALT Alkaline Phosphatase Total Creatine Kinase Total Protein Albumin Globulin Albumin/Globulin Ratio Vancomycin Trough 20.9 H POC Glucose 178 H 12/28/17 12/28/17 12/28/17 01:07 03:45 03:45 WBC 14.8 H RBC 3.20 L Hgb 9.5 L Hct 28.8 L MCV 90.0 MCH 29.7 MCHC 33.0 RDW 14.8 H RDW Differential 48.8 H Plt Count 277 MPV 11.7 Immature Gran % (Auto) 0.500 Neut % (Auto) 76.6 H Lymph % (Auto) 15.9 L [place] % (Auto) 6.2 Eos % (Auto) 0.5 Baso % (Auto) 0.3 Absolute Neuts (auto) 11.3 H Absolute Lymphs (auto) 2.35 Total Counted Not Reportable Nucleated RBC % Differential Comment SCAN Diff Path Review Platelet Estimate ADEQUATE Plt Morphology Comment LARGE Polychromasia 1+ Hypochromasia 1+ Anisocytosis 1+ Microcytosis 1+ Absolute Retic PT INR Specimen Type Sample Site pH Bicarbonate Actual POC Total CO2 Base Excess O2 Saturation O2 % ABG pCO2 ABG pO2 Jeremie Test Respiration Rate O2 Delivery Device Vent Mode Tidal Volume POC PEEP Blood Gas Notified Whom Blood Gas Notified Time Sodium 146 H Potassium 4.0 Chloride 107 Carbon Dioxide 36.0 H Anion Gap 3 L BUN 31 H Creatinine 0.86 Estim Creat Clear Calc 105.05 Est GFR (MDRD) Af Amer 122 Est GFR (MDRD) Non-Af 101 BUN/Creatinine Ratio 36.3 H Glucose 180 H Lactic Acid Calcium 7.1 L Phosphorus Magnesium Total Bilirubin AST ALT Alkaline Phosphatase Total Creatine Kinase Total Protein Albumin Globulin Albumin/Globulin Ratio Vancomycin Trough POC Glucose 156 H 12/28/17 03:45 WBC RBC Hgb Hct MCV MCH MCHC RDW RDW Differential Plt Count MPV Immature Gran % (Auto) Neut % (Auto) Lymph % (Auto) [place] % (Auto) Eos % (Auto) Baso % (Auto) Absolute Neuts (auto) Absolute Lymphs (auto) Total Counted Nucleated RBC % Differential Comment Diff Path Review Platelet Estimate Plt Morphology Comment Polychromasia Hypochromasia Anisocytosis Microcytosis Absolute Retic PT 14.5 INR 1.1 Specimen Type Sample Site pH Bicarbonate Actual POC Total CO2 Base Excess O2 Saturation O2 % ABG pCO2 ABG pO2 Jeremie Test Respiration Rate O2 Delivery Device Vent Mode Tidal Volume POC PEEP Blood Gas Notified Whom Blood Gas Notified Time Sodium Potassium Chloride Carbon Dioxide Anion Gap BUN Creatinine Estim Creat Clear Calc Est GFR (MDRD) Af Amer Est GFR (MDRD) Non-Af BUN/Creatinine Ratio Glucose Lactic Acid Calcium Phosphorus Magnesium Total Bilirubin AST ALT Alkaline Phosphatase Total Creatine Kinase Total Protein Albumin Globulin Albumin/Globulin Ratio Vancomycin Trough POC Glucose Microbiology 12/22/17 11:40 Blood Culture (Wb) - Left Forearm Blood Culture - Final Gram Positive Cocci 12/22/17 11:25 Blood Culture (Wb) - Left Wrist Blood Culture - Final Gram Positive Cocci 12/27/17 06:40 Sputum, Induced/Lukens Gram Stain - Final 12/25/17 03:45 Blood Culture (Wb) - Anticubital Left Blood Culture - Preliminary 12/25/17 03:35 Blood Culture (Wb) - Anticubital Right Blood Culture - Preliminary 12/24/17 14:50 Blood Culture (Wb) - Left Wrist Blood Culture - Preliminary Meth. resistant Staph. aureus 12/26/17 07:00 Blood Culture (Wb) - Left Wrist Blood Culture - Preliminary 12/26/17 07:00 Mucosa - Nose Respiratory Panel (PCR) - Final 12/24/17 14:40 Blood Culture (Wb) - Right Wrist Blood Culture - Preliminary 12/20/17 23:25 Blood Culture (Wb) - Anticubital Right Blood Culture - Final Clinical Impression(s) from Imaging Studies Chest X-Ray 12/20/17 18:00 IMPRESSION: Patchy airspace opacities bilaterally which is likely infectious in etiology. Electronically Signed: Khadar Reardon, at 19:16 EDT Tel , Service support , Abdomen/Pelvis CT 12/20/17 18:10 IMPRESSION: There are degenerative changes in the visualized spine. There are disc herniations at T12-L1 and L1-2 with narrowing of the spinal canal. There is disc bulge and possible herniation at L3-4. There is diffuse fatty infiltration of the liver. There is mild splenomegaly. There is no ascites. There are no acute bowel abnormalities. There is no free air. There are small lymph nodes in the retroperitoneum. There is stranding around the distal aorta and iliac vessels. There is also stranding in the prevascular space. This can be seen with retroperitoneal fibrosis but is nonspecific. There are patchy airspace opacities scattered in both lung bases which are nonspecific and can be seen with a diffuse infectious process. A neoplastic process is also in the differential. There is no pleural effusion. The images are limited by motion artifact. Electronically Signed: Celena Ziegler MD at 20:09 EDT Tel Direct: [phone], Service support , Chest CTA 12/20/17 21:08 IMPRESSION: Distal pulmonary emboli cannot be excluded, especially in the right upper and lower lobes. The images are limited by motion artifact. There are patchy airspace opacities scattered throughout both lungs, likely a diffuse infectious process. Septic emboli cannot be excluded. A neoplastic process cannot be completely excluded but is less likely. There is no pleural effusion or significant lymphadenopathy. N.B. : The above information has been verbally conveyed by Celena Ziegler MD to Tatiana Arizmendi, Hospital- In-Patient RN, on 12/20/2017 22:48:42 (ET). Electronically Signed: Celena Ziegler MD at 22:33 EDT Tel Direct: [phone], Service support , Brain CT 12/20/17 21:32 IMPRESSION: No acute intracranial abnormality. Electronically Signed: Khadar Reardon, at 22:07 EDT Tel , Service support , Chest X-Ray 12/21/17 04:00 IMPRESSION: Worsening of bilateral nodular airspace disease most pronounced along the right upper lung periphery. This may represent a focal pneumonia, etiology such as emboli or neoplasm are not excluded. Electronically Signed: Vanna Briones MD at 6:49 EDT , Service support , Chest X-Ray 12/22/17 04:10 IMPRESSION: Mild worsening of bilateral lung masses and nodules. Considerations include septic emboli, metastatic disease or less likely multiple pneumonias. Electronically Signed: Celestine Madrid MD at 4:57 EDT , Service support , Chest X-Ray 12/22/17 08:20 IMPRESSION: 1. Appropriate positioning of endotracheal and enteric tubes. 2. Unchanged appearance of multiple pulmonary nodules and/or airspace consolidation. Electronically Signed: Sherice Leahy MD at 9:39 EDT , Service support , Lumbar Spine MRI 12/23/17 13:21 IMPRESSION: 1. Severe L5-S1 foraminal stenosis with a small disc protrusion contributory on the right. 2. Mild canal stenosis and moderate foraminal stenosis at L4-5. 3. Noncompressive spondylotic protrusions at T12-L1 and L1-2. Electronically Signed: Avis Metz MD at 16:43 EDT Tel , Service support , KUB X-Ray 12/23/17 13:50 IMPRESSION: Orogastric tube tip within the gastric fundus. Stable bilateral pulmonary infiltrates. Electronically Signed: Nehemiah Hicks at 14:57 EDT Tel , Service support , Chest X-Ray 12/25/17 06:52 IMPRESSION: Since prior study, there has been a progression of the bilateral pulmonary infiltrates. Electronically Signed: Buddy Tsai MD at 9:08 EDT Tel [phone], Service support , Chest X-Ray 12/26/17 16:40 IMPRESSION: Stable cardiopulmonary abnormalities. The endotracheal tube tip is positioned about 1.6 cm above the sweetie. Electronically Signed: Nehemiah Hicks, at 17:56 EDT Tel , Service support , Medical Necessity - Tobacco Use Smoking Status: Current every day smoker Tobacco Use: Cigarettes Assessment/Plan All Active Problems Acute hypoxic respiratory failure (Acute) Polysubstance (including opioids) dependence, daily use (Acute) Methamphetamine abuse (Acute) Severe sepsis (Acute) Bilateral community acquired pneumonia (Acute) Alcohol withdrawal (Acute) Non-STEMI (non-ST elevated myocardial infarction) (Acute) RECOMMENDATIONS: 1. Continue antibiotics per infectious diseases recommendations. 2. Continue Precedex and fentanyl as needed for sedation. 3. Discontinue Lasix, given elevated serum bicarbonate on chemistry profile. 4. Continue tube feeds 5. Continue scheduled bronchodilators and appropriate ICU prophylaxis. IMPRESSIONS: 1. Severe sepsis secondary to MRSA pneumonia and persistent staph bacteremia The patient has evidence of both MRSA pneumonia and persistent MRSA bacteremia. Cardiac workup, including transesophageal echocardiogram, revealed no evidence of valvular vegetations. Although no vegetations were identified, the patient may have experienced embolic phenomenon prior to his presentation to the hospital, especially in light of his chest radiograph and physical exam findings. We will plan to continue current supportive measures including antibiotics per infectious diseases recommendations and full mechanical ventilatory support. For now, weaning from mechanical ventilation, will be hindered by the patient's copious sputum production. Continue enteral tube feeds and appropriate ICU prophylaxis. Recommend continuing Precedex and fentanyl for sedation. Plan for daily paired spontaneous awakening and breathing trials. I would first like to see that the patient's fever curve and bacteremia improves prior to consideration for extubation. 2. Acute hypoxemic respiratory failure secondary to MRSA pneumonia Continue current supportive measures as noted above. Recommend waiting to aggressively wean the patient from mechanical ventilation until copious sputum production begins to decrease. Continue Precedex and fentanyl for sedation. Continue tube feeds along with appropriate ICU prophylaxis. IV Lasix will be placed on hold due to elevated serum bicarbonate level. 3. Toxic encephalopathy secondary to polysubstance abuse and alcohol withdrawal The patient remains on stable ventilator settings with appropriate gas exchange. Although the patient does have a history of polysubstance abuse, he is past the window for withdrawal symptoms at the current time. 4. Hypertensive urgency Blood pressures are currently under control. Continue beta-sarmad per cardiology recommendations. 5. Inadequate material resources/poor social support Complicates care, management, recovery and prognosis. The patient reportedly has a daughter, who resides in [place]. TIME: 35 minutes of critical care time, independent of procedures, was spent addressing the patient's severe sepsis secondary to MRSA pneumonia and persistent staph bacteremia, acute hypoxic respiratory failure, toxic encephalopathy, hypertensive urgency, review of all data and collaboration with the care team. ([id number]) Code Visit [id number]: [id number] Critical care first hour
[2017-12-28 06:50] LABS: Bedside Glucose 140 mg/dL (70-110)
[2017-12-28] MEDS: Acetaminophen 650 MG/20 ML UDC GT ×2 (07:49→20:31)
[2017-12-28] MEDS: Chlorhexidine 15 ML PO ×2 (07:52→20:30)
[2017-12-28] MEDS: Enoxaparin 80 MG/0.8 ML Syringe SC ×2 (08:52→20:31)
[2017-12-28] MEDS: Famotidine 20 MG Tablet GT ×2 (08:53→20:31)
[2017-12-28] MEDS: Carvedilol 6.25 MG Tablet GT ×2 (08:53→20:31)
--- NOTE | 2017-12-28 08:57 | PCM.PROGNOTE ---
Patient Problems: Active and Suspected Problems Acute hypoxic respiratory failure (Acute) Polysubstance (including opioids) dependence, daily use (Acute) Methamphetamine abuse (Acute) Severe sepsis (Acute) Bilateral community acquired pneumonia (Acute) Alcohol withdrawal (Acute) Non-STEMI (non-ST elevated myocardial infarction) (Acute) Subjective: Chief complaint: Follow-up after admission for septic shock secondary to MRSA bilateral community-acquired pneumonia complicated by acute hypoxic respiratory failure, persistent MRSA bacteremia and toxic encephalopathy and also found to have acute non-ST elevation HI. Patient seen and examined. No acute events overnight. Again, he started having spikes of high-grade fever since yesterday afternoon. His blood pressure and heart rate stable. He remains on mechanical ventilation, his FiO2 weaned down to 35%. - Physical Exam General: - - Sedated, intubated, arousable with verbal stimuli. HEENT: Atraumatic, PERRLA, EOMI, Normocephalic Oral: Moist Mucosa, No Gingival or Mucosal Lesions/ Ulcerations Neck: Supple, No JVD, Negative Carotid Bruits, Trachea Midline, Thyroid Normal Size and Texture Lungs: Clear to auscultation, No rhonchi, No wheeze, No rales, Diminished, Short of Breath Cardiovascular: Regular rate, Regular Rhythm, Normal S1, Normal S2, PMI Normal Abdomen: Bowel Sounds Present, Soft, Non Tender, Non-Distended, No Hepato-splenomegaly Extremities: No clubbing, No cyanosis, No edema Skin: No rashes, No breakdown Lymphatic: No Cervical, Supraclavicular, or Inguinal Adenopathy Neurological: Cranial nerves II-XII grossly intact, - - Moving all limbs. Psych/Mental Status: Agitated, Restless Vital Signs Temp Pulse Resp BP Pulse Ox 101.2 F H 71 25 H 115/69 99 12/28/17 08:00 12/28/17 08:00 12/28/17 08:00 12/28/17 08:00 12/28/17 08:00 Oxygen Flow Rate (L/min) 35 Oxygen Delivery Method Mechanical Ventilator Weight: 214 lb 8.156 oz Body Mass Index (BMI) 27.9 Intake and Output for Last 24 Hours 12/26/17 12/27/17 12/28/17 23:59 23:59 23:59 Intake Total 5441.4 / 5441.4 2575.7 / 2575.7 1430 / 1430 Output Total 1974 1300 / 1300 1750 / 1750 Balance 3466.4 / 3466.4 1275.7 / 1275.7 -320 / -320 Microbiology Past 72 Hours 12/27/17 06:40 Gram Stain - Final Sputum, Induced/Lukens Respiratory Culture - Preliminary Staphylococcus aureus Gram negative rohan 12/26/17 06:50 Blood Culture - Preliminary Blood Culture (Wb) - Right Forearm Staphylococcus aureus 12/26/17 07:00 Blood Culture - Preliminary Blood Culture (Wb) - Left Wrist Staphylococcus aureus 12/27/17 15:05 Blood Culture - Preliminary Blood Culture (Wb) - Right Wrist 12/27/17 14:55 Blood Culture - Preliminary Blood Culture (Wb) - Right Wrist 12/22/17 11:40 Blood Culture - Final Blood Culture (Wb) - Left Forearm Gram Positive Cocci 12/22/17 11:25 Blood Culture - Final Blood Culture (Wb) - Left Wrist Gram Positive Cocci 12/25/17 03:45 Blood Culture - Preliminary Blood Culture (Wb) - Anticubital Left 12/25/17 03:35 Blood Culture - Preliminary Blood Culture (Wb) - Anticubital Right 12/24/17 14:50 Blood Culture - Preliminary Blood Culture (Wb) - Left Wrist Meth. resistant Staph. aureus 12/26/17 07:00 Respiratory Panel (PCR) - Final Mucosa - Nose 12/24/17 14:40 Blood Culture - Preliminary Blood Culture (Wb) - Right Wrist 12/20/17 23:25 Blood Culture - Final Blood Culture (Wb) - Anticubital Right 12/23/17 13:20 Blood Culture - Preliminary Blood Culture (Wb) - Venous Gram Positive Cocci 12/23/17 13:25 Blood Culture - Preliminary Blood Culture (Wb) - Venous Gram Positive Cocci Laboratory Tests Past 24 Hrs 12/27/17 12/27/17 12/27/17 08:00 10:45 11:05 WBC 14.3 H RBC 3.49 L Hgb 10.7 L Hct 31.7 L MCV 90.8 MCH 30.7 MCHC 33.8 RDW 15.5 H RDW Differential 50.8 H Plt Count 300 MPV 12.4 H Immature Gran % (Auto) 1.500 H Neut % (Auto) 85.4 H Lymph % (Auto) 8.7 L [place] % (Auto) 3.8 Eos % (Auto) 0.4 Baso % (Auto) 0.2 Absolute Neuts (auto) 12.2 H Absolute Lymphs (auto) 1.24 Total Counted Not Reportable Nucleated RBC % 0.8 Differential Comment Diff Path Review May foll Platelet Estimate Plt Morphology Comment Polychromasia Hypochromasia Anisocytosis Microcytosis Absolute Retic 0.12 PT INR Sodium 144 Potassium 4.2 Chloride 106 Carbon Dioxide 31.0 Anion Gap 7 BUN 26 H Creatinine 0.61 L Estim Creat Clear Calc 148.10 Est GFR (MDRD) Af Amer 181 Est GFR (MDRD) Non-Af 150 BUN/Creatinine Ratio 42.7 H Glucose 191 H Calcium 7.2 L Vancomycin Trough 20.9 H 12/28/17 12/28/17 12/28/17 03:45 03:45 03:45 WBC 14.8 H RBC 3.20 L Hgb 9.5 L Hct 28.8 L MCV 90.0 MCH 29.7 MCHC 33.0 RDW 14.8 H RDW Differential 48.8 H Plt Count 277 MPV 11.7 Immature Gran % (Auto) 0.500 Neut % (Auto) 76.6 H Lymph % (Auto) 15.9 L [place] % (Auto) 6.2 Eos % (Auto) 0.5 Baso % (Auto) 0.3 Absolute Neuts (auto) 11.3 H Absolute Lymphs (auto) 2.35 Total Counted Not Reportable Nucleated RBC % Differential Comment SCAN Diff Path Review Platelet Estimate ADEQUATE Plt Morphology Comment LARGE Polychromasia 1+ Hypochromasia 1+ Anisocytosis 1+ Microcytosis 1+ Absolute Retic PT 14.5 INR 1.1 Sodium 146 H Potassium 4.0 Chloride 107 Carbon Dioxide 36.0 H Anion Gap 3 L BUN 31 H Creatinine 0.86 Estim Creat Clear Calc 105.05 Est GFR (MDRD) Af Amer 122 Est GFR (MDRD) Non-Af 101 BUN/Creatinine Ratio 36.3 H Glucose 180 H Calcium 7.1 L Vancomycin Trough POC Glucose 12/28/17 12/28/17 12/27/17 06:43 01:07 17:45 POC Glucose 140 H 156 H 178 H Medical Necessity - Tobacco Use Smoking Status: Current every day smoker Tobacco Use: Cigarettes Assessment/Plan All Active Problems Acute hypoxic respiratory failure (Acute) Polysubstance (including opioids) dependence, daily use (Acute) Methamphetamine abuse (Acute) Severe sepsis (Acute) Bilateral community acquired pneumonia (Acute) Alcohol withdrawal (Acute) Non-STEMI (non-ST elevated myocardial infarction) (Acute) This is a 47 years old presented to the emergency room with main presenting complaint of back pain and he was admitted as a case of community-acquired pneumonia with septic shock by criteria as well as alcohol withdrawal and his hospital course complicated by acute hypoxic respiratory failure required endotracheal intubation and mechanical ventilation as well as persistent MRSA bacteremia, toxic encephalopathy and hypertensive urgency. #1 septic shock: Secondary to pneumonia and bacteremia. Started on Telavancin. IV vancomycin discontinued. Still having spikes of high-grade fever overnight and yesterday evening. This morning, fever is down to 101 Fahrenheit. Blood pressure and heart rate stable, remained on mechanical ventilation and FiO2 weaned down to 35%. He is having persistent bacteremia. Blood cultures on 4 different days has been positive, most recently was yesterday. His lactic acid is back to normal. Infectious disease and critical care on the case. Plan to continue same treatment. #2 acute bilateral MRSA community-acquired pneumonia: He is on IV telavancin. Sputum culture revealed MRSA. Pneumococcal and Legionella antigen were negative. Blood cultures reviewed as above. His blood pressure maintained on fluids, no vasopressors needed. Plan to continue same treatment. #3 acute hypoxic respiratory failure: Secondary to above. Remains on mechanical ventilation and sedation. He is on propofol and fentanyl for sedation. FiO2 weaned down to 35%. #4 persistent MRSA bacteremia: Persistent bacteremia on multiple repeat blood cultures, most recently from yesterday. Probable source is the pneumonia but it has been persistent with persistent fever. Started on IV telavancin. Also, he is on therapeutic Lovenox twice daily for possible septic emboli or pulmonary emboli. CTA chest done for elevated d-dimer and revealed patchy airspace opacities throughout the both lungs could be due to infectious process versus septic emboli. CT scan abdomen and pelvis without contrast showed no acute intra-abdominal pathology except small lymph nodes in the retroperitoneum. 2D echocardiogram revealed ejection fraction 50-55%, no evidence of valve vegetations, RVSP of 43, mildly dilated right ventricle and borderline hypokinesis of the left ventricle. Because of persistent bacteremia, JOSE was done that showed no evidence of valve vegetations or masses, bubble contrast study negative for active shunt. In the search process of this persistent bacteremia, lumbar spine MRI with and without contrast done because patient complained of back pain and revealed severe L5-S1 foraminal stenosis, mild canal stenosis at L4-L5 and noncompressive spondylitic protrusions at T12-L1 and L1-L2, no evidence of abscess formation. Venous Doppler of the bilateral lower extremity performed and showed no evidence of acute DVT. Plan to continue same treatment. #5 non-ST elevation HI: This is likely due to demand ischemia secondary to above. 2D echocardiogram revealed ejection fraction of 50-55% as above. Cardiology on the case. Patient is on Coreg, therapeutic Lovenox twice daily. #6 toxic encephalopathy: Attributed to pneumonia, septic shock as well as polysubstance abuse and alcohol withdrawal. patient is remained on sedation. CT scan brain done on admission and showed no acute findings. #7 polysubstance abuse/alcohol withdrawal: Urine drug screen on admission was positive for opioids, amphetamines and cannabinoids. Blood alcohol level was 11. Patient is on propofol for sedation, on folic acid and thiamine supplement through the GT tube. #8 hypertensive urgency: This morning, blood pressure under better control. He is on IV metoprolol as needed and Coreg twice daily through GT tube. #9 DVT prophylaxis: He is on Lovenox therapeutic dose twice daily. This note was generated with [employer] dictation software. It may contain incorrect words, spelling, and punctuation that were not noted in checking the note before signing. Code Visit Inpatient E&M: 16833 Subs Hosp L3
[2017-12-28 11:30] LABS: CPK Total, Creatine Kinase 44 U/L (39-308); Triglycerides 402 mg/dL
[2017-12-28] MEDS: Vital AF 1.2 Cal Liquid 1,000 ML 70 ML GT (11:30)
[2017-12-28 12:16] LABS: Bedside Glucose 141 mg/dL (70-110)
[2017-12-28] MEDS: CHLORHEXIDINE GLUC 2% CLOTH 1 EACH TOWELETTE TOPICAL (16:17)
[2017-12-28] MEDS: Propofol 10MG/Ml 1,000 MG/100 ML Bottle 2.919 MG CONT INF (16:18)
[2017-12-28 18:11] LABS: Bedside Glucose 193 mg/dL (70-110)
[2017-12-29] VITALS (45 sets, daily range): BP systolic 87–159; BP diastolic 53–88; PULSE 59–84; RESP 12–36; TEMP 36.6–39.4; O2SAT 90–100
[2017-12-29] MEDS: Propofol 10MG/Ml 1,000 MG/100 ML Bottle 2.919 MG CONT INF ×4 (00:19→21:28)
[2017-12-29] MEDS: guaiFENesin 10 ML UDC (200MG/10ML) GT ×5 (00:20→23:34)
[2017-12-29] MEDS: Vital AF 1.2 Cal Liquid 1,000 ML 70 ML GT ×2 (00:20→22:19)
[2017-12-29] MEDS: Insulin Lispro 100 UNIT/ML INSULN.PEN SC ×4 (00:20→23:34)
[2017-12-29 00:31] LABS: Bedside Glucose 175 mg/dL (70-110)
[2017-12-29] MEDS: Ipratropium/Albuterol Sulfate 3 ML AMPUL.NEB INHALATION ×4 (01:35→18:50)
[2017-12-29 04:53] LABS: CPK Total, Creatine Kinase 27 U/L (39-308); Triglycerides 430 mg/dL
[2017-12-29] MEDS: Acetaminophen 650 MG/20 ML UDC GT ×2 (05:11→18:25)
[2017-12-29] MEDS: CHLORHEXIDINE GLUC 2% CLOTH 1 EACH TOWELETTE TOPICAL (05:32)
[2017-12-29 05:41] LABS: Bedside Glucose 196 mg/dL (70-110)
--- NOTE | 2017-12-29 07:30 | PCM.PN.INT ---
Subjective: The patient was seen and examined at the bedside this morning. Events from the last 24 hours have been reviewed. The patient continues to spike fevers but remains hemodynamically stable. The patient's blood cultures remain consistently positive despite a transition and antibiotics this past Saturday. Per nursing report, the patient did well with a spontaneous breathing trial this morning for approximately 30 minutes. He was able to follow commands for them. However, after approximately 30 minutes on CPAP, the patient became extremely agitated and anxious, requiring his sedation medications to be restarted. The patient also has a new right heel ulceration, which was reportedly draining this morning. Objective: The patient's most recent lab work, culture data and imaging studies have all been personally reviewed. Persistent gram-positive bacteremia noted dating back to December 20. Expectorated sputum culture from December 20 was positive for MRSA. Strep and urine Legionella antigens were both negative. A repeat sputum culture from December 28 revealed 3+ staph aureus and 1+ gram-negative rohan. General: - - Intubated, sedated and mechanically ventilated. The patient has been placed back on assist control mode mechanical ventilation. He is currently sedated once again. HEENT: Atraumatic, PERRLA, Normocephalic Oral: Moist Mucosa, - - Endotracheal and OG tubes in place. Neck: Supple, No Nodes, Trachea Midline Lungs: Diminished, Rhonchi Cardiovascular: Regular rate, Regular Rhythm, Normal S1, Normal S2, No murmurs, No rub noted, No Gallop Abdomen: Bowel Sounds Present, Soft, Non Tender Extremities: No clubbing, No cyanosis, Edema Skin: - - Right heel ulceration noted with superficial left heel ulceration. Musculoskeletal: No Muscle Wasting Lymphatic: No Cervical, Supraclavicular, or Inguinal Adenopathy Neurological: - - No focal deficits. Moving all extremities spontaneously. Once again sedated and not able to follow simple commands. Vital Signs Temp Pulse Resp BP Pulse Ox 99.8 F H 66 22 H 105/67 97 12/29/17 07:00 12/29/17 07:00 12/29/17 07:00 12/29/17 07:00 12/29/17 07:00 Oxygen Flow Rate (L/min) 35 Oxygen Delivery Method Mechanical Ventilator Weight: 214 lb 15.211 oz Body Mass Index (BMI) 27.9 Intake and Output for Last 24 Hours 12/27/17 12/28/1712/29/18 23:59 23:59 23:59 Intake Total 2575.7 / 2575.7 3397 / 3397 1181 / 1181 Output Total 1300 / 1300 2750 / 2750 1000 / 1000 Balance 1275.7 / 1275.7 647 / 647 181 / 181 Labs (Last 48 Hours) 12/27/17 12/27/17 12/27/17 08:00 10:45 11:05 WBC 14.3 H RBC 3.49 L Hgb 10.7 L Hct 31.7 L MCV 90.8 MCH 30.7 MCHC 33.8 RDW 15.5 H RDW Differential 50.8 H Plt Count 300 MPV 12.4 H Immature Gran % (Auto) 1.500 H Neut % (Auto) 85.4 H Lymph % (Auto) 8.7 L [place] % (Auto) 3.8 Eos % (Auto) 0.4 Baso % (Auto) 0.2 Absolute Neuts (auto) 12.2 H Absolute Lymphs (auto) 1.24 Total Counted Not Reportable Nucleated RBC % 0.8 Differential Comment Diff Path Review May foll Platelet Estimate Plt Morphology Comment Polychromasia Hypochromasia Anisocytosis Microcytosis Absolute Retic 0.12 PT INR Sodium 144 Potassium 4.2 Chloride 106 Carbon Dioxide 31.0 Anion Gap 7 BUN 26 H Creatinine 0.61 L Estim Creat Clear Calc 148.10 Est GFR (MDRD) Af Amer 181 Est GFR (MDRD) Non-Af 150 BUN/Creatinine Ratio 42.7 H Glucose 191 H Calcium 7.2 L Total Creatine Kinase Triglycerides Vancomycin Trough 20.9 H POC Glucose 12/27/17 12/28/17 12/28/17 17:45 01:07 03:45 WBC RBC Hgb Hct MCV MCH MCHC RDW RDW Differential Plt Count MPV Immature Gran % (Auto) Neut % (Auto) Lymph % (Auto) [place] % (Auto) Eos % (Auto) Baso % (Auto) Absolute Neuts (auto) Absolute Lymphs (auto) Total Counted Nucleated RBC % Differential Comment Diff Path Review Platelet Estimate Plt Morphology Comment Polychromasia Hypochromasia Anisocytosis Microcytosis Absolute Retic PT INR Sodium 146 H Potassium 4.0 Chloride 107 Carbon Dioxide 36.0 H Anion Gap 3 L BUN 31 H Creatinine 0.86 Estim Creat Clear Calc 105.05 Est GFR (MDRD) Af Amer 122 Est GFR (MDRD) Non-Af 101 BUN/Creatinine Ratio 36.3 H Glucose 180 H Calcium 7.1 L Total Creatine Kinase Triglycerides Vancomycin Trough POC Glucose 178 H 156 H 12/28/17 12/28/17 12/28/17 03:45 03:45 03:45 WBC 14.8 H RBC 3.20 L Hgb 9.5 L Hct 28.8 L MCV 90.0 MCH 29.7 MCHC 33.0 RDW 14.8 H RDW Differential 48.8 H Plt Count 277 MPV 11.7 Immature Gran % (Auto) 0.500 Neut % (Auto) 76.6 H Lymph % (Auto) 15.9 L [place] % (Auto) 6.2 Eos % (Auto) 0.5 Baso % (Auto) 0.3 Absolute Neuts (auto) 11.3 H Absolute Lymphs (auto) 2.35 Total Counted Not Reportable Nucleated RBC % Differential Comment SCAN Diff Path Review Platelet Estimate ADEQUATE Plt Morphology Comment LARGE Polychromasia 1+ Hypochromasia 1+ Anisocytosis 1+ Microcytosis 1+ Absolute Retic PT 14.5 INR 1.1 Sodium Potassium Chloride Carbon Dioxide Anion Gap BUN Creatinine Estim Creat Clear Calc Est GFR (MDRD) Af Amer Est GFR (MDRD) Non-Af BUN/Creatinine Ratio Glucose Calcium Total Creatine Kinase 44 Triglycerides 402 H Vancomycin Trough POC Glucose 12/28/17 12/28/17 12/28/17 06:43 12:06 17:52 WBC RBC Hgb Hct MCV MCH MCHC RDW RDW Differential Plt Count MPV Immature Gran % (Auto) Neut % (Auto) Lymph % (Auto) [place] % (Auto) Eos % (Auto) Baso % (Auto) Absolute Neuts (auto) Absolute Lymphs (auto) Total Counted Nucleated RBC % Differential Comment Diff Path Review Platelet Estimate Plt Morphology Comment Polychromasia Hypochromasia Anisocytosis Microcytosis Absolute Retic PT INR Sodium Potassium Chloride Carbon Dioxide Anion Gap BUN Creatinine Estim Creat Clear Calc Est GFR (MDRD) Af Amer Est GFR (MDRD) Non-Af BUN/Creatinine Ratio Glucose Calcium Total Creatine Kinase Triglycerides Vancomycin Trough POC Glucose 140 H 141 H 193 H 12/29/17 12/29/17 12/29/17 00:10 04:10 05:09 WBC RBC Hgb Hct MCV MCH MCHC RDW RDW Differential Plt Count MPV Immature Gran % (Auto) Neut % (Auto) Lymph % (Auto) [place] % (Auto) Eos % (Auto) Baso % (Auto) Absolute Neuts (auto) Absolute Lymphs (auto) Total Counted Nucleated RBC % Differential Comment Diff Path Review Platelet Estimate Plt Morphology Comment Polychromasia Hypochromasia Anisocytosis Microcytosis Absolute Retic PT INR Sodium Potassium Chloride Carbon Dioxide Anion Gap BUN Creatinine Estim Creat Clear Calc Est GFR (MDRD) Af Amer Est GFR (MDRD) Non-Af BUN/Creatinine Ratio Glucose Calcium Total Creatine Kinase 27 L Triglycerides 430 H Vancomycin Trough POC Glucose 175 H 196 H Microbiology 12/27/17 14:55 Blood Culture (Wb) - Right Wrist Blood Culture - Preliminary Staphylococcus aureus 12/26/17 06:50 Blood Culture (Wb) - Right Forearm Blood Culture - Preliminary Staphylococcus aureus 12/27/17 15:05 Blood Culture (Wb) - Right Wrist Blood Culture - Preliminary Staphylococcus aureus 12/26/17 07:00 Blood Culture (Wb) - Left Wrist Blood Culture - Preliminary Meth. resistant Staph. aureus 12/23/17 13:25 Blood Culture (Wb) - Venous Blood Culture - Final Staphylococcus aureus 12/23/17 13:20 Blood Culture (Wb) - Venous Blood Culture - Final Staphylococcus aureus 12/22/17 11:25 Blood Culture (Wb) - Left Wrist Bacteria Detection (PCR) - Final Staphylococcus aureus mecA Resistance Marker 12/22/17 11:25 Blood Culture (Wb) - Left Wrist Blood Culture - Final Gram Positive Cocci 12/27/17 06:40 Sputum, Induced/Lukens Gram Stain - Final 12/27/17 06:40 Sputum, Induced/Lukens Respiratory Culture - Preliminary Staphylococcus aureus Gram negative rohan 12/22/17 11:40 Blood Culture (Wb) - Left Forearm Blood Culture - Final Gram Positive Cocci 12/25/17 03:45 Blood Culture (Wb) - Anticubital Left Blood Culture - Preliminary 12/25/17 03:35 Blood Culture (Wb) - Anticubital Right Blood Culture - Preliminary 12/24/17 14:50 Blood Culture (Wb) - Left Wrist Blood Culture - Preliminary Meth. resistant Staph. aureus Clinical Impression(s) from Imaging Studies Chest X-Ray 12/20/17 18:00 IMPRESSION: Patchy airspace opacities bilaterally which is likely infectious in etiology. Electronically Signed: Khadar Diazs, at 19:16 EDT Tel , Service support , Abdomen/Pelvis CT 12/20/17 18:10 IMPRESSION: There are degenerative changes in the visualized spine. There are disc herniations at T12-L1 and L1-2 with narrowing of the spinal canal. There is disc bulge and possible herniation at L3-4. There is diffuse fatty infiltration of the liver. There is mild splenomegaly. There is no ascites. There are no acute bowel abnormalities. There is no free air. There are small lymph nodes in the retroperitoneum. There is stranding around the distal aorta and iliac vessels. There is also stranding in the prevascular space. This can be seen with retroperitoneal fibrosis but is nonspecific. There are patchy airspace opacities scattered in both lung bases which are nonspecific and can be seen with a diffuse infectious process. A neoplastic process is also in the differential. There is no pleural effusion. The images are limited by motion artifact. Electronically Signed: Celena Ziegler MD at 20:09 EDT Tel Direct: [phone], Service support , Chest CTA 12/20/17 21:08 IMPRESSION: Distal pulmonary emboli cannot be excluded, especially in the right upper and lower lobes. The images are limited by motion artifact. There are patchy airspace opacities scattered throughout both lungs, likely a diffuse infectious process. Septic emboli cannot be excluded. A neoplastic process cannot be completely excluded but is less likely. There is no pleural effusion or significant lymphadenopathy. N.B. : The above information has been verbally conveyed by Celena Ziegler MD to Tatiana Arizmendi, Hospital- In-Patient RN, on 12/20/2017 22:48:42 (ET). Electronically Signed: Celena Ziegler MD at 22:33 EDT Tel Direct: [phone], Service support , Brain CT 12/20/17 21:32 IMPRESSION: No acute intracranial abnormality. Electronically Signed: Khadar Reardon, at 22:07 EDT Tel , Service support , Chest X-Ray 12/21/17 04:00 IMPRESSION: Worsening of bilateral nodular airspace disease most pronounced along the right upper lung periphery. This may represent a focal pneumonia, etiology such as emboli or neoplasm are not excluded. Electronically Signed: Vanna Briones MD at 6:49 EDT , Service support , Chest X-Ray 12/22/17 04:10 IMPRESSION: Mild worsening of bilateral lung masses and nodules. Considerations include septic emboli, metastatic disease or less likely multiple pneumonias. Electronically Signed: Celestine Madrid MD at 4:57 EDT , Service support , Chest X-Ray 12/22/17 08:20 IMPRESSION: 1. Appropriate positioning of endotracheal and enteric tubes. 2. Unchanged appearance of multiple pulmonary nodules and/or airspace consolidation. Electronically Signed: Sherice Leahy MD at 9:39 EDT , Service support , Lumbar Spine MRI 12/23/17 13:21 IMPRESSION: 1. Severe L5-S1 foraminal stenosis with a small disc protrusion contributory on the right. 2. Mild canal stenosis and moderate foraminal stenosis at L4-5. 3. Noncompressive spondylotic protrusions at T12-L1 and L1-2. Electronically Signed: Avis Metz MD at 16:43 EDT Tel , Service support , KUB X-Ray 12/23/17 13:50 IMPRESSION: Orogastric tube tip within the gastric fundus. Stable bilateral pulmonary infiltrates. Electronically Signed: Nehemiah Hicks, at 14:57 EDT Tel , Service support , Chest X-Ray 12/25/17 06:52 IMPRESSION: Since prior study, there has been a progression of the bilateral pulmonary infiltrates. Electronically Signed: Buddy Tsai MD at 9:08 EDT Tel [phone], Service support , Chest X-Ray 12/26/17 16:40 IMPRESSION: Stable cardiopulmonary abnormalities. The endotracheal tube tip is positioned about 1.6 cm above the sweetie. Electronically Signed: Nehemiah Hicks, at 17:56 EDT Tel , Service support , Medical Necessity - Tobacco Use Smoking Status: Current every day smoker Tobacco Use: Cigarettes Assessment/Plan All Active Problems Acute hypoxic respiratory failure (Acute) Polysubstance (including opioids) dependence, daily use (Acute) Methamphetamine abuse (Acute) Severe sepsis (Acute) Bilateral community acquired pneumonia (Acute) Alcohol withdrawal (Acute) Non-STEMI (non-ST elevated myocardial infarction) (Acute) RECOMMENDATIONS: 1. Continue antibiotics per infectious diseases recommendations. Given gram-negative's noted and repeat sputum culture, Zosyn will be added. 2. Continue Precedex and fentanyl as needed for sedation. 3. Continue tube feeds 4. Continue scheduled bronchodilators and appropriate ICU prophylaxis. 5. Resend blood cultures today. Recheck CBC and BMP this morning. 6. Wound care consultation due to findings noted of right heel. 7. Obtain CT chest and abdomen/pelvis today. IMPRESSIONS: 1. Severe sepsis secondary to MRSA pneumonia and persistent staph bacteremia The patient has evidence of both MRSA pneumonia and persistent MRSA bacteremia. Cardiac workup, including transesophageal echocardiogram, revealed no evidence of valvular vegetations. Although no vegetations were identified, the patient may have experienced embolic phenomenon prior to his presentation to the hospital, especially in light of his chest radiograph and physical exam findings. We will plan to continue current supportive measures including antibiotics per infectious diseases recommendations and full mechanical ventilatory support. For now, weaning from mechanical ventilation, will be hindered by the patient's copious sputum production. Continue enteral tube feeds and appropriate ICU prophylaxis. Recommend continuing Precedex and fentanyl for sedation. Plan for daily paired spontaneous awakening and breathing trials. I would first like to see that the patient's fever curve and bacteremia improves prior to consideration for extubation. Given ongoing bacteremia and fevers, will obtain dedicated imaging of his chest, abdomen and pelvis. 2. Acute hypoxemic respiratory failure secondary to MRSA pneumonia Continue current supportive measures as noted above. Recommend waiting to aggressively wean the patient from mechanical ventilation until copious sputum production begins to decrease. Continue Precedex and fentanyl for sedation. Continue tube feeds along with appropriate ICU prophylaxis. IV Lasix will be placed on hold due to elevated serum bicarbonate level. 3. Toxic encephalopathy secondary to polysubstance abuse and alcohol withdrawal The patient remains on stable ventilator settings with appropriate gas exchange. Although the patient does have a history of polysubstance abuse, he is past the window for withdrawal symptoms at the current time. 4. Hypertensive urgency Blood pressures are currently under control. Continue beta-sarmad per cardiology recommendations. 5. Inadequate material resources/poor social support Complicates care, management, recovery and prognosis. The patient reportedly has a daughter, who resides in [place]. TIME: 37 minutes of critical care time, independent of procedures, was spent addressing the patient's severe sepsis secondary to MRSA pneumonia and persistent staph bacteremia, acute hypoxic respiratory failure, toxic encephalopathy, hypertensive urgency, review of all data and collaboration with the care team. ([id number]) Code Visit 9xxxx: [id number] Critical care first hour
--- NOTE | 2017-12-29 08:46 | PN_ITS ---
Patient Problems: Active and Suspected Problems Acute hypoxic respiratory failure (Acute) Polysubstance (including opioids) dependence, daily use (Acute) Methamphetamine abuse (Acute) Severe sepsis (Acute) Bilateral community acquired pneumonia (Acute) Alcohol withdrawal (Acute) Non-STEMI (non-ST elevated myocardial infarction) (Acute) Subjective: Chief complaint: Follow-up after admission for septic shock secondary to MRSA bilateral community-acquired pneumonia complicated by acute hypoxic respiratory failure, persistent MRSA bacteremia and toxic encephalopathy and also found to have acute non-ST elevation HI. Patient seen and examined. He continued to have spikes of fever, his blood pressure and heart rate are maintained stable. His blood culture has been persistently positive. He has blood cultures on 7 different days and is still positive. This morning, he did okay with spontaneous breathing trial but then he became agitated and restless and was started back on sedation. - Physical Exam General: - - Minimally responsive, sedated, intubated. HEENT: Atraumatic, PERRLA, EOMI, Normocephalic Oral: Moist Mucosa, No Gingival or Mucosal Lesions/ Ulcerations Neck: Supple, No JVD, Negative Carotid Bruits, Trachea Midline, Thyroid Normal Size and Texture Lungs: Clear to auscultation, No wheeze, No rales, Diminished, Rhonchi Cardiovascular: Regular rate, Regular Rhythm, Normal S1, Normal S2, PMI Normal Abdomen: Bowel Sounds Present, Soft, Non Tender, Non-Distended, No Hepato- splenomegaly, Distended Extremities: No clubbing, No cyanosis, No edema Skin: No rashes, Ulcer/ Wound Lymphatic: No Cervical, Supraclavicular, or Inguinal Adenopathy Neurological: Neuro grossly intact, - - No obvious cranial nerve deficit, moving all limbs. Vital Signs Temp Pulse Resp BP Pulse Ox 99.4 F H 64 25 H 108/71 98 12/29/17 08:00 12/29/17 08:00 12/29/17 08:00 12/29/17 08:00 12/29/17 08:00 Oxygen Flow Rate (L/min) 35 Oxygen Delivery Method Mechanical Ventilator Weight: 214 lb 15.211 oz Body Mass Index (BMI) 27.9 Intake and Output for Last 24 Hours 12/27/17 12/28/17 12/29/17 23:59 23:59 23:59 Intake Total 2575.7 / 2575.7 3397 / 3397 1293 / 1293 Output Total 1300 / 1300 2750 / 2750 1000 / 1000 Balance 1275.7 / 1275.7 647 / 647 293 / 293 Microbiology Past 72 Hours 12/27/17 06:40 Gram Stain - Final Sputum, Induced/Lukens Respiratory Culture - Final Meth. resistant Staph. aureus Enterobacter cloacae complex 12/27/17 14:55 Blood Culture - Preliminary Blood Culture (Wb) - Right Wrist Staphylococcus aureus 12/26/17 06:50 Blood Culture - Preliminary Blood Culture (Wb) - Right Forearm Staphylococcus aureus 12/27/17 15:05 Blood Culture - Preliminary Blood Culture (Wb) - Right Wrist Staphylococcus aureus 12/26/17 07:00 Blood Culture - Preliminary Blood Culture (Wb) - Left Wrist Meth. resistant Staph. aureus 12/23/17 13:25 Blood Culture - Final Blood Culture (Wb) - Venous Staphylococcus aureus 12/23/17 13:20 Blood Culture - Final Blood Culture (Wb) - Venous Staphylococcus aureus 12/22/17 11:25 Bacteria Detection (PCR) - Final Blood Culture (Wb) - Left Wrist Staphylococcus aureus mecA Resistance Marker Blood Culture - Final Gram Positive Cocci 12/22/17 11:40 Blood Culture - Final Blood Culture (Wb) - Left Forearm Gram Positive Cocci 12/25/17 03:45 Blood Culture - Preliminary Blood Culture (Wb) - Anticubital Left 12/25/17 03:35 Blood Culture - Preliminary Blood Culture (Wb) - Anticubital Right 12/24/17 14:50 Blood Culture - Preliminary Blood Culture (Wb) - Left Wrist Meth. resistant Staph. aureus 12/26/17 07:00 Respiratory Panel (PCR) - Final Mucosa - Nose 12/24/17 14:40 Blood Culture - Preliminary Blood Culture (Wb) - Right Wrist 12/20/17 23:25 Blood Culture - Final Blood Culture (Wb) - Anticubital Right Laboratory Tests Past 24 Hrs 12/28/17 12/29/17 03:45 04:10 Total Creatine Kinase 44 27 L Triglycerides 402 H 430 H POC Glucose 12/29/17 12/29/17 12/28/17 05:09 00:10 17:52 POC Glucose 196 H 175 H 193 H 12/28/17 12:06 POC Glucose 141 H Medical Necessity - Tobacco Use Smoking Status: Current every day smoker Tobacco Use: Cigarettes Assessment/Plan All Active Problems Acute hypoxic respiratory failure (Acute) Polysubstance (including opioids) dependence, daily use (Acute) Methamphetamine abuse (Acute) Severe sepsis (Acute) Bilateral community acquired pneumonia (Acute) Alcohol withdrawal (Acute) Non-STEMI (non-ST elevated myocardial infarction) (Acute) This is a 47 years old presented to the emergency room with main presenting complaint of back pain and he was admitted as a case of community-acquired pneumonia with septic shock by criteria as well as alcohol withdrawal and his hospital course complicated by acute hypoxic respiratory failure required endotracheal intubation and mechanical ventilation as well as persistent MRSA bacteremia, toxic encephalopathy and hypertensive urgency. #1 septic shock: Secondary to pneumonia and bacteremia. He is on day 2 of Telavancin. IV vancomycin discontinued. Still having spikes of high-grade fever overnight and yesterday evening. Blood pressure and heart rate stable, remained on mechanical ventilation did okay on spontaneous breathing trial today but started back on sedation because of extreme agitation. Blood culture is still positive. Infectious disease and critical care on the case. Plan to continue same treatment, CT scan chest, abdomen and pelvis searching for other source of bacteremia. #2 acute bilateral MRSA community-acquired pneumonia: He is on IV telavancin. Sputum culture revealed MRSA. Pneumococcal and Legionella antigen were negative. Blood cultures from 7 different days are still positive. His blood pressure maintained on fluids, no vasopressors needed. Plan to do CT scan chest , abdomen and pelvis to see if there is any other sources of bacteremia. #3 acute hypoxic respiratory failure: Secondary to above. Remains on mechanical ventilation and sedation. He is on propofol and fentanyl for sedation. This morning, he did well on spontaneous breathing trial but started back on sedation because of agitation. #4 persistent MRSA bacteremia: Persistent bacteremia on multiple repeat blood cultures on 7 different days are still positive. Probable source is the pneumonia but it has been persistent with persistent fever, other sources cannot be ruled out. He is on IV telavancin. Also, he is on therapeutic Lovenox twice daily for possible septic emboli or pulmonary emboli. CTA chest done for elevated d-dimer and revealed patchy airspace opacities throughout the both lungs could be due to infectious process versus septic emboli. CT scan abdomen and pelvis without contrast showed no acute intra-abdominal pathology except small lymph nodes in the retroperitoneum. 2D echocardiogram revealed ejection fraction 50-55%, no evidence of valve vegetations, RVSP of 43, mildly dilated right ventricle and borderline hypokinesis of the left ventricle. Because of persistent bacteremia, JOSE was done that showed no evidence of valve vegetations or masses, bubble contrast study negative for active shunt. In the search process of this persistent bacteremia, lumbar spine MRI with and without contrast done because patient complained of back pain and revealed severe L5-S1 foraminal stenosis, mild canal stenosis at L4-L5 and noncompressive spondylitic protrusions at T12-L1 and L1-L2, no evidence of abscess formation. Venous Doppler of the bilateral lower extremity performed and showed no evidence of acute DVT. Plan to do CT scan chest, abdomen and pelvis looking for other sources of bacteremia. #5 non-ST elevation HI: This is likely due to demand ischemia secondary to above. 2D echocardiogram revealed ejection fraction of 50-55% as above. Cardiology on the case. Patient is on Coreg, therapeutic Lovenox twice daily. #6 toxic encephalopathy: Attributed to pneumonia, septic shock as well as polysubstance abuse and alcohol withdrawal. patient is remained on sedation. CT scan brain done on admission and showed no acute findings. #7 polysubstance abuse/alcohol withdrawal: Urine drug screen on admission was positive for opioids, amphetamines and cannabinoids. Blood alcohol level was 11. Patient is on propofol for sedation, on folic acid and thiamine supplement through the GT tube. #8 hypertensive urgency: This morning, blood pressure under better control. He is on IV metoprolol as needed and Coreg twice daily through GT tube. #9 DVT prophylaxis: He is on Lovenox therapeutic dose twice daily. This note was generated with [employer] dictation software. It may contain incorrect words, spelling, and punctuation that were not noted in checking the note before signing. Code Visit Inpatient E&M: 75634 [facility] L[facility]
[2017-12-29] MEDS: Chlorhexidine 15 ML PO ×2 (09:32→21:16)
[2017-12-29] MEDS: 0.9% NaCl Peripheral Flush Adult/Peds IV ×3 (09:32→16:26)
[2017-12-29] MEDS: Carvedilol 6.25 MG Tablet GT ×2 (12:21→21:16)
[2017-12-29] MEDS: Famotidine 20 MG Tablet GT ×2 (12:22→21:15)
[2017-12-29] MEDS: Enoxaparin 80 MG/0.8 ML Syringe SC ×2 (12:22→21:15)
[2017-12-29 12:53] LABS: Absolute Lymphocyte Count 1.84 X10^3/ul (0.83-4.51); Absolute Neutrophil Count 11.6 X10^3/uL (2.0-7.7); Basophil# 0.03 X10^3/uL; Basophil% 0.2 % (0-1); Eosinophil# 0.08 X10^3/uL; Eosinophils% 0.6 % (0-5); Hematocrit 28.1 % (40-54); Hemoglobin 9.1 g/dl (13.0-16.5); Lymphocyte # 1.84 X10^3/ul (4.0); Lymphocyte % 12.8 % (19-41); Mean Corp Hgb Conc 32.4 g/gl (32-36); Mean Corpuscular Hgb 29.2 pg (27.0-32.0); Mean Corpuscular Volume 90.1 fL (80-94); Mean Platelet Vol. 12.2 fl (6.2-12.0); Monocyte# 0.74 X10^3/uL; Monocyte% 5.2 % (0-10); Neutrophil # 11.56 X10^3/uL (2.7-7.7); Neutrophil % 80.6 % (47-70); Platelet Count 306 K/mm3 (150-450); RBC Distribution Width CV 15.1 % (11.6-14.6); RBC Distribution Width SD 49.4 fl (35.1-43.9); Red Blood Count 3.12 M/mm3 (4.6-6.2); White Blood Count 14.3 K/mm3 (4.4-11.0)
[2017-12-29 12:54] LABS: Differential Indicated SCAN CRITERIA MET; POSITIVE COUNT NO; POSITIVE DIFFERENTIAL NO; POSITIVE MORPHOLOGY YES
[2017-12-29 12:57] LABS: Anion Gap 7 (5-15); BUN 29 mg/dL (7-18); BUN/Creat Ratio 38.9 RATIO (10-20); Calcium,Total 7.5 mg/dL (8.5-10.1); Chloride 108 mmol/L (98-107); Creatinine, Serum 0.75 mg/dL (0.70-1.30); EST Glomerular Filtration Rate 118 mL/min (>60); Est Glom Filt Rate - Afr Amer 143 mL/min (>60); Estimated Creatinine Clearance 120.45 ml/min; Glucose 204 mg/dL (74-106); Sodium Level 148 mmol/L (136-145)
[2017-12-29 13:20] LABS: Hypochromasia 1+; Platelet Estimate ADEQUATE (ADEQ); Platelet Morphology LARGE
[2017-12-29] MEDS: Piperacil/Tazobactam 3.375 GM/50 ML ML IV ×2 (13:40→21:15)
[2017-12-29 16:41] LABS: Bedside Glucose 123 mg/dL (70-110)
[2017-12-29 23:41] LABS: Bedside Glucose 167 mg/dL (70-110)
[2017-12-30] VITALS (25 sets, daily range): BP systolic 91–118; BP diastolic 57–74; PULSE 63–90; RESP 12–36; TEMP 37.3–38.4; O2SAT 90–99
[2017-12-30] MEDS: guaiFENesin 10 ML UDC (200MG/10ML) GT ×2 (05:57→08:48)
[2017-12-30] MEDS: Piperacil/Tazobactam 3.375 GM/50 ML ML IV ×2 (05:57→14:21)
[2017-12-30 05:58] LABS: Anion Gap 7 (5-15); BUN 27 mg/dL (7-18); Calcium,Total 7.3 mg/dL (8.5-10.1); Chloride 109 mmol/L (98-107); Creatinine, Serum 0.82 mg/dL (0.70-1.30); EST Glomerular Filtration Rate 106 mL/min (>60); Est Glom Filt Rate - Afr Amer 129 mL/min (>60); Estimated Creatinine Clearance 110.17 ml/min; Glucose 171 mg/dL (74-106); Potassium 4.4 mmol/L (3.5-5.1); Sodium Level 148 mmol/L (136-145)
[2017-12-30] MEDS: Insulin Lispro 100 UNIT/ML INSULN.PEN SC ×2 (05:58→12:55)
[2017-12-30 06:01] LABS: Bedside Glucose 200 mg/dL (70-110)
[2017-12-30 06:18] LABS: Absolute Lymphocyte Count 1.64 X10^3/ul (0.83-4.51); Absolute Neutrophil Count 11.5 X10^3/uL (2.0-7.7); Basophil# 0.02 X10^3/uL; Basophil% 0.1 % (0-1); Eosinophil# 0.06 X10^3/uL; Eosinophils% 0.4 % (0-5); Hematocrit 26.6 % (40-54); Hemoglobin 8.5 g/dl (13.0-16.5); Lymphocyte # 1.64 X10^3/ul (4.0); Lymphocyte % 11.8 % (19-41); Mean Corpuscular Hgb 28.9 pg (27.0-32.0); Mean Corpuscular Volume 90.5 fL (80-94); Mean Platelet Vol. 12.1 fl (6.2-12.0); Monocyte# 0.65 X10^3/uL; Monocyte% 4.7 % (0-10); Neutrophil # 11.47 X10^3/uL (2.7-7.7); Neutrophil % 82.4 % (47-70); Platelet Count 326 K/mm3 (150-450); RBC Distribution Width CV 14.8 % (11.6-14.6); RBC Distribution Width SD 49.3 fl (35.1-43.9); Red Blood Count 2.94 M/mm3 (4.6-6.2)
--- NOTE | 2017-12-30 06:30 | PCM.PN.INT ---
Subjective: The patient was seen and examined at the bedside this morning. Events from the last 24 hours have been reviewed. The patient continues to be febrile. FiO2 has been weaned to 35%. Blood cultures are consistently positive still. The patient's T-max overnight was noted to be 103?. Once again, attempts to wean sedation has led to a significant amount of agitation. Objective: The patient's most recent lab work, culture data and imaging studies have all been personally reviewed. Persistent gram-positive bacteremia noted dating back to December 20. Expectorated sputum culture from December 20 was positive for MRSA. Strep and urine Legionella antigens were both negative. A repeat sputum culture from December 28 revealed 3+ staph aureus and 1+ gram-negative rohan. CT abdomen/pelvis completed on December 29 revealed bilateral pleural effusions with compressive atelectasis and multiple cavitary nodules of varying sizes. There was also note of an ill-defined low-attenuation in the lumbosacral region involving the prevertebral space, with concern for phlegmonous changes or abscess. CT chest revealed bilateral patchy airspace consolidation as well as diffuse cavitary and non-cavitary nodules, worsened since previous exam. General: - - Intubated, sedated and mechanically ventilated. HEENT: Atraumatic, PERRLA, Normocephalic Oral: Moist Mucosa, - - Endotracheal and OG tubes remain in place. Neck: Supple, No Nodes, Trachea Midline Lungs: Diminished, Rhonchi Cardiovascular: Regular rate, Regular Rhythm, Normal S1, Normal S2, No murmurs Abdomen: Bowel Sounds Present, Soft, Non Tender Extremities: No clubbing, No cyanosis, Edema Skin: - - Bilateral heel ulcerations Musculoskeletal: No Tenderness to Palpation of Joints or Extremities Lymphatic: No Cervical, Supraclavicular, or Inguinal Adenopathy Neurological: - - No focal deficits. Moves all extremities spontaneously. Vital Signs Temp Pulse Resp BP Pulse Ox 100.7 F H 77 25 H 114/71 98 12/30/17 06:00 12/30/17 06:00 12/30/17 06:00 12/30/17 06:00 12/30/17 06:00 Oxygen Flow Rate (L/min) 35 Oxygen Delivery Method Mechanical Ventilator Weight: 221 lb 1.978 oz Body Mass Index (BMI) 27.9 Intake and Output for Last 24 Hours 12/28/17 12/29/17 12/30/17 23:59 23:59 23:59 Intake Total 3397 / 3397 4446.1 / 4446.1 1446.7 / 1446.7 Output Total 2750 / 2750 2250 / 2250 150 / 150 Balance 647 / 647 2196.1 / 2196.1 1296.7 / 1296.7 Labs (Last 48 Hours) 12/28/17 12/28/17 12/28/17 03:45 06:43 12:06 WBC RBC Hgb Hct MCV MCH MCHC RDW RDW Differential Plt Count MPV Immature Gran % (Auto) Neut % (Auto) Lymph % (Auto) [place] % (Auto) Eos % (Auto) Baso % (Auto) Absolute Neuts (auto) Absolute Lymphs (auto) Total Counted Platelet Estimate Plt Morphology Comment Hypochromasia Sodium Potassium Chloride Carbon Dioxide Anion Gap BUN Creatinine Estim Creat Clear Calc Est GFR (MDRD) Af Amer Est GFR (MDRD) Non-Af BUN/Creatinine Ratio Glucose Calcium Total Creatine Kinase 44 Triglycerides 402 H POC Glucose 140 H 141 H 12/28/17 12/29/17 12/29/17 17:52 00:10 04:10 WBC RBC Hgb Hct MCV MCH MCHC RDW RDW Differential Plt Count MPV Immature Gran % (Auto) Neut % (Auto) Lymph % (Auto) [place] % (Auto) Eos % (Auto) Baso % (Auto) Absolute Neuts (auto) Absolute Lymphs (auto) Total Counted Platelet Estimate Plt Morphology Comment Hypochromasia Sodium Potassium Chloride Carbon Dioxide Anion Gap BUN Creatinine Estim Creat Clear Calc Est GFR (MDRD) Af Amer Est GFR (MDRD) Non-Af BUN/Creatinine Ratio Glucose Calcium Total Creatine Kinase 27 L Triglycerides 430 H POC Glucose 193 H 175 H 12/29/17 12/29/17 12/29/17 04:10 04:10 05:09 WBC 14.3 H RBC 3.12 L Hgb 9.1 L Hct 28.1 L MCV 90.1 MCH 29.2 MCHC 32.4 RDW 15.1 H RDW Differential 49.4 H Plt Count 306 MPV 12.2 H Immature Gran % (Auto) 0.600 Neut % (Auto) 80.6 H Lymph % (Auto) 12.8 L [place] % (Auto) 5.2 Eos % (Auto) 0.6 Baso % (Auto) 0.2 Absolute Neuts (auto) 11.6 H Absolute Lymphs (auto) 1.84 Total Counted Not Reportable Platelet Estimate ADEQUATE Plt Morphology Comment LARGE Hypochromasia 1+ Sodium 148 H Potassium 4.0 Chloride 108 H Carbon Dioxide 33.0 H Anion Gap 7 BUN 29 H Creatinine 0.75 Estim Creat Clear Calc 120.45 Est GFR (MDRD) Af Amer 143 Est GFR (MDRD) Non-Af 118 BUN/Creatinine Ratio 38.9 H Glucose 204 H Calcium 7.5 L Total Creatine Kinase Triglycerides POC Glucose 196 H 12/29/17 12/29/17 12/30/17 16:20 23:26 04:20 WBC Pending RBC Pending Hgb Pending Hct Pending MCV Pending MCH Pending MCHC Pending RDW Pending RDW Differential Pending Plt Count Pending MPV Immature Gran % (Auto) Neut % (Auto) Pending Lymph % (Auto) [place] % (Auto) Eos % (Auto) Baso % (Auto) Absolute Neuts (auto) Pending Absolute Lymphs (auto) Total Counted Pending Platelet Estimate Plt Morphology Comment Hypochromasia Sodium Potassium Chloride Carbon Dioxide Anion Gap BUN Creatinine Estim Creat Clear Calc Est GFR (MDRD) Af Amer Est GFR (MDRD) Non-Af BUN/Creatinine Ratio Glucose Calcium Total Creatine Kinase Triglycerides POC Glucose 123 H 167 H 12/30/17 12/30/17 04:20 05:56 WBC RBC Hgb Hct MCV MCH MCHC RDW RDW Differential Plt Count MPV Immature Gran % (Auto) Neut % (Auto) Lymph % (Auto) [place] % (Auto) Eos % (Auto) Baso % (Auto) Absolute Neuts (auto) Absolute Lymphs (auto) Total Counted Platelet Estimate Plt Morphology Comment Hypochromasia Sodium 148 H Potassium 4.4 Chloride 109 H Carbon Dioxide 32.0 Anion Gap 7 BUN 27 H Creatinine 0.82 Estim Creat Clear Calc 110.17 Est GFR (MDRD) Af Amer 129 Est GFR (MDRD) Non-Af 106 BUN/Creatinine Ratio 33.0 H Glucose 171 H Calcium 7.3 L Total Creatine Kinase Triglycerides POC Glucose 200 H Microbiology 12/29/17 12:45 Blood Culture (Wb) - No Site/Description Given Blood Culture - Preliminary 12/29/17 15:25 Stool C. difficile DNA Amplification - Final 12/27/17 06:40 Sputum, Induced/[place]uk[place] Gram Stain - Final 12/27/17 06:40 Sputum, Induced/[place]ukens Respiratory Culture - Final Meth. resistant Staph. aureus Enterobacter cloacae complex 12/27/17 14:55 Blood Culture (Wb) - Right Wrist Blood Culture - Preliminary Staphylococcus aureus 12/26/17 06:50 Blood Culture (Wb) - Right Forearm Blood Culture - Preliminary Staphylococcus aureus 12/27/17 15:05 Blood Culture (Wb) - Right Wrist Blood Culture - Preliminary Staphylococcus aureus 12/26/17 07:00 Blood Culture (Wb) - Left Wrist Blood Culture - Preliminary Meth. resistant Staph. aureus 12/23/17 13:25 Blood Culture (Wb) - Venous Blood Culture - Final Staphylococcus aureus 12/23/17 13:20 Blood Culture (Wb) - Venous Blood Culture - Final Staphylococcus aureus 12/22/17 11:25 Blood Culture (Wb) - Left Wrist Bacteria Detection (PCR) - Final Staphylococcus aureus mecA Resistance Marker 12/22/17 11:25 Blood Culture (Wb) - Left Wrist Blood Culture - Final Gram Positive Cocci Clinical Impression(s) from Imaging Studies Chest X-Ray 12/20/17 18:00 IMPRESSION: Patchy airspace opacities bilaterally which is likely infectious in etiology. Electronically Signed: Khadar Reardon, at 19:16 EDT Tel , Service support , Abdomen/Pelvis CT 12/20/17 18:10 IMPRESSION: There are degenerative changes in the visualized spine. There are disc herniations at T12-L1 and L1-2 with narrowing of the spinal canal. There is disc bulge and possible herniation at L3-4. There is diffuse fatty infiltration of the liver. There is mild splenomegaly. There is no ascites. There are no acute bowel abnormalities. There is no free air. There are small lymph nodes in the retroperitoneum. There is stranding around the distal aorta and iliac vessels. There is also stranding in the prevascular space. This can be seen with retroperitoneal fibrosis but is nonspecific. There are patchy airspace opacities scattered in both lung bases which are nonspecific and can be seen with a diffuse infectious process. A neoplastic process is also in the differential. There is no pleural effusion. The images are limited by motion artifact. Electronically Signed: Celena Ziegler MD at 20:09 EDT Tel Direct: [phone], Service support , Chest CTA 12/20/17 21:08 IMPRESSION: Distal pulmonary emboli cannot be excluded, especially in the right upper and lower lobes. The images are limited by motion artifact. There are patchy airspace opacities scattered throughout both lungs, likely a diffuse infectious process. Septic emboli cannot be excluded. A neoplastic process cannot be completely excluded but is less likely. There is no pleural effusion or significant lymphadenopathy. N.B. : The above information has been verbally conveyed by Celena Ziegler MD to Tatiana Arizmendi, [facility]- In-Patient RN, on 12/20/2017 22:48:42 (ET). Electronically Signed: Celena Ziegler MD at 22:33 EDT Tel Direct: [phone], Service support , Brain CT 12/20/17 21:32 IMPRESSION: No acute intracranial abnormality. Electronically Signed: Khadar Reardon at 22:07 EDT Tel , Service support , Chest X-Ray 12/21/17 04:00 IMPRESSION: Worsening of bilateral nodular airspace disease most pronounced along the right upper lung periphery. This may represent a focal pneumonia, etiology such as emboli or neoplasm are not excluded. Electronically Signed: Vanna Briones MD at 6:49 EDT , Service support , Chest X-Ray 12/22/17 04:10 IMPRESSION: Mild worsening of bilateral lung masses and nodules. Considerations include septic emboli, metastatic disease or less likely multiple pneumonias. Electronically Signed: Celestine Madrid MD at 4:57 EDT , Service support , Chest X-Ray 12/22/17 08:20 IMPRESSION: 1. Appropriate positioning of endotracheal and enteric tubes. 2. Unchanged appearance of multiple pulmonary nodules and/or airspace consolidation. Electronically Signed: Sherice Leahy MD at 9:39 EDT , Service support , Lumbar Spine MRI 12/23/17 13:21 IMPRESSION: 1. Severe L5-S1 foraminal stenosis with a small disc protrusion contributory on the right. 2. Mild canal stenosis and moderate foraminal stenosis at L4-5. 3. Noncompressive spondylotic protrusions at T12-L1 and L1-2. Electronically Signed: Avis Metz MD at 16:43 EDT Tel , Service support , KUB X-Ray 12/23/17 13:50 IMPRESSION: Orogastric tube tip within the gastric fundus. Stable bilateral pulmonary infiltrates. Electronically Signed: Nehemiah Hicks at 14:57 EDT Tel , Service support , Chest X-Ray 12/25/17 06:52 IMPRESSION: Since prior study, there has been a progression of the bilateral pulmonary infiltrates. Electronically Signed: Buddy Tsai MD at 9:08 EDT Tel [phone], Service support , Chest X-Ray 12/26/17 16:40 IMPRESSION: Stable cardiopulmonary abnormalities. The endotracheal tube tip is positioned about 1.6 cm above the sweetie. Electronically Signed: Nehemiah Hicks at 17:56 EDT Tel , Service support , Abdomen/Pelvis CT 12/29/17 08:[address] 12/29/17 08:29 Medical Necessity - Tobacco Use Smoking Status: Current every day smoker Tobacco Use: Cigarettes Assessment/Plan All Active Problems Acute hypoxic respiratory failure (Acute) Polysubstance (including opioids) dependence, daily use (Acute) Methamphetamine abuse (Acute) Severe sepsis (Acute) Bilateral community acquired pneumonia (Acute) Alcohol withdrawal (Acute) Non-STEMI (non-ST elevated myocardial infarction) (Acute) RECOMMENDATIONS: 1. Continue antibiotics per infectious diseases recommendations. 2. Continue Precedex and fentanyl as needed for sedation. 3. Continue tube feeds 4. Continue scheduled bronchodilators and appropriate ICU prophylaxis. 5. Wound care consultation due to findings noted of right heel. 6. Given findings noted on CT abdomen/pelvis, will plan to repeat MRI of the patient's L spine. IMPRESSIONS: 1. Severe sepsis secondary to MRSA pneumonia and persistent staph bacteremia The patient has evidence of both MRSA pneumonia and persistent MRSA bacteremia. Cardiac workup, including transesophageal echocardiogram, revealed no evidence of valvular vegetations. Although no vegetations were identified, the patient may have experienced embolic phenomenon prior to his presentation to the hospital, especially in light of his chest radiograph and physical exam findings. We will plan to continue current supportive measures including antibiotics per infectious diseases recommendations and full mechanical ventilatory support. For now, weaning from mechanical ventilation, will be hindered by the patient's copious sputum production. Continue enteral tube feeds and appropriate ICU prophylaxis. Recommend continuing Precedex and fentanyl for sedation. Plan for daily paired spontaneous awakening and breathing trials. I would first like to see that the patient's fever curve and bacteremia improves prior to consideration for extubation. A CT abdomen and pelvis along with CT chest was completed on December 29 with findings concerning for potential abscess or phlegmon at the lumbosacral junction. Therefore, we will plan to repeat an MRI today. 2. Acute hypoxemic respiratory failure secondary to MRSA pneumonia Continue current supportive measures as noted above. Recommend waiting to aggressively wean the patient from mechanical ventilation until copious sputum production begins to decrease. Continue Precedex and fentanyl for sedation. Continue tube feeds along with appropriate ICU prophylaxis. 3. Toxic encephalopathy secondary to polysubstance abuse and alcohol withdrawal The patient remains on stable ventilator settings with appropriate gas exchange. Although the patient does have a history of polysubstance abuse, he is past the window for withdrawal symptoms at the current time. 4. Hypertensive urgency Blood pressures are currently under control. Continue beta-sarmad per cardiology recommendations. 5. Inadequate material resources/poor social support Complicates care, management, recovery and prognosis. The patient reportedly has a daughter, who resides in [place]. TIME: 38 minutes of critical care time, independent of procedures, was spent addressing the patient's severe sepsis secondary to MRSA pneumonia and persistent staph bacteremia, acute hypoxic respiratory failure, toxic encephalopathy, hypertensive urgency, review of all data and collaboration with the care team. ([id number]) Code Visit [id number]: [id number] Critical care first hour
[2017-12-30 06:39] LABS: Differential Indicated SCAN CRITERIA MET; POSITIVE COUNT NO; POSITIVE DIFFERENTIAL NO; POSITIVE MORPHOLOGY YES
[2017-12-30 06:47] LABS: Differential Comment SCANNED
[2017-12-30] MEDS: Ipratropium/Albuterol Sulfate 3 ML AMPUL.NEB INHALATION ×2 (07:31→13:40)
[2017-12-30] MEDS: Chlorhexidine 15 ML PO (08:44)
[2017-12-30] MEDS: Carvedilol 6.25 MG Tablet GT (08:47)
[2017-12-30] MEDS: Enoxaparin 80 MG/0.8 ML Syringe SC (08:47)
[2017-12-30] MEDS: Acetaminophen 650 MG/20 ML UDC GT ×2 (08:48→12:56)
--- NOTE | 2017-12-30 09:56 | PN_ITS ---
Patient Problems: Active and Suspected Problems Acute hypoxic respiratory failure (Acute) Polysubstance (including opioids) dependence, daily use (Acute) Methamphetamine abuse (Acute) Severe sepsis (Acute) Bilateral community acquired pneumonia (Acute) Alcohol withdrawal (Acute) Non-STEMI (non-ST elevated myocardial infarction) (Acute) Subjective: Chief complaint: Follow-up after admission for septic shock secondary to MRSA bilateral community-acquired pneumonia complicated by acute hypoxic respiratory failure, persistent MRSA bacteremia and toxic encephalopathy and also found to have acute non-ST elevation WI. Patient seen and examined. He continued to be febrile, maximum temperature overnight was 130 Fahrenheit. Blood pressure and heart rate are maintained. Patient getting agitated upon weaning of sedation. Again, another blood culture from yesterday is still positive. CT scan chest with contrast performed yesterday and revealed bilateral patchy airspace consolidation with cavitary and non-cavitary nodules. Patient does have pneumonia already. CT scan abdomen and pelvis with contrast revealed ill-defined low-attenuation lesion at the lumbosacral junction. - Physical Exam General: - - Sedated, intubated on mechanical ventilation. HEENT: Atraumatic, PERRLA, EOMI, Normocephalic Oral: Moist Mucosa, No Gingival or Mucosal Lesions/ Ulcerations Neck: Supple, No JVD, Negative Carotid Bruits, Trachea Midline, Thyroid Normal Size and Texture Lungs: No wheeze, No rales, Diminished, Rhonchi Cardiovascular: Regular rate, Regular Rhythm, Normal S1, Normal S2, PMI Normal Abdomen: Bowel Sounds Present, Soft, Non Tender, Non-Distended, No Hepato- splenomegaly Extremities: No clubbing, No cyanosis, Edema - Trace edema. Skin: No rashes, No breakdown Lymphatic: No Cervical, Supraclavicular, or Inguinal Adenopathy Neurological: - - Sedated, unable to assess. Psych/Mental Status: - - Sedated, unable to assess. Vital Signs Temp Pulse Resp BP Pulse Ox 101.1 F H 72 24 H 113/71 98 12/30/17 08:00 12/30/17 08:00 12/30/17 08:00 12/30/17 08:00 12/30/17 08:00 Oxygen Flow Rate (L/min) 35 Oxygen Delivery Method Mechanical Ventilator Weight: 221 lb 1.978 oz Body Mass Index (BMI) 27.9 Intake and Output for Last 24 Hours 12/28/17 12/29/17 12/30/17 23:59 23:59 23:59 Intake Total 3397 / 3397 4446.1 / 4446.1 1606.7 / 1606.7 Output Total 2750 / 2750 2250 / 2250 550 / 550 Balance 647 / 647 2196.1 / 2196.1 1056.7 / 1056.7 Microbiology Past 72 Hours 12/29/17 12:45 Blood Culture - Preliminary Blood Culture (Wb) - No Site/Description Given 12/29/17 15:25 C. difficile DNA Amplification - Final Stool 12/27/17 06:40 Gram Stain - Final Sputum, Induced/Lukens Respiratory Culture - Final Meth. resistant Staph. aureus Enterobacter cloacae complex 12/27/17 14:55 Blood Culture - Preliminary Blood Culture (Wb) - Right Wrist Staphylococcus aureus 12/26/17 06:50 Blood Culture - Preliminary Blood Culture (Wb) - Right Forearm Staphylococcus aureus 12/27/17 15:05 Blood Culture - Preliminary Blood Culture (Wb) - Right Wrist Staphylococcus aureus 12/26/17 07:00 Blood Culture - Preliminary Blood Culture (Wb) - Left Wrist Meth. resistant Staph. aureus 12/23/17 13:25 Blood Culture - Final Blood Culture (Wb) - Venous Staphylococcus aureus 12/23/17 13:20 Blood Culture - Final Blood Culture (Wb) - Venous Staphylococcus aureus 12/22/17 11:25 Bacteria Detection (PCR) - Final Blood Culture (Wb) - Left Wrist Staphylococcus aureus mecA Resistance Marker Blood Culture - Final Gram Positive Cocci 12/22/17 11:40 Blood Culture - Final Blood Culture (Wb) - Left Forearm Gram Positive Cocci 12/25/17 03:45 Blood Culture - Preliminary Blood Culture (Wb) - Anticubital Left 12/25/17 03:35 Blood Culture - Preliminary Blood Culture (Wb) - Anticubital Right 12/24/17 14:50 Blood Culture - Preliminary Blood Culture (Wb) - Left Wrist Meth. resistant Staph. aureus Laboratory Tests Past 24 Hrs 12/29/17 12/29/17 12/30/17 04:10 04:10 04:20 WBC 14.3 H 14.0 H RBC 3.12 L 2.94 L Hgb 9.1 L 8.5 L Hct 28.1 L 26.6 L MCV 90.1 90.5 MCH 29.2 28.9 MCHC 32.4 32.0 RDW 15.1 H 14.8 H RDW Differential 49.4 H 49.3 H Plt Count 306 326 MPV 12.2 H 12.1 H Immature Gran % (Auto) 0.600 0.600 Neut % (Auto) 80.6 H 82.4 H Lymph % (Auto) 12.8 L 11.8 L Whitley % (Auto) 5.2 4.7 Eos % (Auto) 0.6 0.4 Baso % (Auto) 0.2 0.1 Absolute Neuts (auto) 11.6 H 11.5 H Absolute Lymphs (auto) 1.84 1.64 Total Counted Not Reportable Not Reportable Differential Comment SCANNED Platelet Estimate ADEQUATE Plt Morphology Comment LARGE Hypochromasia 1+ Sodium 148 H Potassium 4.0 Chloride 108 H Carbon Dioxide 33.0 H Anion Gap 7 BUN 29 H Creatinine 0.75 Estim Creat Clear Calc 120.45 Est GFR (MDRD) Af Amer 143 Est GFR (MDRD) Non-Af 118 BUN/Creatinine Ratio 38.9 H Glucose 204 H Calcium 7.5 L 12/30/17 04:20 WBC RBC Hgb Hct MCV MCH MCHC RDW RDW Differential Plt Count MPV Immature Gran % (Auto) Neut % (Auto) Lymph % (Auto) Whitley % (Auto) Eos % (Auto) Baso % (Auto) Absolute Neuts (auto) Absolute Lymphs (auto) Total Counted Differential Comment Platelet Estimate Plt Morphology Comment Hypochromasia Sodium 148 H Potassium 4.4 Chloride 109 H Carbon Dioxide 32.0 Anion Gap 7 BUN 27 H Creatinine 0.82 Estim Creat Clear Calc 110.17 Est GFR (MDRD) Af Amer 129 Est GFR (MDRD) Non-Af 106 BUN/Creatinine Ratio 33.0 H Glucose 171 H Calcium 7.3 L POC Glucose 12/30/17 12/29/17 12/29/17 05:56 23:26 16:20 POC Glucose 200 H 167 H 123 H Clinical Impression(s) from Imaging Studies Abdomen/Pelvis CT 12/29/17 08:29 IMPRESSION: Bilateral pleural effusions and compressive atelectasis as well as airspace disease in the lung bases with associated cavitary nodules of varying sizes. Differential considerations include septic emboli or metastatic disease. Heterogeneous ill-defined low-attenuation in the lumbosacral junction which appears larger than previous examination involving the prevertebral space. Phlegmonous changes or abscess is not excluded. Please consider MRI examination of the lumbosacral region with and without IV contrast. Borderline-enlarged retroperitoneal lymph nodes also seen. Body wall edema. Redemonstration of dilatation of the ascending colon as well as the transverse colon. Nasogastric tube with its tip in the stomach Please note iliac or femoral vein thrombosis cannot be excluded from this examination. CT venogram provides better assessment. Chest CT 12/29/17 08:29 IMPRESSION: Bilateral patchy airspace consolidation as well as cavitary and noncavitary nodules of varying sizes. Differential considerations include septic emboli or metastatic disease. Other differential possibilities include inflammatory etiology. Overall findings have signal void worsened since previous exam. Loculated bilateral pleural effusions not seen on previous exam. Medical Necessity - Tobacco Use Smoking Status: Current every day smoker Tobacco Use: Cigarettes Assessment/Plan All Active Problems Acute hypoxic respiratory failure (Acute) Polysubstance (including opioids) dependence, daily use (Acute) Methamphetamine abuse (Acute) Severe sepsis (Acute) Bilateral community acquired pneumonia (Acute) Alcohol withdrawal (Acute) Non-STEMI (non-ST elevated myocardial infarction) (Acute) This is a 47 years old presented to the emergency room with main presenting complaint of back pain and he was admitted as a case of community-acquired pneumonia with septic shock by criteria as well as alcohol withdrawal and his hospital course complicated by acute hypoxic respiratory failure required endotracheal intubation and mechanical ventilation as well as persistent MRSA bacteremia, toxic encephalopathy and hypertensive urgency. #1 septic shock: Secondary to pneumonia and bacteremia, other sources of infection cannot be ruled out. He is on day 3 of Telavancin. He still having spikes of high-grade fever and his blood cultures has been persistently positive. Blood pressure and heart rate stable, remained on mechanical ventilation. Infectious disease and critical care on the case. CT scan chest and CT scan abdomen and pelvis that was performed yesterday reviewed, findings noted as above. Plan for MRI lumbar spine today. #2 acute bilateral MRSA community-acquired pneumonia: He is on IV telavancin. Sputum culture revealed MRSA. Pneumococcal and Legionella antigen were negative. Blood cultures from 8 different days are still positive. His blood pressure maintained on fluids, no vasopressors needed. Plan as above. #3 acute hypoxic respiratory failure: Secondary to above. Remains on mechanical ventilation and sedation. He is on propofol and fentanyl for sedation. Again, he is agitated upon weaning of sedation. No plan for extubation today. #4 persistent MRSA bacteremia: Persistent bacteremia on multiple repeat blood cultures on 8 different days are still positive. Probable source is the pneumonia but it has been persistent with persistent fever, other sources cannot be ruled out. He is on IV telavancin. Also, he is on therapeutic Lovenox twice daily for possible septic emboli or pulmonary emboli. CT scan chest with contrast that was performed yesterday reviewed and revealed bilateral patchy airspace consolidation with cavitary and non-cavitary nodules. We are aware patient already have pneumonia. CT scan abdomen and pelvis with contrast revealed ill-defined low-attenuation lesion in the lumbosacral junction. Patient had MRI lumbar spine on December 23, 2017 that revealed severe L5-S1 foraminal stenosis, mild canal stenosis of L4-L5 and noncompressive protrusions at T12-L1 and L1-L2 but there was no evidence of spinal abscess. Plan to continue IV antibiotics, MRI lumbar spine again today. #5 non-ST elevation WI: This is likely due to demand ischemia secondary to above. 2D echocardiogram revealed ejection fraction of 50-55% as above. Cardiology on the case. Patient is on Coreg, therapeutic Lovenox twice daily. CT scan abdomen and pelvis #6 toxic encephalopathy: Attributed to pneumonia, septic shock as well as polysubstance abuse and alcohol withdrawal. patient is remained on sedation. CT scan brain done on admission and showed no acute findings. #7 polysubstance abuse/alcohol withdrawal: Urine drug screen on admission was positive for opioids, amphetamines and cannabinoids. Blood alcohol level was 11. Patient is on propofol for sedation, on folic acid and thiamine supplement through the GT tube. #8 hypertensive urgency: This morning, blood pressure under better control. He is on IV metoprolol as needed and Coreg twice daily through GT tube. #9 DVT prophylaxis: He is on Lovenox therapeutic dose twice daily. This note was generated with [employer] dictation software. It may contain incorrect words, spelling, and punctuation that were not noted in checking the note before signing. Code Visit Inpatient E&M: 74056 Subs Hosp L3
--- NOTE | 2017-12-30 10:25 | CPS ---
Patient transported to MRI placed on MRI vent for procedure.
[2017-12-30 12:51] LABS: Bedside Glucose 154 mg/dL (70-110)
[2017-12-30] MEDS: Propofol 10MG/Ml 1,000 MG/100 ML Bottle 2.919 MG CONT INF (12:52)
[2017-12-30] MEDS: fentaNYL 100 MCG/2 ML Ampul 50 MCG IV (12:53)
[2017-12-30] MEDS: Famotidine 20 MG Tablet GT (12:54)
[2017-12-30] MEDS: CHLORHEXIDINE GLUC 2% CLOTH 1 EACH TOWELETTE TOPICAL (12:54)
[2017-12-30] MEDS: Midazolam 2 MG/2 ML Syringe IV ×2 (14:33)
--- NOTE | 2017-12-31 10:37 | PCM.DC.SUM ---
Discharge Date and Diagnosis Date of Admission: 12/20/17 Date of Discharge: 12/30/17 - Primary Discharge Diagnosis #1 L3-S3 epidural abscess. #2 septic shock. #3 persistent MRSA bacteremia. #4 acute bilateral MRSA community-acquired pneumonia. #5 acute hypoxic respiratory failure. #6 non-ST elevation NE. #7 toxic encephalopathy. #8 polysubstance abuse/alcohol withdrawal. Hospital Course and Treatment Imaging Results: Clinical Impression(s) from Imaging Studies Chest X-Ray 12/20/17 18:00 IMPRESSION: Patchy airspace opacities bilaterally which is likely infectious in etiology. Electronically Signed: Khadar Reardon, at 19:16 EDT Tel , Service support , Abdomen/Pelvis CT 12/20/17 18:10 IMPRESSION: There are degenerative changes in the visualized spine. There are disc herniations at T12-L1 and L1-2 with narrowing of the spinal canal. There is disc bulge and possible herniation at L3-4. There is diffuse fatty infiltration of the liver. There is mild splenomegaly. There is no ascites. There are no acute bowel abnormalities. There is no free air. There are small lymph nodes in the retroperitoneum. There is stranding around the distal aorta and iliac vessels. There is also stranding in the prevascular space. This can be seen with retroperitoneal fibrosis but is nonspecific. There are patchy airspace opacities scattered in both lung bases which are nonspecific and can be seen with a diffuse infectious process. A neoplastic process is also in the differential. There is no pleural effusion. The images are limited by motion artifact. Electronically Signed: Celena Ziegler MD at 20:09 EDT Tel Direct: [phone], Service support , Chest CTA 12/20/17 21:08 IMPRESSION: Distal pulmonary emboli cannot be excluded, especially in the right upper and lower lobes. The images are limited by motion artifact. There are patchy airspace opacities scattered throughout both lungs, likely a diffuse infectious process. Septic emboli cannot be excluded. A neoplastic process cannot be completely excluded but is less likely. There is no pleural effusion or significant lymphadenopathy. N.B. : The above information has been verbally conveyed by Celena Ziegler MD to Tatiana Arizmendi, [facility]- In-Patient RN, on 12/20/2017 22:48:42 (ET). Electronically Signed: Celena Ziegler MD at 22:33 EDT Tel Direct: [phone], Service support , Brain CT 12/20/17 21:32 IMPRESSION: No acute intracranial abnormality. Electronically Signed: Khadar Reardon, at 22:07 EDT Tel , Service support , Chest X-Ray 12/21/17 04:00 IMPRESSION: Worsening of bilateral nodular airspace disease most pronounced along the right upper lung periphery. This may represent a focal pneumonia, etiology such as emboli or neoplasm are not excluded. Electronically Signed: Vanna Briones MD at 6:49 EDT , Service support , Chest X-Ray 12/22/17 04:10 IMPRESSION: Mild worsening of bilateral lung masses and nodules. Considerations include septic emboli, metastatic disease or less likely multiple pneumonias. Electronically Signed: Celestine Madrid MD at 4:57 EDT , Service support , Chest X-Ray 12/22/17 08:20 IMPRESSION: 1. Appropriate positioning of endotracheal and enteric tubes. 2. Unchanged appearance of multiple pulmonary nodules and/or airspace consolidation. Electronically Signed: Sherice Leahy MD at 9:39 EDT , Service support , Lumbar Spine MRI 12/23/17 13:21 IMPRESSION: 1. Severe L5-S1 foraminal stenosis with a small disc protrusion contributory on the right. 2. Mild canal stenosis and moderate foraminal stenosis at L4-5. 3. Noncompressive spondylotic protrusions at T12-L1 and L1-2. Electronically Signed: Avis Metz MD at 16:43 EDT Tel , Service support , KUB X-Ray 12/23/17 13:50 IMPRESSION: Orogastric tube tip within the gastric fundus. Stable bilateral pulmonary infiltrates. Electronically Signed: Nehemiah Hicks at 14:57 EDT Tel , Service support , Chest X-Ray 12/25/17 06:52 IMPRESSION: Since prior study, there has been a progression of the bilateral pulmonary infiltrates. Electronically Signed: Buddy Tsai MD at 9:08 EDT Tel [phone], Service support , Chest X-Ray 12/26/17 16:40 IMPRESSION: Stable cardiopulmonary abnormalities. The endotracheal tube tip is positioned about 1.6 cm above the sweetie. Electronically Signed: Nehemiah Hicks, at 17:56 EDT Tel , Service support , Abdomen/Pelvis CT 12/29/17 08:[address] 12/29/17 08:29 Lumbar Spine MRI 12/30/17 07:01 IMPRESSION: Epidural collections at L3-S3, worrisome for epidural abscess. N.B. : The above information has been verbally conveyed by Tam Al MD to ALEKS AWAD on 12/30/2017 12:24:16 (ET). Electronically Signed: Tam Al MD at 12:25 EDT Tel , Service support , Consultations 12/29/17 06:05 Consult: Onc/Wound/harp action assembler Routine Comment: Reason for Consult:: right heel has open area of concern Dr. Holloway status Dr. Awad, critical care. Dr. Burks, infectious disease. Dr. Merida, cardiology. Procedures: 2-D Echocardiogram, EKG, Intubation, Transesophageal Echo Summary of Care Provided: This is a 47 years old presented to the emergency room with main presenting complaint of back pain, found to have septic shock secondary to acute bilateral MRSA community-acquired pneumonia, hospital course complicated by acute hypoxic respiratory failure that required endotracheal intubation and mechanical ventilation, later found to have persistent MRSA bacteremia as well as acute non-ST elevation NE, toxic encephalopathy and finally, he was found to have L3 S3 epidural abscess for which he was transferred to [facility] for further treatment. #1 septic shock: Secondary to pneumonia, bacteremia and epidural abscess. Patient was admitted to intensive care unit, treated with broad-spectrum antibiotics including IV vancomycin and Zosyn, found to have bilateral infiltrates as well as probable septic emboli on CTA chest and also was treated with therapeutic Lovenox twice daily. Patient was found to have persistent MRSA bacteremia and in spite of 10 days of treatment with IV vancomycin, he continued to have positive blood cultures and high-grade fever. On repeat MRI of the lumbar spine that was done on the day of transfer, he was found to have L3 S3 epidural abscess for which he was transferred to [facility] for further treatment. #2 acute bilateral MRSA community-acquired pneumonia: Treated with IV vancomycin for 10 days and 3 days of IV telavancin. Sputum culture revealed MRSA. Pneumococcal and Legionella antigen were negative. Blood cultures from 8 different days remain positive for MRSA. #3 acute hypoxic respiratory failure: Secondary to above. Required mechanical ventilation and sedation. Patient was intubated and started on mechanical ventilation on the third day post admission and remained on mechanical ventilation at the time of transfer. #4 persistent MRSA bacteremia: Source of bacteremia is MRSA pneumonia as well as probably the L3 history epidural abscess. Patient remained on IV vancomycin for 10 days and then was transitioned to IV telavancin. In spite of this change, blood cultures remain positive and patient remains febrile. Extensive workup was done for bacteremia including 2D echocardiogram, JOSE, CT scan abdomen and pelvis, MRI lumbar spine which were unremarkable. CT scan abdomen and pelvis repeated and revealed questionable lesion at the lumbosacral junction for which MRI lumbar spine repeated again and revealed L3 S3 epidural abscess. Persistent bacteremia on multiple repeat blood cultures on 8 different days are still positive. Patient transferred to [facility] for further treatment mainly regarding the epidural abscess that require neurosurgical intervention. #5 non-ST elevation NE: This is likely due to demand ischemia secondary to above. 2D echocardiogram revealed ejection fraction of 50-55% as above. Cardiology on the case. Treated with Coreg, therapeutic Lovenox twice daily. #6 toxic encephalopathy: Attributed to pneumonia, septic shock as well as polysubstance abuse and alcohol withdrawal. patient is remained on sedation. CT scan brain done on admission and showed no acute findings. #7 polysubstance abuse/alcohol withdrawal: Urine drug screen on admission was positive for opioids, amphetamines and cannabinoids. Patient was transferred to [facility] by movement ICU, on mechanical ventilation for persistent bacteremia due to L3 S3 epidural abscess for neurosurgical evaluation and treatment as well as bacteremia secondary to MRSA pneumonia, acute hypoxic respiratory failure and acute non-ST elevation NE. This note was generated with [employer] dictation software. It may contain incorrect words, spelling, and punctuation that were not noted in checking the note before signing. Home Medications: Medications to take at Discharge NK [NK] 12/08/17 Primary Care Physician: Care Physician,No Primary [Primary Care Provider] - Disposition: Acute care Hospital Minutes spent on discharge:: 40 Patient Condition:: Guarded Medical Necessity - Tobacco Use Smoking Status: Current every day smoker Tobacco Use: Cigarettes Meaningful Use Info Meaningful Use Diagnoses (Choose all that apply): None applicable Code Visit Inpatient E&M: 84616 Disch Hosp
[2017-12-31 15:42] LABS: Pathologist Review Reviewed
== END 2017-12-30 17:15 | disposition short-term general hospital (02) | DRG 416 ==
LOC: ED 16:38 → ICU 21:09
PROVIDERS: Internal Medicine; Internal Medicine Cardiovascular Disease; Internal Medicine Critical Care Medicine; Internal Medicine Infectious Disease; Admitting Provider Internal Medicine; Emergency Provider Emergency Medicine; Visit Provider Hospitalist
DX: A41.02 Sepsis due to Methicillin resistant Staphylococcus aureus (principal); J96.01 Acute respiratory failure with hypoxia; R65.21 Severe sepsis with septic shock; J15.212 Pneumonia due to Methicillin resistant Staphylococcus aureus; G06.1 Intraspinal abscess and granuloma; I26.90 Septic pulmonary embolism without acute cor pulmonale; I21.A1 Myocardial infarction type 2; B18.1 Chronic viral hepatitis B without delta-agent; F10.231 Alcohol dependence with withdrawal delirium; G92 Toxic encephalopathy; Z59.0 Homelessness; F17.210 Nicotine dependence, cigarettes, uncomplicated; Y90.0 Blood alcohol level of less than 20 mg/100 ml; F19.10 Other psychoactive substance abuse, uncomplicated
CPT/HCPCS: 31500; 31720; 36415; 36600; 51702; 70450; 71045; 71046; 71260; 71275; 72158; 74018; 74176; 74177; 80048; 80053; 80061; 80074; 80076; 80202; 80307; 80320; 81001; 82550; 82803; 82962; 83605; 83615; 83690; 83735; 84100; 84478; 84484; 85025; 85027; 85379; 85610; 86703; 87040; 87070; 87077; 87086; 87088; 87149; 87186; 87205; 87449; 87493; 87633; 87641; 93005; 93306; 93312; 93320; 93325; 93970; 94002; 94003; 94640; 94660; 95831; 97110; 97140; 97163; 97166; 97530; 97802; 97803; 99251; 99285; 99406; A9585; J7030; J7040; J7050; Q9957; Q9967; A4216; G0463; G0480; J1940; J2405; J3095; J7799